=== PATIENT | female | born 1950 | race American Indian/Alaskan Native ===

== ENCOUNTER 2017-01-01 00:05 | Inpatient (IN) | payer MEDICARE, MEDICAID, OTHER ==
--- NOTE | 2017-01-01 01:09 | ED PDOC ---
Arrival/HPI - General Time Seen by Provider: 01/01/17 00:39 Historian: Patient - History of Present Illness Narrative History of Present Illness (Text): 01/01/17 01:08 Alisha Addison is a 66 year old female, whose past medical history includes diabetes, hepatitis C, hypertension, PUD positive for H. pylori, deaf/mute, and DKA, who presents to the Emergency department complaining of abdominal pain for the past 3 days. Patient reports associated nausea with 4 episodes of vomiting at home. Patient denies any fever, chills, chest pain, shortness of breath, diarrhea, urinary symptoms, back pain, neck pain, headache, dizziness, or any other complaints. Time/Duration: < week (3 days) Symptom Onset: Gradual Symptom Course: Unchanged Activities at Onset: Rest, Light Context: Home Past Medical History - Provider Review Nursing Documentation Reviewed: Yes - Infectious Disease Hx of Infectious Diseases: None - Tetanus Immunization Tetanus Immunization: Unknown - Cardiac Hx Cardiac Disorders: Yes Hx Hypertension: Yes - Pulmonary Hx Asthma: Yes Hx Chronic Obstructive Pulmonary Disease (COPD): No - Neurological HX Cerebrovascular Accident: No - HEENT Hx HEENT Disorder: Yes (deaf mute) Hx Cataracts: (pt denies cataracts and sx) Hx Deafness: Yes - Renal Hx Renal Failure: No - Endocrine/Metabolic Hx Diabetes Mellitus Type 1: No Hx Diabetes Mellitus Type 2: Yes - Hematological/Oncological Hx Blood Disorders: No Hx Cancer: No - Integumentary Hx Dermatological Disorder: Yes Other/Comment: dry flakey skin to both feet, multiple dark brown skin discolorations ble - Musculoskeletal/Rheumatological Hx Arthritis: No Hx Rheumatoid Arthritis: No - Gastrointestinal Hx Gastrointestinal Disorders: No Hx Gastroesophageal Reflux: No - Genitourinary/Gynecological Hx Genitourinary Disorders: No - Psychiatric Hx Psychophysiologic Disorder: No Hx Depression: No Hx Emotional Abuse: No Hx Physical Abuse: No Hx Substance Use: No - Past Surgical History Past Surgical History: No Previous - Surgical History Other/Comment: "Abdominal Surgery" - Anesthesia Hx Anesthesia: No - Suicidal Assessment Feels Threatened In Home Enviroment: No Family/Social History - Physician Review Nursing Documentation Reviewed: Yes Family/Social History: No Known Family HX Smoking Status: Unknown If Ever Smoked Hx Alcohol Use: No Hx Substance Use: No Hx Substance Use Treatment: No Allergies/Home Meds Allergies/Adverse Reactions: Allergies No Known Allergies Allergy (Verified 08/25/16 07:44) Review of Systems - Physician Review All systems were reviewed & negative as marked: Yes - Review of Systems Constitutional: Normal. absent: Fevers Eyes: Normal ENT: Normal Respiratory: Normal. absent: SOB, Cough Cardiovascular: Normal. absent: Chest Pain Gastrointestinal: Abdominal Pain, Nausea, Vomiting. absent: Diarrhea Genitourinary Female: Normal. absent: Dysuria, Frequency, Hematuria, Urine Output Changes Musculoskeletal: Normal. absent: Back Pain, Neck Pain Skin: Normal. absent: Rash Neurological: Normal. absent: Headache, Dizziness Endocrine: Normal Hemo/Lymphatic: Normal Psychiatric: Normal Physical Exam Vital Signs Reviewed: Yes Vital Signs Temp Pulse Resp BP Pulse Ox 01/01/17 03:08 97.9 F 112 H 16 116/79 98 01/01/17 02:40 98.5 F 126 H 16 137/92 H 97 01/01/17 01:56 110 H 16 98 01/01/17 01:18 141 H 16 99/54 L 98 Temperature: Afebrile Blood Pressure: Normal Pulse: Regular Respiratory Rate: Normal Appearance: Positive for: Well-Appearing, Non-Toxic, Comfortable Pain Distress: None Mental Status: Positive for: Alert and Oriented X 3 - Systems Exam Head: Present: Atraumatic, Normocephalic Pupils: Present: PERRL Extroacular Muscles: Present: EOMI Conjunctiva: Present: Normal Mouth: Present: Dry Neck: Present: Normal Range of Motion Respiratory/Chest: Present: Clear to Auscultation, Good Air Exchange. No: Respiratory Distress, Accessory Muscle Use Cardiovascular: Present: Regular Rate and Rhythm, Normal S1, S2. No: Murmurs Abdomen: Present: Normal Bowel Sounds. No: Tenderness, Distention, Peritoneal Signs Back: Present: Normal Inspection Upper Extremity: Present: Normal Inspection. No: Cyanosis, Edema Lower Extremity: Present: Normal Inspection. No: Edema Neurological: Present: GCS=15, CN II-XII Intact, Speech Normal Skin: Present: Warm, Dry, Normal Color. No: Rashes Psychiatric: Present: Alert, Oriented x 3, Normal Insight, Normal Concentration Medical Decision Making ED Course and Treatment: 01/01/17 01:08 Impression:r 66 year old female complaining of abdominal pain, nausea, and 4 episodes of vomiting for 3 days. Differential Diagnosis include but are not limited to: DKA vs. uncontrolled diabetes vs. diabetic gastroparesis Plan: -- EKG -- Chest X-ray -- Labs, cardiac enzymes, lipase, VBG -- IV fluids -- Reassess and disposition Prior Visits: Notes and results from previous visits were reviewed. Progress Notes: Reviewed radiology, sinus tachycardia at 143 bpm.. Non-specific ST/T wave changes 01/01/17 02:08 Reviewed labs, lactate: 2.4, glucose: 544, ph:7.31. Will order insulin drip. Case discussed with medical accounts receivable specialist svp research & ebusiness operations, who is aware and agrees with plan. Activated Sludge Operator paged. Case discussed with Dr. Calloway, litigation manager, who is aware and agrees with plan. Pt will be admitted to ICU for DKA under the hospitalist service. 01/01/17 02:13 Reviewed radiology, Chest X-ray shows no active disease. - Critical Care Critical Care Minutes: 30 minutes - Lab Interpretations Lab Results: 01/01/17 01:38 01/01/17 01:38 Lab Results 01/01/17 01:38: WBC 8.0 D, RBC 5.65, Hgb 15.5, Hct 45.6, MCV 80.7, MCH 27.4, MCHC 34.0, RDW 12.9, Plt Count 153, MPV 12.5 H, PT 11.3, INR 1.05, APTT 21.2 L, pO2 49, VBG pH 7.31 L, VBG pCO2 43.0, VBG HCO3 21.7, VBG Total CO2 23.0, VBG O2 Sat (Calc) 84.3 H, VBG Base Excess -4.5 L, VBG Potassium 5.2, Glucose 544 H*, Lactate 2.4 H, FiO2 21.0, Sodium 134.0, Potassium 5.7 H* D, Chloride 94.0 L, Carbon Dioxide 20 L, Anion Gap 24 H, BUN 54 H, Creatinine 1.2, Est GFR ( Amer) 55, Est GFR (Non-Af Amer) 45, Random Glucose 517 H* D, Calcium 10.0, Phosphorus 5.4 H, Magnesium 2.4 H, Total Bilirubin 1.2, AST 38, ALT 75 H, Alkaline Phosphatase 75, Lactate Dehydrogenase 578, Total Creatine Kinase 38, Troponin I 0.02 D, Total Protein 8.9 H, Albumin 4.1, Globulin 4.8, Albumin/ Globulin Ratio 0.9 L, Lipase 110, Venous Blood Potassium 5.2 01/01/17 01:12: POC Glucose (mg/dL) 468 H* I have reviewed the lab results: Yes - RAD Interpretation Narrative RAD Interpretations (Text): Chest X-ray shows no active disease. Radiology Orders: 01/01/17 01:23 CHEST PORTABLE [RAD] Stat Television Parts Tester: ED Physician - EKG Interpretation Interpreted by ED Physician: Yes Type: 12 lead EKG - Medication Orders Current Medication Orders: Enoxaparin Sodium (Lovenox) 40 mg SC DAILY BREEZY PRN Reason: Protocol Last Admin: 01/01/17 10:04 Dose: 40 MG Protocol for PTT Monitoring Document 01/01/17 10:04 MAR (Rec: 01/01/17 10:05 MAR [id number]) Protocol Protocol for PTT Monitoring Following clinical pathway protocol (regime/therapy) Subcutaneous Administrations Document 01/01/17 10:04 MAR (Rec: 01/01/17 10:05 MAR [id number]) Injection Site MAR Injection Site Left Deltoid Charges for Administration # of Subcutaneous Administrations 1 Glimepiride (Amaryl) 4 mg PO ACBD BREEZY Last Admin: 01/01/17 17:18 Dose: 4 MG Dextrose/Sodium Chloride (Dextrose 5%/0.45% Ns 1000 Ml) 1,000 mls @ 150 mls/hr IV .Q6H40M BREEZY Last Admin: 01/01/17 16:00 Dose: 150 MLS/HR eMAR Start Stop Document 01/01/17 16:00 MAR (Rec: 01/01/17 16:12 MAR [id number]) Intravenous Solution Start Date 01/01/17 Start Time 16:00 End Date 01/01/17 Ceftriaxone Sodium (Rocephin 1 Gram Ivpb) 100 mls @ 100 mls/hr IVPB DAILY BREEZY PRN Reason: Protocol Last Admin: 01/01/17 10:06 Dose: 100 MLS/HR eMAR Start Stop Document 01/01/17 10:06 MAR (Rec: 01/01/17 10:06 MAR [id number]) Intravenous Solution Start Date 01/01/17 Start Time 10:06 End Date 01/01/17 End time 11:06 Total Infusion Time 60 Insulin Detemir (Levemir) 14 unit SC HS [facility] Insulin Human Lispro (Humalog Low) 0 units SC ACHS [facility] PRN Reason: Protocol Last Admin: 01/01/17 17:17 Dose: Not Given Non-Admin Reason: Blood Sugar Parameter MAR Blood Glucose Document 01/01/17 17:17 [facility] (Rec: 01/01/17 17:17 [id number]) Blood Glucose Finger Stick Blood Glucose (70-120) 121 Subcutaneous Administrations Document 01/01/17 17:17 [facility] (Rec: 01/01/17 17:17 [id number]) Charges for Administration # of Subcutaneous Administrations 0 Lisinopril (Zestril) 10 mg PO DAILY [facility] Last Admin: 01/01/17 10:05 Dose: 10 MG [facility] Pulse and Blood Pressure Document 01/01/17 10:05 [facility] (Rec: 01/01/17 10:05 [id number]) Pulse Pulse Rate (60-90) 98 Blood Pressure Blood Pressure (100/60-150/90) 177/120 Ondansetron HCl (Zofran Inj) 4 mg IVP Q6H PRN PRN Reason: Nausea/Vomiting Discontinued Medications Sodium Chloride (Sodium Chloride 0.9%) 1,000 mls @ 2,000 mls/hr IV .Q30M ONE Stop: 01/01/17 01:55 Last Admin: 01/01/17 01:56 Dose: 2,000 MLS/HR eMAR Start Stop Document 01/01/17 01:56 [email or web address] (Rec: 01/01/17 01:56 [email or web address] [id number] Intravenous Solution Start Date 01/01/17 Start Time 01:56 End Date 01/01/17 Insulin Human Regular 100 (units/ Sodium Chloride) 100 mls @ 8 mls/hr IV .[id number] PRN; Protocol; 8 UNITS/HR PRN Reason: TITRATE PER MD ORDER Last Titration: 01/01/17 04:17 Dose: 1.5 UNITS/HR Titration Intervention Document 01/01/17 04:17 KAC (Rec: 01/01/17 04:17 KAC [id number]) Titration Dosing Titration Dose 1.5 IV Rate 1.5 Intake/Decrease Decrease Sodium Chloride (Sodium Chloride 0.9%) 1,000 mls @ 150 mls/hr IV .Q6H40M [facility] Last Admin: 01/01/17 03:34 Dose: 150 MLS/HR eMAR Start Stop Document 01/01/17 03:34 [email or web address] (Rec: 01/01/17 03:34 [facility]STS1 [id number]) Intravenous Solution Start Date 01/01/17 Start Time 03:34 Insulin Human Regular 100 (units/ Sodium Chloride) 100 mls @ 8 mls/hr IV .[id number] PRN; Protocol; 8 UNITS/HR PRN Reason: TITRATE PER MD ORDER Last Titration: 01/01/17 09:30 Dose: 2 UNITS/HR Titration Intervention Document 01/01/17 09:30 MAR (Rec: 01/01/17 10:02 MAR [id number]) Titration Dosing Titration Dose 2 IV Rate 2 Intake/Decrease Increase Insulin Detemir (Levemir) 10 unit SC Q12 BREEZY Last Admin: 01/01/17 10:05 Dose: 10 UNIT Subcutaneous Administrations Document 01/01/17 10:05 RADHAE (Rec: 01/01/17 10:05 MAR [id number]) Injection Site MAR Injection Site Right Deltoid Charges for Administration # of Subcutaneous Administrations 1 Insulin Human Lispro (Humalog Low) 0 units SC ACHS BREEZY PRN Reason: Protocol Insulin Human Regular (Humulin R) 10 units IVP STAT STA Stop: 01/01/17 02:08 Last Admin: 01/01/17 02:26 Dose: 10 UNITS IVP Administration Document 01/01/17 02:26 [email or web address] (Rec: 01/01/17 02:26 CASTS1 [id number] Charges for Administration # of IVP Administrations 1 - Scribe Statement The provider has reviewed the documentation as recorded by the George Solorzano Provider Attestation: All medical record entries made by the Savannahibquita were at my direction and personally dictated by me. I have reviewed the chart and agree that the record accurately reflects my personal performance of the history, physical exam, medical decision making, and the department course for this patient. I have also personally directed, reviewed, and agree with the discharge instructions and disposition. Disposition/Present on Arrival - Present on Arrival Any Indicators Present on Arrival: No History of DVT/PE: No History of Uncontrolled Diabetes: Yes Urinary Catheter: No History of Decub. Ulcer: No History Surgical Site Infection Following: None - Disposition Have Diagnosis and Disposition been Completed?: Yes Diagnosis: Diabetic ketoacidosis Disposition: HOSPITALIZED Disposition Time: 02:18 Patient Plan: Admission Patient Problems: Current Active Problems Problem Status Diagnosed Abdominal pain Acute Diabetic ketoacidosis Acute Condition: STABLE
[2017-01-01] MEDS ORDERED: Sodium Chloride 0.9% 1,000 ML IV ONE (01:26)
[2017-01-01 01:54] LABS: HEMATOCRIT 45.6 % (36.0-48.0); MEAN CELL VOLUME 80.7 fL (80.0-105.0); MEAN CORPUSCULAR HEMOGLOBIN 27.4 pg (25.0-35.0); MEAN PLATELET VOLUME 12.5 fl (7.0-11.0); RED CELL DISTRIBUTION WIDTH 12.9 % (11.5-14.5)
[2017-01-01 01:55] LABS: VENOUS BLOOD GAS BASE EXCESS -4.5 mmol/L (0.0-2.0); VENOUS BLOOD PH 7.31 (7.32-7.43)
[2017-01-01 02:03] LABS: INR 1.05 (0.93-1.08); PARTIAL THROMBOPLASTIN TIME 21.2 Seconds (23.7-30.8)
[2017-01-01 02:04] LABS: ALB/GLOB RATIO 0.9 (1.1-1.8); BILIRUBIN,TOTAL 1.2 mg/dL (0.2-1.3); TOTAL PROTEIN 8.9 g/dL (5.8-8.3)
[2017-01-01] MEDS ORDERED: Insulin Regular 1 UNITS/0.01 ML ML IVP STA (02:07)
[2017-01-01] MEDS ORDERED: Insulin Regular 100 UNITS in Sodium Chloride 0.9% 99 ML IV PRN ×2 (02:11→07:26)
[2017-01-01 02:15] LABS: TROPONIN I 0.02 ng/mL
[2017-01-01 02:18] LABS: POTASSIUM 5.7 mmol/L (3.6-5.0)
[2017-01-01] MEDS ORDERED: Sodium Chloride 0.9% 1,000 ML IV SCH (03:30)
[2017-01-01 03:35] LABS: MAGNESIUM 2.4 mg/dL (1.7-2.2)
--- NOTE | 2017-01-01 03:38 | CP.PCM.HP ---
History of Present Illness - History of Present Illness History of Present Illness: CC: Nausea and Vomiting x 4 days HPI: 66 y/o female known to myself from previous admissions with the PMHx Type 2 DM, PUD (h/o H. pylori), Hep C comes to the ED with a complaint of nausea and vomiting for the past 4 days. Patient also reports some cramping abdominal pain ; increased frequency of urination and occasional subjective chills. She denies any complaints of chest pain, palpitations, diarrhea, cough, light headedness or dizziness. She states that she does not take SQ insulin and also that she has been unable to keep her po medications down for her Diabetes secondary to her vomiting. When asked why she was not taking her insulin, she was not able to give an answer. Patient is deaf and mute, Video translation was used via the monitor in the ED. PMHx: as above Allergies: NKDA Fam Hx: reviewed and noncontributory Soc Hx: denies tobacco/etoh/illicit drug use; lives with a roomate here in [place] Meds: Levemir 20 units SQ Hs (patient is not taking this medication; chart was reviewed and she was given clear instructions in the past on the importance of her insulin regimen and adherence to it) Protonix 40mg po daily Zofran Glucerna bid Reglan 5mg po bid Lisinopril 2.5mg po daily Amaryl 4mg po bid Present on Admission - Present on Admission Any Indicators Present on Admission: Yes History of Uncontrolled Diabetes: Yes Review of Systems - Review of Systems Review of Systems: As per HPI otherwise negative for a 12 point review of systems Past Patient History - Infectious Disease Hx of Infectious Diseases: None - Tetanus Immunizations Tetanus Immunization: Unknown - Past Social History Smoking Status: Unknown If Ever Smoked - CARDIAC Hx Cardiac Disorders: Yes Hx Hypertension: Yes - PULMONARY Hx Asthma: Yes Hx Chronic Obstructive Pulmonary Disease (COPD): No - NEUROLOGICAL HX Cerebrovascular Accident: No - HEENT Hx HEENT Problems: Yes (deaf mute) Hx Cataracts: (pt denies cataracts and sx) Hx Deafness: Yes - RENAL Hx Renal Failure: No - ENDOCRINE/METABOLIC Hx Diabetes Mellitus Type 1: No Hx Diabetes Mellitus Type 2: Yes - HEMATOLOGICAL/ONCOLOGICAL Hx Blood Disorders: No Hx Cancer: No - INTEGUMENTARY Hx Dermatological Problems: Yes Other/Comment: dry flakey skin to both feet, multiple dark brown skin discolorations ble - MUSCULOSKELETAL/RHEUMATOLOGICAL Hx Arthritis: No Hx Rheumatoid Arthritis: No - GASTROINTESTINAL Hx Gastrointestinal Disorders: No Hx Gastroesophageal Reflux: No - GENITOURINARY/GYNECOLOGICAL Hx Genitourinary Disorders: No - PSYCHIATRIC Hx Psychophysiologic Disorder: No Hx Depression: No Hx Emotional Abuse: No Hx Physical Abuse: No Hx Substance Use: No - SURGICAL HISTORY Other/Comment: "Abdominal Surgery" - ANESTHESIA Hx Anesthesia: No Meds Allergies/Adverse Reactions: Allergies Allergy/AdvReac Type Severity Reaction Status Date / Time No Known Allergies Allergy Verified 08/25/16 07:44 Physical Exam - Constitutional Appears: Cachectic, Chronically Ill - Head Exam Head Exam: ATRAUMATIC, NORMOCEPHALIC - Eye Exam Eye Exam: EOMI - ENT Exam ENT Exam: Mucous Membranes Dry - Neck Exam Neck exam: Positive for: Full Rom - Respiratory Exam Respiratory Exam: Clear to Auscultation Bilateral, NORMAL BREATHING PATTERN. absent: Rhonchi, Wheezes - Cardiovascular Exam Cardiovascular Exam: Tachycardia, +S1, +S2 - GI/Abdominal Exam GI & Abdominal Exam: Hypoactive Bowel Sounds, Soft, Tenderness (diffusely tender abdomen; no rebound or gaurding noted). absent: Guarding, Rebound - Rectal Exam Rectal Exam: Deferred - Extremities Exam Extremities exam: Positive for: normal inspection. Negative for: calf tenderness - Neurological Exam Neurological exam: Alert, Oriented x3 - Psychiatric Exam Psychiatric exam: Flat Affect - Skin Skin Exam: Dry, Intact, Normal Color, Warm Results - Vital Signs Recent Vital Signs: Last Vital Signs Temp 97.9 F 01/01/17 03:08 Pulse 112 H 01/01/17 03:08 Resp 16 01/01/17 03:08 BP 116/79 01/01/17 03:08 Pulse Ox 98 01/01/17 03:08 - Labs Result Diagrams: 01/01/17 01:38 01/01/17 01:38 - EKG Data EKG Interpreted by: Myself EKG shows normal: Sinus rhythm Rate: Tachycardia (ST @ 143 bpm; right axis deviation; no significant ST elevations noted; no Twave inversions) - Imaging and Cardiology Chest x-ray Status: Image reviewed by me (no pleural effusions; hyperinflated; no clearly defined consolidation;minimal RLL opacity) Assessment & Plan - Assessment and Plan (Free Text) Assessment: 66 y/o female with a PMHx Uncontrolled DM, Hep C, PUD who presents to the ED with a 4 day history of nausea and vomiting and is found to have an elevated anion GAP metabolic acidosis suggestive of DKA. Plan: 1) DKA - will obtain urinalysis to evaluate for ketones; IVF hydration to complete 2L IVF bolus in the ED followed by 150cc/hr of normal saline; patient already started on an insulin drip by the ED; AG of 18; will perform Q1h fingersticks while on the insulin drip and Q4H bmp until she shows resolution of her AG acidosis. Patient will be kept NPO and given Zofran prn 2) DM - regimen will need to be adjusted based off of her insulin requirements while on the drip; I will defer to the daytime hospitalist team on whether to obtain an endocrine consultation or not. A1c recently checked and shows that her Diabetes is poorly controlled. (12.0 in July of last year). will repeat another A1c level this AM 3) PUD - will place her on IV protonix daily; transition to po once she is able to tolerate an oral diet after her gap closes 4) DVT ppx - will place her on Lovenox SQ daily
[2017-01-01 03:41] LABS: PHOSPHOROUS 5.4 mg/dL (2.5-4.5)
[2017-01-01 04:52] VITALS: BMI 19.1
[2017-01-01 06:02] LABS: BLOOD UREA NITROGEN 48 mg/dL (7-21); CALCIUM 9.2 mg/dL (8.4-10.5); CARBON DIOXIDE 21 mmol/L (21-33); CHLORIDE 107 mmol/L (98-107); GFR AFRICAN-AMERICAN > 60; GLUCOSE,RANDOM 126 mg/dL (70-110); SODIUM 141 mmol/L (132-148)
--- NOTE | 2017-01-01 07:12 | RAD ---
HISTORY: nausea COMPARISON: 08/25/2016 at 8:10 a.m. FINDINGS: LUNGS: No active pulmonary disease. PLEURA: No significant pleural effusion identified, no pneumothorax apparent. CARDIOVASCULAR: Normal. OSSEOUS STRUCTURES: Diffuse thoracic spondylosis VISUALIZED UPPER ABDOMEN: Normal. OTHER FINDINGS: None. IMPRESSION: No active disease.
[2017-01-01] MEDS: Dextrose 5%/0.45% NS 1,000 ML IV SCH ×3 (07:36→21:29)
[2017-01-01 08:28] LABS: PH,URINE 5.5 (4.7-8.0); URINE BILIRUBIN NEGATIVE (NEGATIVE); URINE BLOOD TRACE-INTACT (NEGATIVE); URINE GLUCOSE (UA) >=1000 mg/dL (NEGATIVE); URINE KETONE 15 mg/dL (NEGATIVE); URINE LEUKOCYTE ESTERASE SMALL Leu/uL (NEGATIVE); URINE PROTEIN TRACE mg/dL (<30 mg/dL); URINE UROBILINOGEN 0.2 E.U./dL (<1 E.U./dL)
[2017-01-01 08:34] LABS: URINE APPEARANCE SL CLOUDY (CLEAR); URINE COLOR YELLOW (YELLOW)
[2017-01-01 08:40] LABS: URINE BACTERIA MANY (NEG); URINE RBC 0 - 2 /hpf (0-2)
[2017-01-01] MEDS ORDERED: Insulin Detemir 100 units/ml Vial (Levemir) SC SCH ×2 (10:00→22:00)
[2017-01-01] MEDS: Enoxaparin 40 mg Syringe SC SCH (10:04)
[2017-01-01] MEDS: cefTRIAXone 1 gm 100 ML IVPB SCH (10:06)
[2017-01-01 11:00] LABS: BLOOD UREA NITROGEN 39 mg/dL (7-21); CALCIUM 9.1 mg/dL (8.4-10.5); CARBON DIOXIDE 26 mmol/L (21-33); CHLORIDE 104 mmol/L (95-110); GFR AFRICAN-AMERICAN > 60; GLUCOSE,RANDOM 192 mg/dL (70-110); POTASSIUM 3.8 mmol/L (3.6-5.0); SODIUM 141 mmol/L (132-148)
--- NOTE | 2017-01-01 12:31 | CP.CCUPN ---
CCU Subjective - Physician Review Events Since Last Encounter (Free Text): 01/01/17 12:24 No acute events overnight Remained on Insulin drip with closure of AG this morning. CCU Objective - Vital Signs / Intake & Output Vital Signs (Last 4 hours): Vital Signs Pulse BP 01/01/17 10:05 98 H 177/120 H Intake and Output (Last 8hrs): Intake & Output 12/31/16 01/01/17 01/01/17 22:59 06:59 14:59 Intake Total 300 Balance 300 Weight 98 lb Intake: IV 300 Right Forearm 300 - Physical Exam Head: Positive for: Atraumatic, Normocephalic Pupils: Positive for: PERRL Extroacular Muscles: Positive for: EOMI Conjunctiva: Positive for: Normal Mouth: Positive for: Moist Mucous Membranes, Dry Neck: Positive for: Normal Range of Motion Respiratory/Chest: Positive for: Clear to Auscultation, Good Air Exchange. Negative for: Respiratory Distress, Accessory Muscle Use Cardiovascular: Positive for: Regular Rate and Rhythm, Normal S1, S2. Negative for: Murmurs Abdomen: Positive for: Normal Bowel Sounds. Negative for: Tenderness, Distention, Peritoneal Signs Back: Positive for: Normal Inspection Upper Extremity: Positive for: Normal Inspection. Negative for: Cyanosis, Edema Lower Extremity: Positive for: Normal Inspection. Negative for: Edema Neurological: Positive for: GCS=15, CN II-XII Intact, Speech Normal Skin: Positive for: Warm, Dry, Normal Color. Negative for: Rashes Psychiatric: Positive for: Alert, Oriented x 3, Normal Insight, Normal Concentration - Medications Active Medications: Active Medications Generic Name Dose Route Start Last Admin Trade Name Zakq PRN Reason Stop Dose Admin Enoxaparin Sodium 40 mg 01/01/17 10:00 01/01/17 10:04 Lovenox SC 40 mg DAILY BREEZY Administration Protocol Dextrose/Sodium Chloride 1,000 mls @ 150 mls/hr 01/01/17 07:30 01/01/17 07:36 Dextrose 5%/0.45% Ns 1000 Ml IV 150 mls/hr .[id number] BREEZY Administration Ceftriaxone Sodium 100 mls @ 100 mls/hr 01/01/17 10:00 01/01/17 10:06 Rocephin 1 Gram Ivpb IVPB 100 mls/hr DAILY BREEZY Administration Protocol Insulin Detemir 10 unit 01/01/17 10:00 01/01/17 10:05 Levemir SC 10 unit Q12 BREEZY Administration Insulin Human Lispro 0 units 01/01/17 16:30 Humalog Low SC ACHS [facility] Protocol Lisinopril 10 mg 01/01/17 10:00 01/01/17 10:05 Zestril PO 10 mg DAILY BREEZY Administration Ondansetron HCl 4 mg 01/01/17 03:21 Zofran Inj IVP Q6H PRN Nausea/Vomiting - Patient Studies Lab Studies: Lab Studies 01/01/17 01/01/17 01/01/17 Range/Units 10:30 08:00 05:00 Sodium 141 141 (132-148) mmol/L Potassium 3.8 4.0 (3.6-5.0) mmol/L Chloride 104 107 (95-110) mmol/L Carbon Dioxide 26 21 (21-33) mmol/L Anion Gap 15 17 (10-20) BUN 39 H 48 H (7-21) mg/dL Creatinine 0.8 0.9 (0.5-1.4) mg/dL Est GFR ( Amer) > 60 > 60 Est GFR (Non-Af Amer) > 60 > 60 POC Glucose (mg/dL) (65-110) mg/dL Random Glucose 192 H 126 H (70-110) mg/dL Calcium 9.1 9.2 (8.4-10.5) mg/dL Urine Color Yellow (YELLOW) Urine Appearance Sl cloudy (CLEAR) Urine pH 5.5 (4.7-8.0) Ur Specific [place] 1.015 (1.005-1.035) Urine Protein Trace H (<30 mg/dL) mg/dL Urine Glucose (UA) >=1000 (NEGATIVE) mg/dL Urine Ketones 15 H (NEGATIVE) mg/dL Urine Blood Trace-intact H (NEGATIVE) Urine Nitrate Positive H (NEGATIVE) Urine Bilirubin Negative (NEGATIVE) Urine Urobilinogen 0.2 (<1 E.U./dL) E.U./dL Ur Leukocyte Esterase Small H (NEGATIVE) Leonid/uL Urine RBC 0 - 2 (0-2) /hpf Urine WBC 5 - 10 (0-6) /hpf Ur Epithelial Cells 4 - 5 (0-5) /hpf Urine Bacteria Many (NEG) 01/01/17 Range/Units 03:48 Sodium (132-148) mmol/L Potassium (3.6-5.0) mmol/L Chloride (95-110) mmol/L Carbon Dioxide (21-33) mmol/L Anion Gap (10-20) BUN (7-21) mg/dL Creatinine (0.5-1.4) mg/dL Est GFR ( Amer) Est GFR (Non-Af Amer) POC Glucose (mg/dL) 230 H (65-110) mg/dL Random Glucose (70-110) mg/dL Calcium (8.4-10.5) mg/dL Urine Color (YELLOW) Urine Appearance (CLEAR) Urine pH (4.7-8.0) Ur Specific [place] (1.005-1.035) Urine Protein (<30 mg/dL) mg/dL Urine Glucose (UA) (NEGATIVE) mg/dL Urine Ketones (NEGATIVE) mg/dL Urine Blood (NEGATIVE) Urine Nitrate (NEGATIVE) Urine Bilirubin (NEGATIVE) Urine Urobilinogen (<1 E.U./dL) E.U./dL Ur Leukocyte Esterase (NEGATIVE) Leonid/uL Urine RBC (0-2) /hpf Urine WBC (0-6) /hpf Ur Epithelial Cells (0-5) /hpf Urine Bacteria (NEG) Laboratory Results - last 24 hr 01/01/17 01/01/17 01/01/17 03:48 05:00 08:00 Sodium 141 Potassium 4.0 Chloride 107 Carbon Dioxide 21 Anion Gap 17 BUN 48 H Creatinine 0.9 Est GFR ( Amer) > 60 Est GFR (Non-Af Amer) > 60 POC Glucose (mg/dL) 230 H Random Glucose 126 H Calcium 9.2 Urine Color Yellow Urine Appearance Sl cloudy Urine pH 5.5 Ur Specific [place] 1.015 Urine Protein Trace H Urine Glucose (UA) >=1000 Urine Ketones 15 H Urine Blood Trace-intact H Urine Nitrate Positive H Urine Bilirubin Negative Urine Urobilinogen 0.2 Ur Leukocyte Esterase Small H Urine RBC 0 - 2 Urine WBC 5 - 10 Ur Epithelial Cells 4 - 5 Urine Bacteria Many 01/01/17 10:30 Sodium 141 Potassium 3.8 Chloride 104 Carbon Dioxide 26 Anion Gap 15 BUN 39 H Creatinine 0.8 Est GFR ( Amer) > 60 Est GFR (Non-Af Amer) > 60 POC Glucose (mg/dL) Random Glucose 192 H Calcium 9.1 Urine Color Urine Appearance Urine pH Ur Specific [place] Urine Protein Urine Glucose (UA) Urine Ketones Urine Blood Urine Nitrate Urine Bilirubin Urine Urobilinogen Ur Leukocyte Esterase Urine RBC Urine WBC Ur Epithelial Cells Urine Bacteria Fingerstick Blood Sugar Results: 151 Review of Systems - Review of Systems Systems not reviewed;Unavailable: Other (Pt is Deaf / Mute cannot obtain) Critical Care Progress Note - Nutrition Nutrition: Nutrition Category Date Time Status Consistent Carbohydrate [DIET] Diets 01/01/17 Lunch Ordered Assessment/Plan - Assessment and Plan (Free Text) Assessment: 66 y/o F w/ DKA DKA from lack on Insulin use at home. Placed on Insulin drip overnight on Protocol. A.M BMP shows Resolution of AG. Plans to stop D5 and start diet . Levimir 10 BID to be started . RISS also to added additional Insulin Monitor BMP after Insulin has stopped. Endrocrine consult placed. cc time 35 min case d/w hospitalist
[2017-01-01] MEDS ORDERED: Insulin Lispro (humaLOG) LOW Coverage SC SCH (16:30)
[2017-01-01 16:47] LABS: BLOOD UREA NITROGEN 31 mg/dL (7-21); CALCIUM 8.8 mg/dL (8.4-10.5); CARBON DIOXIDE 27 mmol/L (21-33); CHLORIDE 102 mmol/L (98-107); GFR AFRICAN-AMERICAN > 60; GLUCOSE,RANDOM 122 mg/dL (70-110); POTASSIUM 3.6 mmol/L (3.6-5.0); SODIUM 136 mmol/L (132-148)
--- NOTE | 2017-01-01 16:49 | CARD ---
APPROVED REPORT EKG Measurement Heart [id number] 142P [id number] <Conclusion> Sinus tachycardia Right superior axis deviation Pulmonary disease pattern ST elevation, consider anterior injury or acute infarct ACUTE MT Abnormal ECG
[2017-01-01] MEDS: Insulin Lispro (humaLOG) LOW Coverage SC SCH ×2 (17:17→22:36)
--- NOTE | 2017-01-01 17:34 | CON ---
DATE: 01/01/2017 LOCATION: CCU 128, room 4. She is being transferred to telemetry. HISTORY OF PRESENT ILLNESS: This is a 66-year-old female with known history of type 2 insulin-requir ing diabetes, presenting here with intractable vomiting episodes and upper abdominal pain and is now being referred for diabetic evaluation and management. PAST MEDICAL HISTORY: As mentioned above, history of type 2 insulin-requiring diabetes, currently on a combination of Amaryl given as 4 mg b.i.d. with Levemir at 20 units subQ at bedtime daily as given , history of hypertensive cardiovascular disease and dyslipidemia, history of chronic gastritis and p rior peptic ulcer disease. There is also mention of a history of hepatitis C infection, but has yet to be confirmed. FAMILY HISTORY: Positive for diabetes and hypertension. SOCIAL HISTORY: The patient is actually deaf mute with a very supportive family. No known substance use. REVIEW OF SYSTEMS: As mentioned above. As per the records, she has had recent generalized body weak ness with easy fatigability and tiredness and increasing hypersomnolence and lethargy. Also admits t o dizziness and lightheadedness. No chest pains or palpitations or PNDs. She admits to severe upper abdominal pain with intractable nausea, dyspepsia and vomiting. Also admits to marked polyuria, noc turia and about a 5-pound or so weight loss. PHYSICAL EXAMINATION: GENERAL: This is an female in no apparent distress. VITAL SIGNS: Blood pressure of 140/80, pulse of 70 beats per minute and regular, temperature 98, res pirations 20. Height is 5 feet, weight is 98 pounds. HEENT: Head normocephalic. Eyes anicteric with pink conjunctivae. Fundoscopy not possible at this time. Ears, nose and throat otherwise normal. NECK: Supple. Thyroid gland is normal size. No carotid bruits or any cervical adenopathy. CARDIOPULMONARY: Some adynamic precordium. S1, S2 is rapid and regular. LUNGS: Clear to auscultation. ABDOMEN: Flat, soft with positive bowel sounds. EXTREMITIES: No peripheral edema. Pulses are +2 bilaterally. LABORATORY DATA: Her initial chemistries showed a BUN of 54, sodium 130, potassium 5.7, chloride 92, CO2 of 20, glucose 517 and creatinine 1.2. The initial random glucose was 468 mg/dL. ASSESSMENT: This is a 66-year-old female with uncontrolled and decompensated type 2 insulin-requirin g diabetes, presenting here with hyperosmolar hyperglycemic state and dehydration with prerenal azote femi and spurious hyponatremia and hyperkalemia with mild metabolic acidosis, but not DKA as noted. PLAN OF MANAGEMENT: We will modify her current basal insulin regimen and increase the Levemir to 14 units subQ at bedtime daily to start tonight. We will also modify the coverage scale to obviate hypo glycemia and detailed orders have been given. We will restart her on Amaryl given as 4 mg b.i.d. bef ore meals to start today as ordered. We will obtain serial chemistries and supplement accordingly as needed. We will also continue the IV hydration to optimize her fluid and electrolyte losses from th e increased osmotic diuresis. We will follow and advise accordingly. Nichole Mendoza MD cc: [id number] TT: 01/01/2017 17:33:44 Confirmation # [id number] Dictation # [id number]
[2017-01-02] MEDS ORDERED: Metoprolol 1 mg/ml Inj IVP ONE (03:25)
[2017-01-02] MEDS: Dextrose 5%/0.45% NS 1,000 ML IV SCH (04:09)
[2017-01-02] MEDS ORDERED: Labetalol 5 mg/ml Inj 20ML IV PRN (04:17)
[2017-01-02 05:42] LABS: ADD MANUAL DIFF? NO
[2017-01-02 05:45] LABS: BASO # 0.01 K/mm3 (0.0-2.0); BASO % 0.2 % (0.0-3.0); EOS % 0.9 % (1.5-5.0); GRAN # 2.18 (1.4-6.5); GRAN % 49.7 % (50.0-68.0); HEMATOCRIT 42.8 % (36.0-48.0); LYMPH # 1.8 (1.2-3.4); MEAN CELL VOLUME 80.5 fL (80.0-105.0); MEAN CORPUSCULAR HEMOGLOBIN 27.1 pg (25.0-35.0); MEAN CORPUSCULAR HGB CONC 33.6 g/dl (31.0-37.0); MEAN PLATELET VOLUME 12.4 fl (7.0-11.0); MONO # 0.4 (0.1-0.6); MONO % 8.2 % (1.0-6.0); PLATELET COUNT 139 10^3/uL (120.0-450.0); RED CELL DISTRIBUTION WIDTH 12.7 % (11.5-14.5)
[2017-01-02 05:51] LABS: WHITE BLOOD COUNT 4.4 10^3/ul (4.5-11.0)
[2017-01-02 05:59] LABS: ALB/GLOB RATIO 0.8 (1.1-1.8); ALKALINE PHOSPHATASE 61 U/L (38-133); ALT/SGPT 64 U/L (7-56); AST/SGOT 37 U/L (15-39); BLOOD UREA NITROGEN 19 mg/dL (7-21); CALCIUM 8.3 mg/dL (8.4-10.5); CARBON DIOXIDE 27 mmol/L (21-33); CHLORIDE 99 mmol/L (98-107); CHOLESTEROL 173 mg/dL (130-200); GFR AFRICAN-AMERICAN > 60; GLUCOSE,RANDOM 290 mg/dL (70-110); POTASSIUM 4.1 mmol/L (3.6-5.0); SODIUM 133 mmol/L (132-148); TOTAL PROTEIN 7.6 g/dL (5.8-8.3)
[2017-01-02] MEDS: Insulin Lispro (humaLOG) LOW Coverage SC SCH ×5 (08:30→22:41)
[2017-01-02] MEDS: cefTRIAXone 1 gm 100 ML IVPB SCH (10:12)
[2017-01-02] MEDS: Enoxaparin 40 mg Syringe SC SCH (10:13)
--- NOTE | 2017-01-02 17:00 | PN ---
DATE: 01/02/2017 ROOM: 569 This is a 66-year-old female with recent uncontrolled type 2 insulin-requiring diabetes, presenting h ere with hyperosmolar hyperglycemic state and mild ketosis and is now being followed closely for meta bolic management. Her glycemic levels are fluctuating, but improved, and the latest chemistries showed a BUN of 19, sod ium 133, potassium 4.1, chloride 99, CO2 27, glucose 219 and creatinine 0.7. Her hemoglobin A1c is e xtremely elevated at 14.8%, clearly indicative of very poor outpatient metabolic control of her diabe tic condition even prior to this admission. So at this time, will increase her basal insulin with Levemir to be given as 24 units subQ at bedtime daily to start tonight. Will continue the Amaryl given as 4 mg b.i.d. before meals as ordered. Ascencion l also add Januvia given as 100 mg once daily in the morning as ordered for today and given otherwise . Will modify the coverage scale to obviate hypoglycemia and detailed orders have been given. Will follow and advise accordingly. Will also reinforce diabetic education and dietary instructions at th e time of this admission to obviate further readmission and/or further hyperglycemic accelerations as noted thereof. Will follow. Nichole Mendoza MD cc: [id number] TT: 01/02/2017 17:00:32 Confirmation # [id number] Dictation # [id number] osmar
--- NOTE | 2017-01-02 18:17 | CP.PCM.PN ---
<Farnaz Cabral - Last Filed: 01/02/17 21:15> Subjective - Date & Time of Evaluation Date of Evaluation: 01/02/17 Time of Evaluation: 09:00 - Subjective Subjective: Patient seen and examined at bedside. No acute events overnight. Patient was resting in bed comfortably at the time of exam. Patient is deaf, communication was through in handwriting. Patient has no current complaints. She is tolerating food and liquid well. Patient denies Spoken to [facility] clinic over the phone stated that patient is very noncompliant, she only been to the clinic once in July 2016 and never came back for follow up appointments. Patient had an episode of nausea and vomiting in the afternoon. Objective - Vital Signs/Intake and Output Vital Signs (last 24 hours): Temp Pulse Resp BP Pulse Ox 97.7 F 113 H 20 134/106 H 94 L 01/02/17 07:30 01/02/17 10:15 01/02/17 07:30 01/02/17 10:15 01/02/17 07:30 Intake and Output: 01/02/17 01/02/17 06:59 18:59 Intake Total 1800 600 Output Total 1075 Balance 725 600 - Medications Medications: Current Medications Enoxaparin Sodium (Lovenox) 40 mg SC DAILY BREEZY PRN Reason: Protocol Last Admin: 01/02/17 10:13 Dose: 40 mg Glimepiride (Amaryl) 4 mg PO ACBD [facility] Last Admin: 01/02/17 16:16 Dose: 4 mg Ceftriaxone Sodium (Rocephin 1 Gram Ivpb) 100 mls @ 100 mls/hr IVPB DAILY [facility] PRN Reason: Protocol Last Admin: 01/02/17 10:12 Dose: 100 mls/hr Insulin Detemir (Levemir) 24 unit SC HS [facility] Insulin Human Lispro (Humalog Low) 0 units SC ACHS BREEZY PRN Reason: Protocol Last Admin: 01/02/17 17:30 Dose: Not Given Labetalol HCl (Trandate) 20 mg IV Q4H PRN PRN Reason: Systolic Blood Pressure Last Admin: 01/02/17 04:34 Dose: 20 mg Lisinopril (Zestril) 10 mg PO DAILY [facility] Last Admin: 01/02/17 10:15 Dose: 10 mg Mupirocin (Bactroban Ointment) 0 gm NS BID [facility] Stop: 01/06/17 18:01 Last Admin: 01/02/17 17:58 Dose: 1 u Ondansetron HCl (Zofran Inj) 4 mg IVP Q6H PRN PRN Reason: Nausea/Vomiting Last Admin: 01/02/17 16:26 Dose: 4 mg Pantoprazole Sodium (Protonix Inj) 40 mg IVP DAILY [facility] Last Admin: 01/02/17 17:45 Dose: 40 mg Sitagliptin Phosphate (Januvia) 100 mg PO DAILY [facility] Last Admin: 01/02/17 10:15 Dose: 100 mg - Labs Labs: 01/02/17 05:00 01/02/17 05:00 PT 11.3 Seconds (9.9-11.8) 01/01/17 01:38 INR 1.05 (0.93-1.08) 01/01/17 01:38 APTT 21.2 Seconds (23.7-30.8) L 01/01/17 01:38 - Constitutional Appears: Non-toxic, No Acute Distress - Head Exam Head Exam: ATRAUMATIC, NORMOCEPHALIC - Eye Exam Eye Exam: Normal appearance Pupil Exam: PERRL - ENT Exam ENT Exam: Mucous Membranes Moist, Normal Exam - Neck Exam Neck Exam: Normal Inspection. absent: Lymphadenopathy - Respiratory Exam Respiratory Exam: Clear to Ausculation Bilateral, NORMAL BREATHING PATTERN. absent: Rhonchi, Wheezes, Respiratory Distress - Cardiovascular Exam Cardiovascular Exam: REGULAR RHYTHM, RRR, +S1, +S2. absent: Murmur - GI/Abdominal Exam GI & Abdominal Exam: Soft, Normal Bowel Sounds. absent: Tenderness - Extremities Exam Extremities Exam: Normal Capillary Refill, Normal Inspection. absent: Joint Swelling, Pedal Edema - Neurological Exam Neurological Exam: Alert, Awake, Oriented x3 - Psychiatric Exam Psychiatric exam: Normal Affect, Normal Mood - Skin Skin Exam: Dry, Intact, Warm Assessment and Plan - Assessment and Plan (Free Text) Assessment: 66 year old female with past medical history of Uncontrolled DM, Hep C, PUD presented with nausea and vomiting of 4 days was found to have DKA DKA, resolved -Transferred to med/surg -AG closed -Zofran prn Uncontrolled DM -A1c during this admission 14.8 -Follow Endo recommendations -ISS low -Levemir 24 units SC HS -Amaryl 4mg po ACBD -Januvia 100mg po daily -FS ACHS UTI -UA showed positive nitrate, small LE, elevated WBC -Afebrile, no leukocytosis -Continue with Rocephin IV PUD -Protonix 40mg IV daily Prophylactic measures -Protonix for GI ppx -Lovenox for DVT ppx <Pola Field MD - Last Filed: 01/03/17 15:27> Objective - Vital Signs/Intake and Output Vital Signs (last 24 hours): Temp Pulse Resp BP Pulse Ox 97.7 F 99 H 18 112/60 95 01/03/17 07:30 01/03/17 07:30 01/03/17 07:30 01/03/17 07:30 01/03/17 07:30 Intake and Output: 01/03/17 01/03/17 06:59 18:59 Intake Total 180 740 Balance 180 740 - Medications Medications: Current Medications Enoxaparin Sodium (Lovenox) 40 mg SC DAILY [facility] PRN Reason: Protocol Last Admin: 01/03/17 10:09 Dose: 40 mg Glimepiride (Amaryl) 4 mg PO ACBD [facility] Last Admin: 01/03/17 12:13 Dose: 4 mg Ceftriaxone Sodium (Rocephin 1 Gram Ivpb) 100 mls @ 100 mls/hr IVPB DAILY [facility] PRN Reason: Protocol Last Admin: 01/03/17 10:09 Dose: 100 mls/hr Insulin Detemir (Levemir) [address] [facility] Insulin Human Lispro (Humalog Low) 0 units SC [facility] PRN Reason: Protocol Last Admin: 01/03/17 12:13 Dose: 4 units Labetalol HCl (Trandate) 20 mg IV Q4H PRN PRN Reason: Systolic Blood Pressure Last Admin: 01/02/17 04:34 Dose: 20 mg Lisinopril (Zestril) 10 mg PO DAILY [facility] Last Admin: 01/03/17 10:09 Dose: 10 mg Mupirocin (Bactroban Ointment) 0 gm NS BID [facility] Stop: 01/06/17 18:01 Last Admin: 01/03/17 12:14 Dose: 1 u Ondansetron HCl (Zofran Inj) 4 mg IVP Q6H PRN PRN Reason: Nausea/Vomiting Last Admin: 01/02/17 16:26 Dose: 4 mg Pantoprazole Sodium (Protonix Inj) 40 mg IVP DAILY [facility] Last Admin: 01/03/17 10:09 Dose: 40 mg Sitagliptin Phosphate (Januvia) 100 mg PO DAILY [facility] Last Admin: 01/03/17 12:13 Dose: 100 mg - Labs Labs: 01/03/17 07:30 01/03/17 07:30 PT 11.3 Seconds (9.9-11.8) 01/01/17 01:38 INR 1.05 (0.93-1.08) 01/01/17 01:38 APTT 21.2 Seconds (23.7-30.8) L 01/01/17 01:38 Attending/Attestation - Attestation I have personally seen and examined this patient.: Yes I have fully participated in the care of the patient.: Yes I have reviewed all pertinent clinical information, including history, physical exam and plan: Yes Notes (Text): Patient was seen and examined with er medical technician .Agreed with resident assessment and plan. Patient DKA is resolved, blood sugars are running high as patient was on D5 1/2 NS, IV fluid has been discontinued.Patient is having mild Nausea, we will give her Zofran, we will monitor blood sugars,Patient is afebrile, cultures are negative. We will also get Diabetic education. Management plan was discussed in detail with patient Education was provided.
[2017-01-02 19:26] VITALS: RESP 18
[2017-01-02] MEDS ORDERED: Insulin Detemir 100 units/ml Vial (Levemir) SC SCH (22:00)
[2017-01-03 07:39] LABS: ADD MANUAL DIFF? NO
[2017-01-03 07:48] LABS: BASO # 0.01 K/mm3 (0.0-2.0); BASO % 0.2 % (0.0-3.0); EOS # 0.1 (0.0-0.7); EOS % 1.6 % (1.5-5.0); GRAN # 1.25 (1.4-6.5); GRAN % 25.8 % (50.0-68.0); HEMATOCRIT 39.8 % (36.0-48.0); LYMPH # 3.1 (1.2-3.4); LYMPH % 63.9 % (22.0-35.0); MEAN CELL VOLUME 80.1 fL (80.0-105.0); MEAN CORPUSCULAR HGB CONC 33.7 g/dl (31.0-37.0); MONO # 0.4 (0.1-0.6); MONO % 8.5 % (1.0-6.0); PLATELET COUNT 134 10^3/uL (120.0-450.0); RED CELL DISTRIBUTION WIDTH 12.6 % (11.5-14.5); WHITE BLOOD COUNT 4.9 10^3/ul (4.5-11.0)
[2017-01-03 07:57] VITALS: TEMP 97.7
[2017-01-03] MEDS: Insulin Lispro (humaLOG) LOW Coverage SC SCH ×3 (08:13→16:37)
[2017-01-03 08:14] LABS: ALB/GLOB RATIO 0.8 (1.1-1.8); ALKALINE PHOSPHATASE 48 U/L (38-133); ALT/SGPT 61 U/L (7-56); AST/SGOT 45 U/L (15-39); BILIRUBIN,TOTAL 0.8 mg/dL (0.2-1.3); BLOOD UREA NITROGEN 21 mg/dL (7-21); CALCIUM 8.7 mg/dL (8.4-10.5); CARBON DIOXIDE 27 mmol/L (21-33); CHLORIDE 104 mmol/L (98-107); GFR AFRICAN-AMERICAN > 60; GLUCOSE,RANDOM 62 mg/dL (70-110); POTASSIUM 3.7 mmol/L (3.6-5.0); SODIUM 138 mmol/L (132-148); TOTAL PROTEIN 7.1 g/dL (5.8-8.3)
[2017-01-03] MEDS: cefTRIAXone 1 gm 100 ML IVPB SCH (10:09)
[2017-01-03] MEDS: Enoxaparin 40 mg Syringe SC SCH (10:09)
[2017-01-03] MEDS ORDERED: Insulin Detemir 100 units/ml Vial (Levemir) SC SCH (11:03)
--- NOTE | 2017-01-03 13:49 | CP.PCM.DIS ---
<Farnaz Cabral - Last Filed: 01/07/17 21:26> Provider - Provider Date of Admission: 01/01/17 02:14 Attending physician: Pola Field MD Primary care physician: [facility] clinic Consults: Endo: Dr. Mendoza Time Spent in preparation of Discharge (in minutes): 40 Diagnosis - Discharge Diagnosis (1) Diabetic ketoacidosis Status: Resolved (2) Abdominal pain Status: Resolved (3) Hypertension Status: Chronic (4) Nausea & vomiting Status: Resolved (5) Noncompliance Status: Chronic (6) Uncontrolled diabetes mellitus Status: Chronic Hospital Course - Lab Results Lab Results: Most Recent Lab Values WBC 4.9 10^3/ul (4.5-11.0) 01/03/17 07:30 RBC 4.97 10^6/uL (3.5-6.1) 01/03/17 07:30 Hgb 13.4 gm/dL (12.0-16.0) 01/03/17 07:30 Hct 39.8 % (36.0-48.0) 01/03/17 07:30 MCV 80.1 fL (80.0-105.0) 01/03/17 07:30 MCH 27.0 pg (25.0-35.0) 01/03/17 07:30 MCHC 33.7 g/dl (31.0-37.0) 01/03/17 07:30 RDW 12.6 % (11.5-14.5) 01/03/17 07:30 Plt Count 134 10^3/uL (120.0-450.0) 01/03/17 07:30 MPV 11.0 fl (7.0-11.0) 01/03/17 07:30 Gran % 25.8 % (50.0-68.0) L 01/03/17 07:30 Lymph % (Auto) 63.9 % (22.0-35.0) H 01/03/17 07:30 [place] % (Auto) 8.5 % (1.0-6.0) H 01/03/17 07:30 Eos % (Auto) 1.6 % (1.5-5.0) 01/03/17 07:30 Baso % (Auto) 0.2 % (0.0-3.0) 01/03/17 07:30 Gran # 1.25 (1.4-6.5) L 01/03/17 07:30 Lymph # 3.1 (1.2-3.4) 01/03/17 07:30 [place] # 0.4 (0.1-0.6) 01/03/17 07:30 Eos # 0.1 (0.0-0.7) 01/03/17 07:30 Baso # 0.01 K/mm3 (0.0-2.0) 01/03/17 07:30 PT 11.3 Seconds (9.9-11.8) 01/01/17 01:38 INR 1.05 (0.93-1.08) 01/01/17 01:38 APTT 21.2 Seconds (23.7-30.8) L 01/01/17 01:38 pO2 49 mm/Hg (30-55) 01/01/17 01:38 VBG pH 7.31 (7.32-7.43) L 01/01/17 01:38 VBG pCO2 43.0 (40-60) 01/01/17 01:38 VBG HCO3 21.7 mmol/l (21-28) 01/01/17 01:38 VBG Total CO2 23.0 mmol.L (22-28) 01/01/17 01:38 VBG O2 Sat (Calc) 84.3 % (40-65) H 01/01/17 01:38 VBG Base Excess -4.5 mmol/L (0.0-2.0) L 01/01/17 01:38 VBG Potassium 5.2 mmol/L (3.6-5.2) 01/01/17 01:38 Sodium 134.0 mmol/L (132-148) 01/01/17 01:38 Chloride 94.0 mmol/L (98-107) L 01/01/17 01:38 Glucose 544 mg/dl (65-105) H* 01/01/17 01:38 Lactate 2.4 mmol/L (0.7-2.1) H 01/01/17 01:38 FiO2 21.0 % 01/01/17 01:38 Sodium 138 mmol/L (132-148) 01/03/17 07:30 Potassium 3.7 mmol/L (3.6-5.0) 01/03/17 07:30 Chloride 104 mmol/L (98-107) 01/03/17 07:30 Carbon Dioxide 27 mmol/L (21-33) 01/03/17 07:30 Anion Gap 11 (10-20) 01/03/17 07:30 BUN 21 mg/dL (7-21) 01/03/17 07:30 Creatinine 0.9 mg/dL (0.5-1.4) 01/03/17 07:30 Est GFR ( Amer) > 60 01/03/17 07:30 Est GFR (Non-Af Amer) > 60 01/03/17 07:30 POC Glucose (mg/dL) 188 mg/dL (65-110) H 01/02/17 21:24 Random Glucose 62 mg/dL (70-110) L 01/03/17 07:30 Hemoglobin A1c 14.8 % (4.2-6.5) H D 01/02/17 05:00 Calcium 8.7 mg/dL (8.4-10.5) 01/03/17 07:30 Phosphorus 5.4 mg/dL (2.5-4.5) H 01/01/17 01:38 Magnesium 2.4 mg/dL (1.7-2.2) H 01/01/17 01:38 Total Bilirubin 0.8 mg/dL (0.2-1.3) 01/03/17 07:30 AST 45 U/L (15-39) H 01/03/17 07:30 ALT 61 U/L (7-56) H 01/03/17 07:30 Alkaline Phosphatase 48 U/L (38-133) 01/03/17 07:30 Lactate Dehydrogenase 578 U/L (333-699) 01/01/17 01:38 Total Creatine Kinase 38 U/L (35-230) 01/01/17 01:38 Troponin I 0.02 ng/mL D 01/01/17 01:38 Total Protein 7.1 g/dL (5.8-8.3) 01/03/17 07:30 Albumin 3.1 g/dL (3.0-4.8) 01/03/17 07:30 Globulin 3.9 gm/dL 01/03/17 07:30 Albumin/Globulin Ratio 0.8 (1.1-1.8) L 01/03/17 07:30 Triglycerides 148 mg/dL (35-160) 01/02/17 05:00 Cholesterol 173 mg/dL (130-200) 01/02/17 05:00 LDL Cholesterol Direct 76 mg/dL (0-129) 01/02/17 05:00 HDL Cholesterol 54 mg/dL (29-60) 01/02/17 05:00 Lipase 110 U/L (23-300) 01/01/17 01:38 TSH 3rd Generation 0.61 mIU/mL (0.46-4.68) 01/02/17 05:00 Venous Blood Potassium 5.2 mmol/L (3.6-5.2) 01/01/17 01:38 Urine Color Yellow (YELLOW) 01/01/17 08:00 Urine Appearance Sl cloudy (CLEAR) 01/01/17 08:00 Urine pH 5.5 (4.7-8.0) 01/01/17 08:00 Ur Specific [place] 1.015 (1.005-1.035) 01/01/17 08:00 Urine Protein Trace mg/dL (<30 mg/dL) H 01/01/17 08:00 Urine Glucose (UA) >=1000 mg/dL (NEGATIVE) 01/01/17 08:00 Urine Ketones 15 mg/dL (NEGATIVE) H 01/01/17 08:00 Urine Blood Trace-intact (NEGATIVE) H 01/01/17 08:00 Urine Nitrate Positive (NEGATIVE) H 01/01/17 08:00 Urine Bilirubin Negative (NEGATIVE) 01/01/17 08:00 Urine Urobilinogen 0.2 E.U./dL (<1 E.U./dL) 01/01/17 08:00 Ur Leukocyte Esterase Small Leonid/uL (NEGATIVE) H 01/01/17 08:00 Urine RBC 0 - 2 /hpf (0-2) 01/01/17 08:00 Urine WBC 5 - 10 /hpf (0-6) 01/01/17 08:00 Ur Epithelial Cells 4 - 5 /hpf (0-5) 01/01/17 08:00 Urine Bacteria Many (NEG) 01/01/17 08:00 - Hospital Course Hospital Course: 66 year old female with past medical history of Type 2 DM, PUD (h/o H. pylori), Hep C comes to the ED with a complaint of nausea and vomiting for the past 4 days. Patient also reports some cramping abdominal pain; increased frequency of urination and occasional subjective chills. She denies any complaints of chest pain, palpitations, diarrhea, cough, light headedness or dizziness. She states that she does not take SQ insulin and also that she has been unable to keep her po medications down for her Diabetes secondary to her vomiting. When asked why she was not taking her insulin, she was not able to give an answer. Patient is deaf and mute, Video translation was used via the monitor in the ED. Patient's glucose was found to be at 517 with anion gap of 18. Patient received 2L IVF bolus in the ED followed by 150cc/hr of normal saline and insulin drip. Q1h fingersticks and Q4H bmp were ordered. Patient was admitted to ICU. In the morning patient's AG has closed. Patient's diet advanced. Levemir 10 unit and ISS were started. Endocrinology consulted placed for blood glucose control. Diabetic education was consulted for insulin education. [facility] clinic was contacted and staff reported patient only followed up at the clinic once since her discharge last July. Multiple phone called made to patient and her son but did not get a response. furnace combustion analyst was used to investigate on patient's insulin use that home. Patient states she uses insulin at home but not on the schedule as prescribed. Endocrine increased levemir to 24 units HS, amaryl 4mg BID, Januvia 100mg daily. Patient had an episode of vomiting in the afternoon of 01/02/17, zofran was given. Overnight, patient's glucose dropped to the 60s. [place] and snacks were given. Patient was scheduled to follow up at [facility] clinic at 01/08/17, patient was made aware and agreed to follow up. The discharge plan and follow ups were extensively discussed with the patient. At this time, after discussion of all issues, the patient was deemed medically fit for discharge. - Date & Time of H&P Date of H&P: 01/01/17 Time of H&P: 03:24 Discharge Exam - Head Exam Head Exam: ATRAUMATIC, NORMOCEPHALIC - Eye Exam Eye Exam: EOMI, Normal appearance Pupil Exam: PERRL - ENT Exam ENT Exam: Mucous Membranes Moist - Neck Exam Neck exam: Normal Inspection - Respiratory Exam Respiratory Exam: Clear to PA & Lateral, NORMAL BREATHING PATTERN, UNREMARKABLE. absent: Rhonchi, Wheezes, Respiratory Distress - Cardiovascular Exam Cardiovascular Exam: REGULAR RHYTHM, RRR, +S1, +S2 - GI/Abdominal Exam GI & Abdominal Exam: Normal Bowel Sounds, Soft. absent: Bruit, Rigid, Tenderness - Extremities Exam Extremities exam: normal inspection, pedal pulses present - Back Exam Back exam: NORMAL INSPECTION. absent: CVA tenderness (L), CVA tenderness (R) - Neurological Exam Neurological exam: Alert, Oriented x3 - Psychiatric Exam Psychiatric exam: Normal Affect, Normal Mood - Skin Skin Exam: Dry, Intact, Normal Color, Warm Discharge Plan - Discharge Medications Prescriptions: SITagliptin [Januvia] 100 mg PO DAILY #30 tab Insulin Detemir [Levemir] 20 unit SC HS #1 vial Glimepiride [amaRYL] 4 mg PO BID #60 tab - Follow Up Plan Condition: STABLE Disposition: HOME/ ROUTINE Instructions: Hearing Loss (DC), Diabetic Ketoacidosis (DC), Hepatitis C (DC), Acute Nausea and Vomiting (DC) Additional Instructions: Patient was instructed to continue to follow up at [facility] clinic (appointment made for patient on 01/08/17 10am) Instructed patient to take insulin and medications on time daily Instructed patient to check blood sugar and keep a log Go to the nearest ED if symptoms return or worsen Referrals: Nichole Mendoza MD [Medical Doctor] - <Emir ERVIN,Pola - Last Filed: 01/13/17 15:32> Provider - Provider Date of Admission: 01/01/17 02:14 Attending physician: Pola Field MD Hospital Course - Lab Results Lab Results: Most Recent Lab Values WBC 4.9 10^3/ul (4.5-11.0) 01/03/17 07:30 RBC 4.97 10^6/uL (3.5-6.1) 01/03/17 07:30 Hgb 13.4 gm/dL (12.0-16.0) 01/03/17 07:30 Hct 39.8 % (36.0-48.0) 01/03/17 07:30 MCV 80.1 fL (80.0-105.0) 01/03/17 07:30 MCH 27.0 pg (25.0-35.0) 01/03/17 07:30 MCHC 33.7 g/dl (31.0-37.0) 01/03/17 07:30 RDW 12.6 % (11.5-14.5) 01/03/17 07:30 Plt Count 134 10^3/uL (120.0-450.0) 01/03/17 07:30 MPV 11.0 fl (7.0-11.0) 01/03/17 07:30 Gran % 25.8 % (50.0-68.0) L 01/03/17 07:30 Lymph % (Auto) 63.9 % (22.0-35.0) H 01/03/17 07:30 [place] % (Auto) 8.5 % (1.0-6.0) H 01/03/17 07:30 Eos % (Auto) 1.6 % (1.5-5.0) 01/03/17 07:30 Baso % (Auto) 0.2 % (0.0-3.0) 01/03/17 07:30 Gran # 1.25 (1.4-6.5) L 01/03/17 07:30 Lymph # 3.1 (1.2-3.4) 01/03/17 07:30 [place] # 0.4 (0.1-0.6) 01/03/17 07:30 Eos # 0.1 (0.0-0.7) 01/03/17 07:30 Baso # 0.01 K/mm3 (0.0-2.0) 01/03/17 07:30 PT 11.3 Seconds (9.9-11.8) 01/01/17 01:38 INR 1.05 (0.93-1.08) 01/01/17 01:38 APTT 21.2 Seconds (23.7-30.8) L 01/01/17 01:38 pO2 49 mm/Hg (30-55) 01/01/17 01:38 VBG pH 7.31 (7.32-7.43) L 01/01/17 01:38 VBG pCO2 43.0 (40-60) 01/01/17 01:38 VBG HCO3 21.7 mmol/l (21-28) 01/01/17 01:38 VBG Total CO2 23.0 mmol.L (22-28) 01/01/17 01:38 VBG O2 Sat (Calc) 84.3 % (40-65) H 01/01/17 01:38 VBG Base Excess -4.5 mmol/L (0.0-2.0) L 01/01/17 01:38 VBG Potassium 5.2 mmol/L (3.6-5.2) 01/01/17 01:38 Sodium 134.0 mmol/L (132-148) 01/01/17 01:38 Chloride 94.0 mmol/L (98-107) L 01/01/17 01:38 Glucose 544 mg/dl (65-105) H* 01/01/17 01:38 Lactate 2.4 mmol/L (0.7-2.1) H 01/01/17 01:38 FiO2 21.0 % 01/01/17 01:38 Sodium 138 mmol/L (132-148) 01/03/17 07:30 Potassium 3.7 mmol/L (3.6-5.0) 01/03/17 07:30 Chloride 104 mmol/L (98-107) 01/03/17 07:30 Carbon Dioxide 27 mmol/L (21-33) 01/03/17 07:30 Anion Gap 11 (10-20) 01/03/17 07:30 BUN 21 mg/dL (7-21) 01/03/17 07:30 Creatinine 0.9 mg/dL (0.5-1.4) 01/03/17 07:30 Est GFR ( Amer) > 60 01/03/17 07:30 Est GFR (Non-Af Amer) > 60 01/03/17 07:30 POC Glucose (mg/dL) 188 mg/dL (65-110) H 01/02/17 21:24 Random Glucose 62 mg/dL (70-110) L 01/03/17 07:30 Hemoglobin A1c 14.8 % (4.2-6.5) H D 01/02/17 05:00 Calcium 8.7 mg/dL (8.4-10.5) 01/03/17 07:30 Phosphorus 5.4 mg/dL (2.5-4.5) H 01/01/17 01:38 Magnesium 2.4 mg/dL (1.7-2.2) H 01/01/17 01:38 Total Bilirubin 0.8 mg/dL (0.2-1.3) 01/03/17 07:30 AST 45 U/L (15-39) H 01/03/17 07:30 ALT 61 U/L (7-56) H 01/03/17 07:30 Alkaline Phosphatase 48 U/L (38-133) 01/03/17 07:30 Lactate Dehydrogenase 578 U/L (333-699) 01/01/17 01:38 Total Creatine Kinase 38 U/L (35-230) 01/01/17 01:38 Troponin I 0.02 ng/mL D 01/01/17 01:38 Total Protein 7.1 g/dL (5.8-8.3) 01/03/17 07:30 Albumin 3.1 g/dL (3.0-4.8) 01/03/17 07:30 Globulin 3.9 gm/dL 01/03/17 07:30 Albumin/Globulin Ratio 0.8 (1.1-1.8) L 01/03/17 07:30 Triglycerides 148 mg/dL (35-160) 01/02/17 05:00 Cholesterol 173 mg/dL (130-200) 01/02/17 05:00 LDL Cholesterol Direct 76 mg/dL (0-129) 01/02/17 05:00 HDL Cholesterol 54 mg/dL (29-60) 01/02/17 05:00 Lipase 110 U/L (23-300) 01/01/17 01:38 TSH 3rd Generation 0.61 mIU/mL (0.46-4.68) 01/02/17 05:00 Venous Blood Potassium 5.2 mmol/L (3.6-5.2) 01/01/17 01:38 Urine Color Yellow (YELLOW) 01/01/17 08:00 Urine Appearance Sl cloudy (CLEAR) 01/01/17 08:00 Urine pH 5.5 (4.7-8.0) 01/01/17 08:00 Ur Specific [place] 1.015 (1.005-1.035) 01/01/17 08:00 Urine Protein Trace mg/dL (<30 mg/dL) H 01/01/17 08:00 Urine Glucose (UA) >=1000 mg/dL (NEGATIVE) 01/01/17 08:00 Urine Ketones 15 mg/dL (NEGATIVE) H 01/01/17 08:00 Urine Blood Trace-intact (NEGATIVE) H 01/01/17 08:00 Urine Nitrate Positive (NEGATIVE) H 01/01/17 08:00 Urine Bilirubin Negative (NEGATIVE) 01/01/17 08:00 Urine Urobilinogen 0.2 E.U./dL (<1 E.U./dL) 01/01/17 08:00 Ur Leukocyte Esterase Small Leonid/uL (NEGATIVE) H 01/01/17 08:00 Urine RBC 0 - 2 /hpf (0-2) 01/01/17 08:00 Urine WBC 5 - 10 /hpf (0-6) 01/01/17 08:00 Ur Epithelial Cells 4 - 5 /hpf (0-5) 01/01/17 08:00 Urine Bacteria Many (NEG) 01/01/17 08:00 Attending/Attestation - Attestation I have personally seen and examined this patient.: Yes I have fully participated in the care of the patient.: Yes I have reviewed all pertinent clinical information, including history, physical exam and plan: Yes Notes (Text): Patient was seen and examined with medical reception specialist .Agreed with resident assessment and plan. 66 year old female with past medical history of Type 2 DM, PUD (h/o H. pylori), Hep C was admitted in the hospital with DKA due to non compliance, was treated in the hospital with IV hydration, insulin drip, responded well. DKA has resolved.Patient was evaluated by endocrinology and diabetic medications were adjusted. Patient was given diabetic education prior to discharge.
[2017-01-03 18:17] VITALS: BP 87/55; PULSE 97; O2SAT 96
== END 2017-01-03 20:02 | disposition home or self-care (01) | DRG 638 ==
LOC: ED 00:05 → ERH 02:14 → CCU 04:07 → 5RNO 01-02 05:54
PROVIDERS: ADMIT Internal Medicine; ATTEND Internal Medicine
DX: E11.00 Type 2 diabetes mellitus with hyperosmolarity without nonketotic hyperglycemic-hyperosmolar coma (NKHHC) (principal); E87.1 Hypo-osmolality and hyponatremia; R64 Cachexia; Z68.1 Body mass index [BMI] 19.9 or less, adult; E87.5 Hyperkalemia; E11.65 Type 2 diabetes mellitus with hyperglycemia; E86.0 Dehydration; H91.3 Deaf nonspeaking, not elsewhere classified; B19.20 Unspecified viral hepatitis C without hepatic coma; K27.9 Peptic ulcer, site unspecified, unspecified as acute or chronic, without hemorrhage or perforation; Z91.19 Patient's noncompliance with other medical treatment and regimen; Z79.4 Long term (current) use of insulin

== ENCOUNTER 2017-02-23 22:53 | Observation (INO) | payer MEDICARE, MEDICAID, OTHER ==
[2017-02-23 23:30] VITALS: BMI 21.4
[2017-02-23] MEDS ORDERED: Sodium Chloride 0.9% 1,000 ML IV STA (23:54)
--- NOTE | 2017-02-24 00:15 | ED PDOC ---
Arrival/HPI <Waldemar Raines - Last Filed: 02/24/17 03:44> - General Historian: Patient <Jos Ross A - Last Filed: 02/24/17 14:24> - General Chief Complaint: Abdominal Pain Time Seen by Provider: 02/23/17 23:14 - History of Present Illness Narrative History of Present Illness (Text): 02/23/17 23:58 66yo deaf female with PMHx of Diabetes , hypertension who present with complaint of LUQ abdominal pain with associated nausea and vomiting x 3days. She notes 4episodes of vomiting today. Denies fever, chills, diarrhea , constipation, chest pain, SOB, any other complaint. (Jos Ross A) Past Medical History - Provider Review Nursing Documentation Reviewed: Yes - Infectious Disease Hx of Infectious Diseases: None - Tetanus Immunization Tetanus Immunization: Unknown - Cardiac Hx Cardiac Disorders: Yes Hx Hypertension: Yes - Pulmonary Hx Asthma: Yes Hx Chronic Obstructive Pulmonary Disease (COPD): No - Neurological Hx Neurological Disorder: No HX Cerebrovascular Accident: No - HEENT Hx HEENT Disorder: Yes (deaf mute) Hx Deafness: Yes - Renal Hx Renal Failure: No - Endocrine/Metabolic Hx Diabetes Mellitus Type 1: No Hx Diabetes Mellitus Type 2: Yes - Hematological/Oncological Hx Blood Disorders: No Hx Cancer: No - Integumentary Hx Dermatological Disorder: No - Musculoskeletal/Rheumatological Hx Arthritis: No Hx Rheumatoid Arthritis: No - Gastrointestinal Hx Gastrointestinal Disorders: No Hx Gastroesophageal Reflux: No - Genitourinary/Gynecological Hx Genitourinary Disorders: No - Psychiatric Hx Psychophysiologic Disorder: No Hx Depression: No Hx Emotional Abuse: No Hx Physical Abuse: No Hx Substance Use: No - Past Surgical History Past Surgical History: No Previous - Surgical History Other/Comment: "Abdominal Surgery" - Anesthesia Hx Anesthesia: No - Suicidal Assessment Feels Threatened In Home Enviroment: No <Jos Ross A - Last Filed: 02/24/17 14:24> Family/Social History - Physician Review Nursing Documentation Reviewed: Yes Family/Social History: Unknown Family HX Smoking Status: Unknown If Ever Smoked Hx Alcohol Use: No Hx Substance Use: No Hx Substance Use Treatment: No <Jos Ross A - Last Filed: 02/24/17 14:24> Allergies/Home Meds <Waldemar Raines - Last Filed: 02/24/17 03:44> <DiruBackyard A - Last Filed: 02/24/17 14:24> Allergies/Adverse Reactions: Allergies No Known Allergies Allergy (Verified 02/23/17 23:27) Review of Systems - Physician Review All systems were reviewed & negative as marked: Yes - Review of Systems Constitutional: Normal Eyes: Normal ENT: Normal Respiratory: Normal Cardiovascular: Normal Gastrointestinal: Abdominal Pain, Nausea, Vomiting. absent: Constipation, Diarrhea, Hematochezia, Hematemesis Genitourinary Female: Normal Musculoskeletal: Normal Skin: Normal Neurological: Normal Endocrine: Normal Hemo/Lymphatic: Normal Psychiatric: Normal <[employer]calvinBackyard A - Last Filed: 02/24/17 14:24> Physical Exam Vital Signs Reviewed: Yes Temperature: Afebrile Blood Pressure: Normal Pulse: Tachycardic Respiratory Rate: Normal Appearance: Positive for: Well-Appearing, Non-Toxic, Comfortable Pain Distress: None Mental Status: Positive for: Alert and Oriented X 3 - Systems Exam Head: Present: Atraumatic, Normocephalic Pupils: Present: PERRL Extroacular Muscles: Present: EOMI Conjunctiva: Present: Normal Mouth: Present: Moist Mucous Membranes Neck: Present: Normal Range of Motion Respiratory/Chest: Present: Clear to Auscultation, Good Air Exchange. No: Respiratory Distress, Accessory Muscle Use Cardiovascular: Present: Regular Rate and Rhythm, Normal S1, S2. No: Murmurs Abdomen: Present: Tenderness (LUQ tenderness), Normal Bowel Sounds, Other (Soft) . No: Distention, Peritoneal Signs, Rebound, Guarding, McBurney's Point Tender , Rovsing's Sign Present Back: Present: Normal Inspection Upper Extremity: Present: Normal Inspection. No: Cyanosis, Edema Lower Extremity: Present: Normal Inspection. No: Edema Neurological: Present: GCS=15, CN II-XII Intact, Speech Normal Skin: Present: Warm, Dry, Normal Color. No: Rashes Psychiatric: Present: Alert, Oriented x 3, Normal Insight, Normal Concentration <CodyBackyard A - Last Filed: 02/24/17 14:24> Vital Signs Temp Pulse Resp BP Pulse Ox 02/24/17 04:22 98 H 17 156/98 H 100 02/24/17 03:17 115 H 18 154/103 H 98 02/23/17 23:28 97.8 F 124 H 18 135/88 100 Medical Decision Making - RAD Interpretation Executive Coordinator: Radiologist <Waldemar Raines - Last Filed: 02/24/17 03:44> <Jos Ross - Last Filed: 02/24/17 14:24> ED Course and Treatment: 02/24/17 03:36 Reviewed radiology, CT Abdomen and Pelvis shows: 1. No CT evidence of urolithiasis. 2. Incidental/non-acute findings are described above. Case discussed with Dr. Andersen, covering for Dr. Velsaco, who is aware and agrees with plan. Accepts pt in to her service. Pt will go to [facility] observation for abdominal pain. (Waldemar Raines) 02/24/17 01:50 Pt presented for stated history. Her BS was elevated . She was hydrated and insulin ordered. EKG was ordered for elevated potassium. Kayexlate ordered. Pt have no gap. Elevated LFT noted, unsure of source. Abdominal Ct pending. Case was endorsed to Dr. Raines to f/u imaging and dispo accordingly. (Jos Ross) - Lab Interpretations Lab Results: 02/23/17 23:59 02/24/17 00:40 Lab Results 02/24/17 02:50: Urine Color Yellow, Urine Appearance Sl cloudy, Urine pH 6.0, Ur Specific [place] 1.020, Urine Protein 100 H, Urine Glucose (UA) >=1000, Urine Ketones 15 H, Urine Blood Small H, Urine Nitrate Negative, Urine Bilirubin Negative, Urine Urobilinogen 0.2, Ur Leukocyte Esterase Negative, Urine RBC 1 - 3, Urine WBC 0 - 2, Ur Epithelial Cells 1 - 3, Urine Bacteria Occ , Hyaline Casts 0 - 2 02/24/17 02:31: POC Glucose (mg/dL) 227 H 02/24/17 00:40: Sodium 132, Potassium 5.7 H* D, Chloride 94 L, Carbon Dioxide 27 , Anion Gap 17, BUN 35 H, Creatinine 1.0, Est GFR ( Amer) > 60, Est GFR ( Non-Af Amer) 56, Random Glucose 399 H* D, Calcium 9.8, Total Bilirubin 1.2, AST 91 H, ALT 133 H, Alkaline Phosphatase 88, Total Protein 9.3 H, Albumin 4.5, Globulin 4.8, Albumin/Globulin Ratio 0.9 L, Lipase 116 02/24/17 00:40: PT 11.2, INR 1.04, APTT 23.4 L 02/23/17 23:59: WBC 8.3 D, RBC 5.96, Hgb 16.5 H, Hct 47.7, MCV 80.0, MCH 27.7, MCHC 34.6, RDW 13.0, Plt Count 144, MPV 11.5 H, Gran % 71.8 H, Lymph % (Auto) 22.8, [place] % (Auto) 5.2, Eos % (Auto) 0.1 L, Baso % (Auto) 0.1, Gran # 5.97, Lymph # 1.9, [place] # 0.4, Eos # 0.0, Baso # 0.01 - RAD Interpretation Narrative RAD Interpretations (Text): CT Abdomen and Pelvis shows: Limitations: Lack of intravenous contrast. Motion artifact - mild. Lower thorax: No acute findings. ABDOMEN: Liver: Unremarkable. Gallbladder and bile ducts: No calcified stones. No ductal dilation. Pancreas: Unremarkable. No ductal dilation. Spleen: No splenomegaly. Adrenals: No mass. Kidneys and ureters: No renal calculi. Few probable RIGHT renal cysts. No hydronephrosis. Stomach and bowel: No definite mural thickening. No obstruction. Appendix: No findings to suggest acute appendicitis. PELVIS: Bladder: Unremarkable. No stones. Reproductive: Unremarkable as visualized. ABDOMEN and PELVIS: Intraperitoneal space: No significant fluid collection. No free air. Bones/joints: Degenerative changes of spine. No acute fracture. Soft tissues: Unremarkable. Vasculature: Minimal atherosclerotic disease. No abdominal aortic aneurysm. Lymph nodes: No pathologically enlarged lymph nodes. IMPRESSION: 1. No CT evidence of urolithiasis. 2. Incidental/non-acute findings are described above. (Waldemar Raines) Radiology Orders: 02/24/17 01:34 ABD & PELVIS W/O PO OR IV CONT [CT] Stat - Medication Orders Current Medication Orders: Discontinued Medications Acetaminophen (Tylenol 325mg Tab) 650 mg PO Q4H PRN PRN Reason: Pain, Mild (1-3) Clonidine HCl (Catapres) 0.2 mg PO STAT STA Stop: 02/24/17 05:35 Last Admin: 02/24/17 05:40 Dose: 0.2 mg Clonidine HCl (Catapres) 0.2 mg PO ONCE ONE Stop: 02/24/17 07:03 Famotidine (Pepcid) 20 mg IVP STAT STA Stop: 02/23/17 23:55 Last Admin: 02/24/17 00:43 Dose: 20 mg Sodium Chloride (Sodium Chloride 0.9%) 1,000 mls @ 1,000 mls/hr IV .Q1H STA Stop: 02/24/17 00:53 Last Admin: 02/24/17 00:43 Dose: 1,000 mls/hr Sodium Chloride (Sodium Chloride 0.9%) 1,000 mls @ 100 mls/hr IV .Q10H STA Stop: 02/24/17 13:41 Last Admin: 02/24/17 03:50 Dose: 100 mls/hr Sodium Chloride (Sodium Chloride 0.45%) 1,000 mls @ 80 mls/hr IV .[id number] [facility] Last Admin: 02/24/17 09:52 Dose: 80 mls/hr Insulin Human Regular (Humulin R Med) 8 units IV ONCE STA PRN Reason: Protocol Stop: 02/24/17 01:49 Last Admin: 02/24/17 02:06 Dose: 8 units Comments: GLucose 399 Insulin Human Regular (Humulin R) Confirm Administered Dose 8 units .ROUTE .STK- MED ONE Stop: 02/24/17 02:04 Last Admin: 02/24/17 02:18 Dose: Insulin Human Regular (Humulin R Med) 0 units SC [facility] PRN Reason: Protocol Last Admin: 02/24/17 12:10 Dose: 8 units Insulin Human Regular (Humulin R) 0 units SC [facility] PRN Reason: Protocol Ondansetron HCl (Zofran Inj) 4 mg IVP STAT STA Stop: 02/23/17 23:55 Last Admin: 02/24/17 00:44 Dose: 4 mg Pantoprazole Sodium (Protonix Inj) 40 mg IVP DAILY [facility] Last Admin: 02/24/17 09:52 Dose: 40 mg Sodium Polystyrene Sulfonate (Kayexalate Oral Susp) 30 gm PO STAT STA Stop: 02/24/17 01:56 Last Admin: 02/24/17 02:42 Dose: 30 gm Disposition/Present on Arrival <Waldemar Raines - Last Filed: 02/24/17 03:44> - Present on Arrival Any Indicators Present on Arrival: No History of DVT/PE: No History of Uncontrolled Diabetes: Yes Urinary Catheter: No History of Decub. Ulcer: No History Surgical Site Infection Following: None - Disposition Have Diagnosis and Disposition been Completed?: Yes Disposition Time: 02:30 <Jos Ross - Last Filed: 02/24/17 14:24> - Disposition Diagnosis: Hyperglycemia, Vomiting, Abdominal pain Disposition: HOSPITALIZED Condition: FAIR
[2017-02-24 00:49] LABS: ADD MANUAL DIFF? NO
[2017-02-24 00:57] LABS: BASO # 0.01 K/mm3 (0.0-2.0); BASO % 0.1 % (0.0-3.0); EOS % 0.1 % (1.5-5.0); GRAN # 5.97 (1.4-6.5); GRAN % 71.8 % (50.0-68.0); HEMATOCRIT 47.7 % (36.0-48.0); LYMPH # 1.9 (1.2-3.4); LYMPH % 22.8 % (22.0-35.0); MEAN CORPUSCULAR HEMOGLOBIN 27.7 pg (25.0-35.0); MEAN CORPUSCULAR HGB CONC 34.6 g/dl (31.0-37.0); MEAN PLATELET VOLUME 11.5 fl (7.0-11.0); MONO # 0.4 (0.1-0.6); MONO % 5.2 % (1.0-6.0); PLATELET COUNT 144 10^3/uL (120.0-450.0); WHITE BLOOD COUNT 8.3 10^3/ul (4.5-11.0)
[2017-02-24 01:09] LABS: INR 1.04 (0.93-1.08); PARTIAL THROMBOPLASTIN TIME 23.4 Seconds (23.7-30.8)
[2017-02-24 01:24] LABS: ALB/GLOB RATIO 0.9 (1.1-1.8); ALKALINE PHOSPHATASE 88 U/L (38-133); ALT/SGPT 133 U/L (7-56); AST/SGOT 91 U/L (15-39); BILIRUBIN,TOTAL 1.2 mg/dL (0.2-1.3); BLOOD UREA NITROGEN 35 mg/dL (7-21); CALCIUM 9.8 mg/dL (8.4-10.5); CARBON DIOXIDE 27 mmol/L (21-33); CHLORIDE 94 mmol/L (98-107); GFR AFRICAN-AMERICAN > 60; LIPASE 116 U/L (23-300); SODIUM 132 mmol/L (132-148); TOTAL PROTEIN 9.3 g/dL (5.8-8.3)
[2017-02-24 01:33] LABS: GLUCOSE,RANDOM 399 mg/dL (70-110)
[2017-02-24 01:35] LABS: POTASSIUM 5.7 mmol/L (3.6-5.0)
[2017-02-24] MEDS ORDERED: Insulin Reg-MEDIUM-Coverage IV STA (01:48)
[2017-02-24] MEDS ORDERED: Sod Polystyrene Sulf 15 gm/60 ml Oral Susp PO STA (01:55)
[2017-02-24] MEDS ORDERED: Insulin Regular 1 UNITS/0.01 ML ML ONE (02:03)
--- NOTE | 2017-02-24 02:45 | CT ---
EXAM: CT Abdomen and Pelvis Without Intravenous Contrast CLINICAL HISTORY: 66 years old, female; Pain; Abdominal pain; Localized; Left upper quadrant (luq); Additional info: Luq pain TECHNIQUE: Axial computed tomography images of the abdomen and pelvis without intravenous contrast. This CT exam was performed using one or more of the following dose reduction techniques: automated exposure control, adjustment of the mA and/or kV according to patient size, and/or use of iterative reconstruction technique. Coronal and sagittal reformatted images were created and reviewed. COMPARISON: CT - ABD PELVIS W/O PO OR IV CONT 07/12/2016 9:06:49 PM FINDINGS: Limitations: Lack of intravenous contrast. Motion artifact - mild. Lower thorax: No acute findings. ABDOMEN: Liver: Unremarkable. Gallbladder and bile ducts: No calcified stones. No ductal dilation. Pancreas: Unremarkable. No ductal dilation. Spleen: No splenomegaly. Adrenals: No mass. Kidneys and ureters: No renal calculi. Few probable RIGHT renal cysts. No hydronephrosis. Stomach and bowel: No definite mural thickening. No obstruction. Appendix: No findings to suggest acute appendicitis. PELVIS: Bladder: Unremarkable. No stones. Reproductive: Unremarkable as visualized. ABDOMEN and PELVIS: Intraperitoneal space: No significant fluid collection. No free air. Bones/joints: Degenerative changes of spine. No acute fracture. Soft tissues: Unremarkable. Vasculature: Minimal atherosclerotic disease. No abdominal aortic aneurysm. Lymph nodes: No pathologically enlarged lymph nodes. IMPRESSION: 1. No CT evidence of urolithiasis. 2. Incidental/non-acute findings are described above.
[2017-02-24 03:08] LABS: URINE BILIRUBIN NEGATIVE (NEGATIVE); URINE BLOOD SMALL (NEGATIVE); URINE GLUCOSE (UA) >=1000 mg/dL (NEGATIVE); URINE KETONE 15 mg/dL (NEGATIVE); URINE LEUKOCYTE ESTERASE NEGATIVE Leu/uL (NEGATIVE); URINE PROTEIN 100 mg/dL (<30 mg/dL); URINE UROBILINOGEN 0.2 E.U./dL (<1 E.U./dL)
[2017-02-24 03:14] LABS: URINE APPEARANCE SL CLOUDY (CLEAR); URINE COLOR YELLOW (YELLOW)
[2017-02-24 03:21] LABS: URINE BACTERIA OCC (NEG); URINE WBC 0 - 2 /hpf (0-6)
[2017-02-24] MEDS ORDERED: Sodium Chloride 0.9% 1,000 ML IV STA (03:42)
--- NOTE | 2017-02-24 05:32 | CP.PCM.PN ---
Subjective - Date & Time of Evaluation Date of Evaluation: 02/24/17 Time of Evaluation: 05:32 - Subjective Subjective: see my note elsewhere. Objective - Vital Signs/Intake and Output Vital Signs (last 24 hours): Temp Pulse Resp BP Pulse Ox 97.8 F 98 H 17 156/98 H 100 02/23/17 23:28 02/24/17 04:22 02/24/17 04:22 02/24/17 04:22 02/24/17 04:22 - Medications Medications: Current Medications Acetaminophen (Tylenol 325mg Tab) 650 mg PO Q4H PRN PRN Reason: Pain, Mild (1-3) Sodium Chloride (Sodium Chloride 0.9%) 1,000 mls @ 100 mls/hr IV .Q10H STA Stop: 02/24/17 13:41 Last Admin: 02/24/17 03:50 Dose: 100 mls/hr Insulin Human Regular (Humulin R Med) 0 units SC ACHS BREEZY PRN Reason: Protocol - Labs Labs: PT 11.2 Seconds (9.9-11.8) 02/24/17 00:40 INR 1.04 (0.93-1.08) 02/24/17 00:40 APTT 23.4 Seconds (23.7-30.8) L 02/24/17 00:40
--- NOTE | 2017-02-24 05:45 | CP.PCM.PN ---
Subjective - Date & Time of Evaluation Date of Evaluation: 02/24/17 Time of Evaluation: 05:43 - Subjective Subjective: Nurse Dorina calls and tells that BP is :167/113 , HR - 109/Min. It was : Earlier 182/128, HR 114/min. Patient received Kayexalate for K -5.8 mEq. Patient is deaf and dumb. Patient was seen at bedside. Tried to communicate with her in sign language. Denies head ache, chest pain. Medical record was reviewed. This 66 year old woman was admitted with LUQ abdominal pain, nausea, vomiting. Has PMH of HTN, DM, DKA, PUD, H.Pylori,Hepatitis C, non compliance, deaf and dumb. Objective - Vital Signs/Intake and Output Vital Signs (last 24 hours): Temp Pulse Resp BP Pulse Ox 97.8 F 98 H 17 156/98 H 100 02/23/17 23:28 02/24/17 04:22 02/24/17 04:22 02/24/17 04:22 02/24/17 04:22 - Medications Medications: Current Medications Acetaminophen (Tylenol 325mg Tab) 650 mg PO Q4H PRN PRN Reason: Pain, Mild (1-3) Sodium Chloride (Sodium Chloride 0.9%) 1,000 mls @ 100 mls/hr IV .Q10H STA Stop: 02/24/17 13:41 Last Admin: 02/24/17 03:50 Dose: 100 mls/hr Insulin Human Regular (Humulin R Med) 0 units SC ACHS BREEZY PRN Reason: Protocol - Labs Labs: PT 11.2 Seconds (9.9-11.8) 02/24/17 00:40 INR 1.04 (0.93-1.08) 02/24/17 00:40 APTT 23.4 Seconds (23.7-30.8) L 02/24/17 00:40 - Constitutional Appears: Well, No Acute Distress - Head Exam Head Exam: ATRAUMATIC, NORMAL INSPECTION, NORMOCEPHALIC - Eye Exam Eye Exam: Normal appearance - ENT Exam Additional comments: Deaf and dumb. - Neck Exam Neck Exam: Normal Inspection - Respiratory Exam Respiratory Exam: NORMAL BREATHING PATTERN - Cardiovascular Exam Cardiovascular Exam: absent: JVD - GI/Abdominal Exam GI & Abdominal Exam: absent: Distended - Rectal Exam Rectal Exam: Deferred - Extremities Exam Extremities Exam: Normal Inspection - Back Exam Back Exam: NORMAL INSPECTION - Neurological Exam Neurological Exam: Alert - Psychiatric Exam Psychiatric exam: Normal Affect, Normal Mood - Skin Skin Exam: Normal Color Assessment and Plan - Assessment and Plan (Free Text) Assessment: Elevated blood pressure reading. LUQ abdominal pain. Nausea & vomiting. DM II. HTN. Deaf and dumb. History hepatitis C. Plan: Clonidine 0.2 mg PO x 1. Repeat blood pressure in one hour. Management as per PMD.
[2017-02-24 06:58] VITALS: RESP 20; TEMP 98.3
[2017-02-24] MEDS: Insulin Reg-MEDIUM-Coverage SC SCH ×2 (08:23→12:10)
[2017-02-24 08:29] VITALS: BP 167/113; PULSE 109; O2SAT 99
[2017-02-24] MEDS ORDERED: Sodium Chloride 0.45% 1,000 ML IV SCH (08:30)
[2017-02-24 09:12] LABS: ADD MANUAL DIFF? NO
[2017-02-24 09:29] LABS: BLOOD UREA NITROGEN 29 mg/dL (7-21); CALCIUM 8.1 mg/dL (8.4-10.5); CARBON DIOXIDE 27 mmol/L (21-33); CHLORIDE 98 mmol/L (98-107); GFR AFRICAN-AMERICAN > 60; POTASSIUM 3.7 mmol/L (3.6-5.0); SODIUM 131 mmol/L (132-148)
[2017-02-24 09:30] LABS: BASO # 0.01 K/mm3 (0.0-2.0); BASO % 0.1 % (0.0-3.0); EOS % 0.1 % (1.5-5.0); GRAN # 4.68 (1.4-6.5); GRAN % 64.7 % (50.0-68.0); LYMPH # 2.1 (1.2-3.4); LYMPH % 29.6 % (22.0-35.0); MEAN CELL VOLUME 80.8 fL (80.0-105.0); MEAN CORPUSCULAR HEMOGLOBIN 27.5 pg (25.0-35.0); MEAN CORPUSCULAR HGB CONC 34.1 g/dl (31.0-37.0); MEAN PLATELET VOLUME 11.5 fl (7.0-11.0); MONO # 0.4 (0.1-0.6); MONO % 5.5 % (1.0-6.0); PLATELET COUNT 140 10^3/uL (120.0-450.0); RED CELL DISTRIBUTION WIDTH 12.9 % (11.5-14.5); WHITE BLOOD COUNT 7.2 10^3/ul (4.5-11.0)
[2017-02-24 09:32] LABS: GLUCOSE,RANDOM 394 mg/dL (70-110)
--- NOTE | 2017-02-24 14:32 | CARD ---
APPROVED REPORT EKG Measurement Heart [id number] <Conclusion> Sinus tachycardia Right superior axis deviation Pulmonary disease pattern Abnormal ECG
[2017-02-24] MEDS ORDERED: Insulin Regular 1 UNITS/0.01 ML ML SC SCH (22:00)
--- NOTE | 2017-03-04 02:41 | HP ---
HISTORY OF PRESENT ILLNESS: The patient is a 66-year-old female admitted to the hospital with left l ower quadrant abdominal pain with nausea, vomiting. No fever. No chest pain. No cough with expecto ration. CAT scan of the abdomen was unremarkable. UA was negative. PAST MEDICAL HISTORY: Hypertension, deafness and diabetes mellitus type 2. PAST SURGICAL HISTORY: None. FAMILY HISTORY: Unremarkable. PERSONAL HISTORY: Never smoked. No history of substance abuse. ALLERGIES: No known drug allergies. PHYSICAL EXAMINATION: GENERAL: Comfortable in bed, in no acute distress. VITAL SIGNS: Temperature 98.6, heart rate 80 per minute, blood pressure 120/80, pulse ox is 100% viola m air. HEENT: Normal. NECK: Supple. CHEST: Air entry present, equal bilateral. No added sound. CARDIOVASCULAR: S1, S2 normal. No murmur, no gallop. ABDOMEN: Soft, nontender. No hepatosplenomegaly. No rebound tenderness. EXTREMITIES: No edema. CENTRAL NERVOUS SYSTEM: Alert, oriented x 3. No sensory or motor deficit. LABORATORY DATA: White count 8.3, hemoglobin 16.5, hematocrit 47.7, platelet 144. Sodium 132, potas sium 5.7, BUN 35, creatinine 1, glucose 399. UA negative. IMAGING: Chest x-ray unremarkable. ASSESSMENT: 1. Left lower abdominal pain. 2. Polycythemia. 3. Hyperglycemia. 4. Hyperkalemia. PLAN: She will be admitted to the hospital, IV fluids given, Tylenol 650 q.6 hours p.r.n., Pepcid 20 mg daily, insulin as per sliding scale. IV fluid normal saline. Kayexalate 30 mg p.o. 1 dose. Katie Andersen MD cc: [id number] TT: 03/04/2017 02:40:54 chela
--- NOTE | 2017-03-04 02:43 | DS ---
ADDENDUM: Please refer to the detailed note dictated earlier, dated 02/24/2017. CONDITION: Improved. She is being discharged in stable condition. Katie Andersen MD cc: [id number] TT: 03/04/2017 02:43:08 mn
== END 2017-02-24 13:53 | disposition home or self-care (01) ==
LOC: ED 22:53 → ERH 02-24 03:41 → 5RSO 02-24 04:46
PROVIDERS: ADMIT Internal Medicine Medical Oncology; ATTEND Internal Medicine Medical Oncology
DX: E11.65 Type 2 diabetes mellitus with hyperglycemia (principal); R10.12 Left upper quadrant pain; I10 Essential (primary) hypertension; H91.3 Deaf nonspeaking, not elsewhere classified; B19.20 Unspecified viral hepatitis C without hepatic coma; Z91.19 Patient's noncompliance with other medical treatment and regimen; Z87.11 Personal history of peptic ulcer disease
CPT/HCPCS: 74176; 80053; 81001; 82948; 83690; 85025; 85610; 85730; 93005; 96361; 96374; 96375; 99285; C9113; G0378; J2405; J7030; J7040

== ENCOUNTER 2017-03-29 23:47 | Inpatient (IN) | payer MEDICARE, MEDICAID, OTHER ==
--- NOTE | 2017-03-30 | ED PDOC ---
Arrival/HPI - General Time Seen by Provider: 03/29/17 23:53 Historian: Patient - History of Present Illness Narrative History of Present Illness (Text): 03/29/17 23:59 Alisha Addison is a 66 year old female, whose past medical history includes diabetes, hepatitis C, hypertension, PUD positive for H. pylori, deaf/mute, and DKA, who presents to the Emergency department complaining of abdominal pain today. Patient reports associated nausea with multiple episodes of vomiting. Patient denies any fever, chills, chest pain, shortness of breath, diarrhea, urinary symptoms, back pain, neck pain, headache, dizziness, or any other complaints. Time/Duration: Other (today) Symptom Onset: Gradual Symptom Course: Unchanged Activities at Onset: Rest, Light Context: Home Past Medical History - Provider Review Nursing Documentation Reviewed: Yes - Infectious Disease Hx of Infectious Diseases: None - Tetanus Immunization Tetanus Immunization: Unknown - Cardiac Hx Cardiac Disorders: Yes Hx Hypertension: Yes - Pulmonary Hx Asthma: Yes Hx Chronic Obstructive Pulmonary Disease (COPD): No - Neurological Hx Neurological Disorder: No HX Cerebrovascular Accident: No - HEENT Hx HEENT Disorder: Yes (deaf mute) Hx Deafness: Yes - Renal Hx Renal Failure: No - Endocrine/Metabolic Hx Diabetes Mellitus Type 1: No Hx Diabetes Mellitus Type 2: Yes - Hematological/Oncological Hx Blood Disorders: No Hx Cancer: No - Integumentary Hx Dermatological Disorder: No - Musculoskeletal/Rheumatological Hx Arthritis: No Hx Rheumatoid Arthritis: No - Gastrointestinal Hx Gastrointestinal Disorders: No Hx Gastroesophageal Reflux: No - Genitourinary/Gynecological Hx Genitourinary Disorders: No - Psychiatric Hx Psychophysiologic Disorder: No Hx Depression: No Hx Emotional Abuse: No Hx Physical Abuse: No Hx Substance Use: No - Past Surgical History Past Surgical History: No Previous - Surgical History Other/Comment: "Abdominal Surgery" - Anesthesia Hx Anesthesia: No - Suicidal Assessment Feels Threatened In Home Enviroment: No Family/Social History - Physician Review Nursing Documentation Reviewed: Yes Family/Social History: Unknown Family HX Smoking Status: Unknown If Ever Smoked Hx Alcohol Use: No Hx Substance Use: No Hx Substance Use Treatment: No Allergies/Home Meds Allergies/Adverse Reactions: Allergies No Known Allergies Allergy (Verified 03/30/17 00:01) Home Medications: Home Meds Medication Instructions Recorded Confirmed Glimepiride [amaRYL] 2 mg PO BID 03/30/17 03/30/17 Lisinopril [Zestril] 2.5 mg PO DAILY 03/30/17 03/30/17 SITagliptin [Januvia] 100 mg PO DAILY 03/30/17 03/30/17 Review of Systems - Physician Review All systems were reviewed & negative as marked: Yes - Review of Systems Constitutional: Normal. absent: Fevers Eyes: Normal ENT: Normal Respiratory: Normal. absent: SOB, Cough Cardiovascular: Normal. absent: Chest Pain Gastrointestinal: Abdominal Pain, Nausea, Vomiting Genitourinary Female: Normal. absent: Dysuria, Frequency, Hematuria, Urine Output Changes Musculoskeletal: Normal. absent: Back Pain, Neck Pain Skin: Normal. absent: Rash Neurological: Normal. absent: Headache, Dizziness Endocrine: Normal Hemo/Lymphatic: Normal Psychiatric: Normal Physical Exam Vital Signs Reviewed: Yes Vital Signs Temp Pulse Resp BP Pulse Ox 03/30/17 02:48 117 H 20 156/98 H 98 03/30/17 02:28 119 H 16 165/104 H 98 03/30/17 00:03 97.6 F 101 H 20 175/114 H 100 03/29/17 23:53 97.6 F 100 H 19 168/112 H 100 Temperature: Afebrile Blood Pressure: Hypertensive Pulse: Regular Respiratory Rate: Normal Appearance: Positive for: Well-Appearing, Non-Toxic, Comfortable Pain Distress: None Mental Status: Positive for: Alert and Oriented X 3 - Systems Exam Head: Present: Atraumatic, Normocephalic Pupils: Present: PERRL Extroacular Muscles: Present: EOMI Conjunctiva: Present: Normal Mouth: Present: Dry Neck: Present: Normal Range of Motion Respiratory/Chest: Present: Clear to Auscultation, Good Air Exchange. No: Respiratory Distress, Accessory Muscle Use Cardiovascular: Present: Regular Rate and Rhythm, Normal S1, S2. No: Murmurs Abdomen: Present: Normal Bowel Sounds. No: Tenderness, Distention, Peritoneal Signs Back: Present: Normal Inspection Upper Extremity: Present: Normal Inspection. No: Cyanosis, Edema Lower Extremity: Present: Normal Inspection. No: Edema Neurological: Present: GCS=15, CN II-XII Intact Skin: Present: Warm, Dry, Normal Color. No: Rashes Psychiatric: Present: Alert, Oriented x 3, Normal Insight, Normal Concentration Medical Decision Making ED Course and Treatment: 03/29/17 23:59 Impression: 66 year old female complaining of abdominal pain, nausea, and vomiting. Differential Diagnosis included but are not limited to: DKA Plan: -- EKG -- CXR -- Labs, VBG, cardiac enzymes, lipase -- Urinalysis -- IV fluids -- Zofran -- Toradol -- Reassess and disposition Prior Visits: Notes and results from previous visits were reviewed. On 02/23/2017, pt was seen in the emergency department for abdominal pain, nausea, and vomiting. Pt was admitted to the hospital for further evaluation. Progress Notes: 03/30/17 00:12 Reviewed EKG, sinus tachycardia at 105 bpm[address] Non-specific ST/T wave changes. 03/30/17 00:57 reviewed labs, lactate: 12.7, glucose:666, VBG pH:7.23. Code Sepsis called. Assistant Director Of [employer] and medical radiation therapist paged. IV fluids, insulin and blood/urine cultures ordered. 03/30/17 00:59 Case discussed with medical radiation therapist sporting goods salesperson, who is aware of admission. 03/30/17 01:[address] Roy, who is aware and agrees to evaluate pt. Pt will be admitted to ICU for DKA under the hospitalist service. - Critical Care Critical Care Minutes: 30 minutes - Lab Interpretations Lab Results: 03/30/17 00:30 03/30/17 00:30 Lab Results 03/30/17 00:30: pO2 52, VBG pH 7.23 L, VBG pCO2 42.0, VBG HCO3 17.6 L, VBG Total CO2 18.9 L, VBG O2 Sat (Calc) 85.0 H, VBG Base Excess -9.6 L, VBG Potassium 4.4, Sodium 141.0, Chloride 91.0 L, Glucose 666 H* D, Lactate 12.7 H* , FiO2 21.0, Venous Blood Potassium 4.4 03/30/17 00:30: WBC 7.2, RBC 5.55, Hgb 15.5, Hct 46.0, MCV 82.9, MCH 27.9, MCHC 33.7, RDW 12.8, Plt Count 137, MPV 12.9 H 03/30/17 00:30: Sodium 137, Chloride 94 L, Potassium 4.2, Carbon Dioxide 17 L, Anion Gap 30 H, BUN 23 H, Creatinine 1.1, Est GFR ( Amer) > 60, Est GFR ( Non-Af Amer) 50, Random Glucose 619 H* D, Calcium 10.3, Total Bilirubin 0.9, AST 80 H, ALT 117 H, Alkaline Phosphatase 98, Lactate Dehydrogenase 539, Total Creatine Kinase 48, Troponin I < 0.01 D, Total Protein 9.2 H, Albumin 4.6, Globulin 4.6, Albumin/Globulin Ratio 1.0 L, Lipase 34 03/29/17 23:55: POC Glucose (mg/dL) 480 H* I have reviewed the lab results: Yes - RAD Interpretation Radiology Orders: 03/30/17 00:01 CHEST PORTABLE [RAD] Stat - EKG Interpretation Interpreted by ED Physician: Yes Type: 12 lead EKG - Medication Orders Current Medication Orders: Heparin Sodium (Porcine) (Heparin) 5,000 units SC Q12 BREEZY PRN Reason: Protocol Last Admin: 03/30/17 09:11 Dose: 5,000 units Hydralazine HCl (Apresoline) 10 mg IVP Q6 PRN PRN Reason: Systolic Blood Pressure Last Admin: 03/30/17 13:22 Dose: 10 mg Dextrose/Sodium Chloride (Dextrose 5%/0.45% Ns 1000 Ml) 1,000 mls @ 125 mls/hr IV .Q8H [facility] Last Admin: 03/30/17 15:29 Dose: 125 mls/hr Insulin Detemir (Levemir) 60 unit SC DAILY [facility] Last Admin: 03/30/17 10:21 Dose: 60 unit Insulin Human Regular (Humulin R Med) 0 units SC Q4H BREEZY PRN Reason: Protocol Last Admin: 03/30/17 18:29 Dose: 1 units Lisinopril (Zestril) 2.5 mg PO DAILY [facility] Last Admin: 03/30/17 10:20 Dose: 2.5 mg Morphine Sulfate (Morphine) 1 mg IVP Q3H PRN PRN Reason: Pain, severe (8-10) Ondansetron HCl (Zofran Inj) 4 mg IVP Q6H PRN PRN Reason: Nausea/Vomiting Last Admin: 03/30/17 18:31 Dose: 4 mg Pantoprazole Sodium (Protonix Inj) 40 mg IVP DAILY [facility] Last Admin: 03/30/17 09:10 Dose: 40 mg Discontinued Medications Sodium Chloride (Sodium Chloride 0.9%) 1,500 mls @ 1,500 mls/hr IV .Q1H STA Stop: 03/30/17 01:04 Last Admin: 03/30/17 00:39 Dose: 1,500 mls/hr Insulin Human Regular 100 (units/ Sodium Chloride) 100 mls @ 10 mls/hr IV .Q10H PRN; Protocol; 10 UNITS/HR PRN Reason: TITRATE PER MD ORDER Last Titration: 03/30/17 10:00 Dose: 0 units/hr, 0 mls/hr Sodium Chloride (Sodium Chloride 0.9%) 1,000 mls @ 1,000 mls/hr IV .Q1H STA Stop: 03/30/17 02:00 Last Admin: 03/30/17 01:10 Dose: 1,000 mls/hr Metronidazole (Flagyl) 500 mg in 100 mls @ 100 mls/hr IVPB STAT STA PRN Reason: Protocol Stop: 03/30/17 03:20 Last Admin: 03/30/17 03:54 Dose: 100 mls/hr Piperacillin Sod/Tazobactam Sod (Zosyn 3.375 In Ns 100ml) 100 mls @ 200 mls/hr IV STAT STA PRN Reason: Protocol Stop: 03/30/17 02:53 Last Admin: 03/30/17 02:50 Dose: 200 mls/hr Potassium Chloride (Potassium Chloride 20 Meq/100 Ml) 20 meq in 100 mls @ 50 mls/hr IVPB Q2H BREEZY Stop: 03/30/17 08:29 Last Admin: 03/30/17 08:13 Dose: 50 mls/hr Sodium Chloride (Sodium Chloride 0.9%) 1,000 mls @ 999 mls/hr IV .Q1H1M STA Stop: 03/30/17 07:57 Last Admin: 03/30/17 07:27 Dose: 999 mls/hr Magnesium Sulfate/Dextrose (Magnesium Sulfate 1 Gm/100 Ml D5w) 1 gm in 100 mls @ 100 mls/hr IVPB ONCE ONE Stop: 03/30/17 08:17 Last Admin: 03/30/17 08:14 Dose: 100 mls/hr Insulin Human Regular (Humulin R) 10 units IVP STAT STA Stop: 03/30/17 00:08 Last Admin: 03/30/17 00:40 Dose: 10 units Ketorolac Tromethamine (Toradol) 30 mg IVP ONCE ONE Stop: 03/30/17 00:07 Last Admin: 03/30/17 00:39 Dose: 30 mg Metoprolol Tartrate (Lopressor) 5 mg IVP ONCE ONE Stop: 03/30/17 11:15 Last Admin: 03/30/17 12:08 Dose: 5 mg Morphine Sulfate (Morphine) 1 mg IVP STAT STA Stop: 03/30/17 11:38 Last Admin: 03/30/17 11:49 Dose: Morphine Sulfate (Morphine) Confirm Administered Dose 10 mg .ROUTE .STK-MED ONE Stop: 03/30/17 11:43 Last Admin: 03/30/17 11:43 Dose: 1 mg Ondansetron HCl (Zofran Inj) 4 mg IVP ONCE ONE Stop: 03/30/17 00:07 Last Admin: 03/30/17 00:40 Dose: 4 mg Pneumococcal Polyvalent Vaccine (Pneumovax 23 Vaccine) 0.5 ml IM .ONCE ONE Stop: 03/30/17 05:51 - Scribe Statement The provider has reviewed the documentation as recorded by the Scribe Laurie Solorzano All medical record entries made by the Scribe were at my direction and personally dictated by me. I have reviewed the chart and agree that the record accurately reflects my personal performance of the history, physical exam, medical decision making, and the department course for this patient. I have also personally directed, reviewed, and agree with the discharge instructions and disposition. Disposition/Present on Arrival - Present on Arrival Any Indicators Present on Arrival: No History of DVT/PE: No History of Uncontrolled Diabetes: Yes Urinary Catheter: No History Surgical Site Infection Following: None - Disposition Have Diagnosis and Disposition been Completed?: Yes Diagnosis: DKA (diabetic ketoacidosis) Disposition: HOSPITALIZED Disposition Time: 01:00 Patient Plan: Admission Condition: STABLE
[2017-03-30] MEDS ORDERED: Sodium Chloride 0.9% 1,500 ML IV STA (00:05)
[2017-03-30] MEDS ORDERED: Insulin Regular 1 UNITS/0.01 ML ML IVP STA (00:07)
[2017-03-30 00:45] LABS: HEMOGLOBIN 15.5 gm/dL (12.0-16.0); MEAN CELL VOLUME 82.9 fL (80.0-105.0); MEAN CORPUSCULAR HEMOGLOBIN 27.9 pg (25.0-35.0); MEAN CORPUSCULAR HGB CONC 33.7 g/dl (31.0-37.0); MEAN PLATELET VOLUME 12.9 fl (7.0-11.0); RBC 5.55 10^6/uL (3.5-6.1); RED CELL DISTRIBUTION WIDTH 12.8 % (11.5-14.5); WHITE BLOOD COUNT 7.2 10^3/ul (4.5-11.0)
[2017-03-30 00:49] LABS: VENOUS BLOOD GAS BASE EXCESS -9.6 mmol/L (0.0-2.0); VENOUS BLOOD GAS PO2 52 mm/Hg (30-55); VENOUS BLOOD PH 7.23 (7.32-7.43)
[2017-03-30] MEDS ORDERED: Insulin Regular 100 UNITS in Sodium Chloride 0.9% 99 ML IV PRN (00:58)
[2017-03-30] MEDS ORDERED: Sodium Chloride 0.9% 1,000 ML IV STA ×2 (01:01→06:57)
[2017-03-30 01:03] LABS: ALBUMIN 4.6 g/dL (3.0-4.8); ALT/SGPT 117 U/L (7-56); BLOOD UREA NITROGEN 23 mg/dL (7-21); CALCIUM 10.3 mg/dL (8.4-10.5); GFR AFRICAN-AMERICAN > 60; GFR NON-AFRICAN AMERICAN 50; LIPASE 34 U/L (23-300)
[2017-03-30 01:09] LABS: AST/SGOT 80 U/L (15-39)
[2017-03-30 01:33] LABS: TROPONIN I < 0.01 ng/mL
[2017-03-30 01:56] LABS: URINE BILIRUBIN NEGATIVE (NEGATIVE); URINE BLOOD TRACE-INTACT (NEGATIVE); URINE GLUCOSE (UA) >=1000 mg/dL (NEGATIVE); URINE LEUKOCYTE ESTERASE NEGATIVE Leu/uL (NEGATIVE); URINE NITRATE NEGATIVE (NEGATIVE); URINE PROTEIN 100 mg/dL (<30 mg/dL); URINE UROBILINOGEN 0.2 E.U./dL (<1 E.U./dL)
[2017-03-30 02:02] LABS: URINE APPEARANCE CLEAR (CLEAR)
[2017-03-30 02:03] LABS: URINE COLOR YELLOW (YELLOW)
[2017-03-30 02:08] LABS: URINE EPITHELIAL CELLS 0 - 2 /hpf (0-5); URINE RBC 0 - 2 /hpf (0-2); URINE WBC 0 - 2 /hpf (0-6)
[2017-03-30 02:09] LABS: URINE HYALINE CAST 0 - 2 /hpf
[2017-03-30] MEDS ORDERED: metroNIDAZOLE IV 500 mg/100 ml 500 MG/100 ML BAG IVPB STA (02:21)
[2017-03-30] MEDS ORDERED: Piperacillin/Tazobact 3.375 gm 100 ML IV STA (02:24)
[2017-03-30 04:00] LABS: BLOOD UREA NITROGEN 20 mg/dL (7-21); CALCIUM 9.4 mg/dL (8.4-10.5); GFR AFRICAN-AMERICAN > 60; GFR NON-AFRICAN AMERICAN > 60; MAGNESIUM 1.6 mg/dL (1.7-2.2)
[2017-03-30 04:03] LABS: BASO # 0.01 K/mm3 (0.0-2.0); BASO % 0.1 % (0.0-3.0); GRAN # 7.43 (1.4-6.5); GRAN % 84.5 % (50.0-68.0); HEMOGLOBIN 13.8 gm/dL (12.0-16.0); LYMPH % 11.6 % (22.0-35.0); MEAN CELL VOLUME 81.9 fL (80.0-105.0); MEAN CORPUSCULAR HEMOGLOBIN 28.3 pg (25.0-35.0); MEAN CORPUSCULAR HGB CONC 34.6 g/dl (31.0-37.0); MEAN PLATELET VOLUME 11.8 fl (7.0-11.0); MONO # 0.3 (0.1-0.6); MONO % 3.8 % (1.0-6.0); PLATELET COUNT 117 10^3/uL (120.0-450.0); RBC 4.87 10^6/uL (3.5-6.1); RED CELL DISTRIBUTION WIDTH 12.9 % (11.5-14.5); WHITE BLOOD COUNT 8.8 10^3/ul (4.5-11.0)
--- NOTE | 2017-03-30 04:38 | CP.PCM.HP ---
History of Present Illness - History of Present Illness History of Present Illness: The patient is a 66 AAF with a history of IDDM, hepatitis C, hypertension, PUD and deaf/mute who presents with abdominal pain. In the ED, she was found to have an elevated lactic acid and DKA. Of note, details of history are limited due to patient being deaf and mute. She will be admitted to the ICU for treatment with Insulin Drip. Present on Admission - Present on Admission Any Indicators Present on Admission: Yes History of Uncontrolled Diabetes: Yes Review of Systems - Review of Systems All systems: reviewed and no additional remarkable complaints except (Very limited due to patient being deaf and mute. No family or freinds at bedside.) Past Patient History - Infectious Disease Hx of Infectious Diseases: None - Tetanus Immunizations Tetanus Immunization: Unknown - Past Social History Smoking Status: Unknown If Ever Smoked - CARDIAC Hx Cardiac Disorders: Yes Hx Hypertension: Yes - PULMONARY Hx Asthma: Yes Hx Chronic Obstructive Pulmonary Disease (COPD): No - NEUROLOGICAL Hx Neurological Disorder: No HX Cerebrovascular Accident: No - HEENT Hx HEENT Problems: Yes (deaf mute) Hx Deafness: Yes - RENAL Hx Renal Failure: No - ENDOCRINE/METABOLIC Hx Diabetes Mellitus Type 1: No Hx Diabetes Mellitus Type 2: Yes - HEMATOLOGICAL/ONCOLOGICAL Hx Blood Disorders: No Hx Cancer: No - INTEGUMENTARY Hx Dermatological Problems: No - MUSCULOSKELETAL/RHEUMATOLOGICAL Hx Arthritis: No Hx Rheumatoid Arthritis: No - GASTROINTESTINAL Hx Gastrointestinal Disorders: No Hx Gastroesophageal Reflux: No - GENITOURINARY/GYNECOLOGICAL Hx Genitourinary Disorders: No - PSYCHIATRIC Hx Psychophysiologic Disorder: No Hx Depression: No Hx Emotional Abuse: No Hx Physical Abuse: No Hx Substance Use: No - SURGICAL HISTORY Other/Comment: "Abdominal Surgery" - ANESTHESIA Hx Anesthesia: No Meds Allergies/Adverse Reactions: Allergies Allergy/AdvReac Type Severity Reaction Status Date / Time No Known Allergies Allergy Verified 03/30/17 00:01 Physical Exam - Constitutional Additional comments: Slightly agitated due to abdominal pain. - Head Exam Head Exam: ATRAUMATIC, NORMAL INSPECTION, NORMOCEPHALIC - Eye Exam Eye Exam: EOMI, Normal appearance, PERRL - ENT Exam ENT Exam: Mucous Membranes Dry - Respiratory Exam Respiratory Exam: Clear to Auscultation Bilateral, NORMAL BREATHING PATTERN - Cardiovascular Exam Cardiovascular Exam: REGULAR RHYTHM - GI/Abdominal Exam Additional comments: Mild diffuse TTP; No rebound or peritoneal signs - Extremities Exam Extremities exam: Positive for: normal inspection - Neurological Exam Additional comments: Grossly normal Results - Vital Signs Recent Vital Signs: Last Vital Signs Temp 97.6 F 03/30/17 04:00 Pulse 113 H 03/30/17 04:00 Resp 27 H 03/30/17 04:00 BP 164/99 H 03/30/17 04:00 Pulse Ox 97 03/30/17 04:00 - Labs Result Diagrams: 03/30/17 03:35 03/30/17 10:42 Labs: Laboratory Results - last 24 hr 03/30/17 03/30/17 03/30/17 01:25 03:02 03:35 WBC RBC Hgb Hct MCV MCH MCHC RDW Plt Count MPV Gran % Lymph % (Auto) [place] % (Auto) Eos % (Auto) Baso % (Auto) Gran # Lymph # [place] # Eos # Baso # Sodium Potassium Chloride Carbon Dioxide Anion Gap BUN Creatinine Est GFR ( Amer) Est GFR (Non-Af Amer) POC Glucose (mg/dL) 341 H Random Glucose Lactic Acid 6.9 H* Calcium Phosphorus Magnesium Urine Color Yellow Urine Appearance Clear Urine pH 6.0 Ur Specific [place] 1.015 Urine Protein 100 H Urine Glucose (UA) >=1000 Urine Ketones Trace H Urine Blood Trace-intact H Urine Nitrate Negative Urine Bilirubin Negative Urine Urobilinogen 0.2 Ur Leukocyte Esterase Negative Urine RBC 0 - 2 Urine WBC 0 - 2 Ur Epithelial Cells 0 - 2 Hyaline Casts 0 - 2 03/30/17 03/30/17 03/30/17 03:35 03:35 03:58 WBC 8.8 D RBC 4.87 Hgb 13.8 Hct 39.9 MCV 81.9 MCH 28.3 MCHC 34.6 RDW 12.9 Plt Count 117 L MPV 11.8 H Gran % 84.5 H Lymph % (Auto) 11.6 L [place] % (Auto) 3.8 Eos % (Auto) 0.0 L Baso % (Auto) 0.1 Gran # 7.43 H Lymph # 1.0 L [place] # 0.3 Eos # 0.0 Baso # 0.01 Sodium 145 Potassium 3.5 L Chloride 107 Carbon Dioxide 18 L Anion Gap 24 H BUN 20 Creatinine 0.8 Est GFR ( Amer) > 60 Est GFR (Non-Af Amer) > 60 POC Glucose (mg/dL) 277 H Random Glucose 328 H* D Lactic Acid Calcium 9.4 Phosphorus 3.1 Magnesium 1.6 L Urine Color Urine Appearance Urine pH Ur Specific [place] Urine Protein Urine Glucose (UA) Urine Ketones Urine Blood Urine Nitrate Urine Bilirubin Urine Urobilinogen Ur Leukocyte Esterase Urine RBC Urine WBC Ur Epithelial Cells Hyaline Casts Assessment & Plan - Assessment and Plan (Free Text) Assessment: A/P: The patient is a 66 AAF with a history of IDDM, hepatitis C, hypertension , PUD and deaf/mute being admitted for DKA. 1. DKA: -Insulin drip -aggressive IVF's -keep NPO -change IVF's to D51/2NS once FS<200 -serial BMP's Q4hrs -Patient received 1 dose of antibiotics in ED due to elevated lactic acid \\ -will check procalcitonin DVT PPx: SCD's and SC Heparin GI PPx: Protonix
[2017-03-30] MEDS ORDERED: Pneumococcal 23-Valent Vaccine IM ONE (05:50)
[2017-03-30 05:51] VITALS: BMI 21.2
[2017-03-30] MEDS ORDERED: Magnesium Sulfate 1 gm in D5W 1 GM/100 ML BAG IVPB ONE (07:18)
[2017-03-30 07:55] LABS: VENOUS BLOOD GAS BASE EXCESS -0.3 mmol/L (0.0-2.0); VENOUS BLOOD GAS PO2 74 mm/Hg (30-55); VENOUS BLOOD PH 7.41 (7.32-7.43)
[2017-03-30 07:57] LABS: BLOOD UREA NITROGEN 23 mg/dL (7-21); CALCIUM 9.5 mg/dL (8.4-10.5); GFR AFRICAN-AMERICAN > 60; GFR NON-AFRICAN AMERICAN > 60; MAGNESIUM 1.6 mg/dL (1.7-2.2)
[2017-03-30] MEDS: Dextrose 5%/0.45% NS 1,000 ML IV SCH ×3 (08:16→22:53)
--- NOTE | 2017-03-30 08:20 | CP.PCM.PN ---
<JosephineElla - Last Filed: 03/30/17 10:09> Subjective - Date & Time of Evaluation Date of Evaluation: 03/30/17 Time of Evaluation: 08:11 - Subjective Subjective: ICU Progress Note Patient seen and examined at bedside. There were no acute overnight events. Patient was vomiting dark colored emesis upon examination. She reports having abdominal pain. She is deaf/mute, ROS was done through lip reading. She denies CP, SOB, diarrhea, numbness/tingling, fever or chills. Objective - Vital Signs/Intake and Output Vital Signs (last 24 hours): Temp Pulse Resp BP Pulse Ox 97.6 F 110 H 26 H 162/108 H 97 03/30/17 04:52 03/30/17 04:52 03/30/17 04:52 03/30/17 04:52 03/30/17 04:00 Intake and Output: 03/30/17 03/30/17 06:59 18:59 Intake Total 2680 2 Output Total 250 Balance 2430 2 - Medications Medications: Current Medications Heparin Sodium (Porcine) (Heparin) 5,000 units SC Q12 [facility] PRN Reason: Protocol Insulin Human Regular 100 (units/ Sodium Chloride) 100 mls @ 10 mls/hr IV .Q10H PRN; Protocol; 10 UNITS/HR PRN Reason: TITRATE PER MD ORDER Last Titration: 03/30/17 07:13 Dose: 3 units/hr, 3 mls/hr Potassium Chloride (Potassium Chloride 20 Meq/100 Ml) 20 meq in 100 mls @ 50 mls/hr IVPB Q2H [facility] Stop: 03/30/17 08:29 Last Admin: 03/30/17 06:07 Dose: 50 mls/hr Dextrose/Sodium Chloride (Dextrose 5%/0.45% Ns 1000 Ml) 1,000 mls @ 125 mls/hr IV .Q8H [facility] Magnesium Sulfate/Dextrose (Magnesium Sulfate 1 Gm/100 Ml D5w) 1 gm in 100 mls @ 100 mls/hr IVPB ONCE ONE Stop: 03/30/17 08:17 Ondansetron HCl (Zofran Inj) 4 mg IVP Q6H PRN PRN Reason: Nausea/Vomiting Last Admin: 03/30/17 06:47 Dose: 4 mg Pantoprazole Sodium (Protonix Inj) 40 mg IVP DAILY [facility] - Labs Labs: 03/30/17 03:35 03/30/17 07:30 - Constitutional Appears: No Acute Distress - Head Exam Head Exam: NORMAL INSPECTION, NORMOCEPHALIC - Eye Exam Eye Exam: Normal appearance, PERRL Pupil Exam: NORMAL ACCOMODATION, PERRL - ENT Exam ENT Exam: Mucous Membranes Moist - Respiratory Exam Respiratory Exam: Clear to Ausculation Bilateral, NORMAL BREATHING PATTERN. absent: Rales, Rhonchi, Wheezes - Cardiovascular Exam Cardiovascular Exam: Tachycardia, REGULAR RHYTHM, +S1, +S2. absent: Gallop, Rubs, Murmur - GI/Abdominal Exam GI & Abdominal Exam: Soft, Tenderness, Normal Bowel Sounds. absent: Guarding, Mass, Rebound - Extremities Exam Extremities Exam: Normal Inspection. absent: Calf Tenderness, Pedal Edema - Neurological Exam Neurological Exam: Alert, Awake, CN II-XII Intact, Oriented x3 - Psychiatric Exam Psychiatric exam: Normal Affect, Normal Mood - Skin Skin Exam: Dry, Intact, Normal Color, Warm Assessment and Plan - Assessment and Plan (Free Text) Assessment: This is a 66Y F with PMH HTN and DM type 2 who was admitted for DKA. She is noted to have previous admission for DKA, last admission on 12/2016. Plan: Neuro: A&O x 3 CV: Tachycardic at this time Can be secondary to dehydration from DKA versus pain Will give another bolus 1L of NS- only received 2.5L bolus in ED Will restart PO home meds if tolerating PO -if not tolerating PO will give IV antihypertensive Pulm: Comfortably on room air Maintain spO2>90% Aspiration precaution GI: Zofran prn NPO at this time Will advance diet as tolerated Abdomen distended- will obtain CT abd/pelvis Nephro: Will continue to monitor I&O Will monitor electrolytes and replace as needed Maintain euvolemia Heme: Hgb stable at this time No overt signs of bleeding ID: Lactate elevated on admission- will repeat afebrile, no leukocytosis Received abx in ED Maintain normothermia Endo: A BGM now <250 Will switch to D5W/0.45 NS@150 BMP q4h, BGM q1h On insulin drip- will switch to SC and ISS Will advance diet as tolerated Endo consulted GI ppx: Protonix DVT ppx: Heparin SC Case seen, discussed and reviewed with attending. Ric Burton PGY2 <Dimitris Webster - Last Filed: 03/30/17 16:30> Objective - Vital Signs/Intake and Output Vital Signs (last 24 hours): Temp Pulse Resp BP Pulse Ox 97.6 F 99 H 18 181/124 H 99 03/30/17 04:52 03/30/17 13:50 03/30/17 13:50 03/30/17 13:24 03/30/17 13:50 Intake and Output: 03/30/17 03/30/17 06:59 18:59 Intake Total 3180 783 Output Total 450 1000 Balance 2730 -217 - Medications Medications: Current Medications Heparin Sodium (Porcine) (Heparin) 5,000 units SC Q12 [facility] PRN Reason: Protocol Last Admin: 03/30/17 09:11 Dose: 5,000 units Hydralazine HCl (Apresoline) 10 mg IVP Q6 PRN PRN Reason: Systolic Blood Pressure Last Admin: 03/30/17 13:22 Dose: 10 mg Dextrose/Sodium Chloride (Dextrose 5%/0.45% Ns 1000 Ml) 1,000 mls @ 125 mls/hr IV .Q8H [facility] Last Admin: 03/30/17 15:29 Dose: 125 mls/hr Insulin Detemir (Levemir) 60 unit SC DAILY [facility] Last Admin: 03/30/17 10:21 Dose: 60 unit Insulin Human Regular (Humulin R Med) 0 units SC Q4H [facility] PRN Reason: Protocol Last Admin: 03/30/17 13:56 Dose: 3 units Lisinopril (Zestril) 2.5 mg PO DAILY [facility] Last Admin: 03/30/17 10:20 Dose: 2.5 mg Morphine Sulfate (Morphine) 1 mg IVP Q3H PRN PRN Reason: Pain, severe (8-10) Ondansetron HCl (Zofran Inj) 4 mg IVP Q6H PRN PRN Reason: Nausea/Vomiting Last Admin: 03/30/17 11:43 Dose: 4 mg Pantoprazole Sodium (Protonix Inj) 40 mg IVP DAILY [facility] Last Admin: 03/30/17 09:10 Dose: 40 mg - Labs Labs: 03/30/17 03:35 07/02/17 15:10 Attending/Attestation - Attestation I have personally seen and examined this patient.: Yes I have fully participated in the care of the patient.: Yes I have reviewed all pertinent clinical information, including history, physical exam and plan: Yes Notes (Text): 03/30/17 16:27 66 yo with DKA, AG closed, insulin drip switched to s/c insulin longer formulation. IVF. zofran for N/V. accu q 4h. CT abdo/pelivs is unremarkable. once able to tolerate oral diet will transfer to [facility]. Hypertensive--will add hydralazine PRN ccm time 40 min 03/30/17 16:29
[2017-03-30 09:56] LABS: VENOUS BLOOD PH 7.36 (7.32-7.43)
[2017-03-30 09:57] LABS: VENOUS BLOOD GAS BASE EXCESS -6.3 mmol/L (0.0-2.0); VENOUS BLOOD GAS PO2 89 mm/Hg (30-55)
[2017-03-30] MEDS ORDERED: Insulin Detemir 100 units/ml Vial (Levemir) SC SCH (10:00)
[2017-03-30] MEDS: Insulin Reg-MEDIUM-Coverage SC SCH ×3 (10:21→18:29)
[2017-03-30 10:27] LABS: VENOUS BLOOD GAS PO2 53 mm/Hg (30-55); VENOUS BLOOD PH 7.29 (7.32-7.43)
[2017-03-30 10:55] LABS: BLOOD UREA NITROGEN 22 mg/dL (7-21); CALCIUM 9.4 mg/dL (8.4-10.5); GFR AFRICAN-AMERICAN > 60; GFR NON-AFRICAN AMERICAN > 60; MAGNESIUM 2.2 mg/dL (1.7-2.2)
[2017-03-30] MEDS ORDERED: Metoprolol 1 mg/ml Inj IVP ONE (11:14)
--- NOTE | 2017-03-30 11:23 | CARD ---
APPROVED REPORT EKG Measurement Heart [id number] <Conclusion> Sinus tachycardia Possible Left atrial enlargement Right superior axis deviation Pulmonary disease pattern RSR' or QR pattern in V1 suggests right ventricular conduction delay Nonspecific ST abnormality Abnormal ECG
--- NOTE | 2017-03-30 11:36 | RAD ---
HISTORY: vomiting COMPARISON: 01/01/2017. FINDINGS: LUNGS: No active pulmonary disease. PLEURA: No significant pleural effusion identified, no pneumothorax apparent. CARDIOVASCULAR: No radiographic findings to suggest acute or significant cardiovascular disease. OSSEOUS STRUCTURES: No significant abnormalities. VISUALIZED UPPER ABDOMEN: Normal. OTHER FINDINGS: None. IMPRESSION: No active disease. No significant interval change compared to the prior examination(s).
[2017-03-30] MEDS ORDERED: Morphine 2 mg/ml ISec IVP STA (11:37)
[2017-03-30] MEDS ORDERED: Morphine 2 mg/ml ISec IVP PRN (11:39)
--- NOTE | 2017-03-30 11:49 | CT ---
PROCEDURE: CT Abdomen and Pelvis without intravenous contrast HISTORY: abd pain COMPARISON: 02/24/2017. CT abdomen and pelvis 08/06/2016 renal ultrasound 08/03/2016 abdominal ultrasound TECHNIQUE: Technique. Contrast Dose: Unenhanced study. Neither oral nor intravenous contrast administered. Radiation dose: Total exam DLP = 186.62 mGy-cm. This CT exam was performed using one or more of the following dose reduction techniques: Automated exposure control, adjustment of the mA and/or kV according to patient size, and/or use of iterative reconstruction technique. FINDINGS: LOWER THORAX: Unremarkable. LIVER: Unremarkable. No gross lesion or ductal dilatation. GALLBLADDER AND BILE DUCTS: Unremarkable. PANCREAS: Unremarkable. No gross lesion or ductal dilatation. SPLEEN: Unremarkable. ADRENALS: Unremarkable. No mass. KIDNEYS AND URETERS: Unremarkable. No hydronephrosis. No solid mass. Incidental finding(s): Cyst lower pole right kidney conforms to findings on prior ultrasound. VASCULATURE: Unremarkable. No aortic aneurysm. BOWEL: Unremarkable. No obstruction. No gross mural thickening. Constipation without fecal impaction or obstruction. APPENDIX: Unremarkable. Normal appendix. PERITONEUM: Unremarkable. No free fluid. No free air. LYMPH NODES: Unremarkable. No enlarged lymph nodes. BLADDER: Pinzon catheter in a decompressed urinary bladder. REPRODUCTIVE: Unremarkable. BONES: No acute fracture. OTHER FINDINGS: None. IMPRESSION: No significant or acute findings to account for/ related to the clinical presentation. No significant interval change compared to the prior examination(s). Additional benign and/or incidental findings described above.
[2017-03-30 14:21] LABS: VENOUS BLOOD GAS BASE EXCESS 1.8 mmol/L (0.0-2.0); VENOUS BLOOD GAS PO2 156 mm/Hg (30-55); VENOUS BLOOD PH 7.45 (7.32-7.43)
[2017-03-30 15:28] LABS: BLOOD UREA NITROGEN 18 mg/dL (7-21); GFR AFRICAN-AMERICAN > 60; GFR NON-AFRICAN AMERICAN > 60; MAGNESIUM 1.9 mg/dL (1.7-2.2)
[2017-03-30 19:14] LABS: BLOOD UREA NITROGEN 17 mg/dL (7-21); GFR AFRICAN-AMERICAN > 60; GFR NON-AFRICAN AMERICAN > 60; MAGNESIUM 1.9 mg/dL (1.7-2.2)
[2017-03-30] MEDS: Insulin Lispro (humaLOG) LOW Coverage SC SCH (22:25)
[2017-03-30] MEDS: Insulin Detemir 100 units/ml Vial (Levemir) SC SCH (22:42)
[2017-03-31 06:22] LABS: ALB/GLOB RATIO 0.9 (1.1-1.8); ALBUMIN 3.5 g/dL (3.0-4.8); ALT/SGPT 75 U/L (7-56); AST/SGOT 55 U/L (15-39); BLOOD UREA NITROGEN 18 mg/dL (7-21); CALCIUM 8.6 mg/dL (8.4-10.5); GFR AFRICAN-AMERICAN > 60; GFR NON-AFRICAN AMERICAN > 60; HDL CHOLESTEROL 92 mg/dL (29-60); LDL CHOLESTEROL 72 mg/dL (0-129)
[2017-03-31 07:01] LABS: HEMOGLOBIN 13.2 gm/dL (12.0-16.0); MEAN CELL VOLUME 82.9 fL (80.0-105.0); MEAN CORPUSCULAR HEMOGLOBIN 27.2 pg (25.0-35.0); MEAN CORPUSCULAR HGB CONC 32.8 g/dl (31.0-37.0); MEAN PLATELET VOLUME 12.1 fl (7.0-11.0); RBC 4.86 10^6/uL (3.5-6.1); RED CELL DISTRIBUTION WIDTH 13.2 % (11.5-14.5); WHITE BLOOD COUNT 11.2 10^3/ul (4.5-11.0)
[2017-03-31] MEDS: Dextrose 5%/0.45% NS 1,000 ML IV SCH (07:13)
[2017-03-31] MEDS: Insulin Lispro (humaLOG) LOW Coverage SC SCH ×3 (07:58→21:05)
[2017-03-31] MEDS: Insulin Lispro 1 UNITS/0.01 ML SC SCH ×3 (08:14→17:16)
--- NOTE | 2017-03-31 13:50 | CP.PCM.PN ---
<SAÚL ROSSI - Last Filed: 03/31/17 16:50> Subjective - Date & Time of Evaluation Date of Evaluation: 03/31/17 Time of Evaluation: 09:30 - Subjective Subjective: Medical Progress Note: Pt seen and examined at bedside. Pt admits to some lingering abdominal pain, but has improved overall. Pt tolerates advance from liquid diet to consistent carbohydrate diet well. Pt denies headaches, dizziness N/V/F, CP, SOB. Objective - Vital Signs/Intake and Output Vital Signs (last 24 hours): Temp Pulse Resp BP Pulse Ox 97.9 F 95 H 17 127/84 99 03/31/17 12:00 03/31/17 13:00 03/31/17 13:00 03/31/17 12:24 03/31/17 09:20 Intake and Output: 03/31/17 03/31/17 06:59 18:59 Intake Total 1500 Output Total 1100 Balance 400 - Medications Medications: Current Medications Heparin Sodium (Porcine) (Heparin) 5,000 units SC Q12 [facility] PRN Reason: Protocol Last Admin: 03/31/17 09:19 Dose: 5,000 units Hydralazine HCl (Apresoline) 10 mg IVP Q6 PRN PRN Reason: Systolic Blood Pressure Last Admin: 03/30/17 20:29 Dose: 10 mg Insulin Detemir (Levemir) 20 unit SC HS [facility] Last Admin: 03/30/17 22:42 Dose: 20 unit Insulin Human Lispro (Humalog Low) 0 units SC ACHS [facility] PRN Reason: Protocol Last Admin: 03/31/17 07:58 Dose: Not Given Insulin Human Lispro (Humalog) 6 units SC AC [facility] Last Admin: 03/31/17 11:49 Dose: 6 units Lisinopril (Zestril) 10 mg PO DAILY [facility] Last Admin: 03/31/17 09:19 Dose: 10 mg Morphine Sulfate (Morphine) 1 mg IVP Q3H PRN PRN Reason: Pain, severe (8-10) Ondansetron HCl (Zofran Inj) 4 mg IVP Q6H PRN PRN Reason: Nausea/Vomiting Last Admin: 03/31/17 09:19 Dose: 4 mg Pantoprazole Sodium (Protonix Inj) 40 mg IVP DAILY [facility] Last Admin: 03/31/17 09:19 Dose: 40 mg - Labs Labs: 03/31/17 06:55 03/31/17 05:30 - Constitutional Appears: Well, No Acute Distress - Head Exam Head Exam: ATRAUMATIC, NORMOCEPHALIC - Eye Exam Eye Exam: EOMI, Normal appearance, PERRL - ENT Exam ENT Exam: Mucous Membranes Moist, Normal Exam - Neck Exam Neck Exam: Full ROM, Normal Inspection - Respiratory Exam Respiratory Exam: Clear to Ausculation Bilateral, NORMAL BREATHING PATTERN - Cardiovascular Exam Cardiovascular Exam: REGULAR RHYTHM, +S1, +S2 - GI/Abdominal Exam GI & Abdominal Exam: Soft, Tenderness, Normal Bowel Sounds - Extremities Exam Extremities Exam: Full ROM - Neurological Exam Neurological Exam: Alert, Awake, CN II-XII Intact, Oriented x3 - Psychiatric Exam Psychiatric exam: Normal Affect, Normal Mood - Skin Skin Exam: Dry, Intact, Normal Color, Warm - Additional Findings Additional findings: CT Abdomen and Pelvis (abdominal pain) 03/30/17: No significant or acute findings to account for/related to the clinical presentation. No significant interval change compared to the prior examination(s ). Cyst lower pole right kidney. Chest X-Ray (portable) 03/30/17: No active disease. No significant interval change compared to the prior examination(s). EKG 03/30/17: Sinus tachycardia, possible left atrial enlargement, right superior axis deviation, pulmonary disease pattern, RSR' or QR pattern in V1 suggests right ventricular conduction delay, nonspecific ST abnormality, abnormal ECG. Assessment and Plan - Assessment and Plan (Free Text) Assessment: A/P: The patient is a 66 AAF with a history of IDDM, hepatitis C, hypertension, PUD and deaf/mute being admitted for DKA. 1. DKA: - resolved - Gap closed -Levemir 20u SC HS and Humalog 6u SC AC - ISS as protocol -Morphine 1 mg IVP Q3H PRN for pain -Zofran 4 mg IVP Q6H prn for nausea/vomiting -CBG Q6H -D/C D5NS -Advance liquid diet to consistent carbohydrate -Consult claims assistant 2. Hypertension -Lisinopril 10 mg PO daily -Hydralazine 10 mg IVP Q6 prn 3. GI / DVT PPx -Protonix 40mg -HSQ -SCDs Case was seen, reviewed and discussed in detail with Dr Walsh. <Nasir Walsh - Last Filed: 03/31/17 17:11> Objective - Vital Signs/Intake and Output Vital Signs (last 24 hours): Temp Pulse Resp BP Pulse Ox 97.9 F 95 H 17 127/84 99 03/31/17 12:00 03/31/17 13:00 03/31/17 13:00 03/31/17 12:24 03/31/17 09:20 Intake and Output: 03/31/17 03/31/17 06:59 18:59 Intake Total 1500 Output Total 1100 Balance 400 - Medications Medications: Current Medications Heparin Sodium (Porcine) (Heparin) 5,000 units SC Q12 [facility] PRN Reason: Protocol Last Admin: 03/31/17 09:19 Dose: 5,000 units Hydralazine HCl (Apresoline) 10 mg IVP Q6 PRN PRN Reason: Systolic Blood Pressure Last Admin: 03/30/17 20:29 Dose: 10 mg Insulin Detemir (Levemir) 20 unit SC HS [facility] Last Admin: 03/30/17 22:42 Dose: 20 unit Insulin Human Lispro (Humalog Low) 0 units SC ACHS [facility] PRN Reason: Protocol Last Admin: 03/31/17 07:58 Dose: Not Given Insulin Human Lispro (Humalog) 6 units SC AC [facility] Last Admin: 03/31/17 11:49 Dose: 6 units Lisinopril (Zestril) 10 mg PO DAILY [facility] Last Admin: 03/31/17 09:19 Dose: 10 mg Morphine Sulfate (Morphine) 1 mg IVP Q3H PRN PRN Reason: Pain, severe (8-10) Ondansetron HCl (Zofran Inj) 4 mg IVP Q6H PRN PRN Reason: Nausea/Vomiting Last Admin: 03/31/17 09:19 Dose: 4 mg Pantoprazole Sodium (Protonix Inj) 40 mg IVP DAILY [facility] Last Admin: 03/31/17 09:19 Dose: 40 mg - Labs Labs: 03/31/17 06:55 03/31/17 05:30 Attending/Attestation - Attestation I have personally seen and examined this patient.: Yes I have fully participated in the care of the patient.: Yes I have reviewed all pertinent clinical information, including history, physical exam and plan: Yes Notes (Text): 03/31/17 17:08 66 year old female with past medical history of diabetes, hypertension and hepatitis C who was admitted for DKA which has now resolved. She is now off insulin drip and on levemir. She was counselled on medication compliance. Diabetic education referral was ordered. She complained of mild abdominal pain initially which improved. CT abd/pelvis was negative. Will advance diet to diabetic diet and d/c iv fluids if patient is eating. Okay to downgrade from ICU today. Nasir Walsh MD Hospitalist.
--- NOTE | 2017-03-31 16:05 | CP.CCUPN ---
<Jared Caraballo - Last Filed: 03/31/17 16:18> CCU Subjective - Physician Review Events Since Last Encounter (Free Text): 03/31/17 16:02 none 03/31/17 16:03 Subjective (Free Text): 03/31/17 16:04 Patient denies nausea, fever, abdominal pain, or any kind of discomfort Critical Care Time Spent (in minutes): 15 CCU Objective - Vital Signs / Intake & Output Vital Signs (Last 4 hours): Vital Signs Pulse Resp BP 03/31/17 13:00 95 H 17 03/31/17 12:50 100 H 26 H 03/31/17 12:40 116 H 22 03/31/17 12:30 107 H 18 03/31/17 12:24 109 H 22 127/84 03/31/17 12:20 111 H 34 H 03/31/17 12:10 99 H 62 H Intake and Output (Last 8hrs): Intake & Output 03/31/17 03/31/17 03/31/17 06:59 14:59 22:59 Intake Total 1500 Output Total 1100 Balance 400 Weight 102 lb Intake: IV 1500 Left Antecubital 1500 Output: Urine 1100 Urine, Voided 1100 - Physical Exam Narrative Physical Exam (Free Text): 03/31/17 16:04 Patient is hard of hearing, no work-up has been performed in this regard, to my knowledge Head: Positive for: Atraumatic, Normocephalic Pupils: Positive for: PERRL Extroacular Muscles: Positive for: EOMI Conjunctiva: Positive for: Normal. Negative for: Icteric Mouth: Positive for: Dry Pharnyx: Positive for: Normal. Negative for: ERYTHEMA, EXUDATE Nose (Internal): Positive for: Normal Inspection Neck: Positive for: Normal Range of Motion, Trachea Midline. Negative for: JVD Respiratory/Chest: Positive for: Clear to Auscultation, Good Air Exchange. Negative for: Respiratory Distress, Accessory Muscle Use Cardiovascular: Positive for: Regular Rate and Rhythm, Normal S1, S2. Negative for: Murmurs Abdomen: Positive for: Normal Bowel Sounds, McBurney's Point Tender, Other ( Liver enlarged, extended 2.5 inches below costal margin.). Negative for: Tenderness, Distention, Peritoneal Signs Back: Positive for: Normal Inspection Upper Extremity: Positive for: Normal Inspection, Capillary Refill < 2s. Negative for: Cyanosis, Edema Lower Extremity: Positive for: Normal Inspection. Negative for: Edema Neurological: Positive for: GCS=15, CN II-XII Intact Skin: Positive for: Warm, Dry, Normal Color. Negative for: Rashes Psychiatric: Positive for: Alert, Normal Insight, Normal Concentration - Medications Active Medications: Active Medications Generic Name Dose Route Start Last Admin Trade Name Freq PRN Reason Stop Dose Admin Heparin Sodium (Porcine) 5,000 units 03/30/17 10:00 03/31/17 09:19 Heparin SC 5,000 units Q12 BREEZY Administration Protocol Hydralazine HCl 10 mg 03/30/17 13:07 03/30/17 20:29 Apresoline IVP 10 mg Q6 PRN Administration Systolic Blood Pressure Insulin Detemir 20 unit 03/30/17 22:00 03/30/17 22:42 Levemir SC 20 unit HS BREEZY Administration Insulin Human Lispro 0 units 03/30/17 22:00 03/31/17 07:58 Humalog Low SC Not Given ACHS BREEZY Protocol Insulin Human Lispro 6 units 03/31/17 07:30 03/31/17 11:49 Humalog SC 6 units AC BREEZY Administration Lisinopril 10 mg 03/30/17 20:01 03/31/17 09:19 Zestril PO 10 mg DAILY BREEZY Administration Morphine Sulfate 1 mg 03/30/17 11:39 Morphine IVP Q3H PRN Pain, severe (8-10) Ondansetron HCl 4 mg 03/30/17 04:23 03/31/17 09:19 Zofran Inj IVP 4 mg Q6H PRN Administration Nausea/Vomiting Pantoprazole Sodium 40 mg 03/30/17 10:00 03/31/17 09:19 Protonix Inj IVP 40 mg DAILY BREEZY Administration - Patient Studies Lab Studies: Microbiology Studies 03/30/17 03:15 MRSA Culture (Admit) - Final Nose MRSA DETECTED 03/30/17 01:25 Urine Culture - Final Urine No Growth (<1,000 CFU/ML) 03/30/17 01:30 Blood Culture - Preliminary Blood NO GROWTH AFTER 24 HOURS Lab Studies 03/31/17 03/31/17 03/31/17 Range/Units 11:06 07:25 06:55 WBC 11.2 H D (4.5-11.0) 10^3/ul RBC 4.86 (3.5-6.1) 10^6/uL Hgb 13.2 (12.0-16.0) gm/dL Hct 40.3 (36.0-48.0) % MCV 82.9 (80.0-105.0) fL MCH 27.2 (25.0-35.0) pg MCHC 32.8 (31.0-37.0) g/dl RDW 13.2 (11.5-14.5) % Plt Count 109 L (120.0-450.0) 10^3/uL MPV 12.1 H (7.0-11.0) fl Sodium (132-148) mmol/L Potassium (3.6-5.0) mmol/L Chloride (98-107) mmol/L Carbon Dioxide (21-33) mmol/L Anion Gap (10-20) BUN (7-21) mg/dL Creatinine (0.5-1.4) mg/dL Est GFR ( Amer) Est GFR (Non-Af Amer) POC Glucose (mg/dL) 114 H 86 (65-110) mg/dL Random Glucose (70-110) mg/dL Hemoglobin A1c (4.2-6.5) % Calcium (8.4-10.5) mg/dL Magnesium (1.7-2.2) mg/dL Total Bilirubin (0.2-1.3) mg/dL AST (15-39) U/L ALT (7-56) U/L Alkaline Phosphatase (38-133) U/L Total Protein (5.8-8.3) g/dL Albumin (3.0-4.8) g/dL Globulin gm/dL Albumin/Globulin Ratio (1.1-1.8) Triglycerides (35-160) mg/dL Cholesterol (130-200) mg/dL LDL Cholesterol Direct (0-129) mg/dL HDL Cholesterol (29-60) mg/dL TSH 3rd Generation (0.46-4.68) MIU/ml 03/31/17 03/31/17 03/31/17 Range/Units 05:30 05:30 05:30 WBC (4.5-11.0) 10^3/ul RBC (3.5-6.1) 10^6/uL Hgb (12.0-16.0) gm/dL Hct (36.0-48.0) % MCV (80.0-105.0) fL MCH (25.0-35.0) pg MCHC (31.0-37.0) g/dl RDW (11.5-14.5) % Plt Count (120.0-450.0) 10^3/uL MPV (7.0-11.0) fl Sodium 139 (132-148) mmol/L Potassium 3.9 (3.6-5.0) mmol/L Chloride 108 (98-107) mmol/L Carbon Dioxide 22 (21-33) mmol/L Anion Gap 13 (10-20) BUN 18 (7-21) mg/dL Creatinine 0.8 (0.5-1.4) mg/dL Est GFR ( Amer) > 60 Est GFR (Non-Af Amer) > 60 POC Glucose (mg/dL) (65-110) mg/dL Random Glucose 107 (70-110) mg/dL Hemoglobin A1c 12.7 H (4.2-6.5) % Calcium 8.6 (8.4-10.5) mg/dL Magnesium (1.7-2.2) mg/dL Total Bilirubin 0.7 (0.2-1.3) mg/dL AST 55 H (15-39) U/L ALT 75 H (7-56) U/L Alkaline Phosphatase 56 (38-133) U/L Total Protein 7.2 (5.8-8.3) g/dL Albumin 3.5 (3.0-4.8) g/dL Globulin 3.7 gm/dL Albumin/Globulin Ratio 0.9 L (1.1-1.8) Triglycerides 71 (35-160) mg/dL Cholesterol 179 (130-200) mg/dL LDL Cholesterol Direct 72 (0-129) mg/dL HDL Cholesterol 92 H (29-60) mg/dL TSH 3rd Generation 0.6 (0.46-4.68) MIU/ml 03/30/17 03/30/17 03/30/17 Range/Units 23:22 22:11 18:55 WBC (4.5-11.0) 10^3/ul RBC (3.5-6.1) 10^6/uL Hgb (12.0-16.0) gm/dL Hct (36.0-48.0) % MCV (80.0-105.0) fL MCH (25.0-35.0) pg MCHC (31.0-37.0) g/dl RDW (11.5-14.5) % Plt Count (120.0-450.0) 10^3/uL MPV (7.0-11.0) fl Sodium 141 (132-148) mmol/L Potassium 3.8 (3.6-5.0) mmol/L Chloride 107 (98-107) mmol/L Carbon Dioxide 25 (21-33) mmol/L Anion Gap 13 (10-20) BUN 17 (7-21) mg/dL Creatinine 0.7 (0.5-1.4) mg/dL Est GFR ( Amer) > 60 Est GFR (Non-Af Amer) > 60 POC Glucose (mg/dL) 126 H 103 (65-110) mg/dL Random Glucose 168 H (70-110) mg/dL Hemoglobin A1c (4.2-6.5) % Calcium 9.0 (8.4-10.5) mg/dL Magnesium 1.9 (1.7-2.2) mg/dL Total Bilirubin (0.2-1.3) mg/dL AST (15-39) U/L ALT (7-56) U/L Alkaline Phosphatase (38-133) U/L Total Protein (5.8-8.3) g/dL Albumin (3.0-4.8) g/dL Globulin gm/dL Albumin/Globulin Ratio (1.1-1.8) Triglycerides (35-160) mg/dL Cholesterol (130-200) mg/dL LDL Cholesterol Direct (0-129) mg/dL HDL Cholesterol (29-60) mg/dL TSH 3rd Generation (0.46-4.68) MIU/ml 03/30/17 03/30/17 03/30/17 Range/Units 18:06 16:09 13:50 WBC (4.5-11.0) 10^3/ul RBC (3.5-6.1) 10^6/uL Hgb (12.0-16.0) gm/dL Hct (36.0-48.0) % MCV (80.0-105.0) fL MCH (25.0-35.0) pg MCHC (31.0-37.0) g/dl RDW (11.5-14.5) % Plt Count (120.0-450.0) 10^3/uL MPV (7.0-11.0) fl Sodium (132-148) mmol/L Potassium (3.6-5.0) mmol/L Chloride (98-107) mmol/L Carbon Dioxide (21-33) mmol/L Anion Gap (10-20) BUN (7-21) mg/dL Creatinine (0.5-1.4) mg/dL Est GFR ( Amer) Est GFR (Non-Af Amer) POC Glucose (mg/dL) 163 H 177 H 217 H (65-110) mg/dL Random Glucose (70-110) mg/dL Hemoglobin A1c (4.2-6.5) % Calcium (8.4-10.5) mg/dL Magnesium (1.7-2.2) mg/dL Total Bilirubin (0.2-1.3) mg/dL AST (15-39) U/L ALT (7-56) U/L Alkaline Phosphatase (38-133) U/L Total Protein (5.8-8.3) g/dL Albumin (3.0-4.8) g/dL Globulin gm/dL Albumin/Globulin Ratio (1.1-1.8) Triglycerides (35-160) mg/dL Cholesterol (130-200) mg/dL LDL Cholesterol Direct (0-129) mg/dL HDL Cholesterol (29-60) mg/dL TSH 3rd Generation (0.46-4.68) MIU/ml Laboratory Results - last 24 hr 03/30/17 03/30/17 03/30/17 13:50 16:09 18:06 WBC RBC Hgb Hct MCV MCH MCHC RDW Plt Count MPV Sodium Potassium Chloride Carbon Dioxide Anion Gap BUN Creatinine Est GFR ( Amer) Est GFR (Non-Af Amer) POC Glucose (mg/dL) 217 H 177 H 163 H Random Glucose Hemoglobin A1c Calcium Magnesium Total Bilirubin AST ALT Alkaline Phosphatase Total Protein Albumin Globulin Albumin/Globulin Ratio Triglycerides Cholesterol LDL Cholesterol Direct HDL Cholesterol TSH 3rd Generation 03/30/17 03/30/17 03/30/17 18:55 22:11 23:22 WBC RBC Hgb Hct MCV MCH MCHC RDW Plt Count MPV Sodium 141 Potassium 3.8 Chloride 107 Carbon Dioxide 25 Anion Gap 13 BUN 17 Creatinine 0.7 Est GFR ( Amer) > 60 Est GFR (Non-Af Amer) > 60 POC Glucose (mg/dL) 103 126 H Random Glucose 168 H Hemoglobin A1c Calcium 9.0 Magnesium 1.9 Total Bilirubin AST ALT Alkaline Phosphatase Total Protein Albumin Globulin Albumin/Globulin Ratio Triglycerides Cholesterol LDL Cholesterol Direct HDL Cholesterol TSH 3rd Generation 03/31/17 03/31/17 03/31/17 05:30 05:30 05:30 WBC RBC Hgb Hct MCV MCH MCHC RDW Plt Count MPV Sodium 139 Potassium 3.9 Chloride 108 Carbon Dioxide 22 Anion Gap 13 BUN 18 Creatinine 0.8 Est GFR ( Amer) > 60 Est GFR (Non-Af Amer) > 60 POC Glucose (mg/dL) Random Glucose 107 Hemoglobin A1c 12.7 H Calcium 8.6 Magnesium Total Bilirubin 0.7 AST 55 H ALT 75 H Alkaline Phosphatase 56 Total Protein 7.2 Albumin 3.5 Globulin 3.7 Albumin/Globulin Ratio 0.9 L Triglycerides 71 Cholesterol 179 LDL Cholesterol Direct 72 HDL Cholesterol 92 H TSH 3rd Generation 0.6 03/31/17 03/31/17 03/31/17 06:55 07:25 11:06 WBC 11.2 H D RBC 4.86 Hgb 13.2 Hct 40.3 MCV 82.9 MCH 27.2 MCHC 32.8 RDW 13.2 Plt Count 109 L MPV 12.1 H Sodium Potassium Chloride Carbon Dioxide Anion Gap BUN Creatinine Est GFR ( Amer) Est GFR (Non-Af Amer) POC Glucose (mg/dL) 86 114 H Random Glucose Hemoglobin A1c Calcium Magnesium Total Bilirubin AST ALT Alkaline Phosphatase Total Protein Albumin Globulin Albumin/Globulin Ratio Triglycerides Cholesterol LDL Cholesterol Direct HDL Cholesterol TSH 3rd Generation Fingerstick Blood Sugar Results: 117 Review of Systems - EENT Eyes: As Per HPI Critical Care Progress Note - Nutrition Nutrition: Nutrition Category Date Time Status Consistent Carbohydrate [DIET] Diets 03/31/17 Lunch Ordered Assessment/Plan - Assessment and Plan (Free Text) Assessment: 1) DKA- resolved, off insulin drip. Anion gap has closed, lactate is within normal limits. Patient transferred out of ICU. Plan: Patient needs to placed on proper insulin/diabetic regiment to control blood glucose. - Date & Time Date: 03/31/17 Time: 16:23 <Dimitris Webster - Last Filed: 03/31/17 17:25> CCU Objective - Vital Signs / Intake & Output Intake and Output (Last 8hrs): Intake & Output 03/31/17 03/31/17 03/31/17 06:59 14:59 22:59 Intake Total 1500 Output Total 1100 Balance 400 Weight 102 lb Intake: IV 1500 Left Antecubital 1500 Output: Urine 1100 Urine, Voided 1100 - Medications Active Medications: Active Medications Generic Name Dose Route Start Last Admin Trade Name Freq PRN Reason Stop Dose Admin Heparin Sodium (Porcine) 5,000 units 03/30/17 10:00 03/31/17 09:19 Heparin SC 5,000 units Q12 BREEZY Administration Protocol Hydralazine HCl 10 mg 03/30/17 13:07 03/30/17 20:29 Apresoline IVP 10 mg Q6 PRN Administration Systolic Blood Pressure Insulin Detemir 20 unit 03/30/17 22:00 03/30/17 22:42 Levemir SC 20 unit HS BREEZY Administration Insulin Human Lispro 0 units 03/30/17 22:00 03/31/17 17:20 Humalog Low SC Not Given ACHS BREEZY Protocol Insulin Human Lispro 6 units 03/31/17 07:30 03/31/17 17:16 Humalog SC 6 units AC BREEZY Administration Lisinopril 10 mg 03/30/17 20:01 03/31/17 09:19 Zestril PO 10 mg DAILY BREEZY Administration Morphine Sulfate 1 mg 03/30/17 11:39 Morphine IVP Q3H PRN Pain, severe (8-10) Ondansetron HCl 4 mg 03/30/17 04:23 03/31/17 09:19 Zofran Inj IVP 4 mg Q6H PRN Administration Nausea/Vomiting Pantoprazole Sodium 40 mg 03/30/17 10:00 03/31/17 09:19 Protonix Inj IVP 40 mg DAILY BREEZY Administration - Patient Studies Lab Studies: Microbiology Studies 03/30/17 03:15 MRSA Culture (Admit) - Final Nose MRSA DETECTED 03/30/17 01:25 Urine Culture - Final Urine No Growth (<1,000 CFU/ML) 03/30/17 01:30 Blood Culture - Preliminary Blood NO GROWTH AFTER 24 HOURS Lab Studies 03/31/17 03/31/17 03/31/17 Range/Units 16:02 11:06 07:25 WBC (4.5-11.0) 10^3/ul RBC (3.5-6.1) 10^6/uL Hgb (12.0-16.0) gm/dL Hct (36.0-48.0) % MCV (80.0-105.0) fL MCH (25.0-35.0) pg MCHC (31.0-37.0) g/dl RDW (11.5-14.5) % Plt Count (120.0-450.0) 10^3/uL MPV (7.0-11.0) fl Sodium (132-148) mmol/L Potassium (3.6-5.0) mmol/L Chloride (98-107) mmol/L Carbon Dioxide (21-33) mmol/L Anion Gap (10-20) BUN (7-21) mg/dL Creatinine (0.5-1.4) mg/dL Est GFR ( Amer) Est GFR (Non-Af Amer) POC Glucose (mg/dL) 99 114 H 86 (65-110) mg/dL Random Glucose (70-110) mg/dL Hemoglobin A1c (4.2-6.5) % Calcium (8.4-10.5) mg/dL Magnesium (1.7-2.2) mg/dL Total Bilirubin (0.2-1.3) mg/dL AST (15-39) U/L ALT (7-56) U/L Alkaline Phosphatase (38-133) U/L Total Protein (5.8-8.3) g/dL Albumin (3.0-4.8) g/dL Globulin gm/dL Albumin/Globulin Ratio (1.1-1.8) Triglycerides (35-160) mg/dL Cholesterol (130-200) mg/dL LDL Cholesterol Direct (0-129) mg/dL HDL Cholesterol (29-60) mg/dL TSH 3rd Generation (0.46-4.68) MIU/ml 03/31/17 03/31/17 03/31/17 Range/Units 06:55 05:30 05:30 WBC 11.2 H D (4.5-11.0) 10^3/ul RBC 4.86 (3.5-6.1) 10^6/uL Hgb 13.2 (12.0-16.0) gm/dL Hct 40.3 (36.0-48.0) % MCV 82.9 (80.0-105.0) fL MCH 27.2 (25.0-35.0) pg MCHC 32.8 (31.0-37.0) g/dl RDW 13.2 (11.5-14.5) % Plt Count 109 L (120.0-450.0) 10^3/uL MPV 12.1 H (7.0-11.0) fl Sodium (132-148) mmol/L Potassium (3.6-5.0) mmol/L Chloride (98-107) mmol/L Carbon Dioxide (21-33) mmol/L Anion Gap (10-20) BUN (7-21) mg/dL Creatinine (0.5-1.4) mg/dL Est GFR ( Amer) Est GFR (Non-Af Amer) POC Glucose (mg/dL) (65-110) mg/dL Random Glucose (70-110) mg/dL Hemoglobin A1c 12.7 H (4.2-6.5) % Calcium (8.4-10.5) mg/dL Magnesium (1.7-2.2) mg/dL Total Bilirubin (0.2-1.3) mg/dL AST (15-39) U/L ALT (7-56) U/L Alkaline Phosphatase (38-133) U/L Total Protein (5.8-8.3) g/dL Albumin (3.0-4.8) g/dL Globulin gm/dL Albumin/Globulin Ratio (1.1-1.8) Triglycerides (35-160) mg/dL Cholesterol (130-200) mg/dL LDL Cholesterol Direct (0-129) mg/dL HDL Cholesterol (29-60) mg/dL TSH 3rd Generation 0.6 (0.46-4.68) MIU/ml 03/31/17 03/30/17 03/30/17 Range/Units 05:30 23:22 22:11 WBC (4.5-11.0) 10^3/ul RBC (3.5-6.1) 10^6/uL Hgb (12.0-16.0) gm/dL Hct (36.0-48.0) % MCV (80.0-105.0) fL MCH (25.0-35.0) pg MCHC (31.0-37.0) g/dl RDW (11.5-14.5) % Plt Count (120.0-450.0) 10^3/uL MPV (7.0-11.0) fl Sodium 139 (132-148) mmol/L Potassium 3.9 (3.6-5.0) mmol/L Chloride 108 (98-107) mmol/L Carbon Dioxide 22 (21-33) mmol/L Anion Gap 13 (10-20) BUN 18 (7-21) mg/dL Creatinine 0.8 (0.5-1.4) mg/dL Est GFR ( Amer) > 60 Est GFR (Non-Af Amer) > 60 POC Glucose (mg/dL) 126 H 103 (65-110) mg/dL Random Glucose 107 (70-110) mg/dL Hemoglobin A1c (4.2-6.5) % Calcium 8.6 (8.4-10.5) mg/dL Magnesium (1.7-2.2) mg/dL Total Bilirubin 0.7 (0.2-1.3) mg/dL AST 55 H (15-39) U/L ALT 75 H (7-56) U/L Alkaline Phosphatase 56 (38-133) U/L Total Protein 7.2 (5.8-8.3) g/dL Albumin 3.5 (3.0-4.8) g/dL Globulin 3.7 gm/dL Albumin/Globulin Ratio 0.9 L (1.1-1.8) Triglycerides 71 (35-160) mg/dL Cholesterol 179 (130-200) mg/dL LDL Cholesterol Direct 72 (0-129) mg/dL HDL Cholesterol 92 H (29-60) mg/dL TSH 3rd Generation (0.46-4.68) MIU/ml 03/30/17 03/30/17 03/30/17 Range/Units 18:55 18:06 16:09 WBC (4.5-11.0) 10^3/ul RBC (3.5-6.1) 10^6/uL Hgb (12.0-16.0) gm/dL Hct (36.0-48.0) % MCV (80.0-105.0) fL MCH (25.0-35.0) pg MCHC (31.0-37.0) g/dl RDW (11.5-14.5) % Plt Count (120.0-450.0) 10^3/uL MPV (7.0-11.0) fl Sodium 141 (132-148) mmol/L Potassium 3.8 (3.6-5.0) mmol/L Chloride 107 (98-107) mmol/L Carbon Dioxide 25 (21-33) mmol/L Anion Gap 13 (10-20) BUN 17 (7-21) mg/dL Creatinine 0.7 (0.5-1.4) mg/dL Est GFR ( Amer) > 60 Est GFR (Non-Af Amer) > 60 POC Glucose (mg/dL) 163 H 177 H (65-110) mg/dL Random Glucose 168 H (70-110) mg/dL Hemoglobin A1c (4.2-6.5) % Calcium 9.0 (8.4-10.5) mg/dL Magnesium 1.9 (1.7-2.2) mg/dL Total Bilirubin (0.2-1.3) mg/dL AST (15-39) U/L ALT (7-56) U/L Alkaline Phosphatase (38-133) U/L Total Protein (5.8-8.3) g/dL Albumin (3.0-4.8) g/dL Globulin gm/dL Albumin/Globulin Ratio (1.1-1.8) Triglycerides (35-160) mg/dL Cholesterol (130-200) mg/dL LDL Cholesterol Direct (0-129) mg/dL HDL Cholesterol (29-60) mg/dL TSH 3rd Generation (0.46-4.68) MIU/ml 03/30/17 Range/Units 13:50 WBC (4.5-11.0) 10^3/ul RBC (3.5-6.1) 10^6/uL Hgb (12.0-16.0) gm/dL Hct (36.0-48.0) % MCV (80.0-105.0) fL MCH (25.0-35.0) pg MCHC (31.0-37.0) g/dl RDW (11.5-14.5) % Plt Count (120.0-450.0) 10^3/uL MPV (7.0-11.0) fl Sodium (132-148) mmol/L Potassium (3.6-5.0) mmol/L Chloride (98-107) mmol/L Carbon Dioxide (21-33) mmol/L Anion Gap (10-20) BUN (7-21) mg/dL Creatinine (0.5-1.4) mg/dL Est GFR ( Amer) Est GFR (Non-Af Amer) POC Glucose (mg/dL) 217 H (65-110) mg/dL Random Glucose (70-110) mg/dL Hemoglobin A1c (4.2-6.5) % Calcium (8.4-10.5) mg/dL Magnesium (1.7-2.2) mg/dL Total Bilirubin (0.2-1.3) mg/dL AST (15-39) U/L ALT (7-56) U/L Alkaline Phosphatase (38-133) U/L Total Protein (5.8-8.3) g/dL Albumin (3.0-4.8) g/dL Globulin gm/dL Albumin/Globulin Ratio (1.1-1.8) Triglycerides (35-160) mg/dL Cholesterol (130-200) mg/dL LDL Cholesterol Direct (0-129) mg/dL HDL Cholesterol (29-60) mg/dL TSH 3rd Generation (0.46-4.68) MIU/ml Laboratory Results - last 24 hr 03/30/17 03/30/17 03/30/17 13:50 16:09 18:06 WBC RBC Hgb Hct MCV MCH MCHC RDW Plt Count MPV Sodium Potassium Chloride Carbon Dioxide Anion Gap BUN Creatinine Est GFR ( Amer) Est GFR (Non-Af Amer) POC Glucose (mg/dL) 217 H 177 H 163 H Random Glucose Hemoglobin A1c Calcium Magnesium Total Bilirubin AST ALT Alkaline Phosphatase Total Protein Albumin Globulin Albumin/Globulin Ratio Triglycerides Cholesterol LDL Cholesterol Direct HDL Cholesterol TSH 3rd Generation 03/30/17 03/30/17 03/30/17 18:55 22:11 23:22 WBC RBC Hgb Hct MCV MCH MCHC RDW Plt Count MPV Sodium 141 Potassium 3.8 Chloride 107 Carbon Dioxide 25 Anion Gap 13 BUN 17 Creatinine 0.7 Est GFR ( Amer) > 60 Est GFR (Non-Af Amer) > 60 POC Glucose (mg/dL) 103 126 H Random Glucose 168 H Hemoglobin A1c Calcium 9.0 Magnesium 1.9 Total Bilirubin AST ALT Alkaline Phosphatase Total Protein Albumin Globulin Albumin/Globulin Ratio Triglycerides Cholesterol LDL Cholesterol Direct HDL Cholesterol TSH 3rd Generation 03/31/17 03/31/17 03/31/17 05:30 05:30 05:30 WBC RBC Hgb Hct MCV MCH MCHC RDW Plt Count MPV Sodium 139 Potassium 3.9 Chloride 108 Carbon Dioxide 22 Anion Gap 13 BUN 18 Creatinine 0.8 Est GFR ( Amer) > 60 Est GFR (Non-Af Amer) > 60 POC Glucose (mg/dL) Random Glucose 107 Hemoglobin A1c 12.7 H Calcium 8.6 Magnesium Total Bilirubin 0.7 AST 55 H ALT 75 H Alkaline Phosphatase 56 Total Protein 7.2 Albumin 3.5 Globulin 3.7 Albumin/Globulin Ratio 0.9 L Triglycerides 71 Cholesterol 179 LDL Cholesterol Direct 72 HDL Cholesterol 92 H TSH 3rd Generation 0.6 03/31/17 03/31/17 03/31/17 06:55 07:25 11:06 WBC 11.2 H D RBC 4.86 Hgb 13.2 Hct 40.3 MCV 82.9 MCH 27.2 MCHC 32.8 RDW 13.2 Plt Count 109 L MPV 12.1 H Sodium Potassium Chloride Carbon Dioxide Anion Gap BUN Creatinine Est GFR ( Amer) Est GFR (Non-Af Amer) POC Glucose (mg/dL) 86 114 H Random Glucose Hemoglobin A1c Calcium Magnesium Total Bilirubin AST ALT Alkaline Phosphatase Total Protein Albumin Globulin Albumin/Globulin Ratio Triglycerides Cholesterol LDL Cholesterol Direct HDL Cholesterol TSH 3rd Generation 03/31/17 16:02 WBC RBC Hgb Hct MCV MCH MCHC RDW Plt Count MPV Sodium Potassium Chloride Carbon Dioxide Anion Gap BUN Creatinine Est GFR ( Amer) Est GFR (Non-Af Amer) POC Glucose (mg/dL) 99 Random Glucose Hemoglobin A1c Calcium Magnesium Total Bilirubin AST ALT Alkaline Phosphatase Total Protein Albumin Globulin Albumin/Globulin Ratio Triglycerides Cholesterol LDL Cholesterol Direct HDL Cholesterol TSH 3rd Generation Critical Care Progress Note - Nutrition Nutrition: Nutrition Category Date Time Status Consistent Carbohydrate [DIET] Diets 03/31/17 Lunch Ordered Attending/Attestation - Attestation I have personally seen and examined this patient.: Yes I have fully participated in the care of the patient.: Yes I have reviewed all pertinent clinical information: Yes Notes (Text): 03/31/17 17:23 66 yo female with DKA, now with AG closed, off of insulin drip, will adjust levemir dose, N/V subsided will advance diet. Poor appetite likely due to DM related gastroparesis. avoid hypoglycemia-cont [id number] IVF. [facility]
[2017-03-31] MEDS: Insulin Detemir 100 units/ml Vial (Levemir) SC SCH (22:40)
[2017-04-01 06:59] LABS: BASO # 0.01 K/mm3 (0.0-2.0); BASO % 0.2 % (0.0-3.0); GRAN % 69.8 % (50.0-68.0); HEMOGLOBIN 14.3 gm/dL (12.0-16.0); LYMPH # 1.5 (1.2-3.4); MEAN CELL VOLUME 81.7 fL (80.0-105.0); MEAN CORPUSCULAR HEMOGLOBIN 27.2 pg (25.0-35.0); MEAN CORPUSCULAR HGB CONC 33.3 g/dl (31.0-37.0); MONO # 0.4 (0.1-0.6); PLATELET COUNT 120 10^3/uL (120.0-450.0); RBC 5.25 10^6/uL (3.5-6.1); WHITE BLOOD COUNT 6.2 10^3/ul (4.5-11.0)
[2017-04-01] MEDS: Insulin Lispro (humaLOG) LOW Coverage SC SCH ×4 (08:15→22:37)
[2017-04-01 08:59] LABS: ALB/GLOB RATIO 0.9 (1.1-1.8); ALBUMIN 3.9 g/dL (3.0-4.8); ALT/SGPT 88 U/L (7-56); AST/SGOT 52 U/L (15-39); BLOOD UREA NITROGEN 22 mg/dL (7-21); GFR AFRICAN-AMERICAN > 60; GFR NON-AFRICAN AMERICAN > 60
--- NOTE | 2017-04-01 13:40 | CP.PCM.PN ---
<SAÚL ROSSI - Last Filed: 04/01/17 15:22> Subjective - Date & Time of Evaluation Date of Evaluation: 04/01/17 Time of Evaluation: 09:40 - Subjective Subjective: Medicine Progress note: Pt seen and examined at bedside. Pt states that she vomited twice last night at which point her blood glucose was 108. Dr. Mendoza was called and advised to lower insulin from 25 to 10 units. This am pt states that she is nauseous has not vomited since, but still complains of abdominal pain. Pt denies CP, SOB, and fever. Objective - Vital Signs/Intake and Output Vital Signs (last 24 hours): Temp Pulse Resp BP Pulse Ox 98.7 F 107 H 19 142/112 H 100 04/01/17 06:00 04/01/17 06:00 04/01/17 06:00 04/01/17 10:27 04/01/17 06:00 Intake and Output: 04/01/17 04/01/17 06:59 18:59 Intake Total 480 Balance 480 - Medications Medications: Current Medications Heparin Sodium (Porcine) (Heparin) 5,000 units SC Q12 [facility] PRN Reason: Protocol Last Admin: 04/01/17 10:26 Dose: 5,000 units Hydralazine HCl (Apresoline) 10 mg IVP Q6 PRN PRN Reason: Systolic Blood Pressure Last Admin: 04/01/17 07:01 Dose: 10 mg Insulin Detemir (Levemir) 10 unit SC HS [facility] Insulin Human Lispro (Humalog Low) 0 units SC ACHS [facility] PRN Reason: Protocol Last Admin: 04/01/17 11:57 Dose: Not Given Lisinopril (Zestril) 10 mg PO DAILY [facility] Last Admin: 04/01/17 10:27 Dose: 10 mg Morphine Sulfate (Morphine) 1 mg IVP Q3H PRN PRN Reason: Pain, severe (8-10) Last Admin: 04/01/17 01:07 Dose: 1 mg Mupirocin (Bactroban Ointment) 0 gm NS BID [facility] Stop: 04/05/17 10:01 Last Admin: 04/01/17 10:27 Dose: 1 applic Ondansetron HCl (Zofran Inj) 4 mg IVP Q6H PRN PRN Reason: Nausea/Vomiting Last Admin: 03/31/17 20:55 Dose: 4 mg Pantoprazole Sodium (Protonix Inj) 40 mg IVP DAILY [facility] Last Admin: 04/01/17 10:26 Dose: 40 mg Sitagliptin Phosphate (Januvia) 100 mg PO DAILY [facility] Last Admin: 04/01/17 10:27 Dose: 100 mg - Labs Labs: 04/01/17 06:30 04/01/17 08:43 - Constitutional Appears: No Acute Distress - Head Exam Head Exam: NORMAL INSPECTION - Eye Exam Eye Exam: EOMI, Normal appearance, PERRL - ENT Exam ENT Exam: Mucous Membranes Dry - Neck Exam Neck Exam: Full ROM - Respiratory Exam Respiratory Exam: Clear to Ausculation Bilateral. absent: Rales, Rhonchi, Wheezes - Cardiovascular Exam Cardiovascular Exam: RRR. absent: Clicks, Diastolic murmur, Gallop - GI/Abdominal Exam GI & Abdominal Exam: Soft, Tenderness (midline). absent: Distended, Guarding - Neurological Exam Neurological Exam: Alert, Awake, Oriented x3 - Skin Skin Exam: Dry, Intact, Normal Color, Warm Assessment and Plan - Assessment and Plan (Free Text) Assessment: The patient is a 66 AAF with a history of IDDM, hepatitis C, hypertension, PUD and deaf/mute being admitted for DKA now resolved. 1. DKA: - resolved -Gap closed -Levemir decreased 25 units --> 10u SC HS and Humalog 6u SC AC -ISS as protocol -Endo consulted - rec Januvia 100 mg PO daily -Morphine 1 mg IVP Q3H PRN for pain -Zofran 4 mg IVP Q6H prn for nausea/vomiting -CBG Q6H -Continue diet as tolerated -Consult spring production supervisor 2. Hypertension -Lisinopril 10 mg PO daily -Hydralazine 10 mg IVP Q6 prn 3. GI / DVT PPx -Protonix 40mg -HSQ -SCDs Dispo: Possible d/c tomorrow if pt can comply with home insulin use, abd pain and vomiting resolves, and blood sugars with in normal range. Case was seen, reviewed and discussed in detail with Dr Walsh. <Nasir Walsh - Last Filed: 04/01/17 16:03> Objective - Vital Signs/Intake and Output Vital Signs (last 24 hours): Temp Pulse Resp BP Pulse Ox 98.7 F 107 H 19 142/112 H 100 04/01/17 06:00 04/01/17 06:00 04/01/17 06:00 04/01/17 10:27 04/01/17 06:00 Intake and Output: 04/01/17 04/01/17 06:59 18:59 Intake Total 480 Balance 480 - Medications Medications: Current Medications Heparin Sodium (Porcine) (Heparin) 5,000 units SC Q12 [facility] PRN Reason: Protocol Last Admin: 04/01/17 10:26 Dose: 5,000 units Hydralazine HCl (Apresoline) 10 mg IVP Q6 PRN PRN Reason: Systolic Blood Pressure Last Admin: 04/01/17 07:01 Dose: 10 mg Insulin Detemir (Levemir) 10 unit SC HS [facility] Insulin Human Lispro (Humalog Low) 0 units SC ACHS [facility] PRN Reason: Protocol Last Admin: 04/01/17 11:57 Dose: Not Given Lisinopril (Zestril) 10 mg PO DAILY [facility] Last Admin: 04/01/17 10:27 Dose: 10 mg Morphine Sulfate (Morphine) 1 mg IVP Q3H PRN PRN Reason: Pain, severe (8-10) Last Admin: 04/01/17 01:07 Dose: 1 mg Mupirocin (Bactroban Ointment) 0 gm NS BID [facility] Stop: 04/05/17 10:01 Last Admin: 04/01/17 10:27 Dose: 1 applic Ondansetron HCl (Zofran Inj) 4 mg IVP Q6H PRN PRN Reason: Nausea/Vomiting Last Admin: 03/31/17 20:55 Dose: 4 mg Pantoprazole Sodium (Protonix Inj) 40 mg IVP DAILY [facility] Last Admin: 04/01/17 10:26 Dose: 40 mg Sitagliptin Phosphate (Januvia) 100 mg PO DAILY [facility] Last Admin: 04/01/17 10:27 Dose: 100 mg - Labs Labs: 04/01/17 06:30 04/01/17 08:43 Attending/Attestation - Attestation I have personally seen and examined this patient.: Yes I have fully participated in the care of the patient.: Yes I have reviewed all pertinent clinical information, including history, physical exam and plan: Yes Notes (Text): 04/01/17 16:02 66 year old female with past medical history of diabetes, hypertension and hepatitis C who was admitted for DKA which has now resolved. She is now off insulin drip and on levemir which is being adjusted by endocrinology. She was counselled on medication compliance. Diabetic education referral was ordered. She complains of mild abdominal pain with 2 episodes of vomiting yesterday. CT abd/pelvis was negative. Continue with zofran prn and protonix. Continue with diet was tolerated. Nasir Walsh MD Hospitalist.
[2017-04-01] MEDS ORDERED: Insulin Detemir 100 units/ml Vial (Levemir) SC SCH (22:00)
[2017-04-02 07:40] LABS: HEMOGLOBIN 12.9 gm/dL (12.0-16.0); MEAN CORPUSCULAR HGB CONC 33.3 g/dl (31.0-37.0); MEAN PLATELET VOLUME 12.1 fl (7.0-11.0); RBC 4.78 10^6/uL (3.5-6.1); RED CELL DISTRIBUTION WIDTH 12.7 % (11.5-14.5); WHITE BLOOD COUNT 3.8 10^3/ul (4.5-11.0)
[2017-04-02] MEDS: Insulin Lispro (humaLOG) LOW Coverage SC SCH ×4 (07:56→21:46)
[2017-04-02 07:57] LABS: ALB/GLOB RATIO 0.9 (1.1-1.8); ALBUMIN 3.4 g/dL (3.0-4.8); ALT/SGPT 77 U/L (7-56); AST/SGOT 55 U/L (15-39); BLOOD UREA NITROGEN 32 mg/dL (7-21); CALCIUM 8.6 mg/dL (8.4-10.5); GFR AFRICAN-AMERICAN > 60; GFR NON-AFRICAN AMERICAN 56
[2017-04-02] MEDS ORDERED: Insulin Detemir 100 units/ml Vial (Levemir) SC STA (11:44)
--- NOTE | 2017-04-02 11:59 | CP.PCM.DIS ---
Provider - Provider Date of Admission: 03/30/17 01:01 Attending physician: Nasir Walsh MD Consults: Endocrinology Time Spent in preparation of Discharge (in minutes): 45 Hospital Course - Lab Results Lab Results: Micro Results 03/30/17 01:30 Blood Blood Culture - Preliminary NO GROWTH AFTER 3 DAYS 03/30/17 03:15 Nose MRSA Culture (Admit) - Final MRSA DETECTED 03/30/17 01:25 Urine Urine Culture - Final No Growth (<1,000 CFU/ML) Most Recent Lab Values WBC 3.8 10^3/ul (4.5-11.0) L D 04/02/17 07:00 RBC 4.78 10^6/uL (3.5-6.1) 04/02/17 07:00 Hgb 12.9 gm/dL (12.0-16.0) 04/02/17 07:00 Hct 38.7 % (36.0-48.0) 04/02/17 07:00 MCV 81.0 fL (80.0-105.0) 04/02/17 07:00 MCH 27.0 pg (25.0-35.0) 04/02/17 07:00 MCHC 33.3 g/dl (31.0-37.0) 04/02/17 07:00 RDW 12.7 % (11.5-14.5) 04/02/17 07:00 Plt Count 120 10^3/uL (120.0-450.0) 04/02/17 07:00 MPV 12.1 fl (7.0-11.0) H 04/02/17 07:00 Gran % 69.8 % (50.0-68.0) H 04/01/17 06:30 Lymph % (Auto) 24.0 % (22.0-35.0) 04/01/17 06:30 [place] % (Auto) 6.0 % (1.0-6.0) 04/01/17 06:30 Eos % (Auto) 0.0 % (1.5-5.0) L 04/01/17 06:30 Baso % (Auto) 0.2 % (0.0-3.0) 04/01/17 06:30 Gran # 4.30 (1.4-6.5) 04/01/17 06:30 Lymph # 1.5 (1.2-3.4) 04/01/17 06:30 [place] # 0.4 (0.1-0.6) 04/01/17 06:30 Eos # 0.0 (0.0-0.7) 04/01/17 06:30 Baso # 0.01 K/mm3 (0.0-2.0) 04/01/17 06:30 pO2 156 mm/Hg (30-55) H 03/30/17 14:00 VBG pH 7.45 (7.32-7.43) H 03/30/17 14:00 VBG pCO2 37.0 (40-60) L 03/30/17 14:00 VBG HCO3 25.7 mmol/l (21-28) 03/30/17 14:00 VBG Total CO2 26.8 mmol.L (22-28) 03/30/17 14:00 VBG O2 Sat (Calc) 98.7 % (40-65) H 03/30/17 14:00 VBG Base Excess 1.8 mmol/L (0.0-2.0) 03/30/17 14:00 VBG Potassium 3.8 mmol/L (3.6-5.2) 03/30/17 14:00 Sodium 142.0 mmol/L (132-148) 03/30/17 14:00 Chloride 109.0 mmol/L (98-107) H 03/30/17 14:00 Glucose 222 mg/dl (65-105) H 03/30/17 14:00 Lactate 1.6 mmol/L (0.7-2.1) 03/30/17 14:00 FiO2 21.0 % 03/30/17 14:00 Sodium 132 mmol/L (132-148) 04/02/17 07:00 Potassium 4.5 mmol/L (3.6-5.0) 04/02/17 07:00 Chloride 100 mmol/L (98-107) 04/02/17 07:00 Carbon Dioxide 24 mmol/L (21-33) 04/02/17 07:00 Anion Gap 13 (10-20) 04/02/17 07:00 BUN 32 mg/dL (7-21) H 04/02/17 07:00 Creatinine 1.0 mg/dL (0.5-1.4) 04/02/17 07:00 Est GFR ( Amer) > 60 04/02/17 07:00 Est GFR (Non-Af Amer) 56 04/02/17 07:00 POC Glucose (mg/dL) 320 mg/dL (65-110) H 04/02/17 11:08 Random Glucose 384 mg/dL (70-110) H* D 04/02/17 07:00 Hemoglobin A1c 12.7 % (4.2-6.5) H 03/31/17 05:30 Lactic Acid 3.3 mmol/L (0.7-2.1) H 03/30/17 10:10 Calcium 8.6 mg/dL (8.4-10.5) 04/02/17 07:00 Phosphorus 3.1 mg/dL (2.5-4.5) 03/30/17 03:35 Magnesium 1.9 mg/dL (1.7-2.2) 03/30/17 18:55 Total Bilirubin 0.8 mg/dL (0.2-1.3) 04/02/17 07:00 AST 55 U/L (15-39) H 04/02/17 07:00 ALT 77 U/L (7-56) H 04/02/17 07:00 Alkaline Phosphatase 63 U/L (38-133) 04/02/17 07:00 Lactate Dehydrogenase 539 U/L (333-699) 03/30/17 00:30 Total Creatine Kinase 48 U/L (35-230) 03/30/17 00:30 Troponin I < 0.01 ng/mL D 03/30/17 00:30 Total Protein 7.2 g/dL (5.8-8.3) 04/02/17 07:00 Albumin 3.4 g/dL (3.0-4.8) 04/02/17 07:00 Globulin 3.8 gm/dL 04/02/17 07:00 Albumin/Globulin Ratio 0.9 (1.1-1.8) L 04/02/17 07:00 Triglycerides 71 mg/dL (35-160) 03/31/17 05:30 Cholesterol 179 mg/dL (130-200) 03/31/17 05:30 LDL Cholesterol Direct 72 mg/dL (0-129) 03/31/17 05:30 HDL Cholesterol 92 mg/dL (29-60) H 03/31/17 05:30 Lipase 34 U/L (23-300) 03/30/17 00:30 Procalcitonin 0.13 NG/ML (0.19-0.49) L 03/30/17 07:30 TSH 3rd Generation 0.6 MIU/ml (0.46-4.68) 03/31/17 05:30 Venous Blood Potassium 3.8 mmol/L (3.6-5.2) 03/30/17 14:00 Urine Color Yellow (YELLOW) 03/30/17 01:25 Urine Appearance Clear (CLEAR) 03/30/17 01:25 Urine pH 6.0 (4.7-8.0) 03/30/17 01:25 Ur Specific [place] 1.015 (1.005-1.035) 03/30/17 01:25 Urine Protein 100 mg/dL (<30 mg/dL) H 03/30/17 01:25 Urine Glucose (UA) >=1000 mg/dL (NEGATIVE) 03/30/17 01:25 Urine Ketones Trace mg/dL (NEGATIVE) H 03/30/17 01:25 Urine Blood Trace-intact (NEGATIVE) H 03/30/17 01:25 Urine Nitrate Negative (NEGATIVE) 03/30/17 01:25 Urine Bilirubin Negative (NEGATIVE) 03/30/17 01:25 Urine Urobilinogen 0.2 E.U./dL (<1 E.U./dL) 03/30/17 01:25 Ur Leukocyte Esterase Negative Leon[place]/uL (NEGATIVE) 03/30/17 01:25 Urine RBC 0 - 2 /hpf (0-2) 03/30/17 01:25 Urine WBC 0 - 2 /hpf (0-6) 03/30/17 01:25 Ur Epithelial Cells 0 - 2 /hpf (0-5) 03/30/17 01:25 Hyaline Casts 0 - 2 /hpf 03/30/17 01:25 - Hospital Course Hospital Course: 66 AAF with a history of IDDM, hepatitis C, hypertension, PUD and deaf/mute who presented with abdominal pain. In the ED, she was found to have an elevated lactic acid and DKA. Details of history are limited due to patient being deaf and mute. In the ED basic labs, EKG, CXR, and CT abdomen were obtained. Pt was admitted to the ICU for treatment with Insulin Drip. After DKA was resolved and gap was closed, the pt was transferred to med/surg and switched from insulin drip to s/c. On med/surg, pt did not kenan diet well and had 2 episodes of vomiting along with abdominal pain. Dr. Mendoza, endocrinology, was called and adjusted Levemir from 25u to 10u and added Januvia PO. Pt symptoms resolved and was able to tolerate diet. Pt was counseled on medication compliance. Diabetic education was consulted. Discharge Exam - Head Exam Head Exam: NORMAL INSPECTION Discharge Plan - Follow Up Plan Condition: STABLE Disposition: HOME/ ROUTINE
[2017-04-02 15:47] LABS: C-PEPTIDE 0.56 ng/mL (0.80-3.85)
[2017-04-02] MEDS ORDERED: Insulin Lispro 1 UNITS/0.01 ML SC SCH (16:30)
[2017-04-02] MEDS ORDERED: Insulin Human NPH/Reg 70/30 Vial(3 ml) SC STA (17:02)
--- NOTE | 2017-04-02 17:05 | CP.PCM.PN ---
<SAÚL ROSSI - Last Filed: 04/02/17 16:59> Subjective - Date & Time of Evaluation Date of Evaluation: 04/02/17 Time of Evaluation: 09:30 - Subjective Subjective: Medicine Progress Note: 66 F seen and examined at bedside. Pt denies acute overnight events. Pt states that she is tolerating diet well and denies vomiting and abdominal pain. Dr. Mendoza will adjust medications for home use. Pt denies CP, SOB, n/v/f. Objective - Vital Signs/Intake and Output Vital Signs (last 24 hours): Temp Pulse Resp BP Pulse Ox 98.1 F 97 H 21 89/56 L 98 04/02/17 06:00 04/02/17 10:31 04/02/17 06:00 04/02/17 10:31 04/02/17 06:00 Intake and Output: 04/02/17 04/02/17 06:59 18:59 Intake Total 540 925 Output Total 0 Balance 540 925 - Medications Medications: Current Medications Glimepiride (Amaryl) 4 mg PO ACBD [facility] Last Admin: 04/02/17 10:31 Dose: 4 mg Heparin Sodium (Porcine) (Heparin) 5,000 units SC Q12 [facility] PRN Reason: Protocol Last Admin: 04/02/17 10:30 Dose: 5,000 units Hydralazine HCl (Apresoline) 10 mg IVP Q6 PRN PRN Reason: Systolic Blood Pressure Last Admin: 04/01/17 07:01 Dose: 10 mg Insulin Human Lispro (Humalog Low) 0 units SC ACHS [facility] PRN Reason: Protocol Last Admin: 04/02/17 11:52 Dose: Not Given Lisinopril (Zestril) 10 mg PO DAILY [facility] Last Admin: 04/02/17 10:31 Dose: Not Given Morphine Sulfate (Morphine) 1 mg IVP Q3H PRN PRN Reason: Pain, severe (8-10) Last Admin: 04/01/17 01:07 Dose: 1 mg Mupirocin (Bactroban Ointment) 0 gm NS BID [facility] Stop: 04/05/17 10:01 Last Admin: 04/02/17 10:32 Dose: 1 applic Ondansetron HCl (Zofran Inj) 4 mg IVP Q6H PRN PRN Reason: Nausea/Vomiting Last Admin: 03/31/17 20:55 Dose: 4 mg Pantoprazole Sodium (Protonix Inj) 40 mg IVP DAILY [facility] Last Admin: 04/02/17 10:31 Dose: 40 mg Sitagliptin Phosphate (Januvia) 100 mg PO DAILY [facility] Last Admin: 04/02/17 10:31 Dose: 100 mg - Labs Labs: 04/02/17 07:00 04/02/17 07:00 - Constitutional Appears: No Acute Distress - Head Exam Head Exam: NORMAL INSPECTION - Eye Exam Eye Exam: EOMI, Normal appearance, PERRL - ENT Exam ENT Exam: Mucous Membranes Moist, Normal Exam - Neck Exam Neck Exam: Full ROM - Respiratory Exam Respiratory Exam: Clear to Ausculation Bilateral. absent: Rales, Rhonchi, Wheezes - Cardiovascular Exam Cardiovascular Exam: RRR, +S1, +S2. absent: Gallop, Rubs, Murmur - GI/Abdominal Exam GI & Abdominal Exam: Soft, Normal Bowel Sounds. absent: Firm, Guarding, Rigid, Tenderness - Neurological Exam Neurological Exam: Alert, Awake, Oriented x3 - Skin Skin Exam: Dry, Intact, Normal Color, Warm Assessment and Plan - Assessment and Plan (Free Text) Assessment: The patient is a 66 AAF with a history of IDDM, hepatitis C, hypertension, PUD and deaf/mute being admitted for DKA now resolved. 1. DKA: - resolved -Dr. Mendoza will adjust DM home medications for compliance -clinical document improvement educator and public policy manager will further eval further outpt insulin regimen -Gap closed -Levemir 10u SC HS and Humalog 6u SC AC -ISS as protocol -Endo consulted - rec Januvia 100 mg PO daily -Morphine 1 mg IVP Q3H PRN for pain -Zofran 4 mg IVP Q6H prn for nausea/vomiting -CBG Q6H -Continue diet as tolerated -Consult personal development educator 2. Hypertension -Lisinopril 10 mg PO daily -Hydralazine 10 mg IVP Q6 prn 3. GI / DVT PPx -Protonix 40mg -HSQ -SCDs Case was seen, reviewed and discussed in detail with Dr Walsh. <Nasir Walsh - Last Filed: 04/03/17 06:49> Objective - Vital Signs/Intake and Output Vital Signs (last 24 hours): Temp Pulse Resp BP Pulse Ox 98.2 F 89 18 96/56 L 98 04/02/17 16:00 04/02/17 16:00 04/02/17 16:00 04/02/17 16:00 04/02/17 16:00 Intake and Output: 04/02/17 04/03/17 18:59 06:59 Intake Total 925 540 Output Total 0 Balance 925 540 - Medications Medications: Current Medications Glimepiride (Amaryl) 4 mg PO ACBD [facility] Last Admin: 04/02/17 18:06 Dose: 4 mg Heparin Sodium (Porcine) (Heparin) 5,000 units SC Q12 [facility] PRN Reason: Protocol Last Admin: 04/02/17 21:46 Dose: 5,000 units Hydralazine HCl (Apresoline) 10 mg IVP Q6 PRN PRN Reason: Systolic Blood Pressure Last Admin: 04/01/17 07:01 Dose: 10 mg Insulin Human Lispro (Humalog Low) 0 units SC ACHS [facility] PRN Reason: Protocol Last Admin: 04/02/17 21:46 Dose: Not Given Insulin Human NPH (Humulin N) 12 units SC HS [facility] Last Admin: 04/02/17 21:46 Dose: 12 units Lisinopril (Zestril) 10 mg PO DAILY [facility] Last Admin: 04/02/17 10:31 Dose: Not Given Morphine Sulfate (Morphine) 1 mg IVP Q3H PRN PRN Reason: Pain, severe (8-10) Last Admin: 04/01/17 01:07 Dose: 1 mg Mupirocin (Bactroban Ointment) 0 gm NS BID [facility] Stop: 04/05/17 10:01 Last Admin: 04/02/17 18:07 Dose: 1 applic Ondansetron HCl (Zofran Inj) 4 mg IVP Q6H PRN PRN Reason: Nausea/Vomiting Last Admin: 03/31/17 20:55 Dose: 4 mg Pantoprazole Sodium (Protonix Inj) 40 mg IVP DAILY [facility] Last Admin: 04/02/17 10:31 Dose: 40 mg Sitagliptin Phosphate (Januvia) 100 mg PO DAILY [facility] Last Admin: 04/02/17 10:31 Dose: 100 mg - Labs Labs: 04/02/17 07:00 04/02/17 07:00 Attending/Attestation - Attestation I have personally seen and examined this patient.: Yes I have fully participated in the care of the patient.: Yes I have reviewed all pertinent clinical information, including history, physical exam and plan: Yes Notes (Text): 04/02/17 66 year old female with past medical history of diabetes, hypertension and hepatitis C who was admitted for DKA which has now resolved. She is being followed by endocrinology who is adjusting her insulin regiment. Diabetic education referall was appreciated as well. Her abdominal pain, nausea, vomiting has improved. She is tolerating diet. Will need to coordinate with rifle case repairer, personal development educator, pharmacist, patient and son regarding insulin regimen for d/c planning. Nasir Walsh MD Hospitalist.
[2017-04-02] MEDS ORDERED: Insulin Detemir 100 units/ml Vial (Levemir) SC SCH (22:00)
[2017-04-02] MEDS ORDERED: Insulin Human NPH 1 UNITS/0.01 ML SC SCH (22:00)
[2017-04-03] MEDS ORDERED: Insulin Human NPH/Reg 70/30 Vial(3 ml) SC SCH ×3 (07:30→16:30)
[2017-04-03] MEDS: Insulin Lispro (humaLOG) LOW Coverage SC SCH ×3 (07:54→17:18)
[2017-04-03 08:07] LABS: HEMOGLOBIN 11.8 gm/dL (12.0-16.0); MEAN CELL VOLUME 81.2 fL (80.0-105.0); MEAN CORPUSCULAR HEMOGLOBIN 26.8 pg (25.0-35.0); MEAN PLATELET VOLUME 11.1 fl (7.0-11.0); RBC 4.41 10^6/uL (3.5-6.1); RED CELL DISTRIBUTION WIDTH 12.7 % (11.5-14.5); WHITE BLOOD COUNT 3.4 10^3/ul (4.5-11.0)
[2017-04-03 08:14] LABS: ALB/GLOB RATIO 0.9 (1.1-1.8); ALT/SGPT 83 U/L (7-56); AST/SGOT 63 U/L (15-39); BLOOD UREA NITROGEN 35 mg/dL (7-21); CALCIUM 8.7 mg/dL (8.4-10.5); GFR AFRICAN-AMERICAN > 60; GFR NON-AFRICAN AMERICAN > 60
[2017-04-03 08:41] VITALS: RESP 20; O2SAT 100
[2017-04-03 18:04] VITALS: BP 95/68; PULSE 74; TEMP 97.9
--- NOTE | 2017-04-03 20:22 | CP.PCM.DIS ---
<ENIDSAÚL - Last Filed: 04/03/17 20:10> Provider - Provider Date of Admission: 03/30/17 01:01 Attending physician: Nasir Walsh MD Consults: Endocrinology Time Spent in preparation of Discharge (in minutes): 45 Hospital Course - Lab Results Lab Results: Micro Results 03/30/17 01:30 Blood Blood Culture - Preliminary NO GROWTH AFTER 4 DAYS 03/30/17 03:15 Nose MRSA Culture (Admit) - Final MRSA DETECTED 03/30/17 01:25 Urine Urine Culture - Final No Growth (<1,000 CFU/ML) Most Recent Lab Values WBC 3.4 10^3/ul (4.5-11.0) L 04/03/17 07:00 RBC 4.41 10^6/uL (3.5-6.1) 04/03/17 07:00 Hgb 11.8 gm/dL (12.0-16.0) L 04/03/17 07:00 Hct 35.8 % (36.0-48.0) L 04/03/17 07:00 MCV 81.2 fL (80.0-105.0) 04/03/17 07:00 MCH 26.8 pg (25.0-35.0) 04/03/17 07:00 MCHC 33.0 g/dl (31.0-37.0) 04/03/17 07:00 RDW 12.7 % (11.5-14.5) 04/03/17 07:00 Plt Count 104 10^3/uL (120.0-450.0) L 04/03/17 07:00 MPV 11.1 fl (7.0-11.0) H 04/03/17 07:00 Gran % 69.8 % (50.0-68.0) H 04/01/17 06:30 Lymph % (Auto) 24.0 % (22.0-35.0) 04/01/17 06:30 [place] % (Auto) 6.0 % (1.0-6.0) 04/01/17 06:30 Eos % (Auto) 0.0 % (1.5-5.0) L 04/01/17 06:30 Baso % (Auto) 0.2 % (0.0-3.0) 04/01/17 06:30 Gran # 4.30 (1.4-6.5) 04/01/17 06:30 Lymph # 1.5 (1.2-3.4) 04/01/17 06:30 [place] # 0.4 (0.1-0.6) 04/01/17 06:30 Eos # 0.0 (0.0-0.7) 04/01/17 06:30 Baso # 0.01 K/mm3 (0.0-2.0) 04/01/17 06:30 pO2 156 mm/Hg (30-55) H 03/30/17 14:00 VBG pH 7.45 (7.32-7.43) H 03/30/17 14:00 VBG pCO2 37.0 (40-60) L 03/30/17 14:00 VBG HCO3 25.7 mmol/l (21-28) 03/30/17 14:00 VBG Total CO2 26.8 mmol.L (22-28) 03/30/17 14:00 VBG O2 Sat (Calc) 98.7 % (40-65) H 03/30/17 14:00 VBG Base Excess 1.8 mmol/L (0.0-2.0) 03/30/17 14:00 VBG Potassium 3.8 mmol/L (3.6-5.2) 03/30/17 14:00 Sodium 142.0 mmol/L (132-148) 03/30/17 14:00 Chloride 109.0 mmol/L (98-107) H 03/30/17 14:00 Glucose 222 mg/dl (65-105) H 03/30/17 14:00 Lactate 1.6 mmol/L (0.7-2.1) 03/30/17 14:00 FiO2 21.0 % 03/30/17 14:00 Sodium 136 mmol/L (132-148) 04/03/17 07:00 Potassium 3.6 mmol/L (3.6-5.0) 04/03/17 07:00 Chloride 106 mmol/L (95-110) 04/03/17 07:00 Carbon Dioxide 25 mmol/L (21-33) 04/03/17 07:00 Anion Gap 9 (10-20) L 04/03/17 07:00 BUN 35 mg/dL (7-21) H 04/03/17 07:00 Creatinine 0.9 mg/dL (0.5-1.4) 04/03/17 07:00 Est GFR ( Amer) > 60 04/03/17 07:00 Est GFR (Non-Af Amer) > 60 04/03/17 07:00 POC Glucose (mg/dL) 168 mg/dL (65-110) H 04/03/17 16:18 Random Glucose 59 mg/dL (70-110) L 04/03/17 07:00 Hemoglobin A1c 12.7 % (4.2-6.5) H 03/31/17 05:30 C-Peptide 0.56 ng/mL (0.80-3.85) L 03/31/17 05:30 Lactic Acid 3.3 mmol/L (0.7-2.1) H 03/30/17 10:10 Calcium 8.7 mg/dL (8.4-10.5) 04/03/17 07:00 Phosphorus 3.1 mg/dL (2.5-4.5) 03/30/17 03:35 Magnesium 1.9 mg/dL (1.7-2.2) 03/30/17 18:55 Total Bilirubin 0.6 mg/dL (0.2-1.3) 04/03/17 07:00 AST 63 U/L (15-39) H 04/03/17 07:00 ALT 83 U/L (7-56) H 04/03/17 07:00 Alkaline Phosphatase 47 U/L (38-133) 04/03/17 07:00 Lactate Dehydrogenase 539 U/L (333-699) 03/30/17 00:30 Total Creatine Kinase 48 U/L (35-230) 03/30/17 00:30 Troponin I < 0.01 ng/mL D 03/30/17 00:30 Total Protein 6.6 g/dL (5.8-8.3) 04/03/17 07:00 Albumin 3.0 g/dL (3.0-4.8) 04/03/17 07:00 Globulin 3.6 gm/dL 04/03/17 07:00 Albumin/Globulin Ratio 0.9 (1.1-1.8) L 04/03/17 07:00 Triglycerides 71 mg/dL (35-160) 03/31/17 05:30 Cholesterol 179 mg/dL (130-200) 03/31/17 05:30 LDL Cholesterol Direct 72 mg/dL (0-129) 03/31/17 05:30 HDL Cholesterol 92 mg/dL (29-60) H 03/31/17 05:30 Lipase 34 U/L (23-300) 03/30/17 00:30 Procalcitonin 0.13 NG/ML (0.19-0.49) L 03/30/17 07:30 TSH 3rd Generation 0.6 MIU/ml (0.46-4.68) 03/31/17 05:30 Venous Blood Potassium 3.8 mmol/L (3.6-5.2) 03/30/17 14:00 Urine Color Yellow (YELLOW) 03/30/17 01:25 Urine Appearance Clear (CLEAR) 03/30/17 01:25 Urine pH 6.0 (4.7-8.0) 03/30/17 01:25 Ur Specific [place] 1.015 (1.005-1.035) 03/30/17 01:25 Urine Protein 100 mg/dL (<30 mg/dL) H 03/30/17 01:25 Urine Glucose (UA) >=1000 mg/dL (NEGATIVE) 03/30/17 01:25 Urine Ketones Trace mg/dL (NEGATIVE) H 03/30/17 01:25 Urine Blood Trace-intact (NEGATIVE) H 03/30/17 01:25 Urine Nitrate Negative (NEGATIVE) 03/30/17 01:25 Urine Bilirubin Negative (NEGATIVE) 03/30/17 01:25 Urine Urobilinogen 0.2 E.U./dL (<1 E.U./dL) 03/30/17 01:25 Ur Leukocyte Esterase Negative Leonid/uL (NEGATIVE) 03/30/17 01:25 Urine RBC 0 - 2 /hpf (0-2) 03/30/17 01:25 Urine WBC 0 - 2 /hpf (0-6) 03/30/17 01:25 Ur Epithelial Cells 0 - 2 /hpf (0-5) 03/30/17 01:25 Hyaline Casts 0 - 2 /hpf 03/30/17 01:25 - Hospital Course Hospital Course: 66 AAF with a history of IDDM, hepatitis C, hypertension, PUD and deaf/mute who presents with abdominal pain. In the ED, she was found to have an elevated lactic acid and DKA. Of note, details of history are limited due to patient being deaf and mute. In the ED, basic labs, EKG, CXR, and CT abdomen were obtained. The pt was then admitted to the ICU for treatment with Insulin Drip. In the ICU, the pt gap was closed and DKA was resolved. Once the patient was able to tolerate PO diet she was transferred to med/surg. Once on med/surg patient had an episode of hypoglycemia along with vomiting and abdominal pain. Dr. Mendoza, endocrinology, was consulted and adjusted her medications accordingly. Pt tolerated these adjustments well and resolved her symptoms. Of concern for discharge was the patients inability to demonstrate understanding of how to use a sliding scale and draw her own insulin. The pt was approved, requested, and given prefilled insulin syringes as an alternative to ISS insulin. The pt was advised the further in-patient diabetic education would be beneficial. However, the patient did not want to stay and requested to leave AMA. The risks and benefits of leaving AMA were then explained and discussed with the patient in writing since the pt is deaf and mute. She understood and left AMA. Discharge Exam - Head Exam Head Exam: NORMAL INSPECTION - Eye Exam Eye Exam: EOMI, Normal appearance, PERRL - ENT Exam ENT Exam: Mucous Membranes Moist - Neck Exam Neck exam: Full Rom - Respiratory Exam Respiratory Exam: Clear to PA & Lateral. absent: Rales, Rhonchi, Wheezes - Cardiovascular Exam Cardiovascular Exam: RRR, +S1, +S2. absent: Gallop, Rubs, Systolic Murmur - GI/Abdominal Exam GI & Abdominal Exam: Normal Bowel Sounds. absent: Distended, Guarding, Hernia - Back Exam Back exam: NORMAL INSPECTION - Neurological Exam Neurological exam: Alert, Oriented x3 - Skin Skin Exam: Dry, Intact, Normal Color, Warm Discharge Plan - Follow Up Plan Condition: STABLE Disposition: AGAINST MEDICAL ADVICE Additional Instructions: Follow instructions for insulin use as per Rx <Nasir Wlash - Last Filed: 04/04/17 12:44> Provider - Provider Date of Admission: 03/30/17 01:01 Attending physician: Nasir Walsh MD Hospital Course - Lab Results Lab Results: Micro Results 03/30/17 01:30 Blood Blood Culture - Final NO GROWTH AFTER 5 DAYS 03/30/17 01:30 Blood Gram Stain - Final TEST NOT PERFORMED 03/30/17 03:15 Nose MRSA Culture (Admit) - Final MRSA DETECTED 03/30/17 01:25 Urine Urine Culture - Final No Growth (<1,000 CFU/ML) Most Recent Lab Values WBC 3.4 10^3/ul (4.5-11.0) L 04/03/17 07:00 RBC 4.41 10^6/uL (3.5-6.1) 04/03/17 07:00 Hgb 11.8 gm/dL (12.0-16.0) L 04/03/17 07:00 Hct 35.8 % (36.0-48.0) L 04/03/17 07:00 MCV 81.2 fL (80.0-105.0) 04/03/17 07:00 MCH 26.8 pg (25.0-35.0) 04/03/17 07:00 MCHC 33.0 g/dl (31.0-37.0) 04/03/17 07:00 RDW 12.7 % (11.5-14.5) 04/03/17 07:00 Plt Count 104 10^3/uL (120.0-450.0) L 04/03/17 07:00 MPV 11.1 fl (7.0-11.0) H 04/03/17 07:00 Gran % 69.8 % (50.0-68.0) H 04/01/17 06:30 Lymph % (Auto) 24.0 % (22.0-35.0) 04/01/17 06:30 [place] % (Auto) 6.0 % (1.0-6.0) 04/01/17 06:30 Eos % (Auto) 0.0 % (1.5-5.0) L 04/01/17 06:30 Baso % (Auto) 0.2 % (0.0-3.0) 04/01/17 06:30 Gran # 4.30 (1.4-6.5) 04/01/17 06:30 Lymph # 1.5 (1.2-3.4) 04/01/17 06:30 [place] # 0.4 (0.1-0.6) 04/01/17 06:30 Eos # 0.0 (0.0-0.7) 04/01/17 06:30 Baso # 0.01 K/mm3 (0.0-2.0) 04/01/17 06:30 pO2 156 mm/Hg (30-55) H 03/30/17 14:00 VBG pH 7.45 (7.32-7.43) H 03/30/17 14:00 VBG pCO2 37.0 (40-60) L 03/30/17 14:00 VBG HCO3 25.7 mmol/l (21-28) 03/30/17 14:00 VBG Total CO2 26.8 mmol.L (22-28) 03/30/17 14:00 VBG O2 Sat (Calc) 98.7 % (40-65) H 03/30/17 14:00 VBG Base Excess 1.8 mmol/L (0.0-2.0) 03/30/17 14:00 VBG Potassium 3.8 mmol/L (3.6-5.2) 03/30/17 14:00 Sodium 142.0 mmol/L (132-148) 03/30/17 14:00 Chloride 109.0 mmol/L (98-107) H 03/30/17 14:00 Glucose 222 mg/dl (65-105) H 03/30/17 14:00 Lactate 1.6 mmol/L (0.7-2.1) 03/30/17 14:00 FiO2 21.0 % 03/30/17 14:00 Sodium 136 mmol/L (132-148) 04/03/17 07:00 Potassium 3.6 mmol/L (3.6-5.0) 04/03/17 07:00 Chloride 106 mmol/L (95-110) 04/03/17 07:00 Carbon Dioxide 25 mmol/L (21-33) 04/03/17 07:00 Anion Gap 9 (10-20) L 04/03/17 07:00 BUN 35 mg/dL (7-21) H 04/03/17 07:00 Creatinine 0.9 mg/dL (0.5-1.4) 04/03/17 07:00 Est GFR ( Amer) > 60 04/03/17 07:00 Est GFR (Non-Af Amer) > 60 04/03/17 07:00 POC Glucose (mg/dL) 168 mg/dL (65-110) H 04/03/17 16:18 Random Glucose 59 mg/dL (70-110) L 04/03/17 07:00 Hemoglobin A1c 12.7 % (4.2-6.5) H 03/31/17 05:30 C-Peptide 0.56 ng/mL (0.80-3.85) L 03/31/17 05:30 Lactic Acid 3.3 mmol/L (0.7-2.1) H 03/30/17 10:10 Calcium 8.7 mg/dL (8.4-10.5) 04/03/17 07:00 Phosphorus 3.1 mg/dL (2.5-4.5) 03/30/17 03:35 Magnesium 1.9 mg/dL (1.7-2.2) 03/30/17 18:55 Total Bilirubin 0.6 mg/dL (0.2-1.3) 04/03/17 07:00 AST 63 U/L (15-39) H 04/03/17 07:00 ALT 83 U/L (7-56) H 04/03/17 07:00 Alkaline Phosphatase 47 U/L (38-133) 04/03/17 07:00 Lactate Dehydrogenase 539 U/L (333-699) 03/30/17 00:30 Total Creatine Kinase 48 U/L (35-230) 03/30/17 00:30 Troponin I < 0.01 ng/mL D 03/30/17 00:30 Total Protein 6.6 g/dL (5.8-8.3) 04/03/17 07:00 Albumin 3.0 g/dL (3.0-4.8) 04/03/17 07:00 Globulin 3.6 gm/dL 04/03/17 07:00 Albumin/Globulin Ratio 0.9 (1.1-1.8) L 04/03/17 07:00 Triglycerides 71 mg/dL (35-160) 03/31/17 05:30 Cholesterol 179 mg/dL (130-200) 03/31/17 05:30 LDL Cholesterol Direct 72 mg/dL (0-129) 03/31/17 05:30 HDL Cholesterol 92 mg/dL (29-60) H 03/31/17 05:30 Lipase 34 U/L (23-300) 03/30/17 00:30 Procalcitonin 0.13 NG/ML (0.19-0.49) L 03/30/17 07:30 TSH 3rd Generation 0.6 MIU/ml (0.46-4.68) 03/31/17 05:30 Venous Blood Potassium 3.8 mmol/L (3.6-5.2) 03/30/17 14:00 Urine Color Yellow (YELLOW) 03/30/17 01:25 Urine Appearance Clear (CLEAR) 03/30/17 01:25 Urine pH 6.0 (4.7-8.0) 03/30/17 01:25 Ur Specific [place] 1.015 (1.005-1.035) 03/30/17 01:25 Urine Protein 100 mg/dL (<30 mg/dL) H 03/30/17 01:25 Urine Glucose (UA) >=1000 mg/dL (NEGATIVE) 03/30/17 01:25 Urine Ketones Trace mg/dL (NEGATIVE) H 03/30/17 01:25 Urine Blood Trace-intact (NEGATIVE) H 03/30/17 01:25 Urine Nitrate Negative (NEGATIVE) 03/30/17 01:25 Urine Bilirubin Negative (NEGATIVE) 03/30/17 01:25 Urine Urobilinogen 0.2 E.U./dL (<1 E.U./dL) 03/30/17 01:25 Ur Leukocyte Esterase Negative Leonid/uL (NEGATIVE) 03/30/17 01:25 Urine RBC 0 - 2 /hpf (0-2) 03/30/17 01:25 Urine WBC 0 - 2 /hpf (0-6) 03/30/17 01:25 Ur Epithelial Cells 0 - 2 /hpf (0-5) 03/30/17 01:25 Hyaline Casts 0 - 2 /hpf 03/30/17 01:25 Attending/Attestation - Attestation I have personally seen and examined this patient.: Yes I have fully participated in the care of the patient.: Yes I have reviewed all pertinent clinical information, including history, physical exam and plan: Yes Notes (Text): 04/04/17 12:37 66 year old female with past medical history of diabetes, hypertension and hepatitis C who was admitted for DKA which has now resolved. She also complained of abdominal pain, nausea and vomiting which also resolved. CT scan was negative. She was being followed by endocrinology who was adjusting her insulin regimen. Unfortunately she recently loss her insurance coverage and was not able to get her insulin at home. She was offered to go to TCU for few more days to get more education regarding insulin administeration. She refused. Case was discussed with Dr. Mendoza, health promotion educator and disease case manager rn and scripts were written and [employer] application was filled for assistance. Patient signed out AMA. Nasir Walsh MD Hospitalist.
[2017-04-04] MEDS ORDERED: Insulin Human NPH/Reg 70/30 Vial(3 ml) SC SCH (07:30)
== END 2017-04-03 20:03 | disposition left against medical advice (07) | DRG 639 ==
LOC: ED 23:47 → ERH 03-30 01:01 → CCU 03-30 03:09 → 3RNO 03-31 13:16 → 3RSO 03-31 14:25
PROVIDERS: ADMIT Internal Medicine; ATTEND Internal Medicine
DX: E13.10 Other specified diabetes mellitus with ketoacidosis without coma (principal); K31.84 Gastroparesis; K27.9 Peptic ulcer, site unspecified, unspecified as acute or chronic, without hemorrhage or perforation; I10 Essential (primary) hypertension; E11.43 Type 2 diabetes mellitus with diabetic autonomic (poly)neuropathy; H91.3 Deaf nonspeaking, not elsewhere classified; B19.20 Unspecified viral hepatitis C without hepatic coma; Z79.4 Long term (current) use of insulin; Z79.84 Long term (current) use of oral hypoglycemic drugs

== ENCOUNTER 2017-08-23 11:16 | Inpatient (IN) | payer MEDICARE, OTHER ==
[2017-08-23 11:16] VITALS: BMI 21.2
[2017-08-23] MEDS ORDERED: Sodium Chloride 0.9% 1,000 ML IV STA ×2 (11:51→12:55)
--- NOTE | 2017-08-23 12:00 | ED PDOC ---
Arrival/HPI - General Chief Complaint: High Blood Sugar Time Seen by Provider: 08/23/17 11:23 Historian: Patient, Other (friend ) - History of Present Illness Narrative History of Present Illness (Text): 08/23/17 11:38 A 67 year old female, whose medical history includes deafness, diabetes mellitus , high blood pressure, and hyperglycemia, presents to the emergency department accompanied by friend for high blood sugar. The patient's friend states the patient ran out of insulin 2 months ago. She is still taking her blood pressure medication, last dose was taken yesterday. She is complaining of body weakness, 5 episodes of vomiting, dry cough, dizziness, dry mouth, and palpitations since yesterday. She denies any abdominal pain, chest pain, fevers, or any other complaints at this time. Time/Duration: 24 hours Symptom Course: Intermittent Activities at Onset: Light Context: Home Past Medical History - Provider Review Nursing Documentation Reviewed: Yes - Infectious Disease Hx of Infectious Diseases: None - Tetanus Immunization Tetanus Immunization: Unknown - Reproductive Menopause: Yes - Cardiac Hx Cardiac Disorders: Yes Hx Hypertension: Yes - Pulmonary Hx Respiratory Disorders: Yes - Neurological Hx Neurological Disorder: No HX Cerebrovascular Accident: No - HEENT Hx Cataracts: (Denied by pt.) Hx Deafness: Yes Other/Comment: sign language - Renal Hx Renal Failure: No - Endocrine/Metabolic Hx Diabetes Mellitus Type 1: No Hx Diabetes Mellitus Type 2: Yes - Hematological/Oncological Hx Blood Disorders: No Hx Cancer: No - Integumentary Hx Dermatological Disorder: No - Musculoskeletal/Rheumatological Hx Arthritis: No Hx Rheumatoid Arthritis: No - Gastrointestinal Hx Gastrointestinal Disorders: No Hx Gastroesophageal Reflux: No - Genitourinary/Gynecological Hx Genitourinary Disorders: No - Psychiatric Hx Psychophysiologic Disorder: No Hx Depression: No Hx Emotional Abuse: No Hx Physical Abuse: No Hx Substance Use: No - Past Surgical History Past Surgical History: No Previous - Surgical History Other/Comment: "Abdominal Surgery" - Anesthesia Hx Anesthesia Reactions: No Hx Malignant Hyperthermia: No - Suicidal Assessment Feels Threatened In Home Enviroment: No Family/Social History - Physician Review Nursing Documentation Reviewed: Yes Family/Social History: No Known Family HX Smoking Status: Unknown If Ever Smoked Hx Alcohol Use: No Hx Substance Use: No Hx Substance Use Treatment: No Allergies/Home Meds Allergies/Adverse Reactions: Allergies No Known Allergies Allergy (Verified 08/23/17 14:46) Home Medications: Home Meds Medication Instructions Recorded Confirmed Glimepiride [amaRYL] 2 mg PO BID 03/30/17 08/23/17 Lisinopril [Zestril] 2.5 mg PO DAILY 03/30/17 08/23/17 Insulin NPH Hum/Reg Insulin Hm 16 units SC DAILY 08/23/17 08/23/17 [Humulin 70/30 Kwikpen] Insulin NPH Hum/Reg Insulin Hm 24 units SC DAILY 08/23/17 08/23/17 [Humulin 70/30 Kwikpen] Review of Systems - Physician Review All systems were reviewed & negative as marked: Yes - Review of Systems Constitutional: absent: Fevers Respiratory: Cough Cardiovascular: absent: Chest Pain Gastrointestinal: Nausea, Vomiting. absent: Abdominal Pain Neurological: Dizziness Physical Exam Vital Signs Reviewed: Yes Vital Signs Temp Pulse Resp BP Pulse Ox 08/23/17 13:46 98.3 F 08/23/17 13:19 93 H 18 166/101 H 100 08/23/17 13:04 106 H 183/114 H 08/23/17 12:30 113 H 18 170/105 H 99 08/23/17 11:33 98.0 F 113 H 18 180/101 H 100 Temperature: Afebrile Blood Pressure: Hypertensive Pulse: Tachycardic Respiratory Rate: Normal Appearance: Positive for: Well-Appearing, Non-Toxic, Comfortable Pain Distress: None Mental Status: Positive for: Alert and Oriented X 3 Finger Stick Blood Glucose: 500 - Systems Exam Head: Present: Atraumatic, Normocephalic Pupils: Present: PERRL Extroacular Muscles: Present: EOMI Conjunctiva: Present: Normal Mouth: Present: Dry Neck: Present: Normal Range of Motion Respiratory/Chest: Present: Clear to Auscultation, Good Air Exchange. No: Respiratory Distress, Accessory Muscle Use Cardiovascular: Present: Normal S1, S2, Tachycardic (regular rhythm ). No: Murmurs Abdomen: Present: Normal Bowel Sounds. No: Tenderness, Distention, Peritoneal Signs Back: Present: Normal Inspection Upper Extremity: Present: Normal Inspection. No: Cyanosis, Edema Lower Extremity: Present: Normal Inspection. No: Edema Neurological: Present: GCS=15, CN II-XII Intact Skin: Present: Warm, Dry, Normal Color. No: Rashes Psychiatric: Present: Alert, Oriented x 3, Normal Insight, Normal Concentration Medical Decision Making ED Course and Treatment: 08/23/17 12:03 Impression: A 67 year old female with hyperglycemia Differential Diagnosis included but are not limited to: Plan: -- EKG -- Chest X-ray -- Labs -- VBG -- IV Fluids -- Urinalysis -- Reassess and disposition Progress Notes: EKG: Ordered, reviewed, and independently interpreted the EKG. Rate : 117 BPM Rhythm : Sinus Tachycardia Interpretation : Left atrial enlargement, right axis deviation. 08/23/17 12:[address] Jimenez, who will accept and admit patient under his services. 08/23/17 13:20 Chest X-ray Cardiology Consultants : Federico Dejesus MD Report Date : 08/23/2017 13:00:35 HISTORY:r/o infiltrate COMPARISON:03/30/2017 FINDINGS: LUNGS:No active pulmonary disease. PLEURA:No significant pleural effusion identified, no pneumothorax apparent. CARDIOVASCULAR:Normal. OSSEOUS STRUCTURES:No significant abnormalities. VISUALIZED UPPER ABDOMEN:Normal. OTHER FINDINGS:None. IMPRESSION: No active disease. - Critical Care Critical Care Minutes: 60 minutes - Lab Interpretations Lab Results: 08/23/17 11:45 08/23/17 11:45 Lab Results 08/23/17 11:45: Chloride 99, Sodium 140, Potassium 4.8, Carbon Dioxide 13 L, Anion Gap 33 H, BUN 21, Creatinine 1.1, Est GFR ( Amer) > 60, Est GFR ( Non-Af Amer) 50, Random Glucose 644 H* D, Calcium 10.2, Phosphorus 7.4 H, Magnesium 1.9, Total Bilirubin 1.0, AST 71 H, ALT 81 H, Alkaline Phosphatase 103 , Troponin I < 0.01, Total Protein 9.7 H, Albumin 4.7, Globulin 5.0, Albumin/ Globulin Ratio 0.9 L, Amylase 92, Lipase 52 08/23/17 11:45: pO2 61 H, VBG pH 7.23 L, VBG pCO2 36.0 L, VBG HCO3 15.1 L, VBG Total CO2 16.2 L, VBG O2 Sat (Calc) 90.8 H, VBG Base Excess -11.6 L, Chloride 94.0 L, Glucose 697 H* D, Lactate 13.7 H*, FiO2 21 08/23/17 11:45: WBC 6.6 D, RBC 5.33, Hgb 14.5, Hct 44.4, MCV 83.3, MCH 27.2, MCHC 32.7, RDW 12.7, Plt Count 134, MPV 13.0 H, Gran % 87.5 H, Lymph % (Auto) 10.1 L, [place] % (Auto) 2.4, Eos % (Auto) 0.0 L, Baso % (Auto) 0.0, Gran # 5.73, Lymph # 0.7 L, [place] # 0.2, Eos # 0.0, Baso # 0.00 - RAD Interpretation Radiology Orders: 08/23/17 11:38 CHEST PORTABLE [RAD] Stat - Medication Orders Current Medication Orders: Clonidine HCl (Catapres) 0.1 mg PO BID [facility] Last Admin: 08/23/17 17:27 Dose: 0.1 mg MAR Pulse and Blood Pressure Document 08/23/17 17:27 AE (Rec: 08/23/17 17:27 AE [facility] [email or web address] Pulse Pulse Rate (60-90) 84 Blood Pressure Blood Pressure (100/60-150/90) 166/107 Enoxaparin Sodium (Lovenox) 40 mg SC DAILY [facility] PRN Reason: Protocol Last Admin: 08/23/17 13:53 Dose: 40 mg Subcutaneous Administrations Document 08/23/17 13:53 GMD (Rec: 08/23/17 13:53 G[place] [facility] [place] [facility] [id number] Injection Site MAR Injection Site Left Abdomen Charges for Administration # of Subcutaneous Administrations 1 Insulin Human Regular 100 (units/ Sodium Chloride) 100 mls @ 3 mls/hr IV .Q24H PRN; Protocol; 3 UNITS/HR PRN Reason: TITRATE PER MD ORDER Last Admin: 08/23/17 13:16 Dose: 3 units/hr, 3 mls/hr eMAR Start Stop Document 08/23/17 13:16 GMD (Rec: 08/23/17 13:19 GMD [facility] [id number][place] Intravenous Solution Start Date 08/23/17 Start Time 13:19 MAR Blood Glucose Document 08/23/17 13:16 GMD (Rec: 08/23/17 13:19 GMD [facility] [id number][place] Blood Glucose Finger Stick Blood Glucose (70-120) 500 Titration Intervention Document 08/23/17 13:16 GMD (Rec: 08/23/17 13:19 GMD [facility] [place] [facility] [id number][place] Titration Intake Waste Amount 0 Container Volume 100 Titration Dosing Titration Dose 3 IV Rate 3 Intake/Decrease Started Sodium Chloride (Sodium Chloride 0.9%) 1,000 mls @ 100 mls/hr IV .Q10H [facility] Last Admin: 08/23/17 15:43 Dose: 100 mls/hr eMAR Start Stop Document 08/23/17 15:43 AE (Rec: 08/23/17 15:43 AE [facility] [email or web address] Intravenous Solution Start Date 08/23/17 Start Time 15:30 End Date 08/24/17 End time 01:30 Total Infusion Time 600 Metoclopramide HCl (Reglan) 5 mg IVP Q6H [facility] Last Admin: 08/23/17 13:52 Dose: 5 mg IVP Administration Document 08/23/17 13:52 GMD (Rec: 08/23/17 13:53 GMD [facility] [id number][place] Charges for Administration # of IVP Administrations 1 Ondansetron HCl (Zofran Inj) 4 mg IVP Q4H PRN PRN Reason: Nausea/Vomiting Pantoprazole Sodium (Protonix Inj) 40 mg IVP Q12H [facility] Last Admin: 08/23/17 13:53 Dose: 40 mg IVP Administration Document 08/23/17 13:53 GMD (Rec: 08/23/17 13:53 GMD [facility] [id number][place] Charges for Administration # of IVP Administrations 1 Discontinued Medications Sodium Chloride (Sodium Chloride 0.9%) 1,000 mls @ 999 mls/hr IV .Q1H1M STA Stop: 08/23/17 12:51 Last Admin: 08/23/17 12:02 Dose: 999 mls/hr eMAR Start Stop Document 08/23/17 12:02 GMD (Rec: 08/23/17 12:02 GMD [facility] [id number] Intravenous Solution Start Date 08/23/17 Start Time 12:02 End Date 08/23/17 End time 13:03 Total Infusion Time 61 Sodium Chloride (Sodium Chloride 0.9%) 1,000 mls @ 999 mls/hr IV .Q1H1M STA Stop: 08/23/17 13:55 Last Admin: 08/23/17 13:05 Dose: 999 mls/hr eMAR Start Stop Document 08/23/17 13:05 GMD (Rec: 08/23/17 13:06 GMD [facility] [id number] Intravenous Solution Start Date 08/23/17 Start Time 13:05 End Date 08/23/17 End time 14:06 Total Infusion Time 61 Labetalol HCl (Trandate) 10 mg IV STAT STA Stop: 08/23/17 12:55 Last Admin: 08/23/17 13:04 Dose: 10 mg eMAR Start Stop Document 08/23/17 13:04 GMD (Rec: 08/23/17 13:04 GMD [facility] [id number] Intravenous Solution Start Date 08/23/17 Start Time 13:04 End Date 08/23/17 End time 13:09 Total Infusion Time 5 MAR Pulse and Blood Pressure Document 08/23/17 13:04 GMD (Rec: 08/23/17 13:04 GMD [facility] [id number] Pulse Pulse Rate (60-90) 106 Blood Pressure Blood Pressure (100/60-150/90) 183/114 Labetalol HCl (Trandate) 10 mg IV ONCE STA Stop: 08/23/17 15:28 Last Admin: 08/23/17 15:42 Dose: - Scribe Statement The provider has reviewed the documentation as recorded by the George Corona Provider Scribe Attestation: All medical record entries made by the Scribe were at my direction and personally dictated by me. I have reviewed the chart and agree that the record accurately reflects my personal performance of the history, physical exam, medical decision making, and the department course for this patient. I have also personally directed, reviewed, and agree with the discharge instructions and disposition. Disposition/Present on Arrival - Present on Arrival Any Indicators Present on Arrival: Yes History of DVT/PE: No History of Uncontrolled Diabetes: Yes Urinary Catheter: No History of Decub. Ulcer: No History Surgical Site Infection Following: None - Disposition Have Diagnosis and Disposition been Completed?: Yes Diagnosis: DKA (diabetic ketoacidosis), Hypertension Disposition: HOSPITALIZED Disposition Time: 12:30 Patient Plan: Admission, ICU Condition: GUARDED
[2017-08-23 12:09] LABS: GRAN # 5.73 (1.4-6.5); GRAN % 87.5 % (50.0-68.0); HEMATOCRIT 44.4 % (36.0-48.0); LYMPH # 0.7 (1.2-3.4); LYMPH % 10.1 % (22.0-35.0); MEAN CELL VOLUME 83.3 fl (80.0-105.0); MEAN CORPUSCULAR HEMOGLOBIN 27.2 pg (25.0-35.0); MEAN CORPUSCULAR HGB CONC 32.7 g/dl (31.0-37.0); MONO # 0.2 (0.1-0.6); MONO % 2.4 % (1.0-6.0); RED CELL DISTRIBUTION WIDTH 12.7 % (11.5-14.5); WHITE BLOOD COUNT 6.6 10^3/ul (4.5-11.0)
[2017-08-23 12:25] LABS: VENOUS BLOOD PH 7.23 (7.32-7.43)
[2017-08-23 12:26] LABS: VENOUS BLOOD GAS BASE EXCESS -11.6 mmol/L (0.0-2.0)
[2017-08-23 12:36] LABS: ALB/GLOB RATIO 0.9 (1.1-1.8); ALKALINE PHOSPHATASE 103 U/L (38-126); ALT/SGPT 81 U/L (7-56); AMYLASE 92 U/L (35-125); AST/SGOT 71 U/L (14-36); BLOOD UREA NITROGEN 21 mg/dL (7-21); CALCIUM 10.2 mg/dL (8.4-10.5); CARBON DIOXIDE 13 mmol/L (21-33); CHLORIDE 99 mmol/L (98-107); GFR AFRICAN-AMERICAN > 60; LIPASE 52 U/L (23-300); MAGNESIUM 1.9 mg/dL (1.7-2.2); PHOSPHOROUS 7.4 mg/dL (2.5-4.5); POTASSIUM 4.8 mmol/L (3.6-5.0); SODIUM 140 mmol/L (132-148); TOTAL PROTEIN 9.7 g/dL (5.8-8.3)
[2017-08-23 12:40] LABS: GLUCOSE,RANDOM 644 mg/dL (70-110); TROPONIN I < 0.01 ng/mL
[2017-08-23] MEDS ORDERED: Insulin Regular 100 UNITS in Sodium Chloride 0.9% 99 ML IV PRN (12:54)
[2017-08-23] MEDS ORDERED: Labetalol 5 mg/ml Inj 20ML IV STA ×2 (12:54→15:27)
--- NOTE | 2017-08-23 13:02 | RAD ---
HISTORY: r/o infiltrate COMPARISON: 03/30/2017 FINDINGS: LUNGS: No active pulmonary disease. PLEURA: No significant pleural effusion identified, no pneumothorax apparent. CARDIOVASCULAR: Normal. OSSEOUS STRUCTURES: No significant abnormalities. VISUALIZED UPPER ABDOMEN: Normal. OTHER FINDINGS: None. IMPRESSION: No active disease.
[2017-08-23] MEDS: Enoxaparin 40 mg Syringe SC SCH (13:53)
[2017-08-23 14:07] LABS: URINE APPEARANCE CLEAR (CLEAR); URINE BILIRUBIN NEGATIVE (NEGATIVE); URINE BLOOD SMALL (NEGATIVE); URINE COLOR STRAW (YELLOW); URINE GLUCOSE (UA) >=1000 mg/dL (NEGATIVE); URINE KETONE 15 mg/dL (NEGATIVE); URINE LEUKOCYTE ESTERASE NEGATIVE Leu/uL (NEGATIVE); URINE PROTEIN 30 mg/dL (<30 mg/dL); URINE UROBILINOGEN 0.2 E.U./dL (<1 E.U./dL)
[2017-08-23 14:23] LABS: CHOLESTEROL 200 mg/dL (130-200)
[2017-08-23 14:36] LABS: URINE BACTERIA TRACE (NEG); URINE EPITHELIAL CELLS 0 - 2 /hpf (0-5); URINE RBC 0 - 2 /hpf (0-2); URINE WBC 0 - 2 /hpf (0-6)
[2017-08-23 15:20] LABS: FREE T4 1.72 ng/dL (0.78-2.19); T4 18.1 ug/dL (5.5-11.0)
[2017-08-23] MEDS ORDERED: Labetalol 5 mg/ml Inj 20ML ONE (15:28)
[2017-08-23 15:33] LABS: THYROID STIMULATING HORMONE 0.95 mIU/mL (0.46-4.68)
[2017-08-23] MEDS: Sodium Chloride 0.9% 1,000 ML IV SCH (15:43)
[2017-08-23] MEDS ORDERED: Pneumococcal 23-Valent Vaccine IM ONE (16:50)
[2017-08-23] MEDS ORDERED: Influenza Vaccine 60 mcg/0.5 mL SYR (4YR UP) IM ONE (16:50)
[2017-08-23 17:02] LABS: VENOUS BLOOD PH 7.26 (7.32-7.43)
--- NOTE | 2017-08-23 18:21 | PCM.SEPTIC ---
Sepsis Progress Note - Reassessment Type Date of Evaluation: 08/23/17 Time of Evaluation: 18:20 Reassessment Type: Non-invasive reassessment - Non Invasive Reassessment Were the most recent vital sign reviewed: Yes Vital Sign (Latest): Temp Pulse Resp BP Pulse Ox 98 F 86 20 166/107 H 100 08/23/17 16:16 08/23/17 18:00 08/23/17 17:50 08/23/17 17:27 08/23/17 17:50 Cardiovascular: Yes: Regular Rate, Rhythm. No: Murmur Respiratory: Yes: Normal Breath Sounds. No: Rales, Wheezing, Respiratory Distress Capillary Refill: Normal (Less than 2 sec) Skin: Warm, Dry
[2017-08-23 18:24] LABS: ALKALINE PHOSPHATASE 91 U/L (38-126); ALT/SGPT 72 U/L (7-56); AST/SGOT 54 U/L (14-36); BILIRUBIN,TOTAL 0.8 mg/dL (0.2-1.3); BLOOD UREA NITROGEN 19 mg/dL (7-21); CALCIUM 9.6 mg/dL (8.4-10.5); CARBON DIOXIDE 22 mmol/L (21-33); CHLORIDE 108 mmol/L (98-107); GFR AFRICAN-AMERICAN > 60; POTASSIUM 4.1 mmol/L (3.6-5.0); SODIUM 147 mmol/L (132-148); TOTAL PROTEIN 8.7 g/dL (5.8-8.3)
[2017-08-23 18:25] LABS: GLUCOSE,RANDOM 408 mg/dL (70-110)
--- NOTE | 2017-08-23 19:17 | CON ---
DATE: 08/23/2017 OUTSOLE SPLICER NOTE REQUESTING PHYSICIAN: Dr. Terrell. CHIEF COMPLAINT: The patient presented with vomiting and feeling weak, noted to have DKA. HISTORY OF PRESENT ILLNESS: Ms. Addison is a 67-year-old female, who has a history of deafness, diabetes, high blood pressure and presented with hyperglycemia. The patient does sign language and friend was at bedside to help communicate. She stated that she has several episodes of vomiting this morning and ran out of her medications of insulin about 2 months ago. She did take her blood pressure medications yesterday. She complained of weakness and has stated five episodes of vomiting, dry cough, dizziness and dry mouth, as well as palpitations since yesterday. No fever or chills. No chest pains or abdominal pains. No diarrhea. PAST MEDICAL HISTORY: As above. ALLERGIES: SHE HAS NO KNOWN ALLERGIES. CURRENT MEDICATIONS: Can be evaluated as per the nurse's intake form. SOCIAL HISTORY: No history of smoking or ETOH abuse, and no drug abuse. FAMILY HISTORY: Noncontributory. REVIEW OF SYSTEMS: CONSTITUTIONAL: All negative. HEENT: All negative. RESPIRATORY: All negative. CARDIOVASCULAR: All negative. GASTROINTESTINAL: Did have some nauseousness and vomiting. NEUROPSYCHIATRIC: Did have dizziness. ENDOCRINE: All negative. HEMATOLOGICAL: All negative. IMMUNOLOGICAL: All negative. INTEGRITY: All negative. PHYSICAL EXAMINATION: VITAL SIGNS: Note that her temperature is 98.0, pulse is 113, respirations are 18, and blood pressure is 180/101, O2 saturation is 100% on room air. HEENT: Head is atraumatic, normocephalic. Eyes; reactive to light. Ears, nose, and throat seemed to be within normal limits except for being very dry. NECK: Supple. No JVD. No thyroid enlargement. No lymph nodes. HEART: Has regular rate and rhythm. Normal S1, S2, but tachycardic. LUNGS: Reveled good breath sounds bilaterally. ABDOMEN: Soft, nontender. Normal bowel sounds. No organomegaly noted. GENITALIA AND RECTAL: Deferred. MUSCULOSKELETAL: No joint deformities. EXTREMITIES: Revealed no edema. NEUROLOGIC: She is awake, alert and responds appropriately. LABORATORY DATA: As far as her laboratories are concerned, her white count is 6.6, hemoglobin is 14.5, hematocrit 44.4 with platelets of 134,000. Sodium is 140, potassium 4.8, chloride 99, CO2 of 30 with a BUN of 21, creatinine of 1.1, and glucose of 644. The patient's lactic acid is 13.7. Chest x-ray is within normal limits. IMPRESSION: This patient presents in diabetic ketoacidosis with a history of diabetes, she has hypertension, as well as noted to have metabolic acidosis. The patient has a history of being deaf as well. PLAN: As far as our plan, the patient is on insulin drip. We will follow her electrolytes and labs and correct as needed. The patient will get labetalol IV stat and we started on clonidine for her blood pressure. She is getting Lovenox as well as Protonix and Reglan. Endocrine consult has been called and we will continue with Megan hendrix and she is on IV fluids of normal saline at 100 mL an hour. We will repeat labs and follow closely. Erich Lala MD
--- NOTE | 2017-08-23 20:22 | CON ---
ENDOCRINOLOGY CONSULTATION DATE: LOCATION: [facility], room 1. HISTORY OF PRESENT ILLNESS: This is a 67-year-old female with known history of type 2 insulin-requiring diabetes, presenting here with marked hyperglycemic accelerations and diabetic ketoacidosis and is being referred now for diabetic evaluation and management. She apparently ran out of her insulin about 2 months ago as per the family member and has developed progressive polyuria, nocturia, polydipsia and supervening severe bouts of dizziness and lightheadedness worse on the day of admission. PAST MEDICAL HISTORY: As mentioned above, history of type 2 insulin-requiring diabetes, currently on a combination of Humulin 70/30 given as 24 units in the morning and 16 units in the evening with Amaryl given as 2 mg b.i.d. as given. History of hypertension and dyslipidemia. 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 FAMILY HISTORY: Positive for diabetes and hypertension. SOCIAL HISTORY: The patient has supportive family. No known substance use. REVIEW OF SYSTEMS: As mentioned above. Admits to generalized body weakness with episodic bouts of dizziness and lightheadedness, worse on the day of admission. Also admits to marked hypersomnolence and lethargy and bifrontal headaches with visual blurring worse in the last week or so prior to admission. No chest pains or palpitations or PND. Her oral intake has been variable with nausea, dyspepsia and episodic vomiting episodes and vague upper abdominal pains. Also admits to marked polyuria and nocturia, polydipsia and bouts of 5-pound weight loss. PHYSICAL EXAMINATION GENERAL: This is a 67-year-old female with a blood pressure of 140/80, pulse of 70 beats per minute regular, temperature 98, respirations 20, height is 5 feet 3 inches, weight is 120 pounds. HEENT: Head is normocephalic. Eyes anicteric with pink conjunctivae. Funduscopy not possible at this time. Ears, nose and throat otherwise normal. NECK: Supple. Thyroid gland is normal in size. No carotid bruits or any cervical adenopathy. CARDIOPULMONARY: Adynamic precordium. S1, S2 is rapid and regular. LUNGS: Clear to auscultation. ABDOMEN: Flat, soft with positive bowel sounds. EXTREMITIES: No peripheral edema. Pulses are +2 bilaterally. LABORATORY DATA: Initial chemistry showed a BUN of 21, 41 and 40, potassium 4.8, chloride 99, CO2 13, glucose is 644 and creatinine is 1.1. Subsequent glucose levels at 370-424 mg/dL. ASSESSMENT: This is a 67-year-old female with uncontrolled and decompensated type 2 insulin-requiring diabetes now being referred for diabetic evaluation with supervening diabetic ketoacidosis and dehydration related to drug omission in the last few months prior to admission. Although, she remains clinically euthyroid. 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 PLAN OF MANAGEMENT: As discussed with the patient and staff, we will repeat chemistries and supplement accordingly as needed. We will also continue the intensive insulin therapy with an insulin drip infusion as given. We will also obtain serial chemistries and follow her CO2 and will safely be able to stop her insulin drip with CO2 at least about 18 as noted. We will also obtain a comprehensive thyroid hormonal profile with euthyroid antibodies to confirm and/or indicate the presence of thyroid autoimmunity. We will initiate diabetic education and dietary instructions especially the need for ongoing followup given on the outpatient to prevent further readmission thereof. We will obtain serial chemistries and supplement accordingly as needed. We will follow with you. Nichole Mendoza MD
[2017-08-24] MEDS: Sodium Chloride 0.9% 1,000 ML IV SCH (00:30)
[2017-08-24 00:57] LABS: BLOOD UREA NITROGEN 22 mg/dL (7-21); CALCIUM 9.6 mg/dL (8.4-10.5); CARBON DIOXIDE 25 mmol/L (21-33); CHLORIDE 112 mmol/L (98-107); GFR AFRICAN-AMERICAN > 60; GLUCOSE,RANDOM 243 mg/dL (70-110); POTASSIUM 3.9 mmol/L (3.6-5.0); SODIUM 144 mmol/L (132-148)
[2017-08-24] MEDS ORDERED: Dextrose 5%/0.45% NS 1,000 ML IV SCH (03:30)
[2017-08-24 06:15] LABS: BASO # 0.01 K/mm3 (0.0-2.0); BASO % 0.1 % (0.0-3.0); EOS % 0.1 % (1.5-5.0); GRAN # 5.81 (1.4-6.5); GRAN % 64.7 % (50.0-68.0); LYMPH # 2.1 (1.2-3.4); LYMPH % 22.8 % (22.0-35.0); MEAN CELL VOLUME 82.2 fl (80.0-105.0); MEAN CORPUSCULAR HEMOGLOBIN 26.2 pg (25.0-35.0); MEAN CORPUSCULAR HGB CONC 31.9 g/dl (31.0-37.0); MEAN PLATELET VOLUME 12.4 fl (7.0-11.0); MONO # 1.1 (0.1-0.6); MONO % 12.3 % (1.0-6.0); RED CELL DISTRIBUTION WIDTH 12.9 % (11.5-14.5)
[2017-08-24 06:41] LABS: TROPONIN I 0.01 ng/mL
[2017-08-24 06:48] LABS: FREE T4 1.51 ng/dL (0.78-2.19); T4 13.8 ug/dL (5.5-11.0)
[2017-08-24 06:52] LABS: ALB/GLOB RATIO 0.9 (1.1-1.8); ALKALINE PHOSPHATASE 59 U/L (38-126); ALT/SGPT 66 U/L (7-56); AST/SGOT 39 U/L (14-36); BILIRUBIN,DIRECT 0.6 mg/dL (0.0-0.4); BILIRUBIN,TOTAL 0.7 mg/dL (0.2-1.3); BLOOD UREA NITROGEN 23 mg/dL (7-21); CARBON DIOXIDE 28 mmol/L (21-33); CHLORIDE 112 mmol/L (98-107); GFR AFRICAN-AMERICAN > 60; GLUCOSE,RANDOM 141 mg/dL (70-110); MAGNESIUM 2.1 mg/dL (1.7-2.2); PHOSPHOROUS 3.5 mg/dL (2.5-4.5); POTASSIUM 3.6 mmol/L (3.6-5.0); SODIUM 146 mmol/L (132-148); TOTAL PROTEIN 6.9 g/dL (5.8-8.3)
[2017-08-24 07:01] LABS: THYROID STIMULATING HORMONE 0.74 mIU/mL (0.46-4.68)
--- NOTE | 2017-08-24 08:52 | CARD ---
APPROVED REPORT EKG Measurement Heart [id number] <Conclusion> Sinus tachycardia Possible Left atrial enlargement RVCD NSSTW changes Prolinged QTc No change
--- NOTE | 2017-08-24 09:12 | PN ---
DATE: SUBJECTIVE: The patient is in the ICU [facility] in the [place], room 128, bed 1. The patient was admitted yesterday with diabetic acidosis. Blood sugar was over 600. The patient was brought to the emergency room weak. The patient had some abdominal discomfort. 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 She is seen this morning. PHYSICAL EXAMINATION: GENERAL APPEARANCE: The patient is pleasant. VITAL SIGNS: Blood pressure 125/85, pulse 79, temperature 98.2, and respirations are 15. HEENT: Head is normocephalic. NECK: Thyroid not enlarged. No lymphadenopathy. LUNGS: Trachea central. Breath sounds vesicular. No adventitious sound. HEART: NSR. S1 and S2 present. No murmur. ABDOMEN: Soft. No tenderness. No masses. CENTRAL NERVOUS SYSTEM: The patient is conscious, rational, and oriented. The patient has deficit of VIII nerve clearly because of the patient's inability to talk. LABORATORY DATA: The patient's blood work done this morning, ,the hemoglobin 11.8 and the patient's white count is 9,000. Chemistry, the patient's blood sugar was 147 and the patient's liver enzymes are most likely elevated. Her AST was 39 and ALT 66. The patient is still on IV insulin. The patient is getting diabetic diet. Her condition seemed to be improved. We will follow up. Johanna Lazo MD
[2017-08-24] MEDS: Enoxaparin 40 mg Syringe SC SCH (09:17)
--- NOTE | 2017-08-24 11:19 | PN ---
DATE: 08/24/2017 POULTRY INSPECTOR PROGRESS NOTE SUBJECTIVE: The patient is resting in bed. She ate a little breakfast this morning. No nauseousness or vomiting. No diarrhea. No abdominal pain. No chest pain. She is still on insulin drip, but her anion gap has closed. We will consult with the automatic coin machine mechanic for her recommendations as far as discontinuing the insulin drip. PHYSICAL EXAMINATION: VITAL SIGNS: Note that her temperature is 98.7, pulse is 79, respirations are 15, BP is 125/87, and O2 saturation is 98% on room air. HEENT: Head is atraumatic and normocephalic. Eyes are reactive to light. Ears, nose, and throat seemed to be within normal limits. NECK: Supple. No JVD. No thyroid enlargement. No lymph nodes. HEART: Regular rate and rhythm. Normal S1 and S2. LUNGS: Reveal good breath sounds bilaterally. ABDOMEN: Soft and nontender. Normal bowel sounds. No organomegaly noted. GENITALIA: Deferred. RECTAL: Deferred. MUSCULOSKELETAL: No joint deformities. EXTREMITIES: Reveal no edema. NEUROLOGIC: She seems to be grossly intact. LABORATORY DATA: As far as her laboratory is concerned, her white count is 9.0, hemoglobin is 11.8 and hematocrit is 37.0 with platelets of 128,000. The patient's sodium is 146, potassium is 3.6, chloride is 112, CO2 of 28 with a BUN of 23, creatinine of 1.1 and glucose of 147. IMPRESSION: The patient presented with diabetic ketoacidosis and has a history of diabetes. She has hypertension and is known to be completely deaf. The patient's anion gap has closed and metabolic acidosis has resolved. PLAN: We will continue to support the patient and encourage her to increase her p.o. intake. We will consult with automatic coin machine mechanic as far as discontinuing the insulin drip and starting on p.o. medications. We will continue with the IV fluids and continue with Lovenox, Protonix and Reglan. We will continue to treat aggressively along with the other consultants and primary care doctor. Erich Lala MD
[2017-08-24] MEDS: Insulin Reg-LOW-Coverage SC SCH ×2 (11:27→16:00)
[2017-08-24 14:23] LABS: CHOLESTEROL 151 mg/dL (130-200)
[2017-08-24] MEDS ORDERED: Insulin Human NPH/Reg 70/30 Vial(3 ml) SC SCH (16:30)
[2017-08-25] MEDS ORDERED: Pantoprazole 20 mg EC Tab PO SCH (06:00)
[2017-08-25 07:03] LABS: ALB/GLOB RATIO 0.9 (1.1-1.8); ALKALINE PHOSPHATASE 55 U/L (38-126); ALT/SGPT 71 U/L (7-56); AST/SGOT 48 U/L (14-36); BILIRUBIN,DIRECT 0.6 mg/dL (0.0-0.4); BILIRUBIN,TOTAL 0.8 mg/dL (0.2-1.3); BLOOD UREA NITROGEN 21 mg/dL (7-21); CALCIUM 8.8 mg/dL (8.4-10.5); CARBON DIOXIDE 24 mmol/L (21-33); CHLORIDE 110 mmol/L (98-107); GFR AFRICAN-AMERICAN > 60; GLUCOSE,RANDOM 199 mg/dL (70-110); MAGNESIUM 1.8 mg/dL (1.7-2.2); POTASSIUM 4.1 mmol/L (3.6-5.0); SODIUM 139 mmol/L (132-148); TOTAL PROTEIN 6.5 g/dL (5.8-8.3)
[2017-08-25 07:20] LABS: BASO # 0.01 K/mm3 (0.0-2.0); BASO % 0.2 % (0.0-3.0); EOS # 0.1 (0.0-0.7); EOS % 1.6 % (1.5-5.0); GRAN # 2.4 (1.4-6.5); GRAN % 46.6 % (50.0-68.0); HEMATOCRIT 35.7 % (36.0-48.0); LYMPH # 2.3 (1.2-3.4); LYMPH % 45.2 % (22.0-35.0); MEAN CELL VOLUME 82.8 fl (80.0-105.0); MEAN CORPUSCULAR HEMOGLOBIN 26.7 pg (25.0-35.0); MEAN CORPUSCULAR HGB CONC 32.2 g/dl (31.0-37.0); MEAN PLATELET VOLUME 12.7 fl (7.0-11.0); MONO # 0.3 (0.1-0.6); MONO % 6.4 % (1.0-6.0); RED CELL DISTRIBUTION WIDTH 13.1 % (11.5-14.5); WHITE BLOOD COUNT 5.2 10^3/ul (4.5-11.0)
[2017-08-25] MEDS ORDERED: Insulin Human NPH/Reg 70/30 Vial(3 ml) SC SCH ×5 (07:30→16:30)
[2017-08-25] MEDS: Insulin Reg-LOW-Coverage SC SCH ×5 (08:03→22:25)
--- NOTE | 2017-08-25 08:03 | CP.PCM.PN ---
Subjective - Date & Time of Evaluation Date of Evaluation: 08/25/17 Time of Evaluation: 07:52 - Subjective Subjective: PGY-[address] Terrell Pt feeling fine. Denies F/C/polyuria. Pt states that she was never treated for Hep C. Objective - Vital Signs/Intake and Output Vital Signs (last 24 hours): Temp Pulse Resp BP Pulse Ox 98.2 F 64 18 128/83 100 08/25/17 07:24 08/25/17 07:24 08/25/17 07:24 08/25/17 07:24 08/25/17 07:24 Intake and Output: 08/25/17 08/25/17 06:59 18:59 Intake Total 180 Balance 180 - Medications Medications: Current Medications Clonidine HCl (Catapres) 0.1 mg PO BID [facility] Last Admin: 08/24/17 17:47 Dose: Not Given Enoxaparin Sodium (Lovenox) 40 mg SC DAILY [facility] PRN Reason: Protocol Last Admin: 08/24/17 09:17 Dose: 40 mg Glimepiride (Amaryl) 4 mg PO ACBD [facility] Hydralazine HCl (Apresoline) 10 mg IVP Q6 PRN PRN Reason: Systolic Blood Pressure Last Admin: 08/23/17 21:50 Dose: 10 mg Insulin Human Regular (Humulin R Low) 0 units SC ACHS [facility] PRN Reason: Protocol Last Admin: 08/24/17 16:00 Dose: 4 units Metoclopramide HCl (Reglan) 10 mg PO 0600,1130,1630,2200 [facility] Last Admin: 08/24/17 21:32 Dose: 10 mg Mupirocin (Bactroban Ointment) 0 gm NS BID [facility] Stop: 08/29/17 18:01 Ondansetron HCl (Zofran Inj) 4 mg IVP Q4H PRN PRN Reason: Nausea/Vomiting Pantoprazole Sodium (Protonix Ec Tab) 20 mg PO 0600 [facility] Last Admin: 08/25/17 05:38 Dose: 20 mg - Labs Labs: 08/25/17 06:15 08/25/17 06:15 - Constitutional Appears: No Acute Distress - Head Exam Head Exam: ATRAUMATIC, NORMAL INSPECTION, NORMOCEPHALIC - Eye Exam Eye Exam: EOMI, Normal appearance, PERRL. absent: Scleral icterus Pupil Exam: NORMAL ACCOMODATION - ENT Exam ENT Exam: Mucous Membranes Moist - Neck Exam Additional comments: supple - Respiratory Exam Respiratory Exam: Clear to Ausculation Bilateral. absent: Accessory Muscle Use , Rales, Rhonchi, Wheezes - Cardiovascular Exam Cardiovascular Exam: REGULAR RHYTHM, +S1, +S2 - GI/Abdominal Exam GI & Abdominal Exam: Soft, Normal Bowel Sounds. absent: Guarding, Rigid, Tenderness Additional comments: (+) suprapubic tenderness - Extremities Exam Extremities Exam: absent: Calf Tenderness - Back Exam Back Exam: absent: CVA tenderness (L), CVA tenderness (R) - Neurological Exam Neurological Exam: Alert, Awake, Oriented x3 - Psychiatric Exam Psychiatric exam: Normal Affect, Normal Mood - Skin Skin Exam: Dry, Warm Assessment and Plan - Assessment and Plan (Free Text) Plan: 67 AAF with PMHx hep c untreated, uncontrolled diabetes, type 2 insulin- dependent, admitted with DKA with dehydration due to drug omission, was downgraded from ICU yesterday. She was foun to have UTI and being worked up for transaminitis. UTI, symptomatic with gram pos cocci - Pending ID recs on antibiotics - Pending CT A/P with PO and IV contrast for etiology - Pending transvaginal and pelvic u/s for etiology - Repeat urine culture, u/a DKA with dehydration - resolved MRSA in nares - bactroban top BID x 5d DM, A1C 12.5 Medication non-compliance due to resources - Glimepiride 4 ACBD - HumuLIN 26B, 16D, ISSS-low - diabetic education - socical worker referral - Pending fructosamine R/O hyperthyroidism - Normal TSH, free T4 - Pending thyroglobulin AB - Pending thyroid peroxidase AB - Pending thyroid u/s Transaminitis conjugated hyperbilirubinemia, stable at 0.6, likely from Hepatitis. Doubt etoh vs sarcoidosis vs PBC vs PSC vs autoimmune hepatocellular dz Hx HCV - pending Abd U/S official read, hep panel - pending HCV viral - ID and GI consult HTN - Clonidine 0.1 BID Pvx = Lovenox 40 QD, protonix 40 Discharge planning - Follow up with Dr. Terrell and Dr. Mendoza (ventilation worker) in 1-2 weeks after discharge - HCV outpt treatment S/D/R/w Dr. Terrell
--- NOTE | 2017-08-25 08:13 | HP ---
This patient is under the care of Dr. Isaías Terrell and I am covering for him. HISTORY OF PRESENT ILLNESS: The patient presented in the emergency room with vomiting history, history of cough, and weakness. The patient was brought in by her one of her friends. After evaluation in the emergency room, the patient was found to be in state of hypoglycemia and acidosis. The patient's past history is significant that he has been treated for hypertension, hyperlipidemia, diabetes mellitus with insulin and sulfonylurea. The patient was on Amaryl 2 mg twice a day and insulin coverage 70/30 as Humalog 16 units daily. The patient was also on lisinopril 2.5 mg daily. The patient was on diet specified for diabetes and she apparently has not had medications for few days and she had not taken her insulin. She has been immunized for pneumonia and influenza. She has no past surgical history. She has no history of any addiction and she has no history of any trauma. The patient was able to talk, but she is deaf and she does not express herself in any words. She has got used to using sign language. ALLERGIES: SHE IS NOT ALLERGIC TO ANY MEDICATIONS AT THIS TIME. PHYSICAL EXAMINATION: GENERAL: She is conscious, tired, and lethargic, but can be aroused. VITAL SIGNS: Pulse is 93, sinus tachycardia, blood pressure 166/101, respirations 18, and O2 saturation is 100% on room air. HEENT: Head is normocephalic. NECK: Thyroid is not enlarged. There is no lymphadenopathy in the neck. HEART: Normal sinus rhythm. Sinus tachycardia. S1 and S2 present. No murmurs. No rubs. LUNGS: Trachea is central. Breath sounds are vesicular. Breath sounds are diminished bilaterally. ABDOMEN: Soft. No tenderness. No distention. No ascites. The hernial orifice is intact. 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 She is deaf, she has no other focal neurological deficits. She is able to walk. LABORATORY DATA: Blood work evaluation in the emergency room, the hemoglobin of 14.5, and white count is within normal limits. The differential shows granulocyte count of 87%. Chemistry, the patient's sugar was 644. The patient's triglycerides 128. The patient's cholesterol 200. The patient's HDL was 118, which is markedly elevated and is a good cholesterol. The patient's bicarbonate level was low, and the CO2 was 13 and this is consistent with acidosis. The patient's anion gap was 33. The patient is on IV fluids and insulin drip. The patient was placed on diabetic diet, as soon as the patient is able tolerate the food. We will continue management at this time and we will follow up with the blood work to check blood sugar frequently. Prognosis is guarded, but the condition seemed to be safe and stable, now that the patient is started on treatment and she is in the Intensive Care Unit, where she is going to be very closely monitored. Medications will be resumed as necessary. Her diet would be 2 g sodium diabetic diet. Johanna Lazo MD
--- NOTE | 2017-08-25 08:32 | PN ---
DATE: 08/24/2017 ENDOCRINOLOGY FOLLOWUP NOTE LOCATION: U 128, room 1. SUBJECTIVE: This is a 67-year-old deaf mute patient with recent uncontrolled type 2 insulin-requiring diabetes, presenting here with diabetic ketoacidosis and dehydration and since then received intensive insulin therapy with an insulin drip infusion and vigorous IV hydration as given. She has improved clinically and metabolically as noted thereof. However, her oral intake remains very poor and suboptimal at this time as per the nursing staff. Her latest chemistry showed a BUN of 23, sodium 146, potassium 3.6, chloride 112, CO2 28, glucose 141 and creatinine 1.1. Her thyroid study showed a T4 of 13.8, which is elevated and a TSH of 0.74 and a free T4 of 1.51. 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 There is no indication at this time for any kind of thyroid pharmacotherapy. So at this point, we will discontinue her insulin drip infusion and switch over to a more physiologic premixed insulin regimen that she was actually using at home for convenience of the self-administration. We will start her on Humulin 70/30 given as 20 units before breakfast and 12 units before dinner to start today. We will modify the coverage scale to obviate hypoglycemia and detailed orders have been given. We will obtain serial chemistries and supplement accordingly as needed. We will continue the IV hydration as given to optimize the volume depletion and fluid and electrolyte losses thereof. We will obtain serial chemistries and supplement accordingly as needed. We will follow. Nichole Mendoza MD
[2017-08-25] MEDS: Enoxaparin 40 mg Syringe SC SCH (09:50)
--- NOTE | 2017-08-25 10:51 | US ---
HISTORY: TRANSAMINITIS COMPARISON: None. TECHNIQUE: Grayscale imaging was performed. FINDINGS: LIVER: Measures 15.2 cm. Normal echogenicity of the liver parenchyma. No mass. No intrahepatic bile duct dilatation. GALLBLADDER: There are no gallstones, wall thickening or pericholecystic fluid. The sonographic Valencia's sign is negative PICC COMMON BILE DUCT: Measures 4.0 mm. No stones. No dilatation. PANCREAS: Normal in size and echotexture linares. No mass. No ductal dilatation. RIGHT KIDNEY: Measures 11.2cm. Normal echogenicity. No calculus, mass, or hydronephrosis. There is a 1.0 x 0.9 x 1.1 cm simple cyst in the interpolar region and a 1.3 x 1.7 x 1.7 cm simple cyst in the lower pole. LEFT KIDNEY: Measures 10.5cm. Normal echogenicity. No calculus, mass, or hydronephrosis. SPLEEN: Normal in size and contour. No mass. AORTA: No aneurysmal dilatation. IVC: Unremarkable. OTHER FINDINGS: None. IMPRESSION: Normal sonographic appearance of the liver. No evidence of cholelithiasis or biliary dilatation.
[2017-08-25] MEDS ORDERED: Barium Sulfate Susp 2.1% w/v, 2.0% w/w 450 mL Bottle PO ONE (10:54)
[2017-08-25] MEDS: Sodium Chloride 0.9% 1,000 ML IV SCH (12:12)
--- NOTE | 2017-08-25 12:58 | CP.PCM.CON ---
History of Present Illness - History of Present Illness History of Present Illness: 67 year old female with PMH of hearing impairment, insulin-dependent diabetes mellitus, HTN, history of Hepatitis C was initially brought in to [facility] (Formerly [facility]) because of high sugars and she was also having generalized weakness and episodes of vomiting. She was found to be in hyperglycemic, hyperosmolar state and was initially treated in the ICU with insulin IV and is now doing better and has been transferred to the regular medical floor. Infectious diseases consult is requested to evaluate her Hepatitis C infection. Currently the patient's appetite is still not very good, but she denies headache or dizziness, no blurring of vision, no nausea or vomiting, no chest pain, no SOB, no cough or colds, no abdominal pain, no diarrhea, no dysuria, no sore throat. She has not been treated for Hepatitis C in the past. Review of Systems - Review of Systems All systems: reviewed and no additional remarkable complaints except (as per HPI ) Past Patient History - Infectious Disease Hx of Infectious Diseases: None - Tetanus Immunizations Tetanus Immunization: Unknown - Past Social History Smoking Status: Unknown If Ever Smoked - CARDIAC Hx Cardiac Disorders: Yes Hx Hypertension: Yes - PULMONARY Hx Respiratory Disorders: Yes - NEUROLOGICAL Hx Neurological Disorder: No HX Cerebrovascular Accident: No - HEENT Hx Cataracts: (Denied by pt.) Hx Deafness: Yes Other/Comment: sign language - RENAL Hx Renal Failure: No - ENDOCRINE/METABOLIC Hx Diabetes Mellitus Type 1: No Hx Diabetes Mellitus Type 2: Yes - HEMATOLOGICAL/ONCOLOGICAL Hx Blood Disorders: No Hx Cancer: No - INTEGUMENTARY Hx Dermatological Problems: No - MUSCULOSKELETAL/RHEUMATOLOGICAL Hx Arthritis: No Hx Rheumatoid Arthritis: No - GASTROINTESTINAL Hx Gastrointestinal Disorders: No Hx Gastroesophageal Reflux: No - GENITOURINARY/GYNECOLOGICAL Hx Genitourinary Disorders: No - PSYCHIATRIC Hx Psychophysiologic Disorder: No Hx Depression: No Hx Emotional Abuse: No Hx Physical Abuse: No Hx Substance Use: No - SURGICAL HISTORY Other/Comment: "Abdominal Surgery" - ANESTHESIA Hx Anesthesia Reactions: No Hx Malignant Hyperthermia: No Meds Allergies/Adverse Reactions: Allergies Allergy/AdvReac Type Severity Reaction Status Date / Time No Known Allergies Allergy Verified 08/23/17 14:46 - Medications Medications: Current Medications Clonidine HCl (Catapres) 0.1 mg PO BID [facility] Last Admin: 08/25/17 09:41 Dose: 0.1 mg Enoxaparin Sodium (Lovenox) 40 mg SC DAILY [facility] PRN Reason: Protocol Last Admin: 08/25/17 09:50 Dose: 40 mg Glimepiride (Amaryl) 4 mg PO ACBD [facility] Last Admin: 08/25/17 08:34 Dose: 4 mg Hydralazine HCl (Apresoline) 10 mg IVP Q6 PRN PRN Reason: Systolic Blood Pressure Last Admin: 08/23/17 21:50 Dose: 10 mg Sodium Chloride (Sodium Chloride 0.9%) 1,000 mls @ 100 mls/hr IV .Q10H [facility] Insulin Human Regular (Humulin R Low) 0 units SC ACHS [facility] PRN Reason: Protocol Last Admin: 08/25/17 08:34 Dose: 2 units Mupirocin (Bactroban Ointment) 0 gm NS BID [facility] Stop: 08/29/17 18:01 Last Admin: 08/25/17 09:52 Dose: 1 applic Ondansetron HCl (Zofran Inj) 4 mg IVP Q4H PRN PRN Reason: Nausea/Vomiting Pantoprazole Sodium (Protonix Ec Tab) 40 mg PO 0600 [facility] Physical Exam - Constitutional Appears: Non-toxic - Head Exam Head Exam: NORMAL INSPECTION - ENT Exam ENT Exam: Mucous Membranes Moist - Neck Exam Neck exam: Negative for: Meningismus - Respiratory Exam Respiratory Exam: Decreased Breath Sounds - Cardiovascular Exam Cardiovascular Exam: +S1, +S2 - GI/Abdominal Exam GI & Abdominal Exam: Soft. absent: Tenderness Results - Vital Signs Recent Vital Signs: Last Vital Signs Temp 98.2 F 08/25/17 07:24 Pulse 80 08/25/17 09:41 Resp 18 08/25/17 07:24 BP 131/90 08/25/17 09:41 Pulse Ox 100 08/25/17 07:24 - Labs Result Diagrams: 08/25/17 06:15 08/25/17 06:15 Labs: Laboratory Results - last 24 hr 08/24/17 08/24/17 08/24/17 06:30 06:30 06:30 WBC RBC Hgb Hct MCV MCH MCHC RDW Plt Count MPV Gran % Lymph % (Auto) King % (Auto) Eos % (Auto) Baso % (Auto) Gran # Lymph # King # Eos # Baso # Sodium Potassium Chloride Carbon Dioxide Anion Gap BUN Creatinine Est GFR ( Amer) Est GFR (Non-Af Amer) POC Glucose (mg/dL) Random Glucose Fructosamine Lactic Acid Uric Acid Calcium Phosphorus Magnesium Total Bilirubin Direct Bilirubin AST ALT Alkaline Phosphatase Total Protein Albumin Globulin Albumin/Globulin Ratio Triglycerides 74 Cholesterol 151 LDL Cholesterol Direct 47 HDL Cholesterol 73 H Procalcitonin 0.06 L Hepatitis A IgM Ab Negative Hep Bs Antigen Negative Hep B Core IgM Ab Negative 08/24/17 08/24/17 08/24/17 06:30 15:56 21:20 WBC RBC Hgb Hct MCV MCH MCHC RDW Plt Count MPV Gran % Lymph % (Auto) King % (Auto) Eos % (Auto) Baso % (Auto) Gran # Lymph # King # Eos # Baso # Sodium Potassium Chloride Carbon Dioxide Anion Gap BUN Creatinine Est GFR ( Amer) Est GFR (Non-Af Amer) POC Glucose (mg/dL) 319 H 246 H Random Glucose Fructosamine 356 H Lactic Acid Uric Acid Calcium Phosphorus Magnesium Total Bilirubin Direct Bilirubin AST ALT Alkaline Phosphatase Total Protein Albumin Globulin Albumin/Globulin Ratio Triglycerides Cholesterol LDL Cholesterol Direct HDL Cholesterol Procalcitonin Hepatitis A IgM Ab Hep Bs Antigen Hep B Core IgM Ab 08/25/17 08/25/17 08/25/17 06:15 06:15 06:15 WBC 5.2 D RBC 4.31 Hgb 11.5 L Hct 35.7 L MCV 82.8 MCH 26.7 MCHC 32.2 RDW 13.1 Plt Count 104 L MPV 12.7 H Gran % 46.6 L Lymph % (Auto) 45.2 H King % (Auto) 6.4 H Eos % (Auto) 1.6 Baso % (Auto) 0.2 Gran # 2.40 Lymph # 2.3 King # 0.3 Eos # 0.1 Baso # 0.01 Sodium 139 Potassium 4.1 Chloride 110 H Carbon Dioxide 24 Anion Gap 9 L BUN 21 Creatinine 0.8 Est GFR ( Amer) > 60 Est GFR (Non-Af Amer) > 60 POC Glucose (mg/dL) Random Glucose 199 H Fructosamine Lactic Acid 1.5 Uric Acid 4.0 Calcium 8.8 Phosphorus 3.0 Magnesium 1.8 Total Bilirubin 0.8 Direct Bilirubin 0.6 H AST 48 H D ALT 71 H Alkaline Phosphatase 55 Total Protein 6.5 Albumin 3.1 Globulin 3.4 Albumin/Globulin Ratio 0.9 L Triglycerides Cholesterol LDL Cholesterol Direct HDL Cholesterol Procalcitonin Hepatitis A IgM Ab Hep Bs Antigen Hep B Core IgM Ab 08/25/17 07:33 WBC RBC Hgb Hct MCV MCH MCHC RDW Plt Count MPV Gran % Lymph % (Auto) King % (Auto) Eos % (Auto) Baso % (Auto) Gran # Lymph # King # Eos # Baso # Sodium Potassium Chloride Carbon Dioxide Anion Gap BUN Creatinine Est GFR ( Amer) Est GFR (Non-Af Amer) POC Glucose (mg/dL) 212 H Random Glucose Fructosamine Lactic Acid Uric Acid Calcium Phosphorus Magnesium Total Bilirubin Direct Bilirubin AST ALT Alkaline Phosphatase Total Protein Albumin Globulin Albumin/Globulin Ratio Triglycerides Cholesterol LDL Cholesterol Direct HDL Cholesterol Procalcitonin Hepatitis A IgM Ab Hep Bs Antigen Hep B Core IgM Ab Assessment & Plan - Assessment and Plan (Free Text) Plan: Assessment history of Hepatitis C S/P hyperglycemic, hyperosmolar state history of H.pylori infection with associated esophageal and gastric ulcers hearing impairment insulin-dependent diabetes mellitus HTN Plan follow up HCV PCR and genotype - patient should be referred to a Hepatitis C specialist as an outpatient if her infection is proven to be chronic and active (ie. if the HCV PCR is elevated)
--- NOTE | 2017-08-25 18:37 | PN ---
DATE: ENDOCRINOLOGY FOLLOWUP NOTE LOCATION: Room 561. SUBJECTIVE: This is a 67-year-old female with recent uncontrolled type 2 insulin-requiring diabetes, now being followed closely for metabolic management. She presented here with diabetic ketoacidosis and dehydration and since then improved clinically and metabolically as noted thereof. However, this morning, she had bouts of hypoglycemia about lunchtime with a glucose level of 52 mg/dL. Her latest glucose values have ranged from 89 to 212 mg/dL. Her latest chemistry showed BUN of 21, sodium 139, potassium 4.1, chloride 110, CO2 of 24, glucose 199 and creatinine 0.8. Her hemoglobin A1c is 12.5% as noted. So at this time, we will modify her premixed insulin regimen and lower the Humulin 70/30 to 18 units subcutaneous before breakfast daily. We will also lower the dinnertime Humulin 70/30 to 14 units subcutaneous before dinner daily as ordered. We will titrate incrementally as indicated to optimize metabolic control. We will continue the low-dose correction scale using regular insulin as ordered to obviate hypoglycemia and detailed orders have been given. We will obtain serial chemistries and supplement accordingly as needed. We will follow. Nichole Mendoza MD
[2017-08-25] MEDS ORDERED: Iohexol 350 MG/100 ML VIAL ONE (19:35)
--- NOTE | 2017-08-25 21:35 | CT ---
EXAM: CT Abdomen and Pelvis With Intravenous Contrast CLINICAL HISTORY: 67 years old, female; Pain; Abdominal pain; Flank; Other: Bilateral; Additional info: ? ? Uti TECHNIQUE: Axial computed tomography images of the abdomen and pelvis with intravenous contrast. All CT scans at this facility use one or more dose reduction techniques, viz.: automated exposure control; ma/kV adjustment per patient size (including targeted exams where dose is matched to indication; i.e. head); or iterative reconstruction technique. Coronal and sagittal reformatted images were created and reviewed. CONTRAST: 100 mL of OMNI administered intravenously. COMPARISON: CT - ABD PELVIS W/O PO OR IV CONT 2017-03-30 10:38 FINDINGS: Lower thorax: Small bilateral pleural effusions, with adjacent compressive atelectasis. ABDOMEN: Liver: No acute findings. Gallbladder and bile ducts: The gallbladder is decompressed. No calcified stones. No significant intra- or extrahepatic biliary ductal dilation. Pancreas: Enhances homogeneously. No ductal dilation. No discrete mass. Spleen: No acute findings. Adrenals: No acute findings. Kidneys and ureters: No acute findings. No hydronephrosis or renal calculi. No discrete solid mass. Multiple areas of decreased attenuation are identified within the right kidney, statistically representing cysts. PELVIS: Bladder: Irregular thickening of the bladder wall, possibly related to underdistention for which direct visualization is suggested. Reproductive: The uterus is anteverted and retroflexed, and heterogeneous in attenuation suggesting uterine fibroids. Appendix: The air filled appendix is of normal caliber (series 2, image 114) . ABDOMEN and PELVIS: Stomach and bowel: Stomach is moderately distended with oral contrast. Oral contrast extends to the distal small bowel and cecum, without obstruction. No mucosal thickening. Peritoneum: Limited detection secondary to the lack of intra-abdominal fat. Lymph nodes: No pathologically enlarged lymph nodes. Vasculature: Unremarkable. Bones: No acute fracture. IMPRESSION: Small bilateral pleural effusions, with adjacent passive atelectasis. Irregular thickening of the bladder wall, possibly related to under distention for which direct visualization is suggested. No obstructive uropathy.
--- NOTE | 2017-08-25 22:41 | CON ---
GASTROENTEROLOGY CONSULTATION DATE: 08/25/2017 REQUESTING PHYSICIAN: Isaías Terrell MD REASON FOR CONSULTATION: I have been asked to see this 67-year-old female with known insulin-dependent diabetes mellitus, who has not taken her insulin 2 months and was admitted for uncontrolled diabetes mellitus for elevated liver enzymes. Her hepatitis C antibody is pending. Her hepatitis A and B serologies are negative. The patient is deaf, history is obtained from the chart. PAST MEDICAL HISTORY: Notable for poorly compliant diabetes mellitus, hypertension, hyperlipidemia, congenital deafness. FAMILY HISTORY: Notable for hypertension and diabetes. SOCIAL HISTORY: The patient denies cigarette smoking or alcohol use. REVIEW OF SYSTEMS: A 14-point review of systems is unobtainable due to her inability to give any history. PHYSICAL EXAMINATION GENERAL: Well-developed female lying in bed in no acute distress. VITAL SIGNS: Reveal temperature of 98.2, blood pressure 128/83, heart rate 64. HEENT: Reveal the patient to be deaf, sclerae white. Conjunctivae pink. NECK: Supple. CHEST: Reveal lungs to be clear. HEART: Exam reveals regular rate and rhythm. ABDOMEN: Soft, nontender. EXTREMITIES: Show no edema. LABORATORY DATA: Reveal white blood cell count 5.2, hemoglobin 11.5. Chemistries reveal AST 48, ALT 71, alkaline phosphatase of 55. MEDICATIONS AT HOME: Include Zestril, Amaryl and insulin. IMPRESSION: This 67-year-old female poorly compliant with her insulin, admitted to the hospital with uncontrolled diabetes mellitus with high glucose levels. She is noted to have mildly elevated liver enzymes. Ultrasound of the abdomen revealed no gallstones and a normal appearing liver. 1. Elevated liver enzymes, etiology unclear. 2. Uncontrolled diabetes mellitus secondary to poor compliance with an insulin. RECOMMENDATIONS: If hepatitis C antibody is positive, the patient will need hepatitis C RNA quantitative. Waldemar Boo MD
[2017-08-26] MEDS: Sodium Chloride 0.9% 1,000 ML IV SCH (00:57)
--- NOTE | 2017-08-26 01:32 | PN ---
DATE: 08/25/2017 LOCATION: The patient is seen lying in the bed in room 561, bed 2. SUBJECTIVE: The patient is comfortable. The patient does not appear to be any distress. Overnight nurse's notes were reviewed. All the communication was done to the patient by writing the question and getting the patient's response and the patient was able to write down all her issues. The patient categorically denies any review of symptoms. The patient was comfortable. According to the rare medical record coder, the patient had some suprapubic tenderness. PHYSICAL EXAMINATION VITAL SIGNS: T-max 98.3-98.9; heart rate 64, 84, and 62; blood pressure is 131/90, 128/83, 102/64, and 110/74; respiration 18; O2 sat 100%. HEAD: Normocephalic, atraumatic. HEENT: Examination shows pinkish pale conjunctivae. Dry oral mucosa. No neck rigidity. CHEST: Kyphosis. LUNGS: Examination shows no rales, crackles or wheezing. CARDIOVASCULAR: Examination shows S1, S2, regular rhythm. According to the medical record coder, the patient had some suprapubic tenderness. ABDOMEN: Soft. Very slight suprapubic tenderness noted. No costovertebral angle tenderness. GENITALIA: Female. RECTAL: Examination is deferred. EXTREMITIES: Shows no pitting edema, no calf tenderness, and no Homans' sign. NEUROLOGIC: The patient is alert, awake, responsive, is deaf and mute. MUSCULOSKELETAL: Examination shows a body mass index of 19.5. DIAGNOSTICS: 08/25/2017, WBC 5.2, hemoglobin/hematocrit 11.5 and 35.7, platelet 104,000. Sodium 139, potassium 4.1, chloride 110, CO2 of 24, anion gap 9, BUN 21, creatinine 0.8, GFR greater than 60. Point of contact glucose 246, 212, 52 . Random glucose 199. Hemoglobin A1c is 12.5, lactic acid 1.5, uric acid 4.0 which is normal. AST is down to 48 from 71, ALT is down to 71 from 81. Alk phos is normal. Procalcitonin level is negative. Thyroxine is elevated at 13.8 and 18.1. Thyroid and thyroglobulin antibody and thyroid peroxidase are negative. Hepatitis C antibody is reactive. HIV is pending. Urine culture, gram-positive cocci, MRSA nares detected. The patient's abdominal ultrasound reviewed. EKG; sinus tachycardia from 08/23/2017 with left anterior hemiblock. IMPRESSION: 1. Diabetic ketoacidosis. 2. Uncontrolled insulin-requiring diabetes mellitus with diabetic ketoacidosis and lactic acidosis. 3. Uncontrolled accelerated hypertension. 4. 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 5. Normocytic anemia. 6. Granulocytosis. 7. Mild thrombocytopenia. 8. Lactic acidosis. 9. Increased anion gap metabolic acidosis. 10. Prerenal kidney injury. 11. Uncontrolled type 1 insulin requiring diabetes mellitus with hyperglycemia and diabetic ketoacidosis and hemoglobin A1c of 12.5. 12. Elevated fructosamine of 356. 13. Transaminitis with mild hyperbilirubinemia. 14. Questionable hyperthyroidism with elevated thyroxine of 18.1 and 13.8. 15. Hyperphosphatemia. 16. Transaminitis. 17. Hypercholesterolemia with HDL of 118. 18. Hyperglycemia secondary to diabetic ketoacidosis. 19. Proteinuria. 20. Glycosuria. 21. Microscopic hematuria. 22. Bacteriuria. 23. Reactive hepatitis C antibody. 24. Gram-positive cocci urinary tract infection. 25. Positive methicillin-resistant staphylococcus aureus nares. 26. Suprapubic abdominal tenderness, etiology undetermined. 27. Right renal cyst. 28. Bilateral heterogeneous thyroid with multiple subcentimeter nodules. 29. Submucosal and intramural possible calcified fibroid. 30. Nonvisualized left ovary. 31. Sinus tachycardia, left anterior hemiblock. 32. Questionable right ventricular conduction delay versus incomplete right bundle-branch block. 33. Status post diabetic ketoacidosis. 34. Uncontrolled insulin-requiring diabetes mellitus with hyperglycemia and hypoglycemia. 35. Gram-positive cocci urinary tract infection. 36. Reactive hepatitis C antibody. 37. History of Helicobacter pylori gastritis, gastric ulcer. 38. Hypertension. 39. Uncontrolled type 2 insulin-requiring decompensated diabetes with diabetic ketoacidosis. 40. Euthyroid hyperthyroxinemia. PLAN: At this time, the patient has been ordered serial labs. Repeat lactic acid ordered, vitamin D 25 hydroxy ordered, manual platelet ordered, HIV, hepatitis, PCR ordered. Repeat urine cultures ordered. Current consultation with Endocrinology, Infectious Disease, and Gastroenterology. CURRENT MEDICATIONS: Amaryl 4 mg breakfast and dinner by Dr. Mendoza. The patient is on hydralazine 10 mg IV q. 6 p.r.n., Bactroban cream to the naris three times a day, clonidine 0.1 mg twice a day. The patient is on Humulin 70/30, 14 units with dinner and 80 units with breakfast and Humulin low-dose sliding scale coverage. The patient is on DVT prophylaxis with Lovenox 40 mg subcu daily, Protonix 40 mg daily for GI prophylaxis. The patient is on IV fluid 0.9 normal saline at 100 ml an hour, Zofran 4 mg IV q. 4 p.r.n. The patient has been ordered thyroid ultrasound, transvaginal pelvic ultrasound, CAT scan of the abdomen and pelvis with IV and p.o. contrast ordered. Repeat EKG ordered. The patient has been ordered out of bed to chair, SHALONDA stockings, SCDs, occupational and physical therapy ordered. The patient seen by Assistant Analyst. The patient seen by Physical Therapist today. The patient will be closely followed with above consultants.. The patient's case will be referred for TCU evaluation. The patient will be recommended out of bed to chair.. At present, the patient's case is also referred to Mulling Machine Operator for discharge planning. Dictated and electronically signed, not read. Signing off; Isaías Terrell MD
[2017-08-26] MEDS: Pantoprazole 40 mg EC Tab PO SCH (06:24)
[2017-08-26 06:54] LABS: BASO # 0.01 K/mm3 (0.0-2.0); BASO % 0.3 % (0.0-3.0); EOS # 0.1 (0.0-0.7); EOS % 3.4 % (1.5-5.0); GRAN # 0.94 (1.4-6.5); GRAN % 28.7 % (50.0-68.0); HEMATOCRIT 34.9 % (36.0-48.0); LYMPH # 1.9 (1.2-3.4); LYMPH % 58.8 % (22.0-35.0); MEAN CELL VOLUME 82.1 fl (80.0-105.0); MEAN CORPUSCULAR HEMOGLOBIN 27.1 pg (25.0-35.0); MONO # 0.3 (0.1-0.6); MONO % 8.8 % (1.0-6.0); RED CELL DISTRIBUTION WIDTH 12.9 % (11.5-14.5); WHITE BLOOD COUNT 3.3 10^3/ul (4.5-11.0)
[2017-08-26] MEDS ORDERED: Sodium Chloride 0.9% 1,000 ML IV SCH (07:30)
[2017-08-26 07:34] LABS: ALB/GLOB RATIO 0.9 (1.1-1.8); ALKALINE PHOSPHATASE 48 U/L (38-126); ALT/SGPT 68 U/L (7-56); AST/SGOT 46 U/L (14-36); BILIRUBIN,DIRECT 0.5 mg/dL (0.0-0.4); BILIRUBIN,TOTAL 0.7 mg/dL (0.2-1.3); BLOOD UREA NITROGEN 12 mg/dL (7-21); CALCIUM 8.4 mg/dL (8.4-10.5); CARBON DIOXIDE 23 mmol/L (21-33); CHLORIDE 110 mmol/L (98-107); GFR AFRICAN-AMERICAN > 60; GLUCOSE,RANDOM 63 mg/dL (70-110); MAGNESIUM 1.7 mg/dL (1.7-2.2); PHOSPHOROUS 3.5 mg/dL (2.5-4.5); POTASSIUM 3.7 mmol/L (3.6-5.0); SODIUM 140 mmol/L (132-148); TOTAL PROTEIN 6.3 g/dL (5.8-8.3)
--- NOTE | 2017-08-26 08:18 | CP.PCM.PN ---
Subjective - Date & Time of Evaluation Date of Evaluation: 08/26/17 Time of Evaluation: 08:18 - Subjective Subjective: PGY-[address] Terrell Pt feeling fine. Denies F/C/polyuria. (+) BM yesterday. Had explained to pt why she need to stay at the hospital Objective - Vital Signs/Intake and Output Vital Signs (last 24 hours): Temp Pulse Resp BP Pulse Ox 98.8 F 87 18 130/74 100 08/26/17 07:30 08/26/17 07:30 08/26/17 07:30 08/26/17 07:30 08/26/17 07:30 Intake and Output: 08/26/17 08/26/17 06:59 18:59 Intake Total 2560 Balance 2560 - Medications Medications: Current Medications Clonidine HCl (Catapres) 0.1 mg PO BID [facility] Last Admin: 08/25/17 17:58 Dose: 0.1 mg Enoxaparin Sodium (Lovenox) 40 mg SC DAILY [facility] PRN Reason: Protocol Last Admin: 08/25/17 09:50 Dose: 40 mg Glimepiride (Amaryl) 4 mg PO ACBD [facility] Last Admin: 08/25/17 17:27 Dose: Not Given Hydralazine HCl (Apresoline) 10 mg IVP Q6 PRN PRN Reason: Systolic Blood Pressure Last Admin: 08/23/17 21:50 Dose: 10 mg Sodium Chloride (Sodium Chloride 0.9%) 1,000 mls @ 60 mls/hr IV .[id number] [facility] Insulin Human Regular (Humulin R Low) 0 units SC ACHS [facility] PRN Reason: Protocol Last Admin: 08/25/17 22:25 Dose: Not Given Mupirocin (Bactroban Ointment) 0 gm NS BID [facility] Stop: 08/29/17 18:01 Last Admin: 08/25/17 17:59 Dose: 1 applic Ondansetron HCl (Zofran Inj) 4 mg IVP Q4H PRN PRN Reason: Nausea/Vomiting Pantoprazole Sodium (Protonix Ec Tab) 40 mg PO 0600 [facility] Last Admin: 08/26/17 06:24 Dose: 40 mg - Labs Labs: 08/26/17 06:15 08/26/17 06:15 - Constitutional Appears: No Acute Distress, Other - Head Exam Head Exam: ATRAUMATIC, NORMAL INSPECTION, NORMOCEPHALIC - Eye Exam Eye Exam: EOMI, Normal appearance, PERRL. absent: Scleral icterus Pupil Exam: NORMAL ACCOMODATION - ENT Exam ENT Exam: Mucous Membranes Moist - Neck Exam Neck Exam: Normal Inspection - Respiratory Exam Respiratory Exam: Clear to Ausculation Bilateral, Rales (mild b/l bases), NORMAL BREATHING PATTERN. absent: Rhonchi, Wheezes - Cardiovascular Exam Cardiovascular Exam: REGULAR RHYTHM - GI/Abdominal Exam GI & Abdominal Exam: Soft, Normal Bowel Sounds. absent: Distended, Firm, Guarding, Rigid, Organomegaly - Extremities Exam Extremities Exam: absent: Calf Tenderness, Pedal Edema - Back Exam Back Exam: absent: CVA tenderness (L), CVA tenderness (R) - Neurological Exam Neurological Exam: Alert, Awake, Oriented x3 - Psychiatric Exam Psychiatric exam: Normal Affect, Normal Mood - Skin Skin Exam: Dry, Warm Assessment and Plan - Assessment and Plan (Free Text) Plan: 67 AAF with PMHx hep c untreated, uncontrolled diabetes, type 2 insulin- dependent, admitted with DKA with dehydration due to drug omission, was downgraded from ICU. She was found to have UTI and being worked up for transaminitis. New onset Pancytopena Neutropenia ANC <1k Reticulocyte index 0.4, due to nutritional deficiencies vs marrow abnormalities Has ruled out DIC - Pending peripheral smear - calories count, pre-albumen, dietitian counsult; erythropoetin level - repeat septic work up. - observe off antibiotics per ID UTI vs Bactereuria - Observed off antibiotics per ID - Repeat u/a neg - blood culture neg x 2d - Repeat urine culture pending - CT A/P with PO/IV contrast: small b/l pleural effusion with atelectasis; irregular thickening of bladder wall; no obstructive uropathy - transvaginal and pelvic u/s for etiology____Pending official read - continue NS@60 to reduce risk of contrast nephropathy DKA with dehydration - resolved MRSA in nares - bactroban top BID x 5d DM, A1C 12.5 Medication non-compliance due to resources Hypoglycemic at 70, and 89 today - Glimepiride 4 ACBD - HumuLIN lowered to 18B, 14D, ISSS-low - diabetic education - socical worker referral - Pending fructosamine R/O hyperthyroidism - Normal TSH, free T4; thyroglobulin AB neg, thyroid peroxidase AB neg - thyroid u/s___Pending official read Transaminitis-etiology unclear conjugated hyperbilirubinemia, stable at 0.6, likely from Hepatitis. Doubt etoh vs sarcoidosis vs PBC vs PSC vs autoimmune hepatocellular dz Hx HCV - Hep C pos. Hep A/B neg - pending HCV viral - ID and GI consult - Consider transaminitis work-up pending GI rec HTN - Clonidine 0.1 BID Pvx = Lovenox 40 QD, protonix 40 Discharge planning - Follow up with Dr. Terrell and Dr. Mendoza (terrapin fisher) in 1-2 weeks after discharge - HCV outpt treatment S/D/R/w Dr. Terrell
[2017-08-26] MEDS: Insulin Human NPH/Reg 70/30 Vial(3 ml) SC SCH ×2 (08:24→17:19)
[2017-08-26] MEDS: Insulin Reg-LOW-Coverage SC SCH ×3 (08:25→17:20)
[2017-08-26] MEDS: Enoxaparin 40 mg Syringe SC SCH (10:25)
--- NOTE | 2017-08-26 12:10 | PN ---
DATE: 08/26/2017 SUBJECTIVE: The patient is sitting in a chair. She appears comfortable. MEDICATIONS: Include, Amaryl, hydralazine, Mupirocin, clonidine, Humulin R, Lovenox, pantoprazole, and Zofran. PHYSICAL EXAMINATION: VITAL SIGNS: Reveal temperature of 98.8, blood pressure 130/74, heart rate of 87. HEENT: Reveal sclerae to be white. The patient is deaf. NECK: Supple. CHEST: Reveal lungs to be clear. HEART: Reveals regular rate and rhythm. ABDOMEN: Soft, nontender. EXTREMITIES: Show no edema. LABORATORY DATA: Reveal white blood cell count of 3.3 with a differential of 28.7% granulocytes, hemoglobin 11.5, manual platelet count of 140,000. Chemistries reveal AST 46, ALT 68, alkaline phosphatase of 48, total bilirubin of 0.7. Hepatitis C antibody is positive. IMPRESSION: 1. Leukopenia, etiology unclear. 2. Elevated liver enzymes with hepatitis C antibody positivity. Note, CT scan of the abdomen and pelvis did not show any abnormalities in the liver or spleen. RECOMMENDATIONS: 1. Await hepatitis C quantitative. 2. Consider Hematology evaluation for unexplained leukopenia. Waldemar Boo MD
--- NOTE | 2017-08-26 12:12 | CP.PCM.PN ---
Subjective - Date & Time of Evaluation Date of Evaluation: 08/26/17 Time of Evaluation: 10:50 - Subjective Subjective: Comfortable in bed, no fevers, not in distress, no abdominal pain. Objective - Vital Signs/Intake and Output Vital Signs (last 24 hours): Temp Pulse Resp BP Pulse Ox 98.8 F 87 18 130/74 100 08/26/17 07:30 08/26/17 07:30 08/26/17 07:30 08/26/17 07:30 08/26/17 07:30 Intake and Output: 08/26/17 08/26/17 06:59 18:59 Intake Total 2560 Balance 2560 - Medications Medications: Current Medications Clonidine HCl (Catapres) 0.1 mg PO BID [facility] Last Admin: 08/25/17 17:58 Dose: 0.1 mg Enoxaparin Sodium (Lovenox) 40 mg SC DAILY [facility] PRN Reason: Protocol Last Admin: 08/25/17 09:50 Dose: 40 mg Glimepiride (Amaryl) 4 mg PO ACBD [facility] Last Admin: 08/26/17 08:32 Dose: 4 mg Hydralazine HCl (Apresoline) 10 mg IVP Q6 PRN PRN Reason: Systolic Blood Pressure Last Admin: 08/23/17 21:50 Dose: 10 mg Sodium Chloride (Sodium Chloride 0.9%) 1,000 mls @ 60 mls/hr IV .[id number] [facility] Insulin Human Regular (Humulin R Low) 0 units SC ACHS [facility] PRN Reason: Protocol Last Admin: 08/26/17 08:25 Dose: Not Given Mupirocin (Bactroban Ointment) 0 gm NS BID [facility] Stop: 08/29/17 18:01 Last Admin: 08/25/17 17:59 Dose: 1 applic Ondansetron HCl (Zofran Inj) 4 mg IVP Q4H PRN PRN Reason: Nausea/Vomiting Pantoprazole Sodium (Protonix Ec Tab) 40 mg PO 0600 [facility] Last Admin: 08/26/17 06:24 Dose: 40 mg - Labs Labs: 08/26/17 06:15 08/26/17 06:15 - Constitutional Appears: Non-toxic - Head Exam Head Exam: NORMAL INSPECTION - Neck Exam Neck Exam: absent: Meningismus - Respiratory Exam Respiratory Exam: Decreased Breath Sounds - Cardiovascular Exam Cardiovascular Exam: +S1, +S2 - GI/Abdominal Exam GI & Abdominal Exam: Soft. absent: Tenderness Assessment and Plan - Assessment and Plan (Free Text) Plan: Assessment history of Hepatitis C pancytopenia, etiology to be determined S/P hyperglycemic, hyperosmolar state history of H.pylori infection with associated esophageal and gastric ulcers hearing impairment insulin-dependent diabetes mellitus HTN Plan follow up HCV PCR and genotype - patient should be referred to a Hepatitis C specialist as an outpatient if her infection is proven to be chronic and active (ie. if the HCV PCR is elevated) patient is undergoing septic work up - will follow up results - since is currently asymptomatic and no fevers, will monitor off antibiotics suggest Hematology evaluation
--- NOTE | 2017-08-26 12:29 | US ---
HISTORY: UTI COMPARISON: None available. TECHNIQUE: Transabdominal and transvaginal FINDINGS: UTERUS: Measures 8.1 x 5.3 x 3.6 cm. Homogeneous echotexture. Multiple small fibroids. Submucosal 6 x 8 x 11 mm. Intramural 5 x 7 x 8 mm. Intramural 1.0 x 1.4 x 1.4 cm. Calcified intramural 1.2 x 1.3 x 0.8 cm. ENDOMETRIUM: Measures 2 mm in single wall thickness. There is trace endometrial fluid. This is an abnormal finding and should be followed up with transvaginal ultrasound examination. . CERVIX: No cervical abnormality identified. RIGHT OVARY: Measures 2.4 x 3.0 x 1.2 cm. No solid mass. Normal flow. LEFT OVARY: Not visualized FREE FLUID: No significant free fluid noted. OTHER FINDINGS: None. IMPRESSION: Multiple small uterine fibroids. Trace endometrial fluid. Followup with transvaginal ultrasound examination is advised.
--- NOTE | 2017-08-26 12:38 | US ---
HISTORY: ??HYPERTHYROIDISM TECHNIQUE: Sonographic evaluation of the thyroid gland. COMPARISON: None available FINDINGS: RIGHT LOBE: Measures 5.1 x 1.5 x 1.5 cm. Heterogeneous echotexture Nodules: Numerous subcentimeter hypoechoic nodules. Cystic mid lobe nodule, 7 mm. Cystic upper pole nodule, 4 mm. Lower pole complex solid nodule with microcalcification, 8 x 8 x 9 mm. Lower pole hypoechoic solid nodule, 3 x 6 x 6 mm. Additional sub cm solid nodules identified. LEFT LOBE: Measures 5.1 x 1.1 x 1.4 cm. Heterogeneous echotexture Nodules: Multiple sub cm solid nodules. Isoechoic solid nodule mid lobe, 2 x 5 x 5 mm. Cystic mid lobe nodule, 2 x 4 x 5 mm. Mid lobe hypoechoic solid nodule, 5 x 8 x 10 mm. Additional very small hypoechoic solid nodules. ISTHMUS: Measures 0.2 cm. Normal echotexture and flow. Nodules: Right-sided isthmic nodule, 2 x 3 x 4 mm. OTHER FINDINGS: None . IMPRESSION: Multinodular thyroid. There is eighty complex solid nodule in the lower pole of the right lobe with microcalcification. Followup is advised because of this nodule with microcalcification. Follow-up is also advised for a 10 mm hypoechoic solid nodule in the mid left lobe. No other suspicious masses are identified. .
[2017-08-26 12:51] LABS: VENOUS BLOOD GAS BASE EXCESS 2.1 mmol/L (0.0-2.0); VENOUS BLOOD PH 7.35 (7.32-7.43)
--- NOTE | 2017-08-26 14:14 | RAD ---
HISTORY: Pancytopenic r/o sepsis COMPARISON: 08/23/2017 TECHNIQUE: Chest PA and lateral FINDINGS: LUNGS: No active pulmonary disease. PLEURA: No significant pleural effusion identified. No pneumothorax apparent. CARDIOVASCULAR: Normal. OSSEOUS STRUCTURES: No significant abnormalities. VISUALIZED UPPER ABDOMEN: Normal. OTHER FINDINGS: None. IMPRESSION: No active disease.
[2017-08-26] MEDS ORDERED: Ergocalciferol 50,000 Intl Units Cap PO SCH (18:00)
--- NOTE | 2017-08-27 02:37 | PN ---
DATE: 08/26/2017 LOCATION: The patient is seen in room 561, bed 1. SUBJECTIVE: The patient is deaf. The patient's overnight nurse's notes were reviewed. T-max is 98.8. The patient was seen by Case Management and Tape Folding Machine Operator, the patient declined TCU. The patient declined visiting nurse, home health aide according to the Tape Folding Machine Operator, Personal Lines Underwriter's note. The patient was advised by the Tape Folding Machine Operator of completing and filling up prescription assistance program which has been previously given to the patient with the social media manager. The patient's present discharge plan as per the social media manager' VNA service when medically cleared. PHYSICAL EXAMINATION: VITAL SIGNS: T-max 98.8; pulse 64-87; blood pressure has improved to 137/92, 130/74, 153/99, 131/90,128/83, 110/74; respiration 18; O2 sat 100%. HEENT: Head examination; normocephalic, atraumatic. HEENT examination shows pink conjunctivae, anicteric sclerae. No oropharyngeal lesion. No neck rigidity. Positive deafness noted. Dry oral mucosa. CHEST: Kyphosis. LUNGS: Examination shows no rales, crackles, or wheezing. CARDIOVASCULAR: Examination shows S1, S2, regular rhythm. ABDOMEN: Soft. No reproducible tenderness. No costovertebral angle tenderness. No guarding. No rigidity. No rebound tenderness. GENITALIA: Female. RECTAL: Examination is deferred. EXTREMITIES: Show no pitting edema, no calf tenderness, no Homans' sign. NEUROLOGIC: The patient is alert, awake, responsive. Most of the communication was done via writing. DIAGNOSTICS: WBC 3.3, hemoglobin/hematocrit 11.5/35, platelet 140,000, lymphocytes 58. Retic count is normal. Fibrinogen and fibrin degradation product are negative. VBG shows a lactate of 1.1. Sodium 140, potassium 3.7, chloride 110, CO2 of 23, anion gap 11, BUN 12, and creatinine 0.6. GFR greater than 60. Glucose random 63. Hemoglobin A1c 12.5. Lactic acid 1.4. Direct bilirubin 0.5. AST 46, ALT 68. Vitamin D 25-hydroxy 15.9. Procalcitonin level is negative at 0.05. Hepatitis C antibody is reactive. HIV results are pending. Blood cultures negative. Urine cultures, gram-positive cocci. IMPRESSION: 1. Diabetic ketoacidosis. 2. Uncontrolled insulin-requiring diabetes mellitus with hyperglycemia. 3. Multiple bilateral subcentimeter thyroid nodule with multinodular thyroid gland and multiple complex right thyroid lobe solid nodule with microcalcifications. 4. Multinodular thyroid gland with right thyroid lobe complex solid nodule with microcalcification. 5. Left thyroid lobe solid nodule. 6. Small bilateral pleural effusion and compressive atelectasis. 7. Decompressed gallbladder. 8. Right renal cyst. 9. Anteverted retroflexed uterus with uterine fibroid. 10. Multiple intramural and submucosal uterine fibroids. 11. Nonvisualized left ovary. 12. Normocytic hypochromic anemia with anisocytosis. 13. Thrombocytopenia. 14. Neutropenia with lymphocytosis. 15. Leukopenia, anemia, thrombocytopenia, pancytopenia. 16. Status post lactic acidosis with increased anion gap metabolic acidosis and diabetic ketoacidosis. 17. Transaminitis. 18. Hypovitaminosis D. 19. Elevated thyroxine-thyroid level. 20. Proteinuria, glycosuria, microscopic hematuria, bacteriuria. 21. Reactive hepatitis C antibody. 22. Gram-positive cocci urinary tract infection. 23. Sinus tachycardia. 24. Left anterior hemiblock. 25. Questionable incomplete right bundle-branch block. 26. History of Helicobacter pylori gastritis. 27. Hearing deficiency. PLAN: At this time, the patient is off all IV antibiotics and medications. The patient has been ordered repeat labs for the morning. Hepatitis C PCR RNA pending. Repeat blood cultures ordered. The patient's current medications are Amaryl 4 mg breakfast and dinner, Bactroban cream to the nares, clonidine 0.1 mg twice a day, Drisdol 50,000 weekly, Humulin 70/30 18 units with breakfast and 10 units with dinner, Humulin low-dose sliding scale coverage, Lovenox 40 mg subcu daily, Protonix 40 mg daily, Zofran 4 mg IV q. 4 p.r.n. Consistent carbohydrate diet, out of bed, SHALONDA stockings, SCDs, physical therapy, occupational therapy ordered. TCU referral ordered. The patient was seen for TCU evaluation, which the patient refused. The patient seen by physical therapist. The patient was cleared by Physical Therapy as not being a candidate for physical therapy. If the patient stays well over the next 24 to 48 hours, the patient will be considered for discharge very soon. The patient has already been seen by the social media manager. The patient was provided application to be completed for pharmaceutical and medication assistance. The patient was seen by the case management assistant. The patient refused TCU. The patient also wants to think about visiting nurse and diabetes management. certified diabetes educator also saw the patient. If the patient stays well, the patient will be considered for discharge within the next 24 to 48 hours. Dictated and electronically signed, not read. Signing off; Isaías Terrell MD
[2017-08-27 06:08] LABS: BASO # 0.01 K/mm3 (0.0-2.0); BASO % 0.4 % (0.0-3.0); EOS # 0.1 (0.0-0.7); GRAN # 0.71 (1.4-6.5); GRAN % 25.7 % (50.0-68.0); HEMATOCRIT 35.8 % (36.0-48.0); LYMPH # 1.7 (1.2-3.4); LYMPH % 60.5 % (22.0-35.0); MEAN CELL VOLUME 81.5 fl (80.0-105.0); MEAN CORPUSCULAR HEMOGLOBIN 26.9 pg (25.0-35.0); MEAN PLATELET VOLUME 11.9 fl (7.0-11.0); MONO # 0.3 (0.1-0.6); MONO % 9.4 % (1.0-6.0); RED CELL DISTRIBUTION WIDTH 12.6 % (11.5-14.5)
[2017-08-27] MEDS: Pantoprazole 40 mg EC Tab PO SCH (06:28)
[2017-08-27 06:33] LABS: WHITE BLOOD COUNT 2.8 10^3/ul (4.5-11.0)
[2017-08-27 06:48] LABS: INR 1.11 (0.93-1.08); PARTIAL THROMBOPLASTIN TIME 25.6 Seconds (25.1-36.5)
[2017-08-27 07:35] LABS: ALB/GLOB RATIO 0.9 (1.1-1.8); ALKALINE PHOSPHATASE 54 U/L (38-126); ALT/SGPT 66 U/L (7-56); AST/SGOT 48 U/L (14-36); BILIRUBIN,TOTAL 0.7 mg/dL (0.2-1.3); BLOOD UREA NITROGEN 12 mg/dL (7-21); CALCIUM 8.6 mg/dL (8.4-10.5); CARBON DIOXIDE 26 mmol/L (21-33); CHLORIDE 108 mmol/L (98-107); GFR AFRICAN-AMERICAN > 60; GLUCOSE,RANDOM 89 mg/dL (70-110); MAGNESIUM 1.6 mg/dL (1.7-2.2); PHOSPHOROUS 3.9 mg/dL (2.5-4.5); POTASSIUM 3.7 mmol/L (3.6-5.0); SODIUM 140 mmol/L (132-148); TOTAL PROTEIN 6.8 g/dL (5.8-8.3)
[2017-08-27 07:40] LABS: BILIRUBIN,DIRECT 0.5 mg/dL (0.0-0.4)
[2017-08-27] MEDS: Insulin Human NPH/Reg 70/30 Vial(3 ml) SC SCH ×2 (08:09→17:35)
[2017-08-27] MEDS: Insulin Reg-LOW-Coverage SC SCH ×4 (08:10→21:38)
[2017-08-27] MEDS ORDERED: Magnesium Sulfate 2 GM in Sodium Chloride 0.9% 100 ML IVPB ONE (08:16)
[2017-08-27] MEDS: Magnesium Oxide 400 mg Tab UD PO ONE ×2 (08:29→09:54)
--- NOTE | 2017-08-27 09:25 | CP.PCM.PN ---
Subjective - Date & Time of Evaluation Date of Evaluation: 08/27/17 Time of Evaluation: 07:30 - Subjective Subjective: PGY-[address] Terrell Pt has no acute complained. (+) BM yesterday. Denies F/C, N/V/pain, dysuria Objective - Vital Signs/Intake and Output Vital Signs (last 24 hours): Temp Pulse Resp BP Pulse Ox 98.3 F 85 20 130/95 H 100 08/27/17 07:00 08/27/17 07:00 08/27/17 07:00 08/27/17 07:00 08/27/17 07:00 Intake and Output: 08/27/17 08/27/17 06:59 18:59 Intake Total 900 Balance 900 - Medications Medications: Current Medications Clonidine HCl (Catapres) 0.1 mg PO BID [facility] Last Admin: 08/26/17 19:00 Dose: 0.1 mg Enoxaparin Sodium (Lovenox) 40 mg SC DAILY [facility] PRN Reason: Protocol Last Admin: 08/26/17 10:25 Dose: 40 mg Ergocalciferol (Drisdol 50,000 Intl Units Cap) 1 cap PO Q7D [facility] Last Admin: 08/26/17 19:00 Dose: 1 cap Glimepiride (Amaryl) 4 mg PO ACBD [facility] Last Admin: 08/27/17 08:28 Dose: 4 mg Hydralazine HCl (Apresoline) 10 mg IVP Q6 PRN PRN Reason: Systolic Blood Pressure Last Admin: 08/23/17 21:50 Dose: 10 mg Cefazolin Sodium (Ancef 1gm In Ns) 1 gm in 100 mls @ 100 mls/hr IVPB Q8 [facility] PRN Reason: Protocol Insulin Human Regular (Humulin R Low) 0 units SC ACHS [facility] PRN Reason: Protocol Last Admin: 08/27/17 08:10 Dose: Not Given Mupirocin (Bactroban Ointment) 0 gm NS BID [facility] Stop: 08/29/17 18:01 Last Admin: 08/26/17 19:02 Dose: 1 applic Ondansetron HCl (Zofran Inj) 4 mg IVP Q4H PRN PRN Reason: Nausea/Vomiting Pantoprazole Sodium (Protonix Ec Tab) 40 mg PO 0600 [facility] Last Admin: 08/27/17 06:28 Dose: 40 mg - Labs Labs: 08/27/17 05:30 08/27/17 05:30 PT 12.2 SECONDS (9.4-12.5) 08/27/17 05:30 INR 1.11 (0.93-1.08) H 08/27/17 05:30 APTT 25.6 Seconds (25.1-36.5) 08/27/17 05:30 - Constitutional Appears: No Acute Distress - Head Exam Head Exam: ATRAUMATIC, NORMAL INSPECTION, NORMOCEPHALIC - Eye Exam Eye Exam: EOMI, Normal appearance, PERRL. absent: Scleral icterus Pupil Exam: NORMAL ACCOMODATION - ENT Exam ENT Exam: Mucous Membranes Moist - Neck Exam Additional comments: supple - Respiratory Exam Respiratory Exam: Clear to Ausculation Bilateral, NORMAL BREATHING PATTERN. absent: Rales, Rhonchi, Wheezes - Cardiovascular Exam Cardiovascular Exam: REGULAR RHYTHM, +S1, +S2 - GI/Abdominal Exam GI & Abdominal Exam: Soft, Normal Bowel Sounds. absent: Guarding, Rigid, Tenderness - Extremities Exam Extremities Exam: absent: Calf Tenderness - Back Exam Back Exam: absent: CVA tenderness (L), CVA tenderness (R) Additional comments: No suprapubic pain - Neurological Exam Neurological Exam: Alert, Awake - Psychiatric Exam Psychiatric exam: Normal Affect, Normal Mood - Skin Skin Exam: Dry, Warm Assessment and Plan - Assessment and Plan (Free Text) Plan: 67 AAF with PMHx hep c untreated, uncontrolled diabetes, type 2 insulin- dependent, admitted with DKA with dehydration due to drug omission, was downgraded from ICU. She was found to have new onset pancytopenia in the setting of chronic HCV and positive urine culture (GBS). She is found to be HIV 1 (+) HIV (+) - Pending CD4, viral load, quanteferon gold - ID started cefazolin - explained diagnosis of HIV and HCV. Pt understand and appreciated diagnosis and important (signal operator Ena Pinto [id number], certified deaf interpretor Dr. Nidhi Harrison, and RN) New onset Pancytopenia Neutropenia ANC <1k Reticulocyte index 0.4, due to nutritional deficiencies vs marrow abnormalities Has ruled out DIC Doubt blood malignancy - neutropenic precaution - peripheral smear: RBC Normocytic hypochronic with slight anisocytosis, no schistocytes WBC increase lymphotes and monotyes, reduced PMN, no atypical cells - calories count, pre-albumen, dietitian counsult; erythropoetin level - repeat septic work up. - observe off antibiotics per ID UTI vs Bactereuria - Observed off antibiotics per ID - blood culture neg x 3d - Repeat urine culture: GBS - CT A/P with PO/IV contrast: small b/l pleural effusion with atelectasis; irregular thickening of bladder wall; no obstructive uropathy - transvaginal and pelvic u/s for etiology: fibroids and endometrial fluid DKA with dehydration - resolved MRSA in nares - bactroban top BID x 5d DM, A1C 12.5 Medication non-compliance due to resources Hypoglycemic at 70, and 89 today - Glimepiride 4 ACBD - HumuLIN lowered to 18B, 10D, ISSS-low - diabetic education - socical worker referral - Pending fructosamine R/O hyperthyroidism - Normal TSH, free T4; thyroglobulin AB neg, thyroid peroxidase AB neg - thyroid u/s: solid nodules with microcalcification, with the largest ones 10mm mid L lobe Transaminitis-etiology unclear, likely Hep C conjugated hyperbilirubinemia, stable at 0.6, likely from Hepatitis. Doubt etoh vs sarcoidosis vs PBC vs PSC vs autoimmune hepatocellular dz Hx HCV - Hep C pos. Hep A/B neg - pending HCV viral - ID and GI consult - Continue to trend transaminitis HTN - Clonidine 0.1 BID Pvx = Lovenox 40 QD, protonix 40 Discharge planning - Follow up with Dr. Terrell and Dr. Mendoza (hydraulic jack operator) in 1-2 weeks after discharge - HCV outpt treatment - OBGYN f/u on endometrial fluid - Outpt thyroid FNB and f/u Dr. Mendoza re: thyroid and DM S/D/R/w Dr. Terrell
[2017-08-27] MEDS: Enoxaparin 40 mg Syringe SC SCH (09:49)
[2017-08-27] MEDS: ceFAZolin 1 gm in NS 1 GM/100 ML BAG IVPB SCH ×3 (11:26→21:37)
[2017-08-27] MEDS: Potassium Chloride 20 mEq ER Tab PO ONE ×2 (12:17→12:18)
--- NOTE | 2017-08-27 12:28 | CP.PCM.PN ---
Subjective - Date & Time of Evaluation Date of Evaluation: 08/27/17 Time of Evaluation: 11:10 - Subjective Subjective: Comfortable in bed, no fevers overnight, no diarrhea, no abdominal pain. Objective - Vital Signs/Intake and Output Vital Signs (last 24 hours): Temp Pulse Resp BP Pulse Ox 98.3 F 85 20 130/95 H 100 08/27/17 07:00 08/27/17 07:00 08/27/17 07:00 08/27/17 07:00 08/27/17 07:00 Intake and Output: 08/27/17 08/27/17 06:59 18:59 Intake Total 900 Balance 900 - Medications Medications: Current Medications Clonidine HCl (Catapres) 0.1 mg PO BID [facility] Last Admin: 08/26/17 19:00 Dose: 0.1 mg Enoxaparin Sodium (Lovenox) 40 mg SC DAILY [facility] PRN Reason: Protocol Last Admin: 08/26/17 10:25 Dose: 40 mg Ergocalciferol (Drisdol 50,000 Intl Units Cap) 1 cap PO Q7D [facility] Last Admin: 08/26/17 19:00 Dose: 1 cap Glimepiride (Amaryl) 4 mg PO ACBD [facility] Last Admin: 08/27/17 08:28 Dose: 4 mg Hydralazine HCl (Apresoline) 10 mg IVP Q6 PRN PRN Reason: Systolic Blood Pressure Last Admin: 08/23/17 21:50 Dose: 10 mg Magnesium Sulfate 2 gm/ Sodium (Chloride) 104 mls @ 102 mls/hr IVPB ONCE ONE Stop: 08/27/17 09:17 Insulin Human Regular (Humulin R Low) 0 units SC ACHS [facility] PRN Reason: Protocol Last Admin: 08/27/17 08:10 Dose: Not Given Mupirocin (Bactroban Ointment) 0 gm NS BID [facility] Stop: 08/29/17 18:01 Last Admin: 08/26/17 19:02 Dose: 1 applic Ondansetron HCl (Zofran Inj) 4 mg IVP Q4H PRN PRN Reason: Nausea/Vomiting Pantoprazole Sodium (Protonix Ec Tab) 40 mg PO 0600 [facility] Last Admin: 08/27/17 06:28 Dose: 40 mg - Labs Labs: 08/27/17 05:30 08/27/17 05:30 PT 12.2 SECONDS (9.4-12.5) 08/27/17 05:30 INR 1.11 (0.93-1.08) H 08/27/17 05:30 APTT 25.6 Seconds (25.1-36.5) 08/27/17 05:30 - Constitutional Appears: Non-toxic - Head Exam Head Exam: NORMAL INSPECTION - ENT Exam ENT Exam: Mucous Membranes Moist - Neck Exam Neck Exam: absent: Lymphadenopathy, Meningismus - Respiratory Exam Respiratory Exam: Decreased Breath Sounds - Cardiovascular Exam Cardiovascular Exam: +S1, +S2 - GI/Abdominal Exam GI & Abdominal Exam: Soft. absent: Tenderness Assessment and Plan - Assessment and Plan (Free Text) Plan: Assessment history of Hepatitis C positive HIV infection (last HIV testing done 2 years ago was negative) R/O UTI with Group B strep. pancytopenia, etiology to be determined S/P hyperglycemic, hyperosmolar state history of H. pylori infection with associated esophageal and gastric ulcers hearing impairment insulin-dependent diabetes mellitus HTN Plan follow up HCV PCR and genotype - patient should be referred to a Hepatitis C specialist as an outpatient if her infection is proven to be chronic and active (ie. if the HCV PCR is elevated) follow up CD4 count and HIV-VL - will need outpatient follow up with an HIV specialist started patient on Cefazolin suggest Hematology evaluation as well
--- NOTE | 2017-08-27 13:19 | PN ---
DATE: 08/27/2017 ENDOCRINOLOGY FOLLOWUP NOTE LOCATION: In room 561. SUBJECTIVE: This is a 67-year-old female with recent uncontrolled type 2 insulin-requiring diabetes who continues to variable oral intake and fluctuating glycemic profile as noted there of. Her glucose levels today have ranged from 97 to 285 mg/dL. OBJECTIVE: Her latest chemistry showed BUN of 12, sodium of 140, potassium of 3.7, chloride of 108, CO2 of 26, glucose of 89 and creatinine of 0.7. IMPRESSION AND PLAN: So at this time, we will continue the same basal and bolus insulin regimen to allow for dose equilibration and keep her on the Humulin 70/30 at 18 units before breakfast and 10 units before dinner as ordered. We will continue low-dose regular insulin as ordered as given. More over, we will continue the Amaryl given as 4 mg b.i.d. before meals as ordered. We will obtain serial chemistries and supplement accordingly as needed. We will follow with you. Nichoel Mendoza MD
[2017-08-27 17:54] LABS: HCV RNA QN PCR IU/ML 1230624 IU/mL (<15); HCV RNA QN PCR LOG IU/ML 6.09 Log IU/mL (<1.18)
--- NOTE | 2017-08-27 19:35 | CP.PCM.CON ---
History of Present Illness - History of Present Illness History of Present Illness: 67 year old female with vocal/hearing impairment, DM, hepatitis C, admitted with uncontrolled blood sugar secondary to insulin noncompliance, dehydration, found to have HIV AB positivity, and pancytopenia. She denies being told she had blood problems in the past. She is unaware of abnormal bleeding and bruising. She reports to feeling better. Review of her medical records shows pancytopenia since 2012. Past medical history: vocal/hearing impairment, DM, hepatitis C Past surgical history: Denies Family history: Mother had diabetes Social history: Denies tobacco, alcohol, and illicit drug use. Allergies: NKA Review of systems: All remaining review of systems including HEENT, cardiovascular, respiratory, gastrointestinal, genitourinary, musculoskeletal, dermatologic, neurologic, and psychiatric are negative unless mentioned in the HPI. Past Patient History - Infectious Disease Hx of Infectious Diseases: None - Tetanus Immunizations Tetanus Immunization: Unknown - Past Social History Smoking Status: Unknown If Ever Smoked - CARDIAC Hx Hypercholesterolemia: Yes Hx Hypertension: Yes - PULMONARY Hx Respiratory Disorders: Yes - NEUROLOGICAL Hx Neurological Disorder: No HX Cerebrovascular Accident: No - HEENT Hx Cataracts: (Denied by pt.) Hx Deafness: Yes Other/Comment: sign language - RENAL Hx Renal Failure: No - ENDOCRINE/METABOLIC Hx Diabetes Mellitus Type 2: Yes - HEMATOLOGICAL/ONCOLOGICAL Hx Blood Disorders: No Hx Cancer: No - INTEGUMENTARY Hx Dermatological Problems: No - MUSCULOSKELETAL/RHEUMATOLOGICAL Hx Arthritis: No Hx Rheumatoid Arthritis: No - GASTROINTESTINAL Hx Gastrointestinal Disorders: No Hx Gastroesophageal Reflux: No - GENITOURINARY/GYNECOLOGICAL Hx Genitourinary Disorders: No - PSYCHIATRIC Hx Psychophysiologic Disorder: No Hx Depression: No Hx Emotional Abuse: No Hx Physical Abuse: No Hx Substance Use: No - SURGICAL HISTORY Other/Comment: "Abdominal Surgery" - ANESTHESIA Hx Anesthesia Reactions: No Hx Malignant Hyperthermia: No Meds Home Medications: Home Medication List Medication Instructions Recorded Confirmed Type Ergocalciferol [Drisdol 50,000 1 cap PO Q7D #14 cap 08/26/17 Rx Intl Units Cap] Glimepiride [amaRYL] 4 mg PO ACBD #60 tab 08/26/17 Rx Insulin NPH Hum/Reg Insulin Hm 10 unit SQ DIN #100 insuln.pen 08/26/17 Rx [Humulin 70/30 Kwikpen] Insulin NPH Hum/Reg Insulin Hm 18 unit SQ BRK #100 insuln.pen 08/26/17 Rx [Humulin 70/30 Kwikpen] Lisinopril [Zestril] 2.5 mg PO DAILY #30 tab 08/26/17 Rx Metoprolol Tartrate [Lopressor] 25 mg PO BID #60 tab 08/26/17 Rx Pantoprazole [Protonix EC Tab] 40 mg PO 0600 #30 ect 08/26/17 Rx Allergies/Adverse Reactions: Allergies Allergy/AdvReac Type Severity Reaction Status Date / Time No Known Allergies Allergy Verified 08/23/17 14:46 - Medications Medications: Current Medications Clonidine HCl (Catapres) 0.1 mg PO BID [facility] Last Admin: 08/27/17 17:29 Dose: 0.1 mg Enoxaparin Sodium (Lovenox) 40 mg SC DAILY [facility] PRN Reason: Protocol Last Admin: 08/27/17 09:49 Dose: 40 mg Ergocalciferol (Drisdol 50,000 Intl Units Cap) 1 cap PO Q7D [facility] Last Admin: 08/26/17 19:00 Dose: 1 cap Glimepiride (Amaryl) 4 mg PO ACBD [facility] Last Admin: 08/27/17 17:19 Dose: 4 mg Hydralazine HCl (Apresoline) 10 mg IVP Q6 PRN PRN Reason: Systolic Blood Pressure Last Admin: 08/23/17 21:50 Dose: 10 mg Cefazolin Sodium (Ancef 1gm In Ns) 1 gm in 100 mls @ 100 mls/hr IVPB Q8 [facility] PRN Reason: Protocol Last Admin: 08/27/17 14:35 Dose: 100 mls/hr Insulin Human Regular (Humulin R Low) 0 units SC ACHS [facility] PRN Reason: Protocol Last Admin: 08/27/17 17:30 Dose: 2 units Mupirocin (Bactroban Ointment) 0 gm NS BID [facility] Stop: 08/29/17 18:01 Last Admin: 08/27/17 17:19 Dose: 1 applic Ondansetron HCl (Zofran Inj) 4 mg IVP Q4H PRN PRN Reason: Nausea/Vomiting Pantoprazole Sodium (Protonix Ec Tab) 40 mg PO 0600 [facility] Last Admin: 08/27/17 06:28 Dose: 40 mg Physical Exam - Head Exam Head Exam: ATRAUMATIC - Eye Exam Eye Exam: Normal appearance - ENT Exam ENT Exam: Mucous Membranes Dry - Respiratory Exam Respiratory Exam: NORMAL BREATHING PATTERN - Cardiovascular Exam Cardiovascular Exam: +S1, +S2 - GI/Abdominal Exam GI & Abdominal Exam: Normal Bowel Sounds - Extremities Exam Extremities exam: Positive for: normal inspection - Neurological Exam Neurological exam: Oriented x3 - Psychiatric Exam Psychiatric exam: Normal Affect, Normal Mood - Skin Skin Exam: Warm Results - Vital Signs Recent Vital Signs: Last Vital Signs Temp 98.6 F 08/27/17 16:00 Pulse 62 08/27/17 17:29 Resp 20 08/27/17 16:00 BP 142/96 H 08/27/17 17:29 Pulse Ox 100 08/27/17 16:00 - Labs Result Diagrams: 08/27/17 05:30 08/27/17 05:30 Labs: Laboratory Results - last 24 hr 08/24/17 08/25/17 08/26/17 06:30 11:30 16:02 WBC RBC Hgb Hct MCV MCH MCHC RDW Plt Count Manual Plt Count MPV Gran % Lymph % (Auto) Marion % (Auto) Eos % (Auto) Baso % (Auto) Gran # Lymph # Marion # Eos # Baso # PT INR APTT Sodium Potassium Chloride Carbon Dioxide Anion Gap BUN Creatinine Est GFR ( Amer) Est GFR (Non-Af Amer) POC Glucose (mg/dL) 255 H Random Glucose Lactic Acid Calcium Phosphorus Magnesium Total Bilirubin Direct Bilirubin AST ALT Alkaline Phosphatase Total Protein Albumin Globulin Albumin/Globulin Ratio Prealbumin HCV RNA (PCR) IUs/ml [id number] H HCV RNA PCR log IUs/ml 6.09 H HIV-1 Antibody Positive H HIV-2 Antibody Negative HIV 1&2 Ag/Ab, 4th Gen Reactive H 08/26/17 08/27/17 08/27/17 21:36 05:30 05:30 WBC 2.8 L* RBC 4.39 Hgb 11.8 L Hct 35.8 L MCV 81.5 MCH 26.9 MCHC 33.0 RDW 12.6 Plt Count 98 L Manual Plt Count 116 L MPV 11.9 H Gran % 25.7 L Lymph % (Auto) 60.5 H Marion % (Auto) 9.4 H Eos % (Auto) 4.0 Baso % (Auto) 0.4 Gran # 0.71 L Lymph # 1.7 Marion # 0.3 Eos # 0.1 Baso # 0.01 PT INR APTT Sodium 140 Potassium 3.7 Chloride 108 H Carbon Dioxide 26 Anion Gap 10 BUN 12 Creatinine 0.7 Est GFR ( Amer) > 60 Est GFR (Non-Af Amer) > 60 POC Glucose (mg/dL) 174 H Random Glucose 89 Lactic Acid Calcium 8.6 Phosphorus 3.9 Magnesium 1.6 L Total Bilirubin 0.7 Direct Bilirubin 0.5 H AST 48 H ALT 66 H Alkaline Phosphatase 54 Total Protein 6.8 Albumin 3.2 Globulin 3.6 Albumin/Globulin Ratio 0.9 L Prealbumin HCV RNA (PCR) IUs/ml HCV RNA PCR log IUs/ml HIV-1 Antibody HIV-2 Antibody HIV 1&2 Ag/Ab, 4th Gen 08/27/17 08/27/17 08/27/17 05:30 05:30 05:30 WBC RBC Hgb Hct MCV MCH MCHC RDW Plt Count Manual Plt Count MPV Gran % Lymph % (Auto) Marion % (Auto) Eos % (Auto) Baso % (Auto) Gran # Lymph # Marion # Eos # Baso # PT 12.2 INR 1.11 H APTT 25.6 Sodium Potassium Chloride Carbon Dioxide Anion Gap BUN Creatinine Est GFR ( Amer) Est GFR (Non-Af Amer) POC Glucose (mg/dL) Random Glucose Lactic Acid 1.2 Calcium Phosphorus Magnesium Total Bilirubin Direct Bilirubin AST ALT Alkaline Phosphatase Total Protein Albumin Globulin Albumin/Globulin Ratio Prealbumin 13.6 L HCV RNA (PCR) IUs/ml HCV RNA PCR log IUs/ml HIV-1 Antibody HIV-2 Antibody HIV 1&2 Ag/Ab, 4th Gen 08/27/17 08/27/17 07:27 11:09 WBC RBC Hgb Hct MCV MCH MCHC RDW Plt Count Manual Plt Count MPV Gran % Lymph % (Auto) Marion % (Auto) Eos % (Auto) Baso % (Auto) Gran # Lymph # Marion # Eos # Baso # PT INR APTT Sodium Potassium Chloride Carbon Dioxide Anion Gap BUN Creatinine Est GFR ( Amer) Est GFR (Non-Af Amer) POC Glucose (mg/dL) 97 285 H Random Glucose Lactic Acid Calcium Phosphorus Magnesium Total Bilirubin Direct Bilirubin AST ALT Alkaline Phosphatase Total Protein Albumin Globulin Albumin/Globulin Ratio Prealbumin HCV RNA (PCR) IUs/ml HCV RNA PCR log IUs/ml HIV-1 Antibody HIV-2 Antibody HIV 1&2 Ag/Ab, 4th Gen Assessment & Plan (1) Pancytopenia Assessment and Plan: chronic since 2012 ? related to hep C infection; HIV AB positivity noted will check iron, b12, folate, copper stores to rule out nutritional deficiency may be exacerbated by acute illness ? medication Thank you for this interesting consult. Status: Acute
--- NOTE | 2017-08-27 23:40 | CARD ---
APPROVED REPORT EKG Measurement Heart [id number] <Conclusion> Normal sinus rhythm Left axis deviation Pulmonary disease pattern Nonspecific T wave abnormality Abnormal ECG
--- NOTE | 2017-08-27 23:48 | CARD ---
APPROVED REPORT EKG Measurement Heart [id number] <Conclusion> Normal sinus rhythm Left anterior fascicular block Anterior infarct, age undetermined Abnormal ECG
--- NOTE | 2017-08-28 00:30 | PN ---
DATE: 08/27/2017 SUBJECTIVE: The patient is a 67-year-old female seen in room 561, bed one. The patient's today's visit involved sign language translation through the video monitoring including the mechanical designer which was used for the video monitor because of the patient's clinical condition and new diagnostic test results. The patient was seen lying in the bed. PHYSICAL EXAMINATION: VITAL SIGNS: The patient's T max is 98.3, pulse 65-82, blood pressure 160/90, 130/90, 130/95, 142/96, respirations 20, O2 sat 100%. GENERAL: The patient is seen lying in the bed. HEENT: Head: Normocephalic, atraumatic. HEENT examination shows pinkish pale conjunctivae. Anicteric sclerae. No oropharyngeal lesions. NECK: No neck rigidity. CHEST: Kyphosis. LUNGS: Shows no rales, crackles or wheezing. Occasional rhonchi, upper lung trimble. CARDIOVASCULAR: Shows S1, S2, regular rhythm. ABDOMEN: Soft. Positive bowel sounds. Nontender. GENITALIA: Female. RECTAL: Examination is deferred. EXTREMITIES: Shows no pitting edema, no calf tenderness, no Homans' sign. MUSCULOSKELETAL: Examination shows body mass index of 19.5. NEUROLOGIC: Cranial nerves II-XII limited. The patient is aphasic, the patient is deaf. All the communication is done through the monitor sign language translation. LABORATORY DATA: The patient's all the diagnostic tests were reviewed. CBC on 08/27/2017 shows WBC is dropped to 2.8, hemoglobin/hematocrit 11.8, 35.8, platelet 116. Granulocytes 60%. PT/PTT 12.2 and 25.6. Sodium 140, potassium 3.7, chloride 108, CO2 26, anion gap 10, BUN 12, creatinine 0.7, GFR greater than 60, glucose 89, lactic acid 1.2, magnesium 1.6, AST 48, ALT 66, prealbumin level is 13.6 which is low. The patient's hepatitis C antibody is reactive, hepatitis C PCR is 1,230,624, hepatitis C PCR RNA log is 6.09 which is also elevated. The patient's hepatitis, HIV one and two antibody is also reactive. The patient's urine culture is beta-hemolytic strep, which is resistant to clindamycin and tetracycline. As mentioned, the patient's today's entire conversation was through the mechanical designer and monitor. The patient was told about her diagnosis of HIV and hepatitis C, which the patient was completely verbalized and understood. The patient was explained about outpatient close followup. IMPRESSION AND PLAN: 1. Status post diabetic ketoacidosis with uncontrolled insulin-requiring diabetes mellitus with hyperglycemia and uncontrolled diabetes with hemoglobin A1c of greater than 12.5 and fructosamine of greater than 356. 2. Hepatitis C with hepatitis C PCR of greater than 1,230,000 and PCR log of greater than 6. 3. Human immunodeficiency virus positive. 4. Leukopenia. 5. Granulocyte lymphocytosis. 6. Normocytic anemia. 7. Thrombocytopenia. 8. Increased anion gap metabolic acidosis and lactic acidosis secondary to diabetic ketoacidosis. 9. Hypovitaminosis D. 10. Severe transaminitis. 11. Proteinuria, glycosuria, bacteriuria. 12. Beta hemolytic strep group B urinary tract infection. 13. Multiple uterine fibroid with trace endometrial fluid and nonvisualized left ovary. 14. Left anterior hemiblock and left axis deviation. 15. Sinus tachycardia with left anterior hemiblock. 16. Hearing impairment. 17. History of noncompliance with insulin. 18. Hepatitis C and human immunodeficiency virus. 19. Questionable pancytopenia probably secondary to hepatitis C infection and human immunodeficiency virus antibody positivity. 20. Beta hemolytic Streptococcus urinary tract infection. 21. Uncontrolled type 2 decompensated insulin-requiring diabetes mellitus with history of noncompliance. PLAN: Plan at this time, the patient seen by Infectious Disease. The patient seen by Hematology/Oncology. The patient seen by Endocrinology. The patient seen by Infectious Disease and Gastroenterology. Their recommendations noted. As mentioned, the patient's entire diagnosis, HIV positive antibody, hepatitis C results were explained to the patient via the mechanical designer spending about more than half an hour and going over the entire details with the patient via the mechanical designer, all the aspects of the patient's diagnosis, future and present treatment plan, outpatient close followup, all etc., details discussed in detail with the patient and patient acknowledged and understand and verbalized understanding via the mechanical designer. All questions and concerns answered. The patient seen by Hematology/Oncology. The patient has been ordered ferritin, B12, folate. Repeat labs ordered for the morning. TB QuantiFERON ordered. Lymphocyte subset ordered. The patient has been ordered copper level. Erythropoietin level pending. HIV PCR RNA pending. Repeat CBC, manual platelet, reticulocyte count, ordered. CURRENT MEDICATIONS: The patient is on Amaryl 4 mg twice a day, Ancef 1 g IV q. 8 h., hydralazine 10 mg IV q. 6 h. p.r.n., Bactroban cream to the nares, clonidine 0.1 mg twice a day, Drisdol 50,000 weekly. The patient was given a dose of Granix 480 mcg subcu now. The patient is on insulin 70/30, 18 units with breakfast, 10 units with dinner with Humulin low-dose sliding scale coverage. The patient is on Lovenox 40 mg subcu daily, magnesium oxide 400 mg once. The patient is also given magnesium sulfate rider x1. The patient has been on Protonix 40 daily, Zofran 4 mg IV q. 4 h. p.r.n.. The patient seen by physical therapist yesterday. The patient was discharged from physical therapy, has not been the candidate for physical therapy at present. The patient is to be continued on above therapeutic intervention with close Infectious Disease, GI, Endocrinology, Hematology/Oncology followup. Dictated and electronically signed, not read. Isaías Terrell MD
[2017-08-28] MEDS: ceFAZolin 1 gm in NS 1 GM/100 ML BAG IVPB SCH ×3 (06:37→21:49)
[2017-08-28] MEDS: Pantoprazole 40 mg EC Tab PO SCH (06:37)
[2017-08-28 07:47] LABS: RETIC% 1.22 % (0.5-1.5)
[2017-08-28 07:48] LABS: BASO # 0.01 K/mm3 (0.0-2.0); BASO % 0.1 % (0.0-3.0); EOS # 0.2 (0.0-0.7); EOS % 1.3 % (1.5-5.0); GRAN # 13.41 (1.4-6.5); GRAN % 80.6 % (50.0-68.0); HEMATOCRIT 36.3 % (36.0-48.0); LYMPH # 2.1 (1.2-3.4); LYMPH % 12.4 % (22.0-35.0); MEAN CELL VOLUME 81.9 fl (80.0-105.0); MEAN CORPUSCULAR HEMOGLOBIN 26.6 pg (25.0-35.0); MEAN CORPUSCULAR HGB CONC 32.5 g/dl (31.0-37.0); MEAN PLATELET VOLUME 11.5 fl (7.0-11.0); MONO # 0.9 (0.1-0.6); MONO % 5.6 % (1.0-6.0); RED CELL DISTRIBUTION WIDTH 12.7 % (11.5-14.5); WHITE BLOOD COUNT 16.6 10^3/ul (4.5-11.0)
[2017-08-28 08:03] LABS: ALB/GLOB RATIO 0.9 (1.1-1.8); ALKALINE PHOSPHATASE 56 U/L (38-126); ALT/SGPT 67 U/L (7-56); AST/SGOT 47 U/L (14-36); BILIRUBIN,TOTAL 0.6 mg/dL (0.2-1.3); BLOOD UREA NITROGEN 14 mg/dL (7-21); CALCIUM 8.6 mg/dL (8.4-10.5); CARBON DIOXIDE 27 mmol/L (21-33); CHLORIDE 107 mmol/L (98-107); GFR AFRICAN-AMERICAN > 60; GLUCOSE,RANDOM 81 mg/dL (70-110); MAGNESIUM 1.7 mg/dL (1.7-2.2); PHOSPHOROUS 4.2 mg/dL (2.5-4.5); SODIUM 138 mmol/L (132-148); TOTAL PROTEIN 6.5 g/dL (5.8-8.3)
[2017-08-28] MEDS: Insulin Reg-LOW-Coverage SC SCH ×4 (08:09→22:52)
[2017-08-28 08:16] LABS: BILIRUBIN,DIRECT 0.5 mg/dL (0.0-0.4)
[2017-08-28] MEDS: Insulin Human NPH/Reg 70/30 Vial(3 ml) SC SCH ×2 (08:23→17:04)
[2017-08-28] MEDS: Enoxaparin 40 mg Syringe SC SCH (10:15)
--- NOTE | 2017-08-28 10:19 | PN ---
DATE: 08/28/2017 SUBJECTIVE: The patient is lying in bed comfortable. She denies any abdominal pain. PHYSICAL EXAMINATION: VITAL SIGNS: Reveal temperature of 98, blood pressure 130/80, heart rate 61. HEENT: Reveal sclerae to be white. Conjunctivae are pink. She is deaf. NECK: Supple. CHEST: Reveal lungs to be clear. HEART: Exam reveals regular rate and rhythm. ABDOMEN: Soft, nontender. EXTREMITIES: Show no edema. LABORATORY DATA: Reveal white blood cell count up to 16.6, hemoglobin 11.8. Chemistries reveal AST 47, ALT 67, alkaline phosphatase of 56. Her HIV 1 and 2 antigen/antibody fourth generation are reactive. Her HCV RNA is positive at 1,230,624. Her hepatitis A and B serologies are negative. IMPRESSION: 1. Human immunodeficiency virus, hepatitis C coinfection. 2. Poorly controlled diabetes mellitus secondary to noncompliance. RECOMMENDATIONS: I have instructed the patient to see an HIV specialist upon discharge from the hospital for treatment of her coinfection of HIV and hepatitis C virus. Waldemar Boo MD
--- NOTE | 2017-08-28 13:24 | CP.PCM.PN ---
Subjective - Date & Time of Evaluation Date of Evaluation: 08/28/17 Time of Evaluation: 11:30 - Subjective Subjective: Comfortable, no abdominal pain, no fevers overnight, not in distress. Objective - Vital Signs/Intake and Output Vital Signs (last 24 hours): Temp Pulse Resp BP Pulse Ox 98 F 61 20 130/80 100 08/28/17 08:26 08/28/17 08:26 08/28/17 08:26 08/28/17 08:26 08/28/17 08:26 Intake and Output: 08/28/17 08/28/17 06:59 18:59 Intake Total 900 Balance 900 - Medications Medications: Current Medications Clonidine HCl (Catapres) 0.1 mg PO BID [facility] Last Admin: 08/27/17 17:29 Dose: 0.1 mg Enoxaparin Sodium (Lovenox) 40 mg SC DAILY [facility] PRN Reason: Protocol Last Admin: 08/27/17 09:49 Dose: 40 mg Ergocalciferol (Drisdol 50,000 Intl Units Cap) 1 cap PO Q7D [facility] Last Admin: 08/26/17 19:00 Dose: 1 cap Glimepiride (Amaryl) 4 mg PO ACBD [facility] Last Admin: 08/28/17 08:23 Dose: 4 mg Hydralazine HCl (Apresoline) 10 mg IVP Q6 PRN PRN Reason: Systolic Blood Pressure Last Admin: 08/23/17 21:50 Dose: 10 mg Cefazolin Sodium (Ancef 1gm In Ns) 1 gm in 100 mls @ 100 mls/hr IVPB Q8 [facility] PRN Reason: Protocol Last Admin: 08/28/17 06:37 Dose: 100 mls/hr Insulin Human Regular (Humulin R Low) 0 units SC ACHS [facility] PRN Reason: Protocol Last Admin: 08/27/17 21:38 Dose: 2 units Mupirocin (Bactroban Ointment) 0 gm NS BID [facility] Stop: 08/29/17 18:01 Last Admin: 08/27/17 17:19 Dose: 1 applic Ondansetron HCl (Zofran Inj) 4 mg IVP Q4H PRN PRN Reason: Nausea/Vomiting Pantoprazole Sodium (Protonix Ec Tab) 40 mg PO 0600 [facility] Last Admin: 08/28/17 06:37 Dose: 40 mg - Labs Labs: 08/28/17 07:30 08/28/17 07:30 PT 12.2 SECONDS (9.4-12.5) 08/27/17 05:30 INR 1.11 (0.93-1.08) H 08/27/17 05:30 APTT 25.6 Seconds (25.1-36.5) 08/27/17 05:30 - Constitutional Appears: Non-toxic - Head Exam Head Exam: NORMAL INSPECTION - Respiratory Exam Respiratory Exam: Decreased Breath Sounds - Cardiovascular Exam Cardiovascular Exam: +S1, +S2 - GI/Abdominal Exam GI & Abdominal Exam: Soft. absent: Tenderness Assessment and Plan - Assessment and Plan (Free Text) Plan: Assessment chronic active Hepatitis C infection positive HIV infection (last HIV testing done 2 years ago was negative) R/O UTI with Group B strep. pancytopenia, etiology to be determined S/P hyperglycemic, hyperosmolar state history of H. pylori infection with associated esophageal and gastric ulcers hearing impairment insulin-dependent diabetes mellitus HTN Plan follow up HCV genotype - patient should be referred to a Hepatitis C specialist as an outpatient follow up CD4 count and HIV-VL - will need outpatient follow up with an HIV specialist continue Cefazolin day 2 reviewed Hematology evaluation
--- NOTE | 2017-08-28 13:27 | CP.PCM.PN ---
Subjective - Date & Time of Evaluation Date of Evaluation: 08/28/17 Time of Evaluation: 10:00 - Subjective Subjective: PGY-[address] Terrell No acute complaint. Pt was with ex-boyfriend. Objective - Vital Signs/Intake and Output Vital Signs (last 24 hours): Temp Pulse Resp BP Pulse Ox 98 F 61 20 130/80 100 08/28/17 08:26 08/28/17 11:14 08/28/17 08:26 08/28/17 11:14 08/28/17 08:26 Intake and Output: 08/28/17 08/28/17 06:59 18:59 Intake Total 900 Balance 900 - Medications Medications: Current Medications Clonidine HCl (Catapres) 0.1 mg PO BID [facility] Last Admin: 08/28/17 11:14 Dose: 0.1 mg Enoxaparin Sodium (Lovenox) 40 mg SC DAILY [facility] PRN Reason: Protocol Last Admin: 08/28/17 10:15 Dose: 40 mg Ergocalciferol (Drisdol 50,000 Intl Units Cap) 1 cap PO Q7D [facility] Last Admin: 08/26/17 19:00 Dose: 1 cap Glimepiride (Amaryl) 4 mg PO ACBD [facility] Last Admin: 08/28/17 08:23 Dose: 4 mg Hydralazine HCl (Apresoline) 10 mg IVP Q6 PRN PRN Reason: Systolic Blood Pressure Last Admin: 08/23/17 21:50 Dose: 10 mg Cefazolin Sodium (Ancef 1gm In Ns) 1 gm in 100 mls @ 100 mls/hr IVPB Q8 [facility] PRN Reason: Protocol Last Admin: 08/28/17 13:08 Dose: 100 mls/hr Insulin Human Regular (Humulin R Low) 0 units SC ACHS [facility] PRN Reason: Protocol Last Admin: 08/28/17 08:09 Dose: Not Given Mupirocin (Bactroban Ointment) 0 gm NS BID [facility] Stop: 08/29/17 18:01 Last Admin: 08/28/17 10:14 Dose: 1 applic Ondansetron HCl (Zofran Inj) 4 mg IVP Q4H PRN PRN Reason: Nausea/Vomiting Pantoprazole Sodium (Protonix Ec Tab) 40 mg PO 0600 [facility] Last Admin: 08/28/17 06:37 Dose: 40 mg - Labs Labs: 08/28/17 07:30 08/28/17 07:30 PT 12.2 SECONDS (9.4-12.5) 08/27/17 05:30 INR 1.11 (0.93-1.08) H 08/27/17 05:30 APTT 25.6 Seconds (25.1-36.5) 08/27/17 05:30 - Constitutional Appears: No Acute Distress - Head Exam Head Exam: ATRAUMATIC, NORMAL INSPECTION, NORMOCEPHALIC - Eye Exam Eye Exam: EOMI, Normal appearance, PERRL. absent: Scleral icterus Pupil Exam: NORMAL ACCOMODATION - ENT Exam ENT Exam: Mucous Membranes Moist - Neck Exam Additional comments: supple - Respiratory Exam Respiratory Exam: Clear to Ausculation Bilateral. absent: Rales, Rhonchi, Wheezes - Cardiovascular Exam Cardiovascular Exam: REGULAR RHYTHM - GI/Abdominal Exam GI & Abdominal Exam: Soft. absent: Guarding, Rigid, Tenderness - Extremities Exam Extremities Exam: absent: Calf Tenderness - Back Exam Back Exam: absent: CVA tenderness (L), CVA tenderness (R) - Neurological Exam Neurological Exam: Alert, Awake - Psychiatric Exam Psychiatric exam: Normal Affect, Normal Mood - Skin Skin Exam: Dry, Warm Assessment and Plan - Assessment and Plan (Free Text) Plan: 67 AAF with hearing impairment with PMHx hep c untreated, uncontrolled diabetes , type 2 insulin-dependent, admitted with DKA with dehydration due to drug omission, was downgraded from ICU. She was found to have new onset pancytopenia in the setting of chronic HCV and positive urine culture (GBS). Her hepatitis C is chronic active Hepatitis C infection. 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 She has history of H. pylori infection with associated esophageal and gastric ulcers, questionable treatment. She is undernutrient, prealbumin 13.6, but patient refuse supplements. HIV (+) (last HIV testing done 2 years ago was negative) - Pending CD4, viral load, quanteferon gold - ID started cefazolin day 2 - explained diagnosis of HIV and HCV. Pt understand and appreciated diagnosis and important (marine equipment design engineer Ena Pinto [id number], certified deaf interpretor Dr. Nidhi Harrison, and RN) New onset Pancytopenia, Neutropenia ANC <1k, s/p granix day 1 Reticulocyte index 0.4, due to nutritional deficiencies vs marrow abnormalities Has ruled out DIC Doubt blood malignancy - peripheral smear: RBC Normocytic hypochronic with slight anisocytosis, no schistocytes WBC increase lymphotes and monotyes, reduced PMN, no atypical cells - repeat septic work up. Nutrient deficiency - check iron, copper stores to rule out nutritional deficiency - B12, folate normal - calorie count reveals nutrient deficicnecy - patient refuses dietary supplement R/O UTI with Group B strep. - blood culture neg x 3d - Repeat urine culture: GBS - CT A/P with PO/IV contrast: small b/l pleural effusion with atelectasis; irregular thickening of bladder wall; no obstructive uropathy - transvaginal and pelvic u/s for etiology: fibroids and endometrial fluid DKA with dehydration - resolved MRSA in nares - bactroban top BID x 5d DM, A1C 12.5 Medication non-compliance due to resources Hypoglycemic at 70, and 89 today - Glimepiride 4 ACBD - HumuLIN lowered to 18B, 10D, ISSS-low - diabetic education - socical worker referral - Pending fructosamine R/O hyperthyroidism - Normal TSH, free T4; thyroglobulin AB neg, thyroid peroxidase AB neg - thyroid u/s: solid nodules with microcalcification, with the largest ones 10mm mid L lobe Transaminitis-etiology unclear, likely Hep C conjugated hyperbilirubinemia, stable at 0.6, likely from Hepatitis. Doubt etoh vs sarcoidosis vs PBC vs PSC vs autoimmune hepatocellular dz Hx HCV - Hep C pos. Hep A/B neg - pending HCV viral - ID and GI consult - Continue to trend transaminitis HTN - Clonidine 0.1 BID Pvx = Lovenox 40 QD, protonix 40 Discharge planning - Follow up with Dr. Terrell and Dr. Mendoza (area manager) in 1-2 weeks after discharge - Follow up with Dr. Chavira for HIV/HCV outpt treatment - OBGYN f/u on endometrial fluid - Outpt thyroid FNB and f/u Dr. Mendoza re: thyroid and DM S/D/R/w Dr. Terrell
[2017-08-28 13:30] LABS: FOLATE 8.9 ng/mL
--- NOTE | 2017-08-28 19:27 | PN ---
DATE: ENDO FOLLOWUP NOTE LOCATION: Room 561. SUBJECTIVE: This is a 67-year-old female with recent uncontrolled type 2 insulin-requiring diabetes, presenting here with marked hyperglycemic accelerations and is now being followed closely for metabolic management. Her oral intake continues to be variable at this time with episodic glycemic fluctuations and accelerations as noted. LABORATORY DATA: Her glucose levels today have ranged from 80 to 124 and 302 mg/dL. Her latest chemistry shows a BUN of 14, sodium 138, potassium 4.0, chloride 107, CO2 of 27, glucose 81, and creatinine 0.3. ASSESSMENT AND PLAN: So at this time, we will modify her premixed insulin regimen and increase the Humulin 70/30 to 20 units before breakfast and continue the Humulin 70/30 given as 10 units before dinner as ordered. We will continue the low-dose correction scale using regular insulin as ordered. We will follow and advise accordingly. Nichole Mendoza MD
--- NOTE | 2017-08-28 21:31 | CP.PCM.PN ---
Subjective - Date & Time of Evaluation Date of Evaluation: 08/28/17 Time of Evaluation: 18:00 - Subjective Subjective: No complaints, seen eating. Objective - Vital Signs/Intake and Output Vital Signs (last 24 hours): Temp Pulse Resp BP Pulse Ox 98.5 F 64 18 132/89 99 08/28/17 16:00 08/28/17 17:04 08/28/17 16:00 08/28/17 17:04 08/28/17 16:00 - Medications Medications: Current Medications Clonidine HCl (Catapres) 0.1 mg PO BID [facility] Last Admin: 08/28/17 17:04 Dose: 0.1 mg Enoxaparin Sodium (Lovenox) 40 mg SC DAILY [facility] PRN Reason: Protocol Last Admin: 08/28/17 10:15 Dose: 40 mg Ergocalciferol (Drisdol 50,000 Intl Units Cap) 1 cap PO Q7D [facility] Last Admin: 08/26/17 19:00 Dose: 1 cap Glimepiride (Amaryl) 4 mg PO ACBD [facility] Last Admin: 08/28/17 16:55 Dose: 4 mg Hydralazine HCl (Apresoline) 10 mg IVP Q6 PRN PRN Reason: Systolic Blood Pressure Last Admin: 08/23/17 21:50 Dose: 10 mg Cefazolin Sodium (Ancef 1gm In Ns) 1 gm in 100 mls @ 100 mls/hr IVPB Q8 [facility] PRN Reason: Protocol Last Admin: 08/28/17 13:08 Dose: 100 mls/hr Insulin Human Regular (Humulin R Low) 0 units SC ACHS [facility] PRN Reason: Protocol Last Admin: 08/28/17 16:56 Dose: 3 units Mupirocin (Bactroban Ointment) 0 gm NS BID [facility] Stop: 08/29/17 18:01 Last Admin: 08/28/17 17:05 Dose: 1 applic Ondansetron HCl (Zofran Inj) 4 mg IVP Q4H PRN PRN Reason: Nausea/Vomiting Pantoprazole Sodium (Protonix Ec Tab) 40 mg PO 0600 [facility] Last Admin: 08/28/17 06:37 Dose: 40 mg - Labs Labs: 08/28/17 07:30 08/28/17 07:30 PT 12.2 SECONDS (9.4-12.5) 08/27/17 05:30 INR 1.11 (0.93-1.08) H 08/27/17 05:30 APTT 25.6 Seconds (25.1-36.5) 08/27/17 05:30 - Head Exam Head Exam: ATRAUMATIC - Eye Exam Eye Exam: Normal appearance - ENT Exam ENT Exam: Mucous Membranes Dry - Respiratory Exam Respiratory Exam: NORMAL BREATHING PATTERN - Cardiovascular Exam Cardiovascular Exam: +S1, +S2 - GI/Abdominal Exam GI & Abdominal Exam: Normal Bowel Sounds - Extremities Exam Extremities Exam: Normal Inspection - Neurological Exam Neurological Exam: Oriented x3 - Psychiatric Exam Psychiatric exam: Normal Affect, Normal Mood - Skin Skin Exam: Warm Assessment and Plan (1) Pancytopenia Assessment & Plan: chronic, unknown etiology - ?chronic hep c s/p 1 dose Granix with leukocytosis/neutrophilia normal iron, b12, folate stores f/u copper level - deficiency can cause pancytopenia newly diagnosed HIV; outpatient treatment Status: Acute
[2017-08-29] MEDS: Pantoprazole 40 mg EC Tab PO SCH (05:43)
[2017-08-29] MEDS: ceFAZolin 1 gm in NS 1 GM/100 ML BAG IVPB SCH ×3 (05:43→21:21)
[2017-08-29 07:11] LABS: BASO # 0.02 K/mm3 (0.0-2.0); BASO % 0.1 % (0.0-3.0); EOS # 0.2 (0.0-0.7); EOS % 1.7 % (1.5-5.0); GRAN # 10.82 (1.4-6.5); GRAN % 76.8 % (50.0-68.0); HEMATOCRIT 35.1 % (36.0-48.0); LYMPH # 2.3 (1.2-3.4); LYMPH % 16.4 % (22.0-35.0); MEAN CELL VOLUME 82.2 fl (80.0-105.0); MEAN CORPUSCULAR HEMOGLOBIN 26.5 pg (25.0-35.0); MEAN CORPUSCULAR HGB CONC 32.2 g/dl (31.0-37.0); MEAN PLATELET VOLUME 12.4 fl (7.0-11.0); MONO # 0.7 (0.1-0.6); WHITE BLOOD COUNT 14.1 10^3/ul (4.5-11.0)
[2017-08-29 07:33] LABS: ALB/GLOB RATIO 0.9 (1.1-1.8); ALKALINE PHOSPHATASE 66 U/L (38-126); ALT/SGPT 55 U/L (7-56); AST/SGOT 47 U/L (14-36); BILIRUBIN,DIRECT 0.4 mg/dL (0.0-0.4); BILIRUBIN,TOTAL 0.4 mg/dL (0.2-1.3); BLOOD UREA NITROGEN 15 mg/dL (7-21); CALCIUM 9.1 mg/dL (8.4-10.5); CARBON DIOXIDE 25 mmol/L (21-33); CHLORIDE 107 mmol/L (98-107); GFR AFRICAN-AMERICAN > 60; GLUCOSE,RANDOM 114 mg/dL (70-110); MAGNESIUM 1.7 mg/dL (1.7-2.2); PHOSPHOROUS 3.9 mg/dL (2.5-4.5); POTASSIUM 4.1 mmol/L (3.6-5.0); SODIUM 139 mmol/L (132-148); TOTAL PROTEIN 6.6 g/dL (5.8-8.3)
[2017-08-29] MEDS: Insulin Reg-LOW-Coverage SC SCH ×4 (08:22→22:12)
[2017-08-29] MEDS: Enoxaparin 40 mg Syringe SC SCH (10:04)
[2017-08-29] MEDS: Insulin Human NPH/Reg 70/30 Vial(3 ml) SC SCH ×2 (11:47→17:56)
--- NOTE | 2017-08-29 14:20 | CP.PCM.PN ---
Subjective - Date & Time of Evaluation Date of Evaluation: 08/29/17 Time of Evaluation: 07:00 - Subjective Subjective: PGY-[address] Terrell Pt has no acute complaint. +BM tolerating diet. denies f/c. encourage oob Objective - Vital Signs/Intake and Output Vital Signs (last 24 hours): Temp Pulse Resp BP Pulse Ox 98.3 F 58 L 18 139/85 97 08/29/17 08:25 08/29/17 10:02 08/29/17 08:25 08/29/17 10:02 08/29/17 08:25 Intake and Output: 08/29/17 08/29/17 06:59 18:59 Intake Total 900 Output Total 0 Balance 900 - Medications Medications: Current Medications Clonidine HCl (Catapres) 0.1 mg PO BID [facility] Last Admin: 08/29/17 10:02 Dose: 0.1 mg Enoxaparin Sodium (Lovenox) 40 mg SC DAILY [facility] PRN Reason: Protocol Last Admin: 08/29/17 10:04 Dose: 40 mg Ergocalciferol (Drisdol 50,000 Intl Units Cap) 1 cap PO Q7D [facility] Last Admin: 08/26/17 19:00 Dose: 1 cap Glimepiride (Amaryl) 4 mg PO ACBD [facility] Last Admin: 08/29/17 08:47 Dose: 4 mg Hydralazine HCl (Apresoline) 10 mg IVP Q6 PRN PRN Reason: Systolic Blood Pressure Last Admin: 08/23/17 21:50 Dose: 10 mg Cefazolin Sodium (Ancef 1gm In Ns) 1 gm in 100 mls @ 100 mls/hr IVPB Q8 [facility] PRN Reason: Protocol Last Admin: 08/29/17 13:59 Dose: 100 mls/hr Insulin Human Regular (Humulin R Low) 0 units SC ACHS [facility] PRN Reason: Protocol Last Admin: 08/29/17 08:22 Dose: Not Given Mupirocin (Bactroban Ointment) 0 gm NS BID [facility] Stop: 08/29/17 18:01 Last Admin: 08/29/17 10:03 Dose: 1 applic Ondansetron HCl (Zofran Inj) 4 mg IVP Q4H PRN PRN Reason: Nausea/Vomiting Pantoprazole Sodium (Protonix Ec Tab) 40 mg PO 0600 [facility] Last Admin: 08/29/17 05:43 Dose: 40 mg - Labs Labs: 08/29/17 06:10 08/29/17 06:10 PT 12.2 SECONDS (9.4-12.5) 08/27/17 05:30 INR 1.11 (0.93-1.08) H 08/27/17 05:30 APTT 25.6 Seconds (25.1-36.5) 08/27/17 05:30 - Constitutional Appears: No Acute Distress - Head Exam Head Exam: ATRAUMATIC, NORMAL INSPECTION, NORMOCEPHALIC - Eye Exam Eye Exam: EOMI, Normal appearance, PERRL. absent: Scleral icterus Pupil Exam: NORMAL ACCOMODATION - ENT Exam ENT Exam: Mucous Membranes Moist - Neck Exam Additional comments: supple - Respiratory Exam Respiratory Exam: Clear to Ausculation Bilateral. absent: Rales, Rhonchi, Wheezes - Cardiovascular Exam Cardiovascular Exam: REGULAR RHYTHM, +S1, +S2 - GI/Abdominal Exam GI & Abdominal Exam: Soft, Normal Bowel Sounds. absent: Firm, Guarding, Rigid, Tenderness - Extremities Exam Extremities Exam: absent: Calf Tenderness - Back Exam Back Exam: absent: CVA tenderness (L), CVA tenderness (R) - Neurological Exam Neurological Exam: Alert, Awake, Oriented x3 - Psychiatric Exam Psychiatric exam: Normal Affect, Normal Mood - Skin Skin Exam: Dry, Warm Assessment and Plan - Assessment and Plan (Free Text) Plan: 67 AAF with hearing impairment with PMHx hep c untreated, uncontrolled diabetes , type 2 insulin-dependent, admitted with DKA with dehydration due to drug omission, was downgraded from ICU. She was found to have new onset pancytopenia in the setting of chronic HCV and positive urine culture (GBS). Her hepatitis C is chronic active Hepatitis C infection. 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 She has history of H. pylori infection with associated esophageal and gastric ulcers, questionable treatment. She is undernutrient, prealbumin 13.6, started glucerna supplements. HIV (+) (last HIV testing done 2 years ago was negative) - Pending CD4, viral load, quanteferon gold - ID started cefazolin day 3 - explained diagnosis of HIV and HCV. Pt understand and appreciated diagnosis and importance and will talk to partner (refractory furnace designer Ena Blair [id number] , certified deaf interpretor mikey Vaughn, Dr. Terrell, and RN) UTI with Group B strep vs Asymtomatic bactereuria - blood culture neg x 4d - Repeat urine culture: GBS - Chect urine culture again today - CT A/P with PO/IV contrast: small b/l pleural effusion with atelectasis; irregular thickening of bladder wall; no obstructive uropathy - transvaginal and pelvic u/s for etiology: fibroids and endometrial fluid New onset Pancytopenia Neutropenia ANC <1k, s/p granix day 1 with leukocytosis/neutrophilia Reticulocyte index 0.4, due to nutritional deficiencies vs marrow abnormalities Has ruled out DIC Doubt blood malignancy - peripheral smear: RBC Normocytic hypochronic with slight anisocytosis, no schistocytes WBC increase lymphotes and monotyes, reduced PMN, no atypical cells - f/u copper - normal iron, b12, folate stores Nutrient deficiency - check iron, copper stores to rule out nutritional deficiency - B12, folate normal - calorie count reveals nutrient deficicnecy - started dietary supplement DKA with dehydration - resolved MRSA in nares - bactroban top BID x 5d DM, A1C 12.5 Medication non-compliance due to resources Hypoglycemic at 70, and 89 today - Glimepiride 4 ACBD - HumuLIN lowered to 20B, 10D, ISSS-low - diabetic education - socical worker referral - Pending fructosamine R/O hyperthyroidism - Normal TSH, free T4; thyroglobulin AB neg, thyroid peroxidase AB neg - thyroid u/s: solid nodules with microcalcification, with the largest ones 10mm mid L lobe chronic active Hepatitis C infection Transaminitis-etiology unclear, likely Hep C conjugated hyperbilirubinemia, stable at 0.6, likely from Hepatitis. Doubt etoh vs sarcoidosis vs PBC vs PSC vs autoimmune hepatocellular dz - Hep C pos. Hep A/B neg - HCV viral: 1 million copy - Continue to trend transaminitis HTN - Clonidine 0.1 BID Pvx = Lovenox 40 QD, protonix 40 Discharge planning - Follow up with Dr. Terrell and Dr. Mendoza (clinical sociologist) in 1-2 weeks after discharge - Follow up with Dr. Chavira for HIV/HCV outpt treatment - Follow up with Dr. Newsome for pancytopenia - OBGYN f/u on endometrial fluid - Outpt thyroid FNB and f/u Dr. Mendoza re: thyroid and DM S/D/R/w Dr. Terrell
--- NOTE | 2017-08-29 18:21 | CP.PCM.PN ---
Subjective - Date & Time of Evaluation Date of Evaluation: 08/29/17 Time of Evaluation: 11:15 - Subjective Subjective: Comfortable, no fevers, not in distress. Objective - Vital Signs/Intake and Output Vital Signs (last 24 hours): Temp Pulse Resp BP Pulse Ox 98.3 F 58 L 18 139/85 97 08/29/17 08:25 08/29/17 10:02 08/29/17 08:25 08/29/17 10:02 08/29/17 08:25 Intake and Output: 08/29/17 08/29/17 06:59 18:59 Intake Total 900 Output Total 0 Balance 900 - Medications Medications: Current Medications Clonidine HCl (Catapres) 0.1 mg PO BID [facility] Last Admin: 08/29/17 10:02 Dose: 0.1 mg Enoxaparin Sodium (Lovenox) 40 mg SC DAILY [facility] PRN Reason: Protocol Last Admin: 08/29/17 10:04 Dose: 40 mg Ergocalciferol (Drisdol 50,000 Intl Units Cap) 1 cap PO Q7D [facility] Last Admin: 08/26/17 19:00 Dose: 1 cap Glimepiride (Amaryl) 4 mg PO ACBD [facility] Last Admin: 08/29/17 08:47 Dose: 4 mg Hydralazine HCl (Apresoline) 10 mg IVP Q6 PRN PRN Reason: Systolic Blood Pressure Last Admin: 08/23/17 21:50 Dose: 10 mg Cefazolin Sodium (Ancef 1gm In Ns) 1 gm in 100 mls @ 100 mls/hr IVPB Q8 [facility] PRN Reason: Protocol Last Admin: 08/29/17 05:43 Dose: 100 mls/hr Insulin Human Regular (Humulin R Low) 0 units SC ACHS [facility] PRN Reason: Protocol Last Admin: 08/29/17 08:22 Dose: Not Given Mupirocin (Bactroban Ointment) 0 gm NS BID [facility] Stop: 08/29/17 18:01 Last Admin: 08/29/17 10:03 Dose: 1 applic Ondansetron HCl (Zofran Inj) 4 mg IVP Q4H PRN PRN Reason: Nausea/Vomiting Pantoprazole Sodium (Protonix Ec Tab) 40 mg PO 0600 [facility] Last Admin: 08/29/17 05:43 Dose: 40 mg - Labs Labs: 08/29/17 06:10 08/29/17 06:10 PT 12.2 SECONDS (9.4-12.5) 08/27/17 05:30 INR 1.11 (0.93-1.08) H 08/27/17 05:30 APTT 25.6 Seconds (25.1-36.5) 08/27/17 05:30 - Constitutional Appears: Non-toxic - Head Exam Head Exam: NORMAL INSPECTION - ENT Exam ENT Exam: Mucous Membranes Moist - Neck Exam Neck Exam: absent: Lymphadenopathy, Meningismus - Respiratory Exam Respiratory Exam: Decreased Breath Sounds - Cardiovascular Exam Cardiovascular Exam: +S1, +S2 - GI/Abdominal Exam GI & Abdominal Exam: Soft. absent: Tenderness Assessment and Plan - Assessment and Plan (Free Text) Plan: Assessment chronic active Hepatitis C infection positive HIV infection (last HIV testing done 2 years ago was negative) but HIV- 1 Virus load is not detected R/O UTI with Group B strep. pancytopenia, etiology to be determined S/P hyperglycemic, hyperosmolar state history of H. pylori infection with associated esophageal and gastric ulcers hearing impairment insulin-dependent diabetes mellitus HTN Plan follow up HCV genotype - patient should be referred to a Hepatitis C specialist as an outpatient follow up CD4 count - will need outpatient follow up with an HIV specialist continue Cefazolin day 3 reviewed Hematology evaluation
--- NOTE | 2017-08-29 21:50 | CP.PCM.PN ---
Subjective - Date & Time of Evaluation Date of Evaluation: 08/29/17 Time of Evaluation: 18:45 - Subjective Subjective: No complaints. Objective - Vital Signs/Intake and Output Vital Signs (last 24 hours): Temp Pulse Resp BP Pulse Ox 97.7 F 68 18 149/89 98 08/29/17 16:00 08/29/17 17:45 08/29/17 16:00 08/29/17 17:45 08/29/17 16:00 Intake and Output: 08/29/17 08/30/17 18:59 06:59 Intake Total 500 Balance 500 - Medications Medications: Current Medications Clonidine HCl (Catapres) 0.1 mg PO BID [facility] Last Admin: 08/29/17 17:45 Dose: 0.1 mg Enoxaparin Sodium (Lovenox) 40 mg SC DAILY [facility] PRN Reason: Protocol Last Admin: 08/29/17 10:04 Dose: 40 mg Ergocalciferol (Drisdol 50,000 Intl Units Cap) 1 cap PO Q7D [facility] Last Admin: 08/26/17 19:00 Dose: 1 cap Glimepiride (Amaryl) 4 mg PO ACBD [facility] Last Admin: 08/29/17 08:47 Dose: 4 mg Hydralazine HCl (Apresoline) 10 mg IVP Q6 PRN PRN Reason: Systolic Blood Pressure Last Admin: 08/23/17 21:50 Dose: 10 mg Cefazolin Sodium (Ancef 1gm In Ns) 1 gm in 100 mls @ 100 mls/hr IVPB Q8 [facility] PRN Reason: Protocol Last Admin: 08/29/17 21:21 Dose: 100 mls/hr Insulin Human Regular (Humulin R Low) 0 units SC ACHS [facility] PRN Reason: Protocol Last Admin: 08/29/17 17:50 Dose: Not Given Ondansetron HCl (Zofran Inj) 4 mg IVP Q4H PRN PRN Reason: Nausea/Vomiting Pantoprazole Sodium (Protonix Ec Tab) 40 mg PO 0600 [facility] Last Admin: 08/29/17 05:43 Dose: 40 mg - Labs Labs: 08/29/17 06:10 08/29/17 06:10 PT 12.2 SECONDS (9.4-12.5) 08/27/17 05:30 INR 1.11 (0.93-1.08) H 08/27/17 05:30 APTT 25.6 Seconds (25.1-36.5) 08/27/17 05:30 - Head Exam Head Exam: ATRAUMATIC - Eye Exam Eye Exam: Normal appearance - ENT Exam ENT Exam: Mucous Membranes Dry - Respiratory Exam Respiratory Exam: NORMAL BREATHING PATTERN - Cardiovascular Exam Cardiovascular Exam: +S1, +S2 - GI/Abdominal Exam GI & Abdominal Exam: Normal Bowel Sounds Assessment and Plan (1) Pancytopenia Assessment & Plan: chronic ? hep C no iron, b12, folate deficiency f/u copper counts fairly stable outpatient f/u Status: Acute
--- NOTE | 2017-08-30 04:00 | PN ---
DATE: 08/29/2017 ENDO FOLLOWUP NOTE SUBJECTIVE: This is a 67-year-old female, deaf and mute, who presents here with marked hyperglycemic acceleration and hyperglycemic state and is now being followed closely for metabolic management. Her glycemic level is fluctuating but improved and the latest glucose levels have ranged from 178 to 265 mg/dL. LABORATORY DATA: The latest chemistries showed the BUN of 15, sodium 139, potassium 4.1, chloride 107, CO2 25, glucose 114, and creatinine 0.8. ASSESSMENT AND PLAN: So, at this time we will continue the modified basal and bolus insulin regimen and continue the Humulin 70/30 given as 20 units before breakfast and 10 units before dinner as ordered. We will also continue the oral hyperglycemic therapy given as Amaryl at 4 mg b.i.d. as ordered. We will also continue the low dose correction scale using regular insulin as given. We will titrate incremental as indicated to optimize metabolic control. We will follow with you. Nichole Mendoza MD
[2017-08-30] MEDS: ceFAZolin 1 gm in NS 1 GM/100 ML BAG IVPB SCH ×3 (06:33→22:49)
[2017-08-30] MEDS: Pantoprazole 40 mg EC Tab PO SCH (06:34)
[2017-08-30 07:01] LABS: BASO # 0.03 K/mm3 (0.0-2.0); BASO % 0.3 % (0.0-3.0); EOS # 0.2 (0.0-0.7); EOS % 2.3 % (1.5-5.0); GRAN # 6.51 (1.4-6.5); GRAN % 66.6 % (50.0-68.0); HEMATOCRIT 35.5 % (36.0-48.0); LYMPH # 2.3 (1.2-3.4); LYMPH % 23.3 % (22.0-35.0); MEAN CELL VOLUME 82.4 fl (80.0-105.0); MEAN CORPUSCULAR HEMOGLOBIN 27.1 pg (25.0-35.0); MEAN PLATELET VOLUME 12.6 fl (7.0-11.0); MONO # 0.7 (0.1-0.6); MONO % 7.5 % (1.0-6.0); WHITE BLOOD COUNT 9.8 10^3/ul (4.5-11.0)
[2017-08-30 07:05] LABS: ALB/GLOB RATIO 0.9 (1.1-1.8); ALKALINE PHOSPHATASE 73 U/L (38-126); ALT/SGPT 59 U/L (7-56); AST/SGOT 43 U/L (14-36); BILIRUBIN,TOTAL 0.4 mg/dL (0.2-1.3); BLOOD UREA NITROGEN 17 mg/dL (7-21); CALCIUM 8.8 mg/dL (8.4-10.5); CARBON DIOXIDE 27 mmol/L (21-33); CHLORIDE 107 mmol/L (98-107); GFR AFRICAN-AMERICAN > 60; GLUCOSE,RANDOM 132 mg/dL (70-110); POTASSIUM 4.3 mmol/L (3.6-5.0); SODIUM 138 mmol/L (132-148); TOTAL PROTEIN 6.7 g/dL (5.8-8.3)
[2017-08-30 08:02] LABS: BILIRUBIN,DIRECT 0.4 mg/dL (0.0-0.4)
[2017-08-30] MEDS: Insulin Reg-LOW-Coverage SC SCH ×4 (08:34→22:50)
[2017-08-30] MEDS: Insulin Human NPH/Reg 70/30 Vial(3 ml) SC SCH ×2 (08:40→17:11)
[2017-08-30 08:45] LABS: % CD16+CD56+(NK CELL) 8 Percent (4-25); % CD19 (B CELL) 19 Percent (6-29); % CD3 (MATURE T CELL) 70 Percent (57-85); ABSOLUTE CD16+CD56+CELLS 145 Cells/mcL (70-760)
[2017-08-30] MEDS: Enoxaparin 40 mg Syringe SC SCH (10:43)
--- NOTE | 2017-08-30 14:16 | PN ---
DATE: LOCATION: Room 561. SUMMARY: This is a 67-year-old female who is deaf and mute, currently also being followed closely for metabolic management because of recent hyperglycemic accelerations as noted thereof. Her glucose values are fluctuating, but much improved at this time and the latest glucose levels have ranged from 122-152 mg/dL. However, her bedtime glucose was still elevated at 337 last night. The latest chemistry showed BUN of 17, sodium of 138, potassium of 4.3, chloride of 107, CO2 of 27, glucose of 132, and creatinine of 0.7. So at this time, we will continue the same premixed insulin regimen to allow for dose equilibration and keep her on the Humulin 70/30 at 20 units a.c. breakfast and 10 units a.c. dinner as ordered. We will continue the Amaryl given as 4 mg b.i.d. before meals as ordered. We will titrate incrementally as indicated to optimize metabolic control. From the metabolic view point, she can actually be cleared for eventual discharge on the same insulin regimen and the same oral hypoglycemic therapy as given in inpatient. We will follow this patient. Nichole Mendoza MD
--- NOTE | 2017-08-30 20:52 | PN ---
DATE OF SERVICE: 08/29/2017 SUBJECTIVE: The patient is again seen lying in the bed in room #561, bed #1. Overnight nurse's notes were reviewed. The patient has been seen lying in the bed watching TV. No adverse events documented. CURRENT MEDICATIONS: Amaryl 4 mg twice a day, Ancef 1 g IV q.8, hydralazine 10 mg IV q.6 p.r.n., clonidine 0.1 mg twice a day, vitamin D 50,000 units weekly, the patient's insulin is changed, the patient is on Humulin 70/30 10 units with dinner and 20 with breakfast with regular insulin low-dose sliding scale coverage, Lovenox 40 mg subcutaneous daily, Protonix 40 mg daily, Zofran 4 mg IV q.4 OBJECTIVE: VITAL SIGNS: T-max 98.5, heart rate 64, 62, 58, blood pressure in the last 24 hours 132/91, 132/89, 139/85, 139 85, respiration is 20 to 18, O2 saturation 98%. HEENT: Head, normocephalic, atraumatic. HEENT examination shows pinkish pale conjunctivae. Dry oral mucosa. NECK: No neck rigidity. CHEST: Kyphosis. LUNGS: Examination shows no rales, crackles, or wheezing. CARDIOVASCULAR: S1, S2, regular rhythm. Questionable soft systolic murmur in left sternal border, right second intercostal space. ABDOMEN: Soft, nontender. No guarding. No rigidity. No costovertebral angle tenderness. GENITALIA: Female. RECTAL: Deferred. EXTREMITIES: Show no pitting edema, no calf tenderness, No Homans sign. MUSCULOSKELETAL: Examination shows a body mass index of 19.5. NEUROLOGIC: Cranial nerves II through XII limited. DIAGNOSTICS: On 08/29, WBC count is down to 14.1 from 16.6, hemoglobin and hematocrit 11.3 and 35.1, platelets 132,000, sodium 139, potassium 4.1, chloride 107, CO2 25, anion gap 11, BUN 15, creatinine 0.8, GFR greater than 60, glucose 114, calcium 9.1, phosphorus 3.9, magnesium 1.7, AST 47. IMPRESSION: 1. Status post diabetic ketoacidosis. 2. Uncontrolled insulin-requiring diabetes mellitus with diabetic ketoacidosis, lactic acidosis, and increased anion gap metabolic acidosis. 3. Uncontrolled accelerated hypertension. 4. Deaf and hearing-impaired patient. 5. Hypertension. 6. Status post neutropenia. 7. Pancytopenia. 8. Granix-induced leukocytosis. 9. Thrombocytopenia. 10. Transaminitis. 11. Hypovitaminosis D. 12. Questionable hyperthyroidism with multinodular thyroid nodule and goiter. 13. Proteinuria, microscopic hematuria, pyuria, bacteriuria, and group B beta hemolytic Streptococcus urinary tract infection. 14. Positive hepatitis C with hepatitis C RNA PCR of 1,230,624 IU with hepatitis C PCR RNA log international units 6.09. 15. Human immunodeficiency virus 1 antibody reactive and positive with undetectable human immunodeficiency virus RNA. 16. Deconditioning. 17. Gait dysfunction. 18. Multinodular thyroid gland with multiple cystic and solid thyroid nodule with microcalcification. PLAN: Most of the communication in writing. The patient does not offer any complaints. The patient was updated and told that the patient is still on IV antibiotics and the patient will continue with the inpatient treatment as long as the patient is on IV antibiotics. At this time, the patient has been ordered serial labs. Current consultation, Endocrinology, Hematology/Oncology, Infectious Disease, Gastroenterology. The patient has been ordered out of bed to chair. At present, the patient's further management will be dependent upon the patient's clinical condition, hemodynamic status, as per the patient's response to therapeutic intervention, as per the patient's diagnostic test results, and as per recommendation by all the physician involved in the care of the patient. Dictated and electronically signed, not read. Isaías Terrell MD
--- NOTE | 2017-08-30 21:31 | PN ---
DATE: 08/30/2017 SUBJECTIVE: The patient is seen in room 561, one. The patient is lying in the bed, watching TV. Overnight nurse's notes were reviewed. The patient slept well without any adverse events documented. Most of the communication was via writing communication. The patient did not offer any specific complaint. PHYSICAL EXAMINATION: VITAL SIGNS: T-max 98.3, heart rate 76-68, blood pressure 128/67, 129/89, 139/85, respiration 18, O2 sat 98%. The patient was seen by physical therapist. The patient was found not a candidate for skilled PT. HEAD: Examination normocephalic, atraumatic. HEENT: Examination shows pinkish conjunctivae. Anicteric sclerae. No oropharyngeal lesion. No neck rigidity. CHEST: Examination symmetrical. LUNGS: Examination shows occasional rhonchi upper lung trimble. CARDIOVASCULAR: Examination S1, S2, regular rhythm. Questionable soft systolic murmur. ABDOMEN: Soft, nontender. GENITALIA: Female. RECTAL: Examination is deferred. EXTREMITY: Shows no pitting edema,no calf tenderness and no Homans' sign. NEUROLOGIC: The patient is alert, awake, awake, responsive, follows command. Moves upper and lower extremity without assistance. Gait examination not tested. MUSCULOSKELETAL: Examination shows a body mass index of 19.5. DIAGNOSTICS: On 08/30/2017, WBC count is down to 9.8 from a peak WBC of 16.6, post Granix, hemoglobin/hematocrit 11.7, 35.5, platelet 120,000. Sodium 138, potassium 4.3, chloride 107, CO2 27, anion gap 9, BUN 17, creatinine 0.7, GFR greater than 60, glucose 315, 152, 122, 132 and 174, calcium 8.8, AST 43, ALT 59, CD-4 cell count is 48 and absolute CD-4 count is 867, CD-8 count is 369. Absolute CD-4 count 867, percent CD-4 cells 48, CD-3 count is 1249, CD-3 cell percent is 70, T helper and suppressor ratio 2.35, absolute CD-8 count of 369, percent CD-8 cell 20, CD-19 absolute count 339, percent CD-19 is 19. The patient's HIV is positive. QuantiFERON is negative. HIV one is reactive. HIV genotype sent to [employer]. HIV RNA copies and log copies none detected, repeat blood cultures negative. Urine cultures pending. IMPRESSION AND PLAN: 1. Status post diabetic ketoacidosis with uncontrolled type 2 diabetes mellitus with hyperglycemia. 2. Status post diabetic ketoacidosis. 3. Hyperglycemia. 4. Leukopenia, anemia, thrombocytopenia and pancytopenia. 5. Hepatitis C with human immunodeficiency virus positive status. 6. Chronic active hepatitis C infection. 7. Positive human immunodeficiency virus infection with none detected human immunodeficiency virus viral load. 8. Group B Streptococcus urinary tract infection. 9. Hypertension. 10. Pancytopenia. 11. Lactic acidosis. 12. Increase anion gap, metabolic acidosis and lactic acidosis. 13. Transaminitis. 14. Hypovitaminosis D. 15. Questionable hyperthyroidism. 16. Multinodular thyroid gland with multiple right lobe solid nodule with microcalcification. 17. Non-visualized left ovary. 18. Uterine fibroid with trace endometrial fluid. 19. Normocytic hypochromic anemia with anisocytosis with thrombocytopenia and neutropenia. 20. Group B beta hemolytic H Streptococcus urinary tract infection. PLAN: At this time, the patient has been ordered copper level by Dr. Newsome. Repeat labs ordered. Urine culture is still uncollected, which will be reordered again. CURRENT CONSULTATION: 1. Endocrinology. 2. Infectious disease. 3. Hematology/Oncology. 4. Gastroenterology. CURRENT MEDICATIONS: Amaryl 4 mg twice a day, Ancef 1 g IV q. 8, hydralazine 10 mg IV push q. 6 p.r.n., clonidine 0.1 mg twice a day, Drisdol 50,000 weekly, Humulin 70/30, 10 units with dinner and 20 units with breakfast with low-dose Humulin sliding scale coverage, Lovenox 40 mg subcu daily, Protonix 40 mg daily, Zofran 4 mg IV q. 4. The patient has been ordered out of bed, SCDs, SHALONDA stockings, Occupational Therapy. At present, the patient's further management will be dependent upon the patient's clinical condition, hemodynamic status and as per the patient response to therapeutic intervention and as per recommendation by all the physician involved in the care of the patient. The patient's discharge disposition is dependent upon completion of IV antibiotic therapy. Dictated and electronically signed, not read. Signing off; Isaías Terrell MD [facility] # [id number]
--- NOTE | 2017-08-30 21:55 | PN ---
DATE: 08/30/2017 SUBJECTIVE: The patient is seen earlier today. No fever. No chills. No nausea. PHYSICAL EXAMINATION: VITAL SIGNS: Temperature is 97, blood pressure is 120/60, and respiratory rate of 16. HEENT: Unremarkable. NECK: Supple. LUNGS: Decreased breath sounds. HEART: Normal S1 and S2. ABDOMEN: Soft and nontender. LABORATORY DATA: Reveals the patient's white count is down to 9.8, hemoglobin of 11, and platelets of 100. Chemistries revealed BUN of 17 and creatinine of 0.7. Urinalysis is noted and CD4 count is noted with 864 absolute T4 count with percentage of 48%. HIV is positive. Viral load is undetectable. Hepatitis C PCR is high. QuantiFERON is negative. ASSESSMENT AND PLAN: This is a 67-year-old female with chronic active hepatitis C infection, positive human immunodeficiency virus, group B Streptococcus urinary tract infection, pancytopenia, and on cefazolin day 4 for beta-hemolytic group B Streptococcus urinary tract infection. We will switch to p.o. antibiotics upon discharge. She is sensitive to ampicillin. Enmanuel Chavira MD
[2017-08-31] MEDS: ceFAZolin 1 gm in NS 1 GM/100 ML BAG IVPB SCH ×3 (05:52→22:07)
[2017-08-31] MEDS: Pantoprazole 40 mg EC Tab PO SCH (05:53)
[2017-08-31 07:49] LABS: BASO # 0.03 K/mm3 (0.0-2.0); BASO % 0.6 % (0.0-3.0); EOS # 0.2 (0.0-0.7); GRAN # 1.95 (1.4-6.5); GRAN % 40.5 % (50.0-68.0); HEMATOCRIT 36.2 % (36.0-48.0); LYMPH # 2.1 (1.2-3.4); LYMPH % 43.7 % (22.0-35.0); MEAN CELL VOLUME 82.1 fl (80.0-105.0); MEAN CORPUSCULAR HGB CONC 32.9 g/dl (31.0-37.0); MONO # 0.5 (0.1-0.6); MONO % 11.2 % (1.0-6.0); PLATELET COUNT 86 10^3/uL (120.0-450.0); RED CELL DISTRIBUTION WIDTH 12.9 % (11.5-14.5); WHITE BLOOD COUNT 4.8 10^3/ul (4.5-11.0)
[2017-08-31 08:42] LABS: ALB/GLOB RATIO 0.9 (1.1-1.8); ALKALINE PHOSPHATASE 61 U/L (38-126); ALT/SGPT 64 U/L (7-56); AST/SGOT 48 U/L (14-36); BILIRUBIN,TOTAL 0.4 mg/dL (0.2-1.3); BLOOD UREA NITROGEN 17 mg/dL (7-21); CARBON DIOXIDE 25 mmol/L (21-33); CHLORIDE 107 mmol/L (98-107); GFR AFRICAN-AMERICAN > 60; GLUCOSE,RANDOM 98 mg/dL (70-110); POTASSIUM 4.1 mmol/L (3.6-5.0); SODIUM 138 mmol/L (132-148); TOTAL PROTEIN 6.7 g/dL (5.8-8.3)
[2017-08-31 08:47] LABS: BILIRUBIN,DIRECT 0.4 mg/dL (0.0-0.4)
[2017-08-31] MEDS: Insulin Reg-LOW-Coverage SC SCH ×4 (08:47→22:06)
[2017-08-31] MEDS: Insulin Human NPH/Reg 70/30 Vial(3 ml) SC SCH ×2 (08:55→17:17)
[2017-08-31] MEDS: Enoxaparin 40 mg Syringe SC SCH (10:34)
--- NOTE | 2017-08-31 13:14 | PN ---
DATE: 08/31/2017 SUBJECTIVE: The patient is in bed in no acute distress, nontoxic. PHYSICAL EXAMINATION: VITAL SIGNS: Temperature is 98, blood pressure is 140/90, and respiratory rate of 20. HEENT: Unremarkable. NECK: Supple. LUNGS: Have decreased breath sounds. HEART: Normal S1 and S2. ABDOMEN: Soft and nontender. LABORATORY DATA: Reveals white count of 4.8, hemoglobin of 11, and platelets of 86. Chemistries are noted. Urinalysis is noted and T cell studies revealed 867 CD4 count at 48% with an undetectable HIV PCR. The patient does have over million hepatitis C RNA PCR. Microbiology reveals the urine has hemolytic group B strep. The blood cultures are no growth. Review of orders reveals the patient to be on cefazolin. ASSESSMENT AND PLAN: This is a 67-year-old female seen earlier today in 561, bed 1, with a history of chronic active hepatitis with positive human immunodeficiency virus with the group B Strep urinary tract infection, and pancytopenia, on cefazolin day #5, may be able to switch to p.o. antibiotics upon discharge, and the patient should have hepatitis C treatment. Hepatitis C and genotype should be done as outpatient. Make a decision as far as hepatitis C treatment is concerned. Enmanuel Chavira MD
--- NOTE | 2017-08-31 19:50 | PN ---
DATE: 08/31/2017 SUBJECTIVE: The patient is seen lying in the bed again in room 561, bed 1. The patient was seen and examined with the patient's nurse. The patient's most of the communication was through writing. The patient wants to know when she will be ready to go home. I have explained to the patient, the patient will be ready to go home upon discontinuation of the IV antibiotic. Overnight nurse's notes were reviewed. PHYSICAL EXAMINATION: VITAL SIGNS: T-max is 98.8; pulse 62, 68, 80, 74, 76; blood pressure 143/95, 113/76, /81, 128/67, 149/89; respiration 20; O2 sat 98-99%. HEENT AND NECK: Head examination; normocephalic, atraumatic. HEENT examination shows pink conjunctivae. Anicteric sclerae. No oropharyngeal lesion. No neck rigidity. CHEST: Kyphosis. LUNGS: Examination shows no rales, crackles or wheezing. CARDIOVASCULAR: S1, S2, regular rhythm. Positive systolic murmur left sternal border, right second intercostal space. ABDOMEN: Soft. Positive bowel sounds. GENITALIA: Female. RECTAL: Examination is deferred. EXTREMITIES: Show no pitting edema, no calf tenderness, no Homans' sign. NEUROLOGIC: The patient is alert, awake, responsive, is deaf and mute, but most of the communication is through writing. MUSCULOSKELETAL: 19.5. DIAGNOSTICS: 08/31/2017; WBC 4.8, hemoglobin/hematocrit 11.9/36.2, platelet 125,000. Sodium 138, potassium 4.1, chloride 107, CO2 of 25, anion gap 11, BUN 17, creatinine 0.7. GFR greater than 60. Glucose 98, 102, 152. Calcium 9.0. AST 48, ALT 64. Copper level is 87, which is within normal limits. Thyroid antibody, CD-4 lymphocytes count reviewed. TB QuantiFERON negative. Blood cultures, repeat negative. Repeat urine culture, still not done. IMPRESSION: 1. Status post diabetic ketoacidosis. 2. Uncontrolled insulin-requiring diabetes mellitus with hyperglycemia and diabetic ketoacidosis and hemoglobin A1c of 12.5. 3. Increased anion gap metabolic acidosis and diabetic ketoacidosis and lactic acidosis. 4. Hypertension. 5. Leukopenia, anemia, thrombocytopenia and pancytopenia. 6. Lactic acidosis. 7. Transaminitis. 8. Reactive hepatitis C antibody with positive human immunodeficiency virus antibody. 9. Streptococcus group B beta-hemolytic urinary tract infection. 10. Pancytopenia. 11. Microscopic hematuria, proteinuria, and bacteriuria. 12. Chronic active hepatitis C with positive human immunodeficiency virus. 13. Hypovitaminosis D. PLAN: At this time, the patient will be considered for discharge once cleared by Infectious Disease. The patient has been ordered repeat labs for today which were reviewed. The patient's current medications are Amaryl 4 mg twice a day, Ancef 1 g IV q. 8, hydralazine 10 mg IV q. 6 p.r.n., clonidine 0.1 mg twice a day, Drisdol 50,000 weekly, insulin 70/30 10 units with dinner and 20 units with breakfast with Humulin low-dose sliding scale coverage a.c. and at bedtime, Lovenox 40 mg subcu daily, Protonix 40 mg daily, and Zofran 4 mg IV push q. 4 p.r.n. Consistent carbohydrate diet. Out of bed to chair, SHALONDA villarreal, SCDs, occupational therapy, physical therapy ordered. The patient will be considered for early discharge as soon as the patient is cleared. All of the above was explained to the patient via writing communication, which the patient acknowledged and understood. The patient's nurse was present during this entire communication. Dictated and electronically signed, not read. Signing off; Isaías Terrell MD
--- NOTE | 2017-09-01 00:04 | PN ---
DATE: ENDO FOLLOWUP NOTE LOCATION: Room 561. SUBJECTIVE: This is a 67-year-old female with recent uncontrolled type 2 insulin-requiring diabetes and is now being followed closely for metabolic management. Her glycemic levels are fluctuating because of the variability of her oral intake as noted. Her glucose levels at 11:00 today went down to 58 because of very new portions taken at breakfast time as noted. Her latest glucose levels, otherwise, have improved ranging from 167 mg/dL to 168 mg/dL. The latest chemistry showed BUN of 17, sodium of 138, potassium of 4.1, chloride of 107, CO2 of 25, glucose of 98, and creatinine of 0.7. So at this time, we will continue the same premixed insulin regimen as ordered with Humulin 70/30 given as 20 units a.c. breakfast and 10 units a.c. dinner as given. We will titrate incremental as indicated to optimize metabolic control. We will follow and advise accordingly. Nichole Mendoza MD
[2017-09-01] MEDS: Pantoprazole 40 mg EC Tab PO SCH (05:35)
[2017-09-01] MEDS: ceFAZolin 1 gm in NS 1 GM/100 ML BAG IVPB SCH ×3 (05:35→22:05)
[2017-09-01] MEDS: Insulin Reg-LOW-Coverage SC SCH ×4 (08:06→22:05)
--- NOTE | 2017-09-01 09:08 | CP.PCM.DIS ---
Provider - Provider Date of Admission: 08/23/17 12:56 Attending physician: Isaías Terrell MD Hospital Course - Lab Results Lab Results: Micro Results 08/26/17 12:45 Blood-Venous Blood Culture - Final NO GROWTH AFTER 5 DAYS 08/26/17 12:45 Blood-Venous Gram Stain - Final TEST NOT PERFORMED 08/26/17 12:30 Blood-Venous Blood Culture - Final NO GROWTH AFTER 5 DAYS 08/26/17 12:30 Blood-Venous Gram Stain - Final TEST NOT PERFORMED 08/23/17 13:50 Urine Urine Culture - Final Beta Hemolytic Strep Group B 08/25/17 12:00 Urine Urine Culture - Final Beta Hemolytic Strep Group B 08/23/17 14:50 Naris MRSA Culture (Admit) - Final MRSA DETECTED Most Recent Lab Values WBC 4.8 10^3/ul (4.5-11.0) D 08/31/17 07:30 RBC 4.41 10^6/uL (3.5-6.1) 08/31/17 07:30 Hgb 11.9 g/dL (12.0-16.0) L 08/31/17 07:30 Hct 36.2 % (36.0-48.0) 08/31/17 07:30 MCV 82.1 fl (80.0-105.0) 08/31/17 07:30 MCH 27.0 pg (25.0-35.0) 08/31/17 07:30 MCHC 32.9 g/dl (31.0-37.0) 08/31/17 07:30 RDW 12.9 % (11.5-14.5) 08/31/17 07:30 Plt Count 86 10^3/uL (120.0-450.0) L 08/31/17 07:30 Manual Plt Count 125 K/mm3 (120-450) 08/31/17 07:30 MPV 12.6 fl (7.0-11.0) H 08/30/17 06:00 Gran % 40.5 % (50.0-68.0) L 08/31/17 07:30 Lymph % (Auto) 43.7 % (22.0-35.0) H 08/31/17 07:30 [place] % (Auto) 11.2 % (1.0-6.0) H 08/31/17 07:30 Eos % (Auto) 4.0 % (1.5-5.0) 08/31/17 07:30 Baso % (Auto) 0.6 % (0.0-3.0) 08/31/17 07:30 Gran # 1.95 (1.4-6.5) 08/31/17 07:30 Lymph # 2.1 (1.2-3.4) 08/31/17 07:30 [place] # 0.5 (0.1-0.6) 08/31/17 07:30 Eos # 0.2 (0.0-0.7) 08/31/17 07:30 Baso # 0.03 K/mm3 (0.0-2.0) 08/31/17 07:30 Retic Count 1.22 % (0.5-1.5) 08/28/17 07:30 PT 12.2 SECONDS (9.4-12.5) 08/27/17 05:30 INR 1.11 (0.93-1.08) H 08/27/17 05:30 APTT 25.6 Seconds (25.1-36.5) 08/27/17 05:30 Fibrinogen 230 mg/dl (200-393) 08/26/17 10:10 Fibrin Degrad Products <10 ug/ml (< 10 ug/mL) 08/26/17 10:10 pO2 26 mm/Hg (30-55) L 08/26/17 12:45 VBG pH 7.35 (7.32-7.43) 08/26/17 12:45 VBG pCO2 52.0 (40-60) 08/26/17 12:45 VBG HCO3 28.7 mmol/l (21-28) H 08/26/17 12:45 VBG Total CO2 30.3 mmol.L (22-28) H 08/26/17 12:45 VBG O2 Sat (Calc) 54.0 % (40-65) 08/26/17 12:45 VBG Base Excess 2.1 mmol/L (0.0-2.0) H 08/26/17 12:45 VBG Potassium 4.2 mmol/L (3.6-5.2) 08/26/17 12:45 Sodium 139.0 mmol/L (132-148) 08/26/17 12:45 Chloride 106.0 mmol/L (98-107) 08/26/17 12:45 Glucose 167 mg/dl (65-105) H 08/26/17 12:45 Lactate 1.1 mmol/L (0.7-2.1) 08/26/17 12:45 FiO2 21.0 % 08/26/17 12:45 Sodium 138 mmol/L (132-148) 08/31/17 07:30 Potassium 4.1 mmol/L (3.6-5.0) 08/31/17 07:30 Chloride 107 mmol/L (98-107) 08/31/17 07:30 Carbon Dioxide 25 mmol/L (21-33) 08/31/17 07:30 Anion Gap 11 (10-20) 08/31/17 07:30 BUN 17 mg/dL (7-21) 08/31/17 07:30 Creatinine 0.7 mg/dl (0.7-1.2) 08/31/17 07:30 Est GFR ( Amer) > 60 08/31/17 07:30 Est GFR (Non-Af Amer) > 60 08/31/17 07:30 POC Glucose (mg/dL) 68 mg/dL (65-110) 09/01/17 07:25 Random Glucose 98 mg/dL (70-110) 08/31/17 07:30 Hemoglobin A1c 12.5 % (4.2-6.5) H D 08/23/17 13:40 Fructosamine 356 umol/L (190-270) H 08/24/17 06:30 Lactic Acid 1.3 mmol/L (0.7-2.1) 08/28/17 07:30 Uric Acid 4.0 mg/dL (2.5-6.2) 08/25/17 06:15 Calcium 9.0 mg/dL (8.4-10.5) 08/31/17 07:30 Phosphorus 3.9 mg/dL (2.5-4.5) 08/29/17 06:10 Magnesium 1.7 mg/dL (1.7-2.2) 08/29/17 06:10 Erythropoietin 17.7 mIU/mL (2.6-18.5) 08/27/17 05:30 Ferritin 108.0 ng/mL 08/28/17 07:30 Total Bilirubin 0.4 mg/dL (0.2-1.3) 08/31/17 07:30 Direct Bilirubin 0.4 mg/dL (0.0-0.4) 08/31/17 07:30 AST 48 U/L (14-36) H 08/31/17 07:30 ALT 64 U/L (7-56) H 08/31/17 07:30 Alkaline Phosphatase 61 U/L (38-126) 08/31/17 07:30 Total Creatine Kinase 46 U/L (35-230) 08/24/17 05:30 Troponin I 0.01 ng/mL 08/24/17 05:30 Total Protein 6.7 g/dL (5.8-8.3) 08/31/17 07:30 Albumin 3.2 g/dL (3.0-4.8) 08/31/17 07:30 Globulin 3.6 gm/dL 08/31/17 07:30 Albumin/Globulin Ratio 0.9 (1.1-1.8) L 08/31/17 07:30 Prealbumin 13.6 mg/dL (17.6-36.0) L 08/27/17 05:30 Triglycerides 74 mg/dL (35-160) 08/24/17 06:30 Cholesterol 151 mg/dL (130-200) 08/24/17 06:30 LDL Cholesterol Direct 47 mg/dL (0-129) 08/24/17 06:30 HDL Cholesterol 73 mg/dL (29-60) H 08/24/17 06:30 Amylase 92 U/L (35-125) 08/23/17 11:45 Lipase 52 U/L (23-300) 08/23/17 11:45 Vitamin B12 554 pg/mL (239-931) 08/28/17 07:30 25-OH Vitamin D Total 15.9 NG/ML (30.0-100.0) L 08/26/17 06:15 Folate 8.9 ng/mL 08/28/17 07:30 Procalcitonin < 0.05 NG/ML (0.19-0.49) L 08/26/17 10:30 Free T4 1.51 ng/dL (0.78-2.19) 08/24/17 05:30 Thyroxine (T4) 13.8 ug/dL (5.5-11.0) H 08/24/17 05:30 TSH 3rd Generation 0.74 mIU/mL (0.46-4.68) 08/24/17 05:30 Venous Blood Potassium 4.2 mmol/L (3.6-5.2) 08/26/17 12:45 Urine Color Straw (YELLOW) 08/23/17 13:50 Urine Appearance Clear (CLEAR) 08/23/17 13:50 Urine pH 6.0 (4.7-8.0) 08/23/17 13:50 Ur Specific [place] 1.015 (1.005-1.035) 08/23/17 13:50 Urine Protein 30 mg/dL (<30 mg/dL) H 08/23/17 13:50 Urine Glucose (UA) >=1000 mg/dL (NEGATIVE) 08/23/17 13:50 Urine Ketones 15 mg/dL (NEGATIVE) H 08/23/17 13:50 Urine Blood Small (NEGATIVE) H 08/23/17 13:50 Urine Nitrate Negative (NEGATIVE) 08/23/17 13:50 Urine Bilirubin Negative (NEGATIVE) 08/23/17 13:50 Urine Urobilinogen 0.2 E.U./dL (<1 E.U./dL) 08/23/17 13:50 Ur Leukocyte Esterase Negative Leonid/uL (NEGATIVE) 08/23/17 13:50 Urine RBC 0 - 2 /hpf (0-2) 08/23/17 13:50 Urine WBC 0 - 2 /hpf (0-6) 08/23/17 13:50 Ur Epithelial Cells 0 - 2 /hpf (0-5) 08/23/17 13:50 Urine Bacteria Trace (NEG) 08/23/17 13:50 Copper 87 mcg/dL (70-175) 08/28/17 07:30 Thyroperoxidase Ab <1 IU/mL (<9) 08/24/17 05:30 Thyroglobulin Antibody <1 IU/mL (< OR = 1) 08/24/17 05:30 Absolute Lymphs (Flow) 1746 Cells/mcL (850-3900) 08/27/17 13:30 % CD3 Cells 70 Percent (57-85) 08/27/17 13:30 Absolute CD3 Count 1249 Cells/mcL (840-3060) 08/27/17 13:30 % CD3-/CD16+/CD56+ 8 Percent (4-25) 08/27/17 13:30 % CD4 Cells 48 Percent (30-61) 08/27/17 13:30 Absolute CD4 Count 867 Cells/mcL (490-1740) 08/27/17 13:30 T-Help/Suppress Ratio 2.35 Ratio (0.86-5.00) 08/27/17 13:30 % CD8 Cells 20 Percent (12-42) 08/27/17 13:30 Absolute CD8 Count 369 Cells/mcL (180-1170) 08/27/17 13:30 Absolute CD16/CD56 Count 145 Cells/mcL (70-760) 08/27/17 13:30 % CD19 Cells 19 Percent (6-29) 08/27/17 13:30 Absolute CD19 Count 339 Cells/mcL (110-660) 08/27/17 13:30 Hepatitis A IgM Ab Negative (NEGATIVE) 08/24/17 06:30 Hep Bs Antigen Negative (NEGATIVE) 08/24/17 06:30 Hep B Core IgM Ab Negative (NEGATIVE) 08/24/17 06:30 Hepatitis C Antibody Reactive (NEGATIVE) 08/24/17 06:30 HCV RNA (PCR) IUs/ml [id number] IU/mL (<15) H 08/25/17 11:30 HCV RNA PCR log IUs/ml 6.09 Log IU/mL (<1.18) H 08/25/17 11:30 HIV-1 Antibody Positive (Negative) H 08/24/17 06:30 HIV-1 RNA copies/mL <20 not detected copies/mL (<20) 08/27/17 13:30 HIV-1 RNA logcopies/mL <1.30 not detected (<1.30) 08/27/17 13:30 HIV-1 Genotyping (()) 08/27/17 13:30 HIV-2 Antibody Negative (Negative) 08/24/17 06:30 HIV 1&2 Ag/Ab, 4th Gen Reactive (Nonreactive) H 08/24/17 06:30 TB Test (QFT) Nil 0.03 IU/mL 08/28/17 07:30 TB Test Mitogen - Nil 8.27 IU/mL 08/28/17 07:30 TB Test TB - Nil 0.01 IU/mL 08/28/17 07:30 TB Test (QFT) Negative (Negative) 08/28/17 07:30 - Hospital Course Hospital Course: Ms Addison, 67 AAF, with hearing impairment with PMHx hep c untreated, uncontrolled diabetes, type 2 insulin-dependent, admitted with DKA with dehydration due to drug omission, was downgraded from ICU. She was found to have new onset pancytopenia in the setting of chronic HCV and positive urine culture (GBS). Her hepatitis C is chronic active Hepatitis C infection. 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 She has history of H. pylori infection with associated esophageal and gastric ulcers, questionable treatment. She is undernutrient, prealbumin 13.6, started glucerna supplements. HIV (+) (last HIV testing done 2 years ago was negative), treatment naive, newly converted, Cd4 800 - viral load, quanteferon gold - ID started cefazolin day 3 - explained diagnosis of HIV and HCV. Pt understand and appreciated diagnosis and importance and will talk to partner (hand sign writer Ena Pinto [id number] , certified deaf interpretor mikey Vaughn, Dr. Terrell, and RN) UTI with Group B strep vs Asymtomatic bactereuria - blood culture neg x 6d - Repeat urine culture: GBS - Chect urine culture again today - CT A/P with PO/IV contrast: small b/l pleural effusion with atelectasis; irregular thickening of bladder wall; no obstructive uropathy - transvaginal and pelvic u/s for etiology: fibroids and endometrial fluid New onset Pancytopenia Neutropenia ANC <1k, s/p granix day 1 with leukocytosis/neutrophilia Reticulocyte index 0.4, due to nutritional deficiencies vs marrow abnormalities Has ruled out DIC Doubt blood malignancy - peripheral smear: RBC Normocytic hypochronic with slight anisocytosis, no schistocytes WBC increase lymphotes and monotyes, reduced PMN, no atypical cells - normal iron, b12, folate stores, copper Nutrient deficiency - check iron, copper stores to rule out nutritional deficiency - B12, folate normal - calorie count reveals nutrient deficicnecy - started dietary supplement DM, A1C 12.5 Medication non-compliance due to resources Watch hypoglycemia due to variation in food consumption portion Hypoglycemic at 70, and 89 today - Glimepiride 4 ACBD - HumuLIN 70/30 20B, 10D - diabetic education - socical worker referral - Pending fructosamine R/O hyperthyroidism - Normal TSH, free T4; thyroglobulin AB neg, thyroid peroxidase AB neg - thyroid u/s: solid nodules with microcalcification, with the largest ones 10mm mid L lobe chronic active Hepatitis C infection Transaminitis-etiology unclear, likely Hep C conjugated hyperbilirubinemia, stable at 0.6, likely from Hepatitis. Doubt etoh vs sarcoidosis vs PBC vs PSC vs autoimmune hepatocellular dz - Hep C pos. Hep A/B neg - HCV viral: 1 million copy - Continue to trend transaminitis HTN - Clonidine 0.1 BID - controlled DKA with dehydration - resolved MRSA in nares s/p bactroban top BID x 5d Pvx = Lovenox 40 QD, protonix 40, AE hose, SCD FEN: CCD, 2 glucerna BID Discharge planning - Per physical therapy, not a candidate for skilled service, recommend home - Follow up with Dr. Terrell 1-2 weeks after discharge. - Follow up with Dr. Mendoza (mill tender second operator) in 1-2 weeks after discharge, for diabetes and hyperthyroid management. Pt may need outpatient thyroid fine needle biopst and continual monitor of blood sugar. - Follow up with Dr. Chavira for HIV/HCV outpt treatment - Follow up with Dr. Newsome for pancytopenia - Follow up with OBGYN for endometrial fluid S/D/R/w Discharge Exam - Head Exam Head Exam: ATRAUMATIC - Eye Exam Eye Exam: EOMI, Normal appearance, PERRL Pupil Exam: NORMAL ACCOMODATION, PERRL - ENT Exam ENT Exam: Mucous Membranes Moist - Neck Exam Additional comments: supple - Respiratory Exam Respiratory Exam: Clear to PA & Lateral, NORMAL BREATHING PATTERN, UNREMARKABLE. absent: Rales, Rhonchi, Wheezes - Cardiovascular Exam Cardiovascular Exam: REGULAR RHYTHM, +S1, +S2 - GI/Abdominal Exam GI & Abdominal Exam: Normal Bowel Sounds, Soft, Unremarkable. absent: Distended , Firm, Rigid - Extremities Exam Extremities exam: pedal pulses present Additional comments: no calf tenderness b/l - Neurological Exam Neurological exam: Alert, Normal Gait, Oriented x3 - Psychiatric Exam Psychiatric exam: Normal Affect, Normal Mood - Skin Skin Exam: Dry, Normal Color, Warm Discharge Plan - Discharge Medications Prescriptions: Amoxicillin/Clavulanate [Augmentin 875 MG-125 MG] 1 tab PO BID #20 tab cloNIDine [Catapres] 0.1 mg PO BID #60 tab Ergocalciferol [Drisdol 50,000 Intl Units Cap] 1 cap PO Q7D #14 cap Glimepiride [amaRYL] 4 mg PO ACBD #60 tab Insulin Human NPH/Reg [humulin 70/30 70 U/Ml-30 U/Ml 10 Ml] 20 ml SC ACB #10 Insulin NPH Hum/Reg Insulin Hm [Humulin 70/30 Kwikpen] 10 unit SQ DIN #100 insuln.pen Lisinopril [Zestril] 2.5 mg PO DAILY #30 tab Metoprolol Tartrate [Lopressor] 25 mg PO BID #60 tab Nut.tx.gluc.intoler,Lac-Fr,Soy [Glucerna 1.5 Dameon 237 ml] 236 ml PO BID #30 feng Pantoprazole [Protonix EC Tab] 40 mg PO 0600 #30 ect - Follow Up Plan Condition: GUARDED Disposition: HOME/ ROUTINE Instructions: Pneumococcal Vaccine for Adults (GEN), Heart Healthy Diet (GEN), Diabetes Mellitus Type 2 in Adults (GEN), Hepatitis C (DC), Influenza Vaccine ( GEN), Basic Carbohydrate Counting (GEN), Hypertension (GEN) Additional Instructions: DISCHARGE HOME IF CLEARED BY ID REFER [facility] HEALTH AIDE REFER TO [facility] LAB TECHNICIAN DISCHARGE MEDS PER UPDATED AMBULATORY ORDERS AND NEW SCRIPTS FOLLOW UP , , DR.HAHN LEMOS WITHIN 1 WEEK. COPY OF DIABETIC DIET TO PATIENT UPON DISCHARGE. - Follow up with Dr. Terrell 1-2 weeks after discharge. - Follow up with Dr. Mendoza (mill tender second operator) in 1-2 weeks after discharge, for diabetes and hyperthyroid management. Pt may need outpatient thyroid fine needle biopst and continual monitor of blood sugar. - Follow up with Dr. Chavira for HIV/HCV outpt treatment - Follow up with Dr. Newsome for pancytopenia - Follow up with OBGYN for endometrial fluid Referrals: Enmanuel Chavira MD [Staff Provider] - 1 Week (DISCHARGE HOME IF CLEARED BY ID REFER [facility] HOME HEALTH AIDE REFER TO CRIME LAB TECHNICIAN DISCHARGE MEDS PER UPDATED AMBULATORY ORDERS AND NEW SCRIPTS FOLLOW UP DR.CAM TERRIE, WITHIN 1 WEEK. COPY OF DIABETIC DIET TO PATIENT UPON DISCHARGE.) Nichole Mendoza MD [Medical Doctor] - 1 Week (DISCHARGE HOME IF CLEARED BY ID REFER [facility] HOME HEALTH AIDE REFER TO CRIME LAB TECHNICIAN DISCHARGE MEDS PER UPDATED AMBULATORY ORDERS AND NEW SCRIPTS FOLLOW UP DR.CAM TERRIE, WITHIN 1 WEEK. COPY OF DIABETIC DIET TO PATIENT UPON DISCHARGE.) Waldemar Boo MD [Staff Provider] - 1 Week (DISCHARGE HOME IF CLEARED BY ID REFER [facility] HOME HEALTH AIDE REFER TO CRIME LAB TECHNICIAN DISCHARGE MEDS PER UPDATED AMBULATORY ORDERS AND NEW SCRIPTS FOLLOW UP DR.CAM TERRIE, WITHIN 1 WEEK. COPY OF DIABETIC DIET TO PATIENT UPON DISCHARGE.) Isaías Terrell MD [Staff Provider] - 1 Week (DISCHARGE HOME IF CLEARED BY ID REFER [facility] HOME HEALTH AIDE REFER TO CRIME LAB TECHNICIAN DISCHARGE MEDS PER UPDATED AMBULATORY ORDERS AND NEW SCRIPTS FOLLOW UP DR.CAM TERRIE, WITHIN 1 WEEK. COPY OF DIABETIC DIET TO PATIENT UPON DISCHARGE.)
[2017-09-01] MEDS: Enoxaparin 40 mg Syringe SC SCH (11:04)
[2017-09-01] MEDS: Insulin Human NPH/Reg 70/30 Vial(3 ml) SC SCH ×2 (11:06→17:28)
--- NOTE | 2017-09-01 14:50 | PN ---
DATE: 09/01/2017 ENDOCRINOLOGY FOLLOWUP NOTE LOCATION: Room 561. SUBJECTIVE: This is a 67-year-old female with recent uncontrolled type 2 insulin-requiring diabetes with extremes of glycemic fluctuations related to the variability of the oral intake as noted. insulin 20/30 on Humulin 70/30, given 20 units before breakfast and 10 units before dinner as ordered. . We will follow. Nichole Mendoza MD
--- NOTE | 2017-09-01 17:57 | CP.PCM.PN ---
Subjective - Date & Time of Evaluation Date of Evaluation: 09/01/17 Time of Evaluation: 11:50 - Subjective Subjective: Comfortable, no fevers, not in distress. Objective - Vital Signs/Intake and Output Vital Signs (last 24 hours): Temp Pulse Resp BP Pulse Ox 98.2 F 60 20 124/75 97 09/01/17 07:30 09/01/17 07:30 09/01/17 07:30 09/01/17 07:30 09/01/17 07:30 Intake and Output: 09/01/17 09/01/17 06:59 18:59 Intake Total 960 Balance 960 - Medications Medications: Current Medications Clonidine HCl (Catapres) 0.1 mg PO BID [facility] Last Admin: 08/31/17 17:28 Dose: 0.1 mg Enoxaparin Sodium (Lovenox) 40 mg SC DAILY [facility] PRN Reason: Protocol Last Admin: 08/31/17 10:34 Dose: 40 mg Ergocalciferol (Drisdol 50,000 Intl Units Cap) 1 cap PO Q7D [facility] Last Admin: 08/26/17 19:00 Dose: 1 cap Glimepiride (Amaryl) 4 mg PO ACBD [facility] Last Admin: 08/31/17 17:16 Dose: 4 mg Hydralazine HCl (Apresoline) 10 mg IVP Q6 PRN PRN Reason: Systolic Blood Pressure Last Admin: 08/23/17 21:50 Dose: 10 mg Cefazolin Sodium (Ancef 1gm In Ns) 1 gm in 100 mls @ 100 mls/hr IVPB Q8 [facility] PRN Reason: Protocol Last Admin: 09/01/17 05:35 Dose: 100 mls/hr Insulin Human Regular (Humulin R Low) 0 units SC ACHS [facility] PRN Reason: Protocol Last Admin: 08/31/17 22:06 Dose: Not Given Ondansetron HCl (Zofran Inj) 4 mg IVP Q4H PRN PRN Reason: Nausea/Vomiting Pantoprazole Sodium (Protonix Ec Tab) 40 mg PO 0600 [facility] Last Admin: 09/01/17 05:35 Dose: 40 mg - Labs Labs: 08/31/17 07:30 08/31/17 07:30 PT 12.2 SECONDS (9.4-12.5) 08/27/17 05:30 INR 1.11 (0.93-1.08) H 08/27/17 05:30 APTT 25.6 Seconds (25.1-36.5) 08/27/17 05:30 - Constitutional Appears: Non-toxic - Head Exam Head Exam: NORMAL INSPECTION - Neck Exam Neck Exam: absent: Meningismus - Respiratory Exam Respiratory Exam: Decreased Breath Sounds - Cardiovascular Exam Cardiovascular Exam: +S1, +S2 - GI/Abdominal Exam GI & Abdominal Exam: Soft. absent: Tenderness Assessment and Plan - Assessment and Plan (Free Text) Plan: Assessment chronic active Hepatitis C infection positive HIV infection (last HIV testing done 2 years ago was negative) but HIV- 1 Virus load is not detected R/O UTI with Group B strep. pancytopenia, etiology to be determined S/P hyperglycemic, hyperosmolar state history of H. pylori infection with associated esophageal and gastric ulcers hearing impairment insulin-dependent diabetes mellitus HTN Plan follow up HCV genotype - patient should be referred to a Hepatitis C specialist as an outpatient follow up CD4 count - will need outpatient follow up with an HIV specialist on Cefazolin day 6 and can be switched to PO KEflex reviewed Hematology evaluation
--- NOTE | 2017-09-02 02:51 | PN ---
DATE: 09/01/2017 SUBJECTIVE: The patient is seen lying in bed in room 561, bed 1. The patient was cleared by Infectious Disease for discharge.. The patient was seen lying in the bed, most of the communication was through writing and from tele transformer repairer. PHYSICAL EXAMINATION VITAL SIGNS: T-max 98.2, heart rate 60-68, blood pressure 129/77, 124/75, 143/95, respiration 20, O2 sat 97-98%. HEAD: Examination normocephalic, atraumatic. HEENT: Examination shows pinkish pale conjunctivae. Anicteric sclerae. No oropharyngeal lesion. No neck rigidity. CHEST: Examination kyphosis. LUNGS: Examination shows no rales, crackles or wheezing. CARDIOVASCULAR: Examination S1, S2, regular rhythm. ABDOMEN: Soft. Positive bowel sound. GENITALIA: Female. RECTAL: Examination is deferred. EXTREMITY: Shows no pitting, no calf tenderness, no Homans' sign. NEUROLOGICALLY: The patient is alert, awake, responsive. Most of the communication was through the tele transformer repairer and hand writing communication. DIAGNOSTICS: On 09/01/2017, none. The patient's hepatitis C genotype RNA is 1a. Repeat urine and blood cultures are negative. IMPRESSION AND PLAN: 1. Status post diabetic ketoacidosis. 2. Status post increased anion gap metabolic acidosis and lactic acidosis secondary to diabetic ketoacidosis. 3. Uncontrolled insulin-requiring diabetes mellitus. 4. Chronic active hepatitis C infection. 5. Positive human immunodeficiency virus infection with none detected HIV-1 virus load. 6. Pancytopenia. 7. Hepatitis C RNA genotype 1a. 8. Hypertension. 9. Hearing-impairment. 10. Leukopenia, anemia, thrombocytopenia, and pancytopenia. 11. Granulocytosis. 12. Lactic acidosis. 13. Transaminitis. 14. Hypovitaminosis D. 15. Uncontrolled insulin-requiring diabetes mellitus with hemoglobin A1c of 12.5. 16. Elevated fructosamine level of greater than 350. 17. Proteinuria. 18. Glycosuria. 19. Bacteriuria. 20. Hepatitis C. 21. Group B beta hemolytic Streptococcus urinary tract infection. PLAN: At this time, the patient has been cleared by Infectious Disease, to be switched over to p.o. antibiotic upon discharge. The recommendation is p.o. antibiotic, for discharge this can be switched to p.o. cephalosporin. The patient's case referred for [facility] for discharge planning. The patient declined the referral for [facility]. As the patient is independent and ambulatory not homebound. The patient is going to be discharged home after patient discharge have been made by the Ostr[facility] Farmer. The patient's discharge prescription, plan and coverage to be referred to the [facility] for arrangement of. CURRENT MEDICATION: At present: 1. Amaryl 4 mg twice a day. 2. Ancef 1 g IV q. 8 hours. 3. Hydralazine 10 mg IV q. 6 hours p.r.n. 4. Clonidine 0.1 mg twice a day. 5. Drisdol 50,000 units weekly. 6. Insulin 70/30, 10 units with dinner, 20 units with breakfast. 7. Regular insulin low-dose sliding scale coverage a.c. and at bedtime. 8. Lovenox 40 mg subcutaneous daily. 9. Protonix 40 mg daily. 10. Zofran 4 mg IV q. 4 hours p.r.n. DISCHARGE MEDICATIONS: As follows; 1. Augmentin 875 twice a day. 2. Clonidine 0.1 mg twice a day. 3. Drisdol 50,000 units weekly. 4. Amaryl 4 mg twice a day. 5. Insulin 70/30, 20 units with breakfast, 10 units with dinner. 6. Zestril 2.5 mg daily. 7. Lopressor 25 mg twice a day. 8. Glucerna twice a day. 9. Protonix 40 mg daily. At this time if the patient is cleared for discharge, the patient will be discharged home after discharge followup with Dr. Terrell within 1 week. The patient is to follow up with Dr. Nichole Mendoza, Dr. Boo and Dr. Chavira within 1 week. Discharge medications will be as per updated ambulatory orders and new scripts. The patient's case is referred to health promotion educator. The patient's discharge followup is also with Infectious Disease, Hematology/Oncology, ALIGNING CHECKER and Endocrinology. Dictated and electronically signed, not read. Signing off; Isaías Terrell MD
[2017-09-02] MEDS: ceFAZolin 1 gm in NS 1 GM/100 ML BAG IVPB SCH ×2 (06:30→15:19)
[2017-09-02] MEDS: Pantoprazole 40 mg EC Tab PO SCH (06:31)
[2017-09-02] MEDS: Insulin Reg-LOW-Coverage SC SCH ×3 (07:39→16:46)
[2017-09-02] MEDS: Insulin Human NPH/Reg 70/30 Vial(3 ml) SC SCH ×2 (08:14→16:45)
[2017-09-02 08:51] VITALS: RESP 18
--- NOTE | 2017-09-02 10:23 | CP.PCM.PN ---
Subjective - Date & Time of Evaluation Date of Evaluation: 09/01/17 Time of Evaluation: 09:00 - Subjective Subjective: PGY-[address] Terrell Pt was accompanied by boyfriend in the room for prepareing D/C. No acute complain Objective - Vital Signs/Intake and Output Vital Signs (last 24 hours): Temp Pulse Resp BP Pulse Ox 98.4 F 94 H 18 122/86 100 09/02/17 07:30 09/02/17 07:30 09/02/17 07:30 09/02/17 07:30 09/02/17 07:30 Intake and Output: 09/02/17 09/02/17 06:59 18:59 Intake Total 960 Balance 960 - Medications Medications: Current Medications Clonidine HCl (Catapres) 0.1 mg PO BID COUNTS INCLUDE 234 BEDS AT THE [facility] Last Admin: 09/01/17 17:27 Dose: 0.1 mg Enoxaparin Sodium (Lovenox) 40 mg SC DAILY BREEZY PRN Reason: Protocol Last Admin: 09/01/17 11:04 Dose: 40 mg Ergocalciferol (Drisdol 50,000 Intl Units Cap) 1 cap PO Q7D BREEZY Last Admin: 08/26/17 19:00 Dose: 1 cap Glimepiride (Amaryl) 4 mg PO ACBD COUNTS INCLUDE 234 BEDS AT THE [facility] Last Admin: 09/02/17 08:10 Dose: 4 mg Hydralazine HCl (Apresoline) 10 mg IVP Q6 PRN PRN Reason: Systolic Blood Pressure Last Admin: 08/23/17 21:50 Dose: 10 mg Cefazolin Sodium (Ancef 1gm In Ns) 1 gm in 100 mls @ 100 mls/hr IVPB Q8 BREEZY PRN Reason: Protocol Last Admin: 09/02/17 06:30 Dose: 100 mls/hr Insulin Human Regular (Humulin R Low) 0 units SC ACHS BREEZY PRN Reason: Protocol Last Admin: 09/01/17 22:05 Dose: Not Given Ondansetron HCl (Zofran Inj) 4 mg IVP Q4H PRN PRN Reason: Nausea/Vomiting Pantoprazole Sodium (Protonix Ec Tab) 40 mg PO 0600 COUNTS INCLUDE 234 BEDS AT THE [facility] Last Admin: 09/02/17 06:31 Dose: 40 mg - Labs Labs: 08/31/17 07:30 08/31/17 07:30 PT 12.2 SECONDS (9.4-12.5) 08/27/17 05:30 INR 1.11 (0.93-1.08) H 08/27/17 05:30 APTT 25.6 Seconds (25.1-36.5) 08/27/17 05:30 - Constitutional Appears: No Acute Distress - Head Exam Head Exam: ATRAUMATIC, NORMAL INSPECTION, NORMOCEPHALIC - Eye Exam Eye Exam: EOMI, Normal appearance, PERRL. absent: Scleral icterus Pupil Exam: NORMAL ACCOMODATION - ENT Exam ENT Exam: Mucous Membranes Moist - Neck Exam Neck Exam: Full ROM - Respiratory Exam Respiratory Exam: Clear to Ausculation Bilateral, NORMAL BREATHING PATTERN - Cardiovascular Exam Cardiovascular Exam: REGULAR RHYTHM, +S1, +S2 - GI/Abdominal Exam GI & Abdominal Exam: Soft, Normal Bowel Sounds. absent: Guarding, Rigid, Tenderness - Extremities Exam Extremities Exam: absent: Calf Tenderness - Back Exam Back Exam: absent: CVA tenderness (L), CVA tenderness (R) - Neurological Exam Neurological Exam: Alert, Awake, Normal Gait, Oriented x3 - Psychiatric Exam Psychiatric exam: Normal Affect, Normal Mood - Skin Skin Exam: Dry, Warm Assessment and Plan - Assessment and Plan (Free Text) Plan: Ms Addison, 67 AAF, with hearing impairment with PMHx hep c untreated, uncontrolled diabetes, type 2 insulin-dependent, admitted with DKA with dehydration due to drug omission, was downgraded from ICU. She was found to have new onset pancytopenia in the setting of chronic HCV and positive urine culture (GBS). Her hepatitis C is chronic active Hepatitis C infection. 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 She has history of H. pylori infection with associated esophageal and gastric ulcers, questionable treatment. She is undernutrient, prealbumin 13.6, started glucerna supplements. HIV (+) (last HIV testing done 2 years ago was negative), treatment naive, newly converted, Cd4 800 - viral load, quanteferon gold - ID started cefazolin day 3 - explained diagnosis of HIV and HCV. Pt understand and appreciated diagnosis and importance and will talk to partner (clothing designer Ena Pinto [id number] , certified deaf interpretor mikey Vaughn, Dr. Terrell, and RN) UTI with Group B strep vs Asymtomatic bactereuria - blood culture neg x 6d - Repeat urine culture: GBS - Chect urine culture again today - CT A/P with PO/IV contrast: small b/l pleural effusion with atelectasis; irregular thickening of bladder wall; no obstructive uropathy - transvaginal and pelvic u/s for etiology: fibroids and endometrial fluid New onset Pancytopenia Neutropenia ANC <1k, s/p granix day 1 with leukocytosis/neutrophilia Reticulocyte index 0.4, due to nutritional deficiencies vs marrow abnormalities Has ruled out DIC Doubt blood malignancy - peripheral smear: RBC Normocytic hypochronic with slight anisocytosis, no schistocytes WBC increase lymphotes and monotyes, reduced PMN, no atypical cells - normal iron, b12, folate stores, copper Nutrient deficiency - check iron, copper stores to rule out nutritional deficiency - B12, folate normal - calorie count reveals nutrient deficicnecy - started dietary supplement DM, A1C 12.5 Medication non-compliance due to resources Watch hypoglycemia due to variation in food consumption portion Hypoglycemic at 70, and 89 today - Glimepiride 4 ACBD - HumuLIN 70/30 20B, 10D - diabetic education - socical worker referral - Pending fructosamine R/O hyperthyroidism - Normal TSH, free T4; thyroglobulin AB neg, thyroid peroxidase AB neg - thyroid u/s: solid nodules with microcalcification, with the largest ones 10mm mid L lobe chronic active Hepatitis C infection Transaminitis-etiology unclear, likely Hep C conjugated hyperbilirubinemia, stable at 0.6, likely from Hepatitis. Doubt etoh vs sarcoidosis vs PBC vs PSC vs autoimmune hepatocellular dz - Hep C pos. Hep A/B neg - HCV viral: 1 million copy - Continue to trend transaminitis HTN - Clonidine 0.1 BID - controlled DKA with dehydration - resolved MRSA in nares s/p bactroban top BID x 5d Pvx = Lovenox 40 QD, protonix 40, AE hose, SCD FEN: CCD, 2 glucerna BID Discharge planning - Per physical therapy, not a candidate for skilled service, recommend home - Follow up with Dr. Terrell 1-2 weeks after discharge. - Follow up with Dr. Mendoza (aircraft engine mechanic overhaul) in 1-2 weeks after discharge, for diabetes and hyperthyroid management. Pt may need outpatient thyroid fine needle biopst and continual monitor of blood sugar. - Follow up with Dr. Chavira for HIV/HCV outpt treatment - Follow up with Dr. Newsome for pancytopenia - Follow up with OBGYN for endometrial fluid S/D/R/w Dr. Terrell
[2017-09-02] MEDS: Enoxaparin 40 mg Syringe SC SCH (10:35)
[2017-09-02] MEDS ORDERED: Insulin Human NPH/Reg 70/30 Vial(3 ml) SC SCH (16:30)
--- NOTE | 2017-09-02 16:39 | PN ---
DATE: 09/02/2017 SUBJECTIVE: The patient is in bed, in no acute distress. PHYSICAL EXAMINATION: VITAL SIGNS: Temperature is 98, blood pressure is 116/80, respiratory rate of 16. HEENT: Unremarkable. NECK: Supple. LUNGS: Have decreased breath sounds. HEART: Normal S1 and S2. ABDOMEN: Soft, nontender. No organomegaly. No rebound or guarding. No masses. Laboratory examination is noted, and review of orders reveals the patient to be on cefazolin. ASSESSMENT AND PLAN: A 67-year-old female, seen earlier today. Chronic active hepatitis C infection, positive HIV infection with group B strep urinary tract infection, pancytopenia, and on day #7 of cefazolin; may be switched to p.o. Keflex to complete therapy. Enmanuel Chavira MD
[2017-09-02 17:56] VITALS: BP 131/88; PULSE 100; TEMP 97.5; O2SAT 97
--- NOTE | 2017-09-02 21:43 | CP.PCM.DIS ---
Provider - Provider Date of Admission: 08/23/17 12:56 Attending physician: Isaías Terrell MD Primary care physician: Endocrinology = Dr. Nichole Mendoza Heme/onc = Dr. Newsome ID = Dr. Chavira GI = Dr. Boo Time Spent in preparation of Discharge (in minutes): 50 Diagnosis - Discharge Diagnosis (1) DKA (diabetic ketoacidosis) Status: Acute (2) Pancytopenia Status: Acute (3) Hypertension Status: Chronic (4) Acidosis Status: Acute (5) Dehydration Status: Acute (6) Hyperglycemia Status: Acute (7) Noncompliance Status: Chronic (8) Uncontrolled diabetes mellitus Status: Chronic Hospital Course - Lab Results Lab Results: Micro Results 08/30/17 18:00 Nose MRSA Culture (Admit) - Final MRSA NOT DETECTED 08/30/17 19:50 Urine Urine Culture - Final No Growth (<1,000 CFU/ML) 08/26/17 12:45 Blood-Venous Blood Culture - Final NO GROWTH AFTER 5 DAYS 08/26/17 12:45 Blood-Venous Gram Stain - Final TEST NOT PERFORMED 08/26/17 12:30 Blood-Venous Blood Culture - Final NO GROWTH AFTER 5 DAYS 08/26/17 12:30 Blood-Venous Gram Stain - Final TEST NOT PERFORMED 08/23/17 13:50 Urine Urine Culture - Final Beta Hemolytic Strep Group B 08/25/17 12:00 Urine Urine Culture - Final Beta Hemolytic Strep Group B 08/23/17 14:50 Naris MRSA Culture (Admit) - Final MRSA DETECTED Most Recent Lab Values WBC 4.8 10^3/ul (4.5-11.0) D 08/31/17 07:30 RBC 4.41 10^6/uL (3.5-6.1) 08/31/17 07:30 Hgb 11.9 g/dL (12.0-16.0) L 08/31/17 07:30 Hct 36.2 % (36.0-48.0) 08/31/17 07:30 MCV 82.1 fl (80.0-105.0) 08/31/17 07:30 MCH 27.0 pg (25.0-35.0) 08/31/17 07:30 MCHC 32.9 g/dl (31.0-37.0) 08/31/17 07:30 RDW 12.9 % (11.5-14.5) 08/31/17 07:30 Plt Count 86 10^3/uL (120.0-450.0) L 08/31/17 07:30 Manual Plt Count 125 K/mm3 (120-450) 08/31/17 07:30 MPV 12.6 fl (7.0-11.0) H 08/30/17 06:00 Gran % 40.5 % (50.0-68.0) L 08/31/17 07:30 Lymph % (Auto) 43.7 % (22.0-35.0) H 08/31/17 07:30 George % (Auto) 11.2 % (1.0-6.0) H 08/31/17 07:30 Eos % (Auto) 4.0 % (1.5-5.0) 08/31/17 07:30 Baso % (Auto) 0.6 % (0.0-3.0) 08/31/17 07:30 Gran # 1.95 (1.4-6.5) 08/31/17 07:30 Lymph # 2.1 (1.2-3.4) 08/31/17 07:30 George # 0.5 (0.1-0.6) 08/31/17 07:30 Eos # 0.2 (0.0-0.7) 08/31/17 07:30 Baso # 0.03 K/mm3 (0.0-2.0) 08/31/17 07:30 Retic Count 1.22 % (0.5-1.5) 08/28/17 07:30 PT 12.2 SECONDS (9.4-12.5) 08/27/17 05:30 INR 1.11 (0.93-1.08) H 08/27/17 05:30 APTT 25.6 Seconds (25.1-36.5) 08/27/17 05:30 Fibrinogen 230 mg/dl (200-393) 08/26/17 10:10 Fibrin Degrad Products <10 ug/ml (< 10 ug/mL) 08/26/17 10:10 pO2 26 mm/Hg (30-55) L 08/26/17 12:45 VBG pH 7.35 (7.32-7.43) 08/26/17 12:45 VBG pCO2 52.0 (40-60) 08/26/17 12:45 VBG HCO3 28.7 mmol/l (21-28) H 08/26/17 12:45 VBG Total CO2 30.3 mmol.L (22-28) H 08/26/17 12:45 VBG O2 Sat (Calc) 54.0 % (40-65) 08/26/17 12:45 VBG Base Excess 2.1 mmol/L (0.0-2.0) H 08/26/17 12:45 VBG Potassium 4.2 mmol/L (3.6-5.2) 08/26/17 12:45 Sodium 139.0 mmol/L (132-148) 08/26/17 12:45 Chloride 106.0 mmol/L (98-107) 08/26/17 12:45 Glucose 167 mg/dl (65-105) H 08/26/17 12:45 Lactate 1.1 mmol/L (0.7-2.1) 08/26/17 12:45 FiO2 21.0 % 08/26/17 12:45 Sodium 138 mmol/L (132-148) 08/31/17 07:30 Potassium 4.1 mmol/L (3.6-5.0) 08/31/17 07:30 Chloride 107 mmol/L (98-107) 08/31/17 07:30 Carbon Dioxide 25 mmol/L (21-33) 08/31/17 07:30 Anion Gap 11 (10-20) 08/31/17 07:30 BUN 17 mg/dL (7-21) 08/31/17 07:30 Creatinine 0.7 mg/dl (0.7-1.2) 08/31/17 07:30 Est GFR ( Amer) > 60 08/31/17 07:30 Est GFR (Non-Af Amer) > 60 08/31/17 07:30 POC Glucose (mg/dL) 133 mg/dL (65-110) H 09/02/17 15:56 Random Glucose 98 mg/dL (70-110) 08/31/17 07:30 Hemoglobin A1c 12.5 % (4.2-6.5) H D 08/23/17 13:40 Fructosamine 356 umol/L (190-270) H 08/24/17 06:30 Lactic Acid 1.3 mmol/L (0.7-2.1) 08/28/17 07:30 Uric Acid 4.0 mg/dL (2.5-6.2) 08/25/17 06:15 Calcium 9.0 mg/dL (8.4-10.5) 08/31/17 07:30 Phosphorus 3.9 mg/dL (2.5-4.5) 08/29/17 06:10 Magnesium 1.7 mg/dL (1.7-2.2) 08/29/17 06:10 Erythropoietin 17.7 mIU/mL (2.6-18.5) 08/27/17 05:30 Ferritin 108.0 ng/mL 08/28/17 07:30 Total Bilirubin 0.4 mg/dL (0.2-1.3) 08/31/17 07:30 Direct Bilirubin 0.4 mg/dL (0.0-0.4) 08/31/17 07:30 AST 48 U/L (14-36) H 08/31/17 07:30 ALT 64 U/L (7-56) H 08/31/17 07:30 Alkaline Phosphatase 61 U/L (38-126) 08/31/17 07:30 Total Creatine Kinase 46 U/L (35-230) 08/24/17 05:30 Troponin I 0.01 ng/mL 08/24/17 05:30 Total Protein 6.7 g/dL (5.8-8.3) 08/31/17 07:30 Albumin 3.2 g/dL (3.0-4.8) 08/31/17 07:30 Globulin 3.6 gm/dL 08/31/17 07:30 Albumin/Globulin Ratio 0.9 (1.1-1.8) L 08/31/17 07:30 Prealbumin 13.6 mg/dL (17.6-36.0) L 08/27/17 05:30 Triglycerides 74 mg/dL (35-160) 08/24/17 06:30 Cholesterol 151 mg/dL (130-200) 08/24/17 06:30 LDL Cholesterol Direct 47 mg/dL (0-129) 08/24/17 06:30 HDL Cholesterol 73 mg/dL (29-60) H 08/24/17 06:30 Amylase 92 U/L (35-125) 08/23/17 11:45 Lipase 52 U/L (23-300) 08/23/17 11:45 Vitamin B12 554 pg/mL (239-931) 08/28/17 07:30 25-OH Vitamin D Total 15.9 NG/ML (30.0-100.0) L 08/26/17 06:15 Folate 8.9 ng/mL 08/28/17 07:30 Procalcitonin < 0.05 NG/ML (0.19-0.49) L 08/26/17 10:30 Free T4 1.51 ng/dL (0.78-2.19) 08/24/17 05:30 Thyroxine (T4) 13.8 ug/dL (5.5-11.0) H 08/24/17 05:30 TSH 3rd Generation 0.74 mIU/mL (0.46-4.68) 08/24/17 05:30 Venous Blood Potassium 4.2 mmol/L (3.6-5.2) 08/26/17 12:45 Urine Color Straw (YELLOW) 08/23/17 13:50 Urine Appearance Clear (CLEAR) 08/23/17 13:50 Urine pH 6.0 (4.7-8.0) 08/23/17 13:50 Ur Specific Robins 1.015 (1.005-1.035) 08/23/17 13:50 Urine Protein 30 mg/dL (<30 mg/dL) H 08/23/17 13:50 Urine Glucose (UA) >=1000 mg/dL (NEGATIVE) 08/23/17 13:50 Urine Ketones 15 mg/dL (NEGATIVE) H 08/23/17 13:50 Urine Blood Small (NEGATIVE) H 08/23/17 13:50 Urine Nitrate Negative (NEGATIVE) 08/23/17 13:50 Urine Bilirubin Negative (NEGATIVE) 08/23/17 13:50 Urine Urobilinogen 0.2 E.U./dL (<1 E.U./dL) 08/23/17 13:50 Ur Leukocyte Esterase Negative Leonid/uL (NEGATIVE) 08/23/17 13:50 Urine RBC 0 - 2 /hpf (0-2) 08/23/17 13:50 Urine WBC 0 - 2 /hpf (0-6) 08/23/17 13:50 Ur Epithelial Cells 0 - 2 /hpf (0-5) 08/23/17 13:50 Urine Bacteria Trace (NEG) 08/23/17 13:50 Copper 87 mcg/dL (70-175) 08/28/17 07:30 Thyroperoxidase Ab <1 IU/mL (<9) 08/24/17 05:30 Thyroglobulin Antibody <1 IU/mL (< OR = 1) 08/24/17 05:30 Absolute Lymphs (Flow) 1746 Cells/mcL (850-3900) 08/27/17 13:30 % CD3 Cells 70 Percent (57-85) 08/27/17 13:30 Absolute CD3 Count 1249 Cells/mcL (840-3060) 08/27/17 13:30 % CD3-/CD16+/CD56+ 8 Percent (4-25) 08/27/17 13:30 % CD4 Cells 48 Percent (30-61) 08/27/17 13:30 Absolute CD4 Count 867 Cells/mcL (490-1740) 08/27/17 13:30 T-Help/Suppress Ratio 2.35 Ratio (0.86-5.00) 08/27/17 13:30 % CD8 Cells 20 Percent (12-42) 08/27/17 13:30 Absolute CD8 Count 369 Cells/mcL (180-1170) 08/27/17 13:30 Absolute CD16/CD56 Count 145 Cells/mcL (70-760) 08/27/17 13:30 % CD19 Cells 19 Percent (6-29) 08/27/17 13:30 Absolute CD19 Count 339 Cells/mcL (110-660) 08/27/17 13:30 Hepatitis A IgM Ab Negative (NEGATIVE) 08/24/17 06:30 Hep Bs Antigen Negative (NEGATIVE) 08/24/17 06:30 Hep B Core IgM Ab Negative (NEGATIVE) 08/24/17 06:30 Hepatitis C Antibody Reactive (NEGATIVE) 08/24/17 06:30 HCV RNA Genotype LiPA 1a (Not Detected) H 08/25/17 11:30 HCV RNA (PCR) IUs/ml 1131833 IU/mL (<15) H 08/25/17 11:30 HCV RNA PCR log IUs/ml 6.09 Log IU/mL (<1.18) H 08/25/17 11:30 HIV-1 Antibody Positive (Negative) H 08/24/17 06:30 HIV-1 RNA copies/mL <20 not detected copies/mL (<20) 08/27/17 13:30 HIV-1 RNA logcopies/mL <1.30 not detected (<1.30) 08/27/17 13:30 HIV-1 Genotyping (()) 08/27/17 13:30 HIV-2 Antibody Negative (Negative) 08/24/17 06:30 HIV 1&2 Ag/Ab, 4th Gen Reactive (Nonreactive) H 08/24/17 06:30 TB Test (QFT) Nil 0.03 IU/mL 08/28/17 07:30 TB Test Mitogen - Nil 8.27 IU/mL 08/28/17 07:30 TB Test TB - Nil 0.01 IU/mL 08/28/17 07:30 TB Test (QFT) Negative (Negative) 08/28/17 07:30 - Hospital Course Hospital Course: Ms Addison, 67 AAF, with hearing impairment with PMHx hep c untreated, uncontrolled diabetes, type 2 insulin-dependent, admitted with DKA with dehydration due to drug omission. She was downgraded from ICU after anion gap is closed. She was found to have new onset pancytopenia in the setting of chronic HCV and positive urine culture (GBS) treated with cefazolin. Her hepatitis C is chronic active Hepatitis C infection. She is found to be HIV 1 positive with CD4 count and low viral load. She has history of H. pylori infection with associated esophageal and gastric ulcers, questionable treatment. She is undernutrient, prealbumin 13.6, started glucerna supplements. CT A/P with PO/IV contrast: small b/l pleural effusion with atelectasis; irregular thickening of bladder wall; no obstructive uropathy. Transvaginal and pelvic u/s for etiology: fibroids and endometrial fluid. thyroid u/s: solid nodules with microcalcification, with the largest ones 10mm mid L lobe. Pt has MRSA in nares s/p bactroban top BID x 5d Pt cannot afford insulin kwikpen and the insulin formulation was changed to vial. Diabetic education department chair and RN has conducted teaching sessions for insulin administration. Pt is medically stable and is discharge home Discharge planning - Per physical therapy, not a candidate for skilled service, recommend home - Follow up with Dr. Terrell 1-2 weeks after discharge. - Follow up with Dr. Mendoza (warehouse receiving supervisor) in 1-2 weeks after discharge, for diabetes and hyperthyroid management. Pt may need outpatient thyroid fine needle biopst and continual monitor of blood sugar. - Follow up with Dr. Chavira for HIV/HCV outpt treatment - Follow up with Dr. Newsome for pancytopenia - Follow up with OBGYN for endometrial fluid Discharge Exam - Head Exam Head Exam: ATRAUMATIC, NORMAL INSPECTION, NORMOCEPHALIC - Eye Exam Eye Exam: EOMI, Normal appearance, PERRL. absent: Scleral icterus Pupil Exam: NORMAL ACCOMODATION - ENT Exam ENT Exam: Mucous Membranes Moist - Neck Exam Additional comments: supple - Respiratory Exam Respiratory Exam: Clear to PA & Lateral, NORMAL BREATHING PATTERN, UNREMARKABLE - Cardiovascular Exam Cardiovascular Exam: REGULAR RHYTHM, +S1, +S2 - GI/Abdominal Exam GI & Abdominal Exam: Normal Bowel Sounds, Soft, Unremarkable. absent: Distended , Guarding, Rigid - Extremities Exam Extremities exam: normal capillary refill, pedal pulses present Additional comments: wili neg b/l - Back Exam Back exam: absent: CVA tenderness (L), CVA tenderness (R) - Neurological Exam Neurological exam: Alert, Oriented x3 - Psychiatric Exam Psychiatric exam: Normal Affect, Normal Mood - Skin Skin Exam: Dry, Warm Discharge Plan - Discharge Medications Prescriptions: Amoxicillin/Clavulanate [Augmentin 875 MG-125 MG] 1 tab PO BID #20 tab cloNIDine [Catapres] 0.1 mg PO BID #60 tab Ergocalciferol [Drisdol 50,000 Intl Units Cap] 1 cap PO Q7D #14 cap Glimepiride [amaRYL] 4 mg PO ACBD #60 tab Insulin Human NPH/Reg [humulin 70/30 70 U/Ml-30 U/Ml 10 Ml] 20 ml SC ACB #10 Insulin NPH Hum/Reg Insulin Hm [Humulin 70/30 Kwikpen] 10 unit SQ DIN #100 insuln.pen Lisinopril [Zestril] 2.5 mg PO DAILY #30 tab Metoprolol Tartrate [Lopressor] 25 mg PO BID #60 tab Nut.tx.gluc.intoler,Lac-Fr,Soy [Glucerna 1.5 Dameon 237 ml] 236 ml PO BID #30 feng Pantoprazole [Protonix EC Tab] 40 mg PO 0600 #30 ect - Follow Up Plan Condition: GUARDED Disposition: HOME/ ROUTINE Instructions: Pneumococcal Vaccine for Adults (GEN), Heart Healthy Diet (GEN), Diabetes Mellitus Type 2 in Adults (GEN), Hepatitis C (DC), Influenza Vaccine ( GEN), Basic Carbohydrate Counting (GEN), Hypertension (GEN) Additional Instructions: DISCHARGE HOME IF CLEARED BY ID REFER [facility] HOME HEALTH AIDE REFER TO CHARTER COORDINATOR DISCHARGE MEDS PER UPDATED AMBULATORY ORDERS AND NEW SCRIPTS FOLLOW UP DR.CAM TERRIE, DR.HAHN LEMOS WITHIN 1 WEEK. COPY OF DIABETIC DIET TO PATIENT UPON DISCHARGE. - Follow up with Dr. Terrell 1-2 weeks after discharge. - Follow up with Dr. Mendoza (warehouse receiving supervisor) in 1-2 weeks after discharge, for diabetes and hyperthyroid management. Pt may need outpatient thyroid fine needle biopsy and continual monitor of blood sugar. - Follow up with Dr. Chavira for HIV/HCV outpt treatment - Follow up with Dr. Newsome for pancytopenia - Follow up with OBGYN for endometrial fluid Referrals: Enmanuel Chavira MD [Staff Provider] - 1 Week (DISCHARGE HOME IF CLEARED BY ID REFER [facility] HOME HEALTH AIDE REFER TO CHARTER COORDINATOR DISCHARGE MEDS PER UPDATED AMBULATORY ORDERS AND NEW SCRIPTS FOLLOW UP DR.CAM TERRIE, WITHIN 1 WEEK. COPY OF DIABETIC DIET TO PATIENT UPON DISCHARGE.) Nichole Mendoza MD [Medical Doctor] - 1 Week (DISCHARGE HOME IF CLEARED BY ID REFER [facility] HOME HEALTH AIDE REFER TO CHARTER COORDINATOR DISCHARGE MEDS PER UPDATED AMBULATORY ORDERS AND NEW SCRIPTS FOLLOW UP DR.CAM TERRIE, WITHIN 1 WEEK. COPY OF DIABETIC DIET TO PATIENT UPON DISCHARGE.) Waldemar Boo MD [Staff Provider] - 1 Week (DISCHARGE HOME IF CLEARED BY ID REFER [facility] HOME HEALTH AIDE REFER TO CHARTER COORDINATOR DISCHARGE MEDS PER UPDATED AMBULATORY ORDERS AND NEW SCRIPTS FOLLOW UP DR.CAM TERRIE, WITHIN 1 WEEK. COPY OF DIABETIC DIET TO PATIENT UPON DISCHARGE.) Isaías Terrell MD [Staff Provider] - 1 Week (DISCHARGE HOME IF CLEARED BY ID REFER [facility] HOME HEALTH AIDE REFER TO CHARTER COORDINATOR DISCHARGE MEDS PER UPDATED AMBULATORY ORDERS AND NEW SCRIPTS FOLLOW UP , , WITHIN 1 WEEK. COPY OF DIABETIC DIET TO PATIENT UPON DISCHARGE.)
--- NOTE | 2017-09-02 22:03 | PN ---
ENDO FOLLOWUP NOTE DATE: ROOM: 561. SUBJECTIVE: This is a 67-year-old female with recent uncontrolled type 2 insulin-requiring diabetes now being followed closely for metabolic management. Her oral intake is quite variable at this time with supervening hypoglycemic range episodes and the glucose values today have ranged from 52-89 and 164 mg/dl. So at this time, we will modify once again her basal and premixed insulin regimen and lower the Humulin 70/30 to 16 units a.c. breakfast to start tomorrow morning. We will also lower the morning dose regimen for Humulin 70/30 given as 16 units a.c. breakfast and 8 units a.c. dinner to start tonight. We will titrate incrementally as indicated to optimize metabolic control. We will also modify the coverage scale to rowan hypoglycemia and detailed orders have been given. We will obtain serial chemistries and supplement accordingly needed. We will follow. Nichole Mendoza MD
--- NOTE | 2017-09-03 03:11 | DS ---
HISTORY OF PRESENT ILLNESS: The patient's discharge from yesterday was delayed because of prescription plan issues. Now today, the patient's medications were arranged through the social media assistant as the patient does not have a prescription plan. The patient was seen lying in the bed in room 561, bed 1. Overnight nurse's notes were reviewed. The patient's vp digital marketing social media and crm and test case developer saw the patient today. The patient was re-educated by the extension educator. The patient was seen by the social media assistant regarding discharge medications arrangements. The patient was also arranged Glucerna by the social media assistant. The patient was also arranged diabetic supplies and medications to be delivered to the patient. The patient was seen by the extension educator, Lizbet Jaeger. The patient stated that the patient has been using insulin for 25 years and she knows how to use insulin. The patient's medications and diabetic supplies will be delivered to the patient by the prescription vet assistant plan. PHYSICAL EXAMINATION: VITAL SIGNS: The patient's T-max was 98.4, pulse 68, 94, 68, 60, blood pressure 031/88, 116/83, 126/86, 129/77, respirations 18, O2 sat 97%. HEENT: Head examination; normocephalic, atraumatic. HEENT examination shows pinkish conjunctivae. Anicteric sclerae. No oropharyngeal lesion. No neck rigidity. CHEST: Kyphosis. LUNGS: Examination shows no rales, crackles or wheezing. CARDIOVASCULAR: Examination S1, S2, regular rhythm. Questionable soft systolic murmur, left sternal border, left second intercostal space, right second intercostal space. ABDOMEN: Soft. Positive bowel sounds. Nontender. GENITALIA: Female. RECTAL: Deferred. EXTREMITIES: Shows pitting edema, no calf tenderness, no Homans' sign. NEUROLOGIC: The patient is alert, awake, oriented x3. Cranial nerves II-XII intact. Gait examination not tested. VASCULAR: Palpable pulses. The patient is deaf. LABORATORY DATA: Fingerstick blood sugar 133, 89, 164, 209, 200. The patient's copper level was negative. The patient's repeat urine culture, MRSA nondetected. Blood cultures negative. FINAL IMPRESSION, PLAN, AND DISCHARGE DIAGNOSES: 1. Diabetic ketoacidosis (resolved). 2. Increased anion gap metabolic acidosis and lactic acidosis. 3. Hypertension. 4. Deaf patient. 5. Group B beta-hemolytic Streptococcus urinary tract infection. 6. Pancytopenia, leukopenia, anemia, thrombocytopenia. 7. Increased anion gap metabolic acidosis and lactic acidosis. 8. Uncontrolled insulin-requiring diabetes mellitus with hyperglycemia and uncontrolled diabetes mellitus and decompensated diabetes mellitus with diabetic ketoacidosis and hemoglobin A1c of 12.5. 9. Elevated fructose with mean of 356. 10. Transaminitis. 11. Hepatitis C. 12. Human immunodeficiency virus positive. 13. Hypovitaminosis D. 14. Elevated HDL of 118. 15. Hepatitis C antibody reactive with hepatitis C RNA genotype 1A and hepatitis PCR RNA, quantitative is 1,230,624 with hepatitis C RNA PCR log international units 6.09. 16. Human immunodeficiency virus positive reactivity. 17. Chronic active hepatitis C infection. PLAN: At this time, the patient is to be discharged home. The patient's case referred to social media assistant for discharge planning. Discharge followup with Dr. Chavira, Dr. Nichole Mendoza, Dr. Boo, Dr. Terrell. The patient is to be discharged home. The patient's case is referred to home health aide, extension educator. Discharge medications as per updated ambulatory orders and new scripts. Follow up with Dr. Terrell, Dr. Mendoza, Dr. Boo and Dr. Chavira within 1 week. Copy of diabetic diet to the patient upon discharge. The patient also advised to follow up with Hematology/Oncology and LICSW. DISCHARGE MEDICATIONS: Augmentin 875 twice a day for 10 days, Catapres, clonidine 0.1 mg twice a day, Drisdol 50,000 units weekly, Amaryl 4 mg twice a day, Humulin 70/30 mix 20 units with breakfast and 10 units with dinner, Zestril 2.5 mg daily, Lopressor 25 mg twice a day, Glucerna twice a day, Protonix 40 mg daily. During this hospitalization, the patient was extensively explained about the details of her medical condition, diagnosis, test results including the test results of HIV and hepatitis C was extensively explained to the patient on multiple occasions through the design editor. On the day of the discharge, the patient was explained all the details by Dr. Palak Deleon through the design editor which the patient acknowledged and understand. The patient was seen prior to discharge by extension educator, social media assistant and case management. Time spent in the entire discharge process more than 45 minutes. Dictated and electronically signed, not read. Isaías Terrell MD
[2017-09-03] MEDS ORDERED: Insulin Human NPH/Reg 70/30 Vial(3 ml) SC SCH (07:30)
== END 2017-09-02 23:16 | disposition home or self-care (01) | DRG 638 ==
LOC: ED 11:16 → ERH 12:56 → CCU 14:11 → 5RNO 08-24 16:23
PROVIDERS: ADMIT Internal Medicine; ATTEND Internal Medicine
DX: E11.10 Type 2 diabetes mellitus with ketoacidosis without coma (principal); D61.818 Other pancytopenia; E83.39 Other disorders of phosphorus metabolism; N28.1 Cyst of kidney, acquired; N39.0 Urinary tract infection, site not specified; Z21 Asymptomatic human immunodeficiency virus [HIV] infection status; I10 Essential (primary) hypertension; Z79.4 Long term (current) use of insulin; E86.0 Dehydration; B18.2 Chronic viral hepatitis C; B95.1 Streptococcus, group B, as the cause of diseases classified elsewhere; E55.9 Vitamin D deficiency, unspecified; E78.00 Pure hypercholesterolemia, unspecified; H91.3 Deaf nonspeaking, not elsewhere classified; R80.9 Proteinuria, unspecified; E11.649 Type 2 diabetes mellitus with hypoglycemia without coma; R00.0 Tachycardia, unspecified; R26.9 Unspecified abnormalities of gait and mobility; E04.2 Nontoxic multinodular goiter; D25.0 Submucous leiomyoma of uterus; D25.1 Intramural leiomyoma of uterus; D50.9 Iron deficiency anemia, unspecified; Z91.14 Patient's other noncompliance with medication regimen; Z87.11 Personal history of peptic ulcer disease; Z86.19 Personal history of other infectious and parasitic diseases